=== PATIENT | male | born 1940 | race Caucasian/White ===

== ENCOUNTER 2018-01-17 11:01 | Day surgery (SDC) | payer MEDICARE, OTHER ==
[2018-01-17] MEDS ORDERED: Ringers Lactate 1,000 ML IV ONE ×2 (11:24→14:09)
[2018-01-17] MEDS ORDERED: GENTAMICIN 80 MG/100 ML BAG 80 MG/100 ML BAG IV ONE (11:25)
[2018-01-17] MEDS ORDERED: LABETALOL HCL 100 MG/20 ML ONE (11:37)
[2018-01-17] MEDS ORDERED: LABETALOL HCL 100 MG/20 ML IV ONE (12:03)
[2018-01-17] MEDS ORDERED: PROPOFOL 200 MG/20 ML VIAL IV ONE (12:56)
[2018-01-17] MEDS ORDERED: FENTANYL CITR 100 MCG/2 ML ONE (12:57)
[2018-01-17] MEDS ORDERED: LIDOCAINE 2% MPF 5 ML VIAL ONE (12:57)
[2018-01-17] MEDS ORDERED: ONDANSETRON 4 MG/2 ML VIAL ONE (12:58)
[2018-01-17 14:29] VITALS: TEMP 97.1; O2SAT 100
[2018-01-17 14:53] VITALS: BP 188/76
== END 2018-01-17 14:45 | disposition home or self-care (01) ==
LOC: OR 11:01
PROVIDERS: ATTEND Urology
DX: R39.14 Feeling of incomplete bladder emptying; Z87.891 Personal history of nicotine dependence; Z82.3 Family history of stroke; Z98.52 Vasectomy status; Z80.0 Family history of malignant neoplasm of digestive organs; N40.1 Benign prostatic hyperplasia with lower urinary tract symptoms; K51.90 Ulcerative colitis, unspecified, without complications; N39.0 Urinary tract infection, site not specified; I10 Essential (primary) hypertension; R35.0 Frequency of micturition
CPT/HCPCS: 52441; 52442 ×4; J1580; J2405; J3010

== ENCOUNTER 2021-01-14 14:05 | Emergency (ER) | payer OTHER ==
--- OUTSIDE RECORDS SUMMARY | 2021-01-14 14:09 | XMS REPORT | Continuity of Care Document ---
:1940 Author Organization [facility] t Address [address] [place] [address] Care Team Providers Name Role Phone Unavailable Unavailable Unavailable Problems This patient has no known problems. Allergies, Adverse Reactions, Alerts This patient has no known allergies or adverse reactions. Medications Ordered Filled Start Stop Current Ordering Indication Dosage Frequency Signature Comments Components Source Medication Medication Date Date Medication? Clinician (SIG) Name Name Nystatin Nystatin 2020- No Na Rosenbaum [address] [facility] 00 :00 affected l area Outpat[facility] ent Clinics Nystatin Nystatin 2019- No Na Rosenbaum [address] 605-03 [facility] l [facility] Clinics Fluconazole Fluconazole 2018- 2019- No Na Rosenbaum [address] [facility] 04-05 [facility] l [facility] ent Clinics Atorvastati Atorvastati 2018-0 Yes Na Rosenbaum [address] [facility] n Calcium n Calcium 5-25 [facility]: [facility] l Outpati ent Clinics Aspirin Aspirin Yes Na Rosenbaum [address] [facility] Lisinopril- Lisinopril- Yes Na Rosenbaum [address] [facility] Hydrochloro Hydrochloro L [facility] - thiazide thiazide [facility] Amlodipine Amlodipine Yes Na Rosenbaum [address] [facility] Besylate Besylate [facility] Atorvastati Atorvastati Yes Na Rosenbaum [address] [facility] n Calcium n Calcium [facility] l Outpati ent Clinics Lisinopril Lisinopril Yes Na Rosenbaum [address] [facility] Outpati ent Clinics Amlodipine Amlodipine Yes Na Rosenbaum [address] [facility] [address] Besylate Besylate [facility] Outpati ent Clinics Clobetasol Clobetasol Yes Na Rosenbaum APPLY TO [facility] Propionate Propionate [facility] - AFFECTED [facility] AREA TWICE l DAILY FOR Outpati 90 DAYS ent DIRECTED Clinics Sulfasalazi Sulfasalazi 2020- Na Rosenbaum take [address] [facility] ne ne 12-30 tablets by [facility] - 00:00 mouth [facility] :00 twice l daily Outpati ent Clinics Procedures This patient has no known procedures. Encounters Start End Encounter Admission Attending Care Care Encounter Source Date/Time Date/Time Type Type Clinicians Facility Department ID 2020-10-02 2020-10-[address] [facility] [id number] 2020-10-02 2020-10-[address] [facility] [id number] [facility] 2020-05-20 2020-05-20 [facility] [id number] [facility] [address] 13:53:00 13:53:00 [facility] Medicine Outpati ent Clinics 2020-04-22 2020-04-22 [facility] [id number] [address] 14:52:00 14:52:00 t [facility] Medicine Medicine Outpati ent Clinics 2020-04-03 2020-04-03 [facility] [id number] 08:40:00 08:40:00 t [facility] Medicine Outpati ent Clinics 2019-10-04 2019-10-04 [facility] [id number] [address] 08:20:00 08:20:00 [employer] [facility] Medicine Outpati ent Clinics 2019-04-05 2019-04-05 [facility] [id number] [facility] [address] 16:20:00 16:20:00 t [place] [email or web address] [facility] [employer] [facility] 2019-02-25 2019-02-25 [facility] [id number] 15:17:00 15:17:00 t [place] [email or web address] [facility] - Drive [facility] ent Clinics 2018-07-25 2018-07-25 [facility] [id number] [address] 14:00:00 14:00:00 t [facility] - and Joint Joint [facility] a Clinic of [facility] ent Clinics 2018-03-23 2018-03-23 [facility] [id number] 08:15:00 08:15:00 t [facility] ent Clinics Results This patient has no known results.
--- NOTE | 2021-01-14 14:40 | RAD REPORT ---
EXAM DESCRIPTION: CT - Head Brain Wo Cont - 01/14/2021 2:33 pm CLINICAL HISTORY: DIZZINESS, head trauma, laceration to the top left-sided head COMPARISON: HEAD BRAIN W O CONTRAST dated 11/30/2011 TECHNIQUE: Axial 5 mm thick images of the head were obtained without IV contrast. All CT scans are performed using dose optimization technique as appropriate and may include automated exposure control or mA/KV adjustment according to patient size. FINDINGS: No intracranial hemorrhage, mass, edema or shift of mid-line structures. No acute cortical based infarction, cortical edema or sulcal effacement. Atrophy changes are mild and similar to paige rison. Chronic ischemic changes also appear to be minimal. Arterial and physiologic calcifications ar e present. No abnormal extra-axial fluid collections. Ventricles are normal. Mastoid air cells and visualized portions of the paranasal sinuses are clear. No acute bony findings. IMPRESSION: Negative non-contrast CT head examination for acute finding. No significant change from comparison.
--- NOTE | 2021-01-14 15:36 | ER ---
Nurse's Notes [facility] Name: Ayad Ruiz Age: 80 yrs Sex: Male : 1940 Arrival Date: 01/14/2021 Time: 14:08 Bed 13 Private MD: Diagnosis: Concussion without loss of consciousness;Superficial injury of head Presentation: 01/14 14:15 Chief complaint: Patient states: Banged head on the light post at the garage yesterday ca1 at 0900. lac on top of L side of head. Didn't feel anything until today, reports lightheaded, feeling woozy. Denies N/V. Denies LOC. Not on blood thinners. Coronavirus screen: Client denies travel out of the [place] in the last 14 days. At this time, the client does not indicate any symptoms associated with coronavirus-19. Ebola Screen: Patient negative for fever greater than or equal to 101.5 degrees Fahrenheit, and additional compatible Ebola Virus Disease symptoms Patient denies exposure to infectious person. Patient denies travel to an Ebola-affected area in the 21 days before illness onset. No symptoms or risks identified at this time. Mechanism of Injury: resulted from. Initial Sepsis Screen: Does the patient meet any 2 criteria? No. Patient's initial sepsis screen is negative. Does the patient have a suspected source of infection? No. Patient's initial sepsis screen is negative. Risk Assessment: Do you want to hurt yourself or someone else? Patient reports no desire to harm self or others. 14:15 Method Of Arrival: Ambulatory ca1 14:15 Acuity: CHANDLER 4 ca1 Historical: - Allergies: 14:21 No Known Allergies; ca1 - Home Meds: 14:21 lisinopril oral [Active]; Lipitor Oral [Active]; Sulfazine oral oral [Active]; ca1 amlodipine oral [Active]; - PMHx: 14:21 Hypertension; ulcerative colitis; ca1 - PSHx: 14:21 None; ca1 - Immunization history:: Client reports receiving the 2nd dose of the Covid vaccine, Date received: December 08, 2020 Pneumococcal vaccine is up to date, Flu vaccine is up to date. - Social history:: Smoking status: Patient denies any tobacco usage or history of. Screenin:41 Abuse screen: Denies threats or abuse. Denies injuries from another. Nutritional jl7 screening: No deficits noted. Tuberculosis screening: No symptoms or risk factors identified. Fall Risk None identified. Assessment: 15:20 General: Appears in no apparent distress. uncomfortable, Behavior is calm, cooperative, jl7 appropriate for age. Pain: Complains of pain in left side of the back of head. Neuro: Level of Consciousness is awake, alert, obeys commands, Oriented to person, place, time, situation. Cardiovascular: Patient's skin is warm and dry. Respiratory: Airway is patent Respiratory effort is even, unlabored, Respiratory pattern is regular, symmetrical. Derm: Skin is pink, warm \T\ dry. Vital Signs: 14:15 BP 184 / 85; Pulse 100; Resp 16 S; Temp 97.3(TE); Pulse Ox 98% on R/A; Weight 72.57 kg ca1 (R); Height 5 ft. 11 in. (180.34 cm) (R); Pain 0/10; 14:15 Body Mass Index 22.32 (72.57 kg, 180.34 cm) ca1 [place] Coma Score: 14:15 Eye Response: spontaneous(4). Verbal Response: oriented(5). Motor Response: obeys [facility] commands(6). Total: 15. 15:20 Eye Response: spontaneous(4). Verbal Response: oriented(5). Motor Response: obeys [facility] commands(6). Total: 15. NIH Stroke Scale Scores: 15:19 NIHSS Score: 0 [facility] ED Course: 14:08 Patient arrived in ED. bg2 14:19 Triage completed. ca1 14:21 Arm band placed on right wrist. ca1 14:33 CT Head Brain wo Cont In Process Unspecified. EDMS 15:01 Tariq Jacques PA is PHCP. jr8 15:01 Willie Carrasco MD is Attending Physician. jr8 15:17 Jason Trevizo RN is Primary Nurse. jl7 15:30 Patient has correct armband on for positive identification. Bed in low position. Call jl7 light in reach. Side rails up X 1. 15:42 No provider procedures requiring assistance completed. Patient did not have IV access jl7 during this emergency room visit. Administered Medications: No medications were administered Outcome: 15:35 Discharge ordered by . jr8 15:42 Discharged to home ambulatory. jl7 15:42 Condition: stable 15:42 Discharge instructions given to patient, Instructed on discharge instructions, follow up and referral plans. Demonstrated understanding of instructions, follow-up care. 15:43 Patient left the ED. jl7 NIH Stroke Scale - NIH Stroke Score Date: 01/14/2021 Time: 15:19 Total Score = 0 1a. Level of Consciousness (LOC) - 0(Alert) 1b. Level of Consciousness (LOC) (Year \T\ Age) - 0(Both) 1c. 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 Best Gaze (Lateral Gaze Paresis) - 0(Normal) 3. Visual Field Loss - 0(No visual loss) 4. Facial Palsy - 0(Normal) 5a. Left Arm: Motor (10-second hold) - 0(No drift) 5b. Right Arm: Motor (10-second hold) - 0(No drift) 6a. Left Leg: Motor (5-second hold - always test supine) - 0(No drift) 6b. Right Leg: Motor (5-second hold - always test supine) - 0(No drift) 7. Limb Ataxia (finger/nose \T\ heel/archuleta - test with eyes open) - 0(Absent) 8. Sensory Loss (pinprick arms/legs/face) - 0(Normal) 9. Best Language: Aphasia (description/naming/reading) - 0(No aphasia) 10. Dysarthria (speech clarity - read or repeat words) - 0(Normal) 11. Extinction and Inattention (visual/tactile/auditory/spatial/personal) - 0(No abnormality) Initials: pedrito Signatures: Dispatcher [employer] EDMS Tariq Jacques PA PA jr8 Naz Rapp2 Jason Trevizo RN RN jl7 Kamila Freeman RN RN ca1
--- NOTE | 2021-01-14 15:37 | EDPHYS ---
Physician Documentation [facility] Name: Ayad Ruiz Age: 80 yrs Sex: Male : 1940 Arrival Date: 01/14/2021 Time: 14:08 Bed 13 Private MD: ED Physician Willie Carrasco HPI: 01/14 15:34 This 80 yrs old Male presents to ER via Ambulatory with complaints of Head jr8 Injury-Adult. 15:16 The patient or guardian reports abrasion. The complaints affect the left side of the jr8 back of head. Patient reports stepping up on stool and hitting head on light. He reports a laceration on crown but bleeding was easily controlled. He denies blood thinner use, LOC, or confusion. He reports feeling "lightheaded" but no other symptoms. . Historical: - Allergies: 14:21 No Known Allergies; ca1 - Home Meds: 14:21 lisinopril oral [Active]; Lipitor Oral [Active]; Sulfazine oral oral [Active]; ca1 amlodipine oral [Active]; - PMHx: 14:21 Hypertension; ulcerative colitis; ca1 - PSHx: 14:21 None; ca1 - Immunization history:: Client reports receiving the 2nd dose of the Covid vaccine, Date received: December 08, 2020 Pneumococcal vaccine is up to date, Flu vaccine is up to date. - Social history:: Smoking status: Patient denies any tobacco usage or history of. ROS: 15:17 Cardiovascular: Negative for chest pain, palpitations, and edema, Respiratory: Negative jr8 for shortness of breath, cough, wheezing, and pleuritic chest pain, Abdomen/GI: Negative for abdominal pain, nausea, vomiting, diarrhea, and constipation, Back: Negative for injury and pain, Neuro: Negative for headache, weakness, numbness, tingling, and seizure. 15:17 Skin: Positive for laceration(s), of the scalp. 15:34 All other systems are negative. jr8 Exam: 15:19 Chest/axilla: Normal chest wall appearance and motion. Nontender with no deformity. jr8 No lesions are appreciated. Cardiovascular: Regular rate and rhythm with a normal S1 and S2. No gallops, murmurs, or rubs. Normal PMI, no JVD. No pulse deficits. Respiratory: Lungs have equal breath sounds bilaterally, clear to auscultation and percussion. No rales, rhonchi or wheezes noted. No increased work of breathing, no retractions or nasal flaring. Abdomen/GI: Soft, non-tender, with normal bowel sounds. No distension or tympany. No guarding or rebound. No evidence of tenderness throughout. Back: No spinal tenderness. No costovertebral tenderness. Full range of motion. MS/ Extremity: Pulses equal, no cyanosis. Neurovascular intact. Full, normal range of motion. 15:19 Head/face: Noted is a laceration(s), that is superficial, that is linear, of the left side of the back of head. 15:19 Neuro: Orientation: is normal, Mentation: is normal, Memory: is normal, Cerebellar function: Romberg testing slight sway, Motor: moves all fours, Gait: is steady. 15:34 Neck: Trachea midline, no thyromegaly or masses palpated, and no cervical jr8 lymphadenopathy. Supple, full range of motion without nuchal rigidity, or vertebral point tenderness. No Meningismus. Vital Signs: 14:15 BP 184 / 85; Pulse 100; Resp 16 S; Temp 97.3(TE); Pulse Ox 98% on R/A; Weight 72.57 kg ca1 (R); Height 5 ft. 11 in. (180.34 cm) (R); Pain 0/10; 14:15 Body Mass Index 22.32 (72.57 kg, 180.34 cm) ca1 NIH Stroke Scale Scores: 15:19 NIHSS Score: 0 jr8 [place] Coma Score: 14:15 Eye Response: spontaneous(4). Verbal Response: oriented(5). Motor Response: obeys ca1 commands(6). Total: 15. 15:20 Eye Response: spontaneous(4). Verbal Response: oriented(5). Motor Response: obeys jr8 commands(6). Total: 15. MDM: 15:01 Patient medically screened. jr8 15:20 Data reviewed: vital signs, nurses notes, radiologic studies. Data interpreted: Cardiac jr8 monitor: rate is 100 beats/min, rhythm is normal sinus rhythm, Pulse oximetry: on room air is 98 %. Interpretation: normal. Special discussion: Based on the patient's history, exam and DX evaluation, there is no indication for emergent intervention or inpatient [place]. It is understood by the patient/guardian that if the SXs persist or worsen they need to return immediately for re-evaluation. 15:30 Counseling: I had a detailed discussion with the patient and/or guardian regarding: the jr8 historical points, exam findings, and any diagnostic results supporting the discharge/admit diagnosis, radiology results, the need for outpatient follow up, a family practitioner, to return to the emergency department if symptoms worsen or persist or if there are any questions or concerns that arise at home. ED course: discussed with patient that he most likely has mild concussive symptoms. would relax for next few days. Needs PCP f/u. No strenuous activity . 01/14 14:25 Order name: CT Head Brain wo Cont; Complete Time: 15:01 kb Administered Medications: No medications were administered Disposition: 18:30 Co-signature as Attending Physician, Willie Carrasco MD I agree with the assessment and tw4 plan of care. Disposition: 01/14/21 15:35 Discharged to Home. Impression: Concussion without loss of consciousness, Superficial injury of head. - Condition is Stable. - Discharge Instructions: Concussion, Adult, Post-Concussion Syndrome. - Medication Reconciliation Form, Thank You Letter, Antibiotic Education, Prescription Opioid Use form. - Follow up: Private Physician; When: 2 - 3 days; Reason: Recheck today's complaints, Continuance of care, Re-evaluation by your physician. - Problem is new. - Symptoms have improved. NIH Stroke Scale - NIH Stroke Score Date: 01/14/2021 Time: 15:19 Total Score = 0 1a. Level of Consciousness (LOC) - 0(Alert) 1b. Level of Consciousness (LOC) (Year \\T\\ Age) - 0(Both) 1c. 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 Best Gaze (Lateral Gaze Paresis) - 0(Normal) 3. Visual Field Loss - 0(No visual loss) 4. Facial Palsy - 0(Normal) 5a. Left Arm: Motor (10-second hold) - 0(No drift) 5b. Right Arm: Motor (10-second hold) - 0(No drift) 6a. Left Leg: Motor (5-second hold - always test supine) - 0(No drift) 6b. Right Leg: Motor (5-second hold - always test supine) - 0(No drift) 7. Limb Ataxia (finger/nose \\T\\ heel/archuleta - test with eyes open) - 0(Absent) 8. Sensory Loss (pinprick arms/legs/face) - 0(Normal) 9. Best Language: Aphasia (description/naming/reading) - 0(No aphasia) 10. Dysarthria (speech clarity - read or repeat words) - 0(Normal) 11. Extinction and Inattention (visual/tactile/auditory/spatial/personal) - 0(No abnormality) Initials: jr8 Signatures: Dispatcher [employer] EDMS Tariq Jacques PA PA jr8 Jason Trevizo RN RN jl7 Willie Carrasco MD MD tw4 Kamila Freeman RN RN ca1 Corrections: (The following items were deleted from the chart) 15:36 15:35 01/14/2021 15:35 Discharged to Home. Impression: Concussion without loss jr8 of consciousness. Condition is Stable. Forms are Medication Reconciliation Form, Thank You Letter, Antibiotic Education, Prescription Opioid Use. Follow up: Private Physician; When: 2 - 3 days; Reason: Recheck today's complaints, Continuance of care, Re-evaluation by your physician. Problem is new. Symptoms have improved. jr8 15:43 15:36 01/14/2021 15:35 Discharged to Home. Impression: Concussion without loss jl7 of consciousness; Superficial injury of head. Condition is Stable. Discharge Instructions: Concussion, Adult, Post-Concussion Syndrome. Forms are Medication Reconciliation Form, Thank You Letter, Antibiotic Education, Prescription Opioid Use. Follow up: Private Physician; When: 2 - 3 days; Reason: Recheck today's complaints, Continuance of care, Re-evaluation by your physician. Problem is new. Symptoms have improved. jr8
[2021-01-14 15:54] VITALS: BP 184/85; TEMP 97.3; O2SAT 98
== END 2021-01-14 15:43 | disposition home or self-care (01) ==
LOC: ER 14:05
DX: S06.0X0A Concussion without loss of consciousness, initial encounter (principal); W22.8XXA Striking against or struck by other objects, initial encounter; Y93.89 Activity, other specified; Y92.9 Unspecified place or not applicable; I10 Essential (primary) hypertension
CPT/HCPCS: 70450; 99283

== ENCOUNTER 2021-03-18 12:38 | Emergency (ER) | payer OTHER ==
--- OUTSIDE RECORDS SUMMARY | 2021-03-18 12:40 | XMS REPORT | Continuity of Care Document ---
:1940 Author Organization [facility] t Address [address] [place] [address] Care Team Providers Name Role Phone Unavailable [...] L ukes - thiazide thiazide [facility] Amlodipine Amlodipine Yes Na Rosenbaum [address] [facility] Besylate Besylate [facility] Atorvastati Atorvastati Yes Na Rosenbaum [address] [facility] n Calcium n Calcium [facility] l Outpati ent Clinics Lisinopril Lisinopril Yes Na Rosenbaum [address] [facility] Clinics Amlodipine Amlodipine Yes Na Rosenbaum [address] [facility] [address] Bes[address] [facility] Outpat[facility] ent Clinics Clobetasol Clobetasol Yes Na Rosenbaum APPLY TO [facility] Propionate Propionate [facility] - [facility] AREA TWICE l DAILY FOR Outpati 90 DAYS ent DIRECTED Clinics Sulfasalazi Sulfasalazi 2019- Na Rosenbaum take [address] [facility] ne ne 12-30 tablets by [facility] - 00:00 mouth Memoria :00 twice l daily Outpati ent Clinics Procedures This patient has no known procedures. Encounters Start End Encounter Admission Attending Care Care Encounter Source Date/Time Date/Time Type Type Clinicians Facility Department ID 2021-02-04 2021-02-04 [facility] [id number] [facility] 2020-10-02 2020-10-02 [facility] [id number] [facility] 2020-10-02 2020-10-02 [facility] [id number] [facility] 2020-05-20 2020-05-20 [facility] [id number] [facility] 13:53:00 13:53:[address] [facility] Medicine Outpati ent Clinics 2020-04-22 2020-04-22 [facility] [id number] 14:52:00 14:52:[address] [facility] Medicine Outpati ent Clinics 2020-04-03 2020-04-03 [facility] [id number] [facility] 08:40:00 08:40:[address] [facility] Medicine Outpati ent Clinics 2019-10-04 2019-10-04 [facility] [id number] 08:20:00 08:20:00 [place] [employer] [facility] 2019-04-05 2019-04-05 [facility] [id number] 16:20:00 16:20:00 [place] [employer] [facility] 2019-02-25 2019-02-25 [facility] [id number] [address] 15:17:00 15:17:00 [place] [employer] [facility] 2018-07-25 2018-07-25 [facility] [id number] 14:00:00 14:00:00 t [facility] a Clinic of [facility] ent Clinics 2018-03-23 2018-03-23 [facility] [id number] 08:15:00 08:15:00 t [facility] ent Clinics Results This patient has no known results.
[2021-03-18] MEDS ORDERED: TETANUS & DIPHTHERIA TOX,ADULT 0.5 ML VIAL ONE (13:24)
[2021-03-18] MEDS ORDERED: LIDOCAINE 1% MPF 5 ML VIAL ONE (13:24)
[2021-03-18] MEDS ORDERED: BUPIVACAINE 0.5% PF 10 ML VIAL ONE (13:24)
--- NOTE | 2021-03-18 14:30 | RAD REPORT ---
EXAM DESCRIPTION: RAD - Hand Left 3 View - 03/18/2021 2:23 pm CLINICAL HISTORY: PAIN, traumatic laceration to the fingers COMPARISON: Left hand August 2016 FINDINGS: Soft tissue laceration changes are present at the tip of the third and fourth digits. Ther e is comminuted fracture of the third distal phalanx. No significant angulation or distraction of the tuft fracture fragments. Minimal fracture deformity of the tuft distal fourth digit present. 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 No metallic foreign bodies. IMPRESSION: Comminuted fracture without significant distraction or angulation of the fracture fragme nts third distal phalanx. Tuft fracture fourth distal phalanx without distraction or angulation.
--- NOTE | 2021-03-18 15:02 | EDPHYS ---
Physician Documentation [facility] Name: Ayad Ruiz Age: 80 yrs Sex: Male : 1940 Arrival Date: 03/18/2021 Time: 12:53 Bed 8 Private MD: ED Physician Jaquan Valera HPI: 03/18 13:16 This 80 yrs old Male presents to ER via EMS with complaints of Laceration To Hand. 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 The injury was accidental. The laceration(s) is(are) located on the palmar aspect of distal phalanx of left middle finger and palmar aspect of distal phalanx of left ring finger. Onset: The symptoms/episode began/occurred just prior to arrival. Associated signs and symptoms: Pertinent positives: near syncope, Pertinent negatives: deformity, dizziness, heavy bleeding, loss of consciousness, numbness distal to injury, suspected foreign body. The patient has not experienced similar symptoms in the past. The patient has not recently seen a physician. Pt reports he put his hand on the housing of the mower and his fingers went under it getting cut by the blade. Historical: - Allergies: 12:57 No Known Allergies; jl7 - PMHx: 12:57 Hypertension; ulcerative colitis; jl7 - Immunization history:: Adult Immunizations up to date, Last tetanus immunization: < 5 years ago. - Social history:: Smoking status: Patient denies any tobacco usage or history of. ROS: 13:24 Constitutional: Negative for fever, chills, and weight loss. kb 13:24 MS/extremity: Positive for laceration, pain, of the palmar aspect of distal phalanx of left middle finger and palmar aspect of distal phalanx of left ring finger. 13:24 Skin: Positive for laceration(s), of the palmar aspect of distal phalanx of left middle finger and palmar aspect of distal phalanx of left ring finger. 13:24 Neuro: Positive for near syncope. 13:24 All other systems are negative. Exam: 13:24 Constitutional: This is a well developed, well nourished patient who is awake, alert, kb and in no acute distress. Head/Face: Normocephalic, atraumatic. ENT: Moist Mucous membranes Respiratory: Respirations even and unlabored. No increased work of breathing, no retractions or nasal flaring. Neuro: Awake and alert, GCS 15, oriented to person, place, time, and situation. Moves all extremities. Normal gait. Psych: Awake, alert, with orientation to person, place and time. Behavior, mood, and affect are within normal limits. 13:24 Musculoskeletal/extremity: Extremities: grossly normal except: noted in the palmar aspect of distal phalanx of left ring finger: laceration, pain, noted in the palmar aspect of distal phalanx of left middle finger: laceration, pain, ROM: intact in all extremities, Circulation is intact in all extremities. Sensation intact. 14:59 Skin: injury, laceration(s), the wound is approximately 3 cm(s), of the palmar aspect kb of distal phalanx of left middle finger, the second wound is approximately 3 cm(s), of the palmar aspect of distal phalanx of left ring finger. Vital Signs: 12:54 BP 116 / 63; Pulse 66; Resp 17 S; Temp 97.8(O); Pulse Ox 99% on R/A; Weight 72.57 kg jl7 (R); Height 5 ft. 11 in. (180.34 cm); Pain 0/10; 13:12 BP 114 / 62; Pulse 63; Resp 15; Pulse Ox 99% ; jl7 12:54 Body Mass Index 22.32 (72.57 kg, 180.34 cm) jl7 Procedures: 13:23 Nerve block: (digital) of palmar aspect of proximal phalanx of left ring finger and kb palmar aspect of proximal phalanx of left middle finger Medication: Lidocaine 1% without epinephrine Marcaine 0.5%, Amount: 8 mls were injected, Effect: the patient has resolution of the pain, Set up for procedure. Performed by Merry WYNN Patient tolerated well. Laceration: 14:57 Wound Repair of 3cm ( 1.2in ) subcutaneous laceration to palmar aspect of distal kb phalanx of left ring finger. Irregularly shaped.. Skin/tissue flap noted.. Distal neuro/vascular/tendon intact. Wound prep: Extensive cleansing with betadine by me, Wound irrigation with saline by me, Copious irrigation. Skin closed with 10 5-0 Prolene using simple sutures and sterile technique. Patient tolerated well. 14:57 Wound Repair of 3cm ( 1.2in ) subcutaneous laceration to palmar aspect of distal kb phalanx of left middle finger. Irregularly shaped.. Skin/tissue flap noted.. Distal neuro/vascular/tendon intact. Wound prep: Extensive cleansing with betadine by me, Wound irrigation with saline by me, Copious irrigation. Skin closed with 9 5-0 Prolene using simple sutures and sterile technique. Patient tolerated well. MDM: 13:00 Patient medically screened. kb 13:15 Data reviewed: vital signs, nurses notes. Data interpreted: Pulse oximetry: on room air kb is 99 %. 15:00 Counseling: I had a detailed discussion with the patient and/or guardian regarding: the kb historical points, exam findings, and any diagnostic results supporting the discharge/admit diagnosis, radiology results, the need for outpatient follow up, a family practitioner, to return to the emergency department if symptoms worsen or persist or if there are any questions or concerns that arise at home. 03/18 13:09 Order name: Hand Left 3 View XRAY; Complete Time: 14:56 kb 03/18 13:03 Order name: Prolene, Sutures; Complete Time: 15:01 kb 03/18 13:03 Order name: Dressing - Wound; Complete Time: 15:01 kb 03/18 13:03 Order name: Gloves, Sterile; Complete Time: 13:12 kb 03/18 13:03 Order name: Setup Suture Tray; Complete Time: 13:12 kb 03/18 14:56 Order name: Finger Splint; Complete Time: 15:41 kb Administered Medications: 13:11 Drug: Tetanus-Diphtheria Toxoid Adult 0.5 ml {Upholsterer Outside: [employer]. Exp: jl7 04/04/2022. Lot #: [id number]. } Route: IM; Site: right deltoid; 13:51 Follow up: Response: No adverse reaction jl 13:51 Drug: Bupivacaine (0.5 %) 1 vials {Note: administered by ERP.} Volume: 10 ml; Route: jl7 Infiltration; 13:52 Drug: Lidocaine (1 %) 1 vials {Note: administered by ERP.} Volume: 5 ml; Route: jl7 Infiltration; 15:05 Drug: Ancef (cefazolin) 1 grams Route: IVPB; Site: right antecubital; jd3 15:45 Follow up: Response: No adverse reaction; IV Status: Completed infusion jd3 Disposition: 16:23 Co-signature as Attending Physician, Jaquan Valera MD. rn Disposition: 03/18/21 15:01 Discharged to Home. Impression: Laceration without foreign body of left ring finger without damage to nail, Laceration without foreign body of left middle finger without damage to nail, Nondisplaced fracture of distal phalanx of left ring finger, Nondisplaced fracture of distal phalanx of left middle finger. - Condition is Stable. - Discharge Instructions: Finger Fracture, [id number], Laceration Care, Adult, [id number]. - Prescriptions for Keflex 500 mg Oral Capsule - take 1 capsule by ORAL route every 8 hours for 10 days; 30 capsule. Tramadol 50 mg Oral Tablet - take 1 tablet by ORAL route every 8 hours as needed; 12 tablet. - Medication Reconciliation Form, Thank You Letter, Antibiotic Education, Prescription Opioid Use form. - Follow up: Emergency Department; When: As needed; Reason: Worsening of condition. Follow up: Private Physician; When: 2 - 3 days; Reason: Recheck today's complaints, Continuance of care, Re-evaluation by your physician. Follow up: Fitz Amato MD; When: 2 - 3 days; Reason: Recheck today's complaints. Signatures: Dispatcher [employer] EDMS Merry Dominguez, PRE PRESS MANAGER-C PRE PRESS MANAGER-Ckb Jaquan Valera MD MD rn Leal, Jahala, RN RN jl7 Luis Pal RN RN jd3 Corrections: (The following items were deleted from the chart) 15:00 14:57 Wound Repair of 3cm ( 1.2in ) subcutaneous laceration to palmar aspect of kb proximal phalanx of left ring finger. Irregularly shaped.. Skin/tissue flap noted.. Distal neuro/vascular/tendon intact. Wound prep: Extensive cleansing with betadine by me, Wound irrigation with saline by me, Copious irrigation. Skin closed with 10 5-0 Prolene using simple sutures and sterile technique. Patient tolerated well. kb 15:00 14:57 Wound Repair of 3cm ( 1.2in ) subcutaneous laceration to palmar aspect of kb proximal phalanx of left middle finger. Irregularly shaped.. Skin/tissue flap noted.. Distal neuro/vascular/tendon intact. Anesthesia: Digital block administered with 1% lidocaine. Wound prep: Extensive cleansing with betadine by me, Wound irrigation with saline by me, Copious irrigation. Skin closed with 9 5-0 Prolene using simple sutures and sterile technique. Patient tolerated well. kb 15:02 15:01 03/18/2021 15:01 Discharged to Home. Impression: Laceration without foreign body kb of left ring finger without damage to nail; Laceration without foreign body of left middle finger without damage to nail; Nondisplaced fracture of distal phalanx of left ring finger; Nondisplaced fracture of distal phalanx of left middle finger. Condition is Stable. Forms are Medication Reconciliation Form, Thank You Letter, Antibiotic Education, Prescription Opioid Use. Follow up: Emergency Department; When: As needed; Reason: Worsening of condition. Follow up: Private Physician; When: 2 - 3 days; Reason: Recheck today's complaints, Continuance of care, Re-evaluation by your physician. kb 15:47 15:02 03/18/2021 15:01 Discharged to Home. Impression: Laceration without foreign body jd3 of left ring finger without damage to nail; Laceration without foreign body of left middle finger without damage to nail; Nondisplaced fracture of distal phalanx of left ring finger; Nondisplaced fracture of distal phalanx of left middle finger. Condition is Stable. Forms are Medication Reconciliation Form, Thank You Letter, Antibiotic Education, Prescription Opioid Use. Follow up: Emergency Department; When: As needed; Reason: Worsening of condition. Follow up: Private Physician; When: 2 - 3 days; Reason: Recheck today's complaints, Continuance of care, Re-evaluation by your physician. Follow up: Fitz Amato; When: 2 - 3 days; Reason: Recheck today's complaints. kb
--- NOTE | 2021-03-18 15:02 | ER ---
Nurse's Notes [facility] Name: Ayad Ruiz Age: 80 yrs Sex: Male : 1940 Arrival Date: 03/18/2021 Time: 12:53 Bed 8 Private MD: Diagnosis: Laceration without foreign body of left ring finger without damage to nail;Laceration without foreign body of left middle finger without damage to nail;Nondisplaced fracture of distal phalanx of left ring finger;Nondisplaced fracture of distal phalanx of left middle finger Presentation: 03/18 12:54 Chief complaint: EMS states: He was messing with the mower, reached under it and the jl7 blades cut his left middle and ring finger. Went into the house and reported he almost passed out. BP in route was 90's systolic x1. Coronavirus screen: Client denies travel out of the [place] in the last 14 days. At this time, the client does not indicate any symptoms associated with coronavirus-19. Ebola Screen: No symptoms or risks identified at this time. Complicating Factors: There are no complicating factors for this patient. Initial Sepsis Screen: Does the patient meet any 2 criteria? No. Patient's initial sepsis screen is negative. Does the patient have a suspected source of infection? No. Patient's initial sepsis screen is negative. Risk Assessment: Do you want to hurt yourself or someone else? Patient reports no desire to harm self or others. Onset of symptoms was March 18, 2021. Care prior to arrival: Bleeding of injury controlled. Medication(s) given: Normal saline infusion, 200 mL IV initiated. 18 GA, in the right antecubital area. 12:54 Method Of Arrival: EMS: [facility] jl7 12:54 Acuity: CHANDLER 3 jl7 Triage Assessment: 12:57 General: Appears in no apparent distress. uncomfortable, Behavior is calm, cooperative, jl7 appropriate for age. Pain: Denies pain. Neuro: Level of Consciousness is awake, alert, obeys commands, Oriented to person, place, time, situation. Cardiovascular: Patient's skin is warm and dry. Respiratory: Airway is patent Respiratory effort is even, unlabored, Respiratory pattern is regular, symmetrical. Derm: Skin is pink, warm \T\ dry. Injury Description: Laceration sustained to palmar aspect of distal phalanx of left ring finger and palmar aspect of distal phalanx of left middle finger is 0.5 to 2.5 cm long, was sustained less than 30 minutes ago. is bleeding a small amount. Historical: - Allergies: 12:57 No Known Allergies; jl7 - PMHx: 12:57 Hypertension; ulcerative colitis; jl7 - Immunization history:: Adult Immunizations up to date, Last tetanus immunization: < 5 years ago. - Social history:: Smoking status: Patient denies any tobacco usage or history of. Screenin:12 Abuse screen: Denies threats or abuse. Denies injuries from another. Nutritional jl7 screening: No deficits noted. Tuberculosis screening: No symptoms or risk factors identified. Fall Risk IV access (20 points). Total Anthony Fall Scale indicates No Risk (0-24 pts). Assessment: 13:12 General: See triage assessment. jl7 15:45 Reassessment: Patient appears in no apparent distress at this time. Patient and/or jd3 family updated on plan of care and expected duration. Pain level reassessed. Patient is alert, oriented x 3, equal unlabored respirations, skin warm/dry/pink. wound care performed and splint applied. Patient states feeling better. 15:46 Musculoskeletal: Circulation, motion, and sensation intact. Range of motion: intact in jd3 all extremities. Vital Signs: 12:54 BP 116 / 63; Pulse 66; Resp 17 S; Temp 97.8(O); Pulse Ox 99% on R/A; Weight 72.57 kg jl7 (R); Height 5 ft. 11 in. (180.34 cm); Pain 0/10; 13:12 BP 114 / 62; Pulse 63; Resp 15; Pulse Ox 99% ; jl7 12:54 Body Mass Index 22.32 (72.57 kg, 180.34 cm) jl7 ED Course: 12:53 Patient arrived in ED. jl7 12:57 Triage completed. jl7 12:57 Arm band placed on right wrist. jl7 13:00 Merry Dominguez FNP-C is [facility]. kb 13:00 Jaquan Valera MD is Attending Physician. kb 13:11 Jason Trevizo RN is Primary Nurse. jl7 13:12 Patient has correct armband on for positive identification. Bed in low position. Call lara light in reach. Side rails up X 1. laboratory monitor on. Pulse ox on. NIBP on. 14:23 Hand Left 3 View XRAY In Process Unspecified. EDMS 14:58 Assist provider with laceration repair on palmar aspect of distal phalanx of left jl7 middle finger and palmar aspect of distal phalanx of left ring finger that was 2.5 cm. or less using sutures. Set up tray. Performed by Merry WYNN Dressed with band aid, Patient tolerated well. 15:02 Fitz Amato MD is Referral Physician. kb 15:46 IV discontinued, intact, bleeding controlled, No redness/swelling at site. Pressure jd3 dressing applied. Administered Medications: 13:11 Drug: Tetanus-Diphtheria Toxoid Adult 0.5 ml {Certified Credit Counselor: [employer]. Exp: jl7 04/04/2022. Lot #: [id number]. } Route: IM; Site: right deltoid; 13:51 Follow up: Response: No adverse reaction jl7 13:51 Drug: Bupivacaine (0.5 %) 1 vials {Note: administered by ERP.} Volume: 10 ml; Route: jl7 Infiltration; 13:52 Drug: Lidocaine (1 %) 1 vials {Note: administered by ERP.} Volume: 5 ml; Route: jl7 Infiltration; 15:05 Drug: Ancef (cefazolin) 1 grams Route: IVPB; Site: right antecubital; jd3 15:45 Follow up: Response: No adverse reaction; IV Status: Completed infusion jd3 Outcome: 15:01 Discharge ordered by . kb 15:46 Discharged to home via wheelchair, with family. jd3 15:46 Condition: stable 15:46 Discharge instructions given to patient, family, Instructed on discharge instructions, follow up and referral plans. medication usage, Demonstrated understanding of instructions, follow-up care, medications, Prescriptions given X 2. 15:47 Patient left the ED. jd3 Signatures: Dispatcher [employer] EDMS Merry Dominguez FNP-C FNP-Ckb Leal, Jahala, RN RN jl7 Luis Pal RN RN jd3 Corrections: (The following items were deleted from the chart) 13:00 12:54 Chief complaint: EMS states: He was messing with the mower, reached under it and jl7 the blades cut his left middle and ring finger jl7 13:00 12:54 Acuity: CHANDLER 4 jl7 jl7
[2021-03-18] MEDS ORDERED: CEFAZOLIN/SWI 1gm 1 GM/10 ML SYR ONE (15:27)
[2021-03-18 15:52] VITALS: TEMP 97.8; O2SAT 99
[2021-03-18 15:53] VITALS: BP 114/62
== END 2021-03-18 15:47 | disposition home or self-care (01) ==
LOC: ER 12:38
PROC: 0JQK0ZZ Repair Left Hand Subcutaneous Tissue and Fascia, Open Approach (ICD-10-PCS; principal; 2021-03-18)
DX: S61.213A Laceration without foreign body of left middle finger without damage to nail, initial encounter (principal); S62.665A Nondisplaced fracture of distal phalanx of left ring finger, initial encounter for closed fracture; S62.663A Nondisplaced fracture of distal phalanx of left middle finger, initial encounter for closed fracture; W31.89XA Contact with other specified machinery, initial encounter; Y93.89 Activity, other specified; Z23 Encounter for immunization; I10 Essential (primary) hypertension
CPT/HCPCS: 96365; 73130; 90471; 90714; 64450; 99284; 12002; J0690

== ENCOUNTER 2024-02-22 06:30 | Day surgery (SDC) | payer OTHER ==
[2024-02-20 15:12] LABS: Absolute Basophils 0.1 K/uL (0-0.5); Absolute Eosinophils 0.4 K/uL (0-0.5); Absolute Lymphocytes (CBC) 1.1 K/uL (0.7-4.9); Absolute Monocytes 0.8 K/uL (0.1-1.3); Absolute Neutrophil 4.8 K/uL (1.8-8.0); Basophils % 0.9 % (0-1.3); Eosinophils % 5.1 % (0-4.4); Hematocrit 33.6 % (39.6-49.0); Hemoglobin 11.3 g/dL (13.6-17.9); Lymphocytes % 15.8 % (15.3-44.8); MCH 33.5 pg (27.0-35.0); MCHC 33.8 g/dL (32.0-36.0); MCV 99.3 fL (80-100); MPV 7.9 fL (7.6-11.3); Monocytes % 10.8 % (3.3-12.3); Neutrophils % 67.4 % (41.7-73.7); Platelets 239 thou/uL (152-406); RBC Red Blood Cell Count 3.38 M/uL (4.33-5.43); Red Cell Distribution Width 12.9 % (12.1-15.2)
[2024-02-20 15:19] LABS: Anion Gap 9.2 mEq/L (5.0-15.0); Potassium 4.2 mEq/L (3.5-5.1)
--- NOTE | 2024-02-20 15:22 | RAD REPORT ---
EXAM DESCRIPTION: Viola Mccrary (2 Views)02/20/2024 2:59 pm CLINICAL HISTORY: Preop for cardiac catheterization COMPARISON: 2018 FINDINGS: The lungs appear clear of acute infiltrate. The heart is normal size IMPRESSION: No acute abnormalities displayed
[2024-02-20 21:34] LABS: PT Prothrombin Time 11.6 SECONDS (9.5-12.5)
[2024-02-22] MEDS ORDERED: HEPA 1000U/500MLS 2,000 UNIT/1,000 ML BAG IV ONE (06:47)
[2024-02-22] MEDS ORDERED: MIDAZOLAM HCL 2 MG/2 ML INJ ONE (06:48)
[2024-02-22] MEDS ORDERED: VERAPAMIL HCL 10 MG/4 ML VIAL IV ONE (06:48)
[2024-02-22] MEDS ORDERED: FENTANYL CITR 100 MCG/2 ML ONE (06:48)
[2024-02-22] MEDS ORDERED: ATROPINE SULF 1 MG/10 ML SYR IV ONE (06:48)
[2024-02-22] MEDS ORDERED: LIDOCAINE 1% 20 ML MDV ONE (06:48)
[2024-02-22] MEDS ORDERED: NITROGLYCERIN/D5W 50 MG/250 ML BTL IV ONE (06:48)
[2024-02-22] MEDS ORDERED: HEPARIN 5000 UNIT/ML 1 ML VIAL ONE (06:49)
[2024-02-22] MEDS ORDERED: HEPARIN 10,000 UNIT/10 ML VIAL IV ONE (06:49)
[2024-02-22] MEDS ORDERED: CLOPIDOGREL 75 MG TABLET ONE (06:49)
[2024-02-22] MEDS ORDERED: TICAGRELOR 90 MG TABLET PO ONE (06:49)
[2024-02-22] MEDS ORDERED: ASPIRIN 325 MG TAB ONE (06:49)
[2024-02-22] MEDS ORDERED: NA CHLORIDE 0.9% 500 ML ONE (06:53)
[2024-02-22 08:50] VITALS: TEMP 97.2
--- NOTE | 2024-02-22 10:35 | OP ---
Date of Procedure: 02/22/2024 Surgeon: Torey Shields Procedures Performed: 1.Selective coronary angiogram. 2.Left subclavian angiogram. Indication For Procedure: Chest pains with abnormal stress test. Complications: None. Estimated Blood Loss: Less than 50 cc. Sedation Time: 25 minutes. Access: Right radial, closed by TR band. Description Of Procedure: After risks, benefits, and alternatives were explained to the patient, the patient signed informed consent and agreed to proceed with procedure. The patient was brought back t o the cath lab tech, draped and prepped in sterile fashion. We accessed the right radial artery using ult rasound-guided micropuncture technique. A 6-Nepali sheath was advanced and then [place] 4 catheter was advanced to the aortic root for selective coronary angiogram that was later pulled to the left subcl maye artery for the left subclavian JAEGER angiogram. At the end of the procedure, catheter was remov ed over a J-wire. Sheath was removed and TR band was applied and the patient was moved back to [facility] in stable condition. Findings: 1.Left main is normal. 2.LAD, heavy calcified, proximal 30% disease, mid calcified 80% to 90% disease, mid to distal mild L I. Gives a 2.5 mm diagonal after the blockage. 3.Left circ, mild LI. 4.OM1, medium-size artery, almost 2.5 mm in diameter, proximal 80% disease and mild luminal irregula rities. 5.RCA dominant, mid MEN'S GARMENT FITTER gets left to right collaterals into 2.5 mm RPDA/RPLV. 6.Left subclavian/JAEGER patent. Assessment And Plan: Significant calcified mid LAD disease. 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 Plan will be to consult CT Surgery to evaluate for a bypass. CHARLES/THIAGOL Voice ID: [id number] Report ID: [id number]
[2024-02-22 12:09] VITALS: O2SAT 100
[2024-02-22 12:45] VITALS: BP 131/62
== END 2024-02-22 11:30 | disposition home or self-care (01) ==
LOC: CCL 06:30
PROVIDERS: ATTEND Internal Medicine
DX: I25.10 Atherosclerotic heart disease of native coronary artery without angina pectoris (principal); I25.82 Chronic total occlusion of coronary artery; I10 Essential (primary) hypertension; E78.5 Hyperlipidemia, unspecified; Z87.891 Personal history of nicotine dependence; Z79.899 Other long term (current) drug therapy; Z82.49 Family history of ischemic heart disease and other diseases of the circulatory system
CPT/HCPCS: 85025; 80048; 36415; 85610; 85730; 71046; 75710; 93454; 76937; C1893; Q9966; J1644; J2001; J2250; J3010; J7040; 99152; 99153; J0461

== ENCOUNTER 2024-03-10 12:02 | Emergency (ER) | payer OTHER ==
--- OUTSIDE RECORDS SUMMARY | 2024-03-10 12:08 | XMS REPORT | Continuity of Care Document ---
Author Name Unknown Address [address] [place] [address] [facility] Address 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, Moni Attending Clinician [phone] MONI MCKEON Attending Clinician Unavailable Jl Lopez Admitting Clinician Unavailchioma e Payers Payer Name Policy Type Policy Number Effective Date Expirati on Date Source [facility] MEDICARE 53 [id number] 2021 00:00:00 [facility] MEDICARE ADV HMO [id number] 2021 00:00:00 MEDICARE NOVITAS [id number] 2007 00:00:00 [facility] Problems Condition Name Condition Details Condition Category Status Onset Date Resolution Date Last Treatment Date Treating Clinician Comments Source [id number] CIS (carcinoma in situ of bladder) Problem [facility] [id number] Pain in left hip Problem [facility] [id number] Primary osteoarthr itis of left hip Problem [facility] [id number] Trochanter ic bursitis of left hip Problem [facility] [id number] Urothelial carcinoma with low risk of recurrence Problem [facility] [id number] BPH loc w urin obs/LUTS Problem [facility] [id number] Incomplete emptying of bladder Problem [facility] Impotence of organic origin Erectile dysfunctio n, unspecifie d erectile dysfunctio n type Problem [facility] Ulcerative colitis Ulcerative colitis, unspecifie d with other complicati on Problem [facility] Enzyme level in serum specimen above reference range Abnormal serum enzyme level, unspecifie d Problem [facility] Benign neoplasm of colon Colon polyps Problem [facility] Lichen planus Lichen planus Problem [facility] Mixed hyperlipid emia Mixed hyperlipid emia Problem [facility] Anemia Anemia Problem [facility] Hypertensi on Hypertensi on Problem [facility] Macrocytos is Macrocytos is Problem [facility] Diverticul osis of colon Diverticul osis of colon Problem [facility] Bladder cancer Bladder cancer Problem [facility] Benign prostatic hypertroph y without outflow obstructio n Benign prostatic hyperplasi a without lower urinary tract symptoms Problem [facility] [id number] History of bladder cancer Problem [facility] [id number] Pain of right hip joint Problem [facility] [id number] Right sided sciatica Problem [facility] Allergies, Adverse Reactions, Alerts Allergy Name Allergy Type Status Severity Reaction(s) Onset Date Inactive Date Treating Clinician Comments Source No Known Allergie s DA Active U 02-26 00:00: 00 [facility] NO KNOWN ALLERGIE S Drug Class Active [facility] Social History Social Habit Start Date Stop Date Quantity Comments Source History of Tobacco Use [facility] Sex Assigned At [facility] Exposure to SARS-CoV-2 (event) Yes [facility] Smoking Status Start Date Stop Date Source Unknown if ever smoked Unive [facility] Former Smoker 2024-01-03 00:00:00 2024-01-03 00:00:00 [facility] Medications Ordered Medication Name Filled Medication Name Start Date Stop Date Current Medication? Ordering Clinician Indication Dosage Frequency Signature (SIG) Comments Components Source Atorvastati n Calcium 10 MG Atorvastati n Calcium 10 MG 2022-0 04-28 00:00: 00 No 1{table t} QD Atorvastat in Calcium 10 MG Atorvastati n Calcium 10 MG Atorvastati n Calcium 10 MG 2022-0 04-28 00:00: 00 No 1{table t} QD Atorvastat in Calcium 10 MG Atorvastati n Calcium 10 MG Atorvastati n Calcium 10 MG 2022-0 04-28 00:00: 00 No 1{table t} QD Atorvastat in Calcium 10 MG Atorvastati n Calcium 10 MG Atorvastati n Calcium 10 MG 2022-0 04-28 00:00: 00 No 1{table t} QD Atorvastat in Calcium 10 MG Atorvastati n Calcium 10 MG Atorvastati n Calcium 10 MG 2022-0 04-28 00:00: 00 No 1{table t} QD Atorvastat in Calcium 10 MG Atorvastati n Calcium 10 MG Atorvastati n Calcium 10 MG 2022-0 04-28 00:00: 00 No 1{table t} QD Atorvastat in Calcium 10 MG Atorvastati n Calcium 10 MG Atorvastati n Calcium 10 MG 3-0 04-28 00:00: 00 No 1{table t} QD Atorvastat in Calcium 10 MG Lidocaine Lidocaine 04-27 00:00: 00 No 5mL [facility] Kenalog (Triamcinol one) Kenalog (Triamcinol one) 04-27 00:00: 00 No 2mL [facility] Lidocaine Lidocaine 04-27 00:00: 00 No 5mL [facility] Kenalog (Triamcinol one) Kenalog (Triamcinol one) 04-27 00:00: 00 No 2mL [facility] Lidocaine Lidocaine 04-27 00:00: 00 No 5mL [facility] Kenalog (Triamcinol one) Kenalog (Triamcinol one) 04-27 00:00: 00 No 2mL [facility] Lidocaine Lidocaine 04-27 00:00: 00 No 5mL [facility] Kenalog (Triamcinol one) Kenalog (Triamcinol one) 04-27 00:00: 00 No 2mL [facility] Lidocaine Lidocaine 04-27 00:00: 00 No 5mL [facility] Kenalog (Triamcinol one) Kenalog (Triamcinol one) 04-27 00:00: 00 No 2mL [facility] Lidocaine Lidocaine 04-27 00:00: 00 No 5mL [facility] Kenalog (Triamcinol one) Kenalog (Triamcinol one) 04-27 00:00: 00 No 2mL [facility] Lidocaine Lidocaine 04-27 00:00: 00 No 5mL [facility] Kenalog (Triamcinol one) Kenalog (Triamcinol one) 04-27 00:00: 00 No 2mL [facility] Lidocaine Lidocaine 04-27 00:00: 00 No 5mL [facility] Kenalog (Triamcinol one) Kenalog (Triamcinol one) 04-27 00:00: 00 No 2mL [facility] Lidocaine Lidocaine 04-27 00:00: 00 No 5mL [facility] Kenalog (Triamcinol one) Kenalog (Triamcinol one) 04-27 00:00: 00 No 2mL [facility] Clobetasol Propionate 0.05 % Clobetasol Propionate 0.05 % 04-01 00:00: 00 12-26 00:00 :00 No 1{appli cation} BID Clobetasol Propionate 0.05 % sulfaSALAzi ne 500 MG sulfaSALAzi ne 500 MG 07-26 00:00: 00 No 3{table ts} BID sulfaSALAz ine 500 MG sulfaSALAzi ne 500 MG sulfaSALAzi ne 500 MG 07-26 00:00: 00 12-26 00:00 :00 No 4{table ts} BID sulfaSALAz ine 500 MG sulfaSALAzi ne 500 MG sulfaSALAzi ne 500 MG 07-26 00:00: 00 12-26 00:00 :00 No 4{table ts} BID sulfaSALAz ine 500 MG sulfaSALAzi ne 500 MG sulfaSALAzi ne 500 MG 07-26 00:00: 00 12-26 00:00 :00 No 4{table ts} BID sulfaSALAz ine 500 MG Nystatin Nystatin 04-03 00:00: 00 06-02 00:00 :00 No Na Rosenbaum 1 applicatio n to affected area [facility] Nystatin Nystatin 04-03 00:00: 00 05-03 00:00 :00 No Na Rosenbaum 4 ml [facility] Fluconazole Fluconazole 04-05 00:00: 00 10-25 00:00 :00 No Na Rosenbaum 1 tablet [facility] Atorvastati n Calcium Atorvastati n Calcium 03-23 00:00: 00 Yes Na Rosenbaum 1 tablet [facility] Aspirin Aspirin Yes Na Rosenbaum 1 tablet [facility] Lisinopril- Hydrochloro thiazide Lisinopril- Hydrochloro thiazide Yes Na Rosenbaum 1 tablet [facility] Amlodipine Besylate Amlodipine Besylate Yes Na Rosenbaum 1 tablet [facility] Atorvastati n Calcium Atorvastati n Calcium Yes Na Rosenbaum 1 tablet [facility] Lisinopril Lisinopril Yes Na Rosenbaum 1 tablet [facility] Amlodipine Besylate Amlodipine Besylate Yes Na Rosenbaum 1 tablet [facility] Clobetasol Propionate Clobetasol Propionate Yes Na Rosenbaum APPLY TO THE AFFECTED AREA TWICE DAILY FOR 90 DAYS DIRECTED [facility] Clobetasol Propionate 0.05 % Clobetasol Propionate 0.05 % No Clobetasol Propionate 0.05 % Aspirin 81 MG Aspirin 81 MG No 1{table t} QD Aspirin 81 MG Multivitami n Adults 50+ - Multivitami n Adults 50+ - No Multivitam in Adults 50+ - Atorvastati n Calcium 10 MG Atorvastati n Calcium 10 MG No 1{table t} QD Atorvastat in Calcium 10 MG Magnesium Magnesium No Magnesium Lisinopril- hydroCHLORO thiazide 20-12.5 MG Lisinopril- hydroCHLORO thiazide 20-12.5 MG No 1{table t} Lisinopril -hydroCHLO ROthiazide 20-12.5 MG Fluconazole 150 MG Fluconazole 150 MG No 1{table t} Fluconazol e 150 MG Zinc 30 MG Zinc 30 MG No 1{ table t} QD Zinc 30 MG sulfaSALAzi ne 500 MG sulfaSALAzi ne 500 MG No sulfaSALAz ine 500 MG Atorvastati n Calcium 10 MG Atorvastati n Calcium 10 MG No 1{table t} QD Atorvastat in Calcium 10 MG Clobetasol Propionate 0.05 % Clobetasol Propionate 0.05 % No 1{appli cation} BID Clobetasol Propionate 0.05 % Clobetasol Propionate 0.05 % Clobetasol Propionate 0.05 % No Clobetasol Propionate 0.05 % Zinc 30 MG Zinc 30 MG No 1{ table t} QD Zinc 30 MG Fluconazole 150 MG Fluconazole 150 MG No 1{table t} Fluconazol e 150 MG Multivitami n Adults 50+ - Multivitami n Adults 50+ - No Multivitam in Adults 50+ - Magnesium Magnesium No Magnesium Aspirin 81 MG Aspirin 81 MG No 1{table t} QD Aspirin 81 MG Lisinopril- hydroCHLORO thiazide 20-12.5 MG Lisinopril- hydroCHLORO thiazide 20-12.5 MG No 1{table t} Lisinopril -hydroCHLO ROthiazide 20-12.5 MG sulfaSALAzi ne 500 MG sulfaSALAzi ne 500 MG No sulfaSALAz ine 500 MG Magnesium Magnesium No Magnesium Clobetasol Propionate 0.05 % Clobetasol Propionate 0.05 % No 1{appli cation} BID Clobetasol Propionate 0.05 % Clobetasol Propionate 0.05 % Clobetasol Propionate 0.05 % No Clobetasol Propionate 0.05 % Zinc 30 MG Zinc 30 MG No 1{ table t} QD Zinc 30 MG Fluconazole 150 MG Fluconazole 150 MG No 1{table t} Fluconazol e 150 MG Multivitami n Adults 50+ - Multivitami n Adults 50+ - No Multivitam in Adults 50+ - Lisinopril- hydroCHLORO thiazide 20-12.5 MG Lisinopril- hydroCHLORO thiazide 20-12.5 MG No 1{table t} Lisinopril -hydroCHLO ROthiazide 20-12.5 MG Aspirin 81 MG Aspirin 81 MG No 1{table t} QD Aspirin 81 MG Atorvastati n Calcium 10 MG Atorvastati n Calcium 10 MG No 1{table t} QD Atorvastat in Calcium 10 MG sulfaSALAzi ne 500 MG sulfaSALAzi ne 500 MG No sulfaSALAz ine 500 MG Atorvastati n Calcium 20 MG Atorvastati n Calcium 20 MG No 1{table t} Atorvastat in Calcium 20 MG Clobetasol Propionate 0.05 % Clobetasol Propionate 0.05 % No 1{appli cation} BID Clobetasol Propionate 0.05 % Aspirin 81 MG Aspirin 81 MG No 1{table t} QD Aspirin 81 MG Magnesium 250 MG Magnesium 250 MG No 1{table t_with_ a_meal} QD Magnesium 250 MG sulfaSALAzi ne 500 MG sulfaSALAzi ne 500 MG No TID sulfaSALAz ine 500 MG Zinc 30 MG Zinc 30 MG No 1{ table t} QD Zinc 30 MG Nystatin 578560 UNIT/GM Nystatin 637405 UNIT/GM No 1{appli cation} BID Nystatin 694150 UNIT/GM Multivitami n Adults 50+ - Multivitami n Adults 50+ - No Multivitam in Adults 50+ - Lisinopril- hydroCHLORO thiazide 20-12.5 MG Lisinopril- hydroCHLORO thiazide 20-12.5 MG No 1{table t} Lisinopril -hydroCHLO ROthiazide 20-12.5 MG Atorvastati n Calcium 20 MG Atorvastati n Calcium 20 MG No 1{table t} Atorvastat in Calcium 20 MG Clobetasol Propionate 0.05 % Clobetasol Propionate 0.05 % No 1{appli cation} BID Clobetasol Propionate 0.05 % Aspirin 81 MG Aspirin 81 MG No 1{table t} QD Aspirin 81 MG Magnesium 250 MG Magnesium 250 MG No 1{table t_with_ a_meal} QD Magnesium 250 MG sulfaSALAzi ne 500 MG sulfaSALAzi ne 500 MG No TID sulfaSALAz ine 500 MG Zinc 30 MG Zinc 30 MG No 1{ table t} QD Zinc 30 MG Nystatin 249656 UNIT/GM Nystatin 864404 UNIT/GM No 1{appli cation} BID Nystatin 050053 UNIT/GM Multivitami n Adults 50+ - Multivitami n Adults 50+ - No Multivitam in Adults 50+ - Lisinopril- hydroCHLORO thiazide 20-12.5 MG Lisinopril- hydroCHLORO thiazide 20-12.5 MG No 1{table t} Lisinopril -hydroCHLO ROthiazide 20-12.5 MG Atorvastati n Calcium 20 MG Atorvastati n Calcium 20 MG No 1{table t} Atorvastat in Calcium 20 MG Clobetasol Propionate 0.05 % Clobetasol Propionate 0.05 % No 1{appli cation} BID Clobetasol Propionate 0.05 % Aspirin 81 MG Aspirin 81 MG No 1{table t} QD Aspirin 81 MG Magnesium 250 MG Magnesium 250 MG No 1{table t_with_ a_meal} QD Magnesium 250 MG sulfaSALAzi ne 500 MG sulfaSALAzi ne 500 MG No TID sulfaSALAz ine 500 MG Zinc 30 MG Zinc 30 MG No 1{ table t} QD Zinc 30 MG Nystatin 379992 UNIT/GM Nystatin 974790 UNIT/GM No 1{appli cation} BID Nystatin 183464 UNIT/GM Multivitami n Adults 50+ - Multivitami n Adults 50+ - No Multivitam in Adults 50+ - Lisinopril- hydroCHLORO thiazide 20-12.5 MG Lisinopril- hydroCHLORO thiazide 20-12.5 MG No 1{table t} Lisinopril -hydroCHLO ROthiazide 20-12.5 MG Atorvastati n Calcium 20 MG Atorvastati n Calcium 20 MG No 1{table t} Atorvastat in Calcium 20 MG Clobetasol Propionate 0.05 % Clobetasol Propionate 0.05 % No 1{appli cation} BID Clobetasol Propionate 0.05 % Aspirin 81 MG Aspirin 81 MG No 1{table t} QD Aspirin 81 MG Magnesium 250 MG Magnesium 250 MG No 1{table t_with_ a_meal} QD Magnesium 250 MG sulfaSALAzi ne 500 MG sulfaSALAzi ne 500 MG No TID sulfaSALAz ine 500 MG Zinc 30 MG Zinc 30 MG No 1{ table t} QD Zinc 30 MG Nystatin 991937 UNIT/GM Nystatin 324026 UNIT/GM No 1{appli cation} BID Nystatin 704374 UNIT/GM Multivitami n Adults 50+ - Multivitami n Adults 50+ - No Multivitam in Adults 50+ - Lisinopril- hydroCHLORO thiazide 20-12.5 MG Lisinopril- hydroCHLORO thiazide 20-12.5 MG No 1{table t} Lisinopril -hydroCHLO ROthiazide 20-12.5 MG Atorvastati n Calcium 20 MG Atorvastati n Calcium 20 MG No 1{table t} Atorvastat in Calcium 20 MG Clobetasol Propionate 0.05 % Clobetasol Propionate 0.05 % No 1{appli cation} BID Clobetasol Propionate 0.05 % Aspirin 81 MG Aspirin 81 MG No 1{table t} QD Aspirin 81 MG Magnesium 250 MG Magnesium 250 MG No 1{table t_with_ a_meal} QD Magnesium 250 MG sulfaSALAzi ne 500 MG sulfaSALAzi ne 500 MG No TID sulfaSALAz ine 500 MG Zinc 30 MG Zinc 30 MG No 1{ table t} QD Zinc 30 MG Nystatin 542922 UNIT/GM Nystatin 866609 UNIT/GM No 1{appli cation} BID Nystatin 525048 UNIT/GM Multivitami n Adults 50+ - Multivitami n Adults 50+ - No Multivitam in Adults 50+ - Lisinopril- hydroCHLORO thiazide 20-12.5 MG Lisinopril- hydroCHLORO thiazide 20-12.5 MG No 1{table t} Lisinopril -hydroCHLO ROthiazide 20-12.5 MG Atorvastati n Calcium 20 MG Atorvastati n Calcium 20 MG No 1{table t} Atorvastat in Calcium 20 MG Clobetasol Propionate 0.05 % Clobetasol Propionate 0.05 % No 1{appli cation} BID Clobetasol Propionate 0.05 % Aspirin 81 MG Aspirin 81 MG No 1{table t} QD Aspirin 81 MG Magnesium 250 MG Magnesium 250 MG No 1{table t_with_ a_meal} QD Magnesium 250 MG sulfaSALAzi ne 500 MG sulfaSALAzi ne 500 MG No TID sulfaSALAz ine 500 MG Zinc 30 MG Zinc 30 MG No 1{ table t} QD Zinc 30 MG Nystatin 730940 UNIT/GM Nystatin 734363 UNIT/GM No 1{appli cation} BID Nystatin 513098 UNIT/GM Multivitami n Adults 50+ - Multivitami n Adults 50+ - No Multivitam in Adults 50+ - Lisinopril- hydroCHLORO thiazide 20-12.5 MG Lisinopril- hydroCHLORO thiazide 20-12.5 MG No 1{table t} Lisinopril -hydroCHLO ROthiazide 20-12.5 MG Atorvastati n Calcium 20 MG Atorvastati n Calcium 20 MG No 1{table t} Atorvastat in Calcium 20 MG Clobetasol Propionate 0.05 % Clobetasol Propionate 0.05 % No 1{appli cation} BID Clobetasol Propionate 0.05 % Aspirin 81 MG Aspirin 81 MG No 1{table t} QD Aspirin 81 MG Magnesium 250 MG Magnesium 250 MG No 1{table t_with_ a_meal} QD Magnesium 250 MG sulfaSALAzi ne 500 MG sulfaSALAzi ne 500 MG No TID sulfaSALAz ine 500 MG Zinc 30 MG Zinc 30 MG No 1{ table t} QD Zinc 30 MG Nystatin 396496 UNIT/GM Nystatin 021181 UNIT/GM No 1{appli cation} BID Nystatin 143754 UNIT/GM Multivitami n Adults 50+ - Multivitami n Adults 50+ - No Multivitam in Adults 50+ - Lisinopril- hydroCHLORO thiazide 20-12.5 MG Lisinopril- hydroCHLORO thiazide 20-12.5 MG No 1{table t} Lisinopril -hydroCHLO ROthiazide 20-12.5 MG Clobetasol Propionate 0.05 % Clobetasol Propionate 0.05 % No 1{appli cation} BID Clobetasol Propionate 0.05 % Atorvastati n Calcium 20 MG Atorvastati n Calcium 20 MG No 1{table t} Atorvastat in Calcium 20 MG Magnesium 250 MG Magnesium 250 MG No 1{table t_with_ a_meal} QD Magnesium 250 MG Multivitami n Adults 50+ - Multivitami n Adults 50+ - No Multivitam in Adults 50+ - sulfaSALAzi ne 500 MG sulfaSALAzi ne 500 MG No TID sulfaSALAz ine 500 MG Zinc 30 MG Zinc 30 MG No 1{ table t} QD Zinc 30 MG Lisinopril- hydroCHLORO thiazide 20-12.5 MG Lisinopril- hydroCHLORO thiazide 20-12.5 MG No 1{table t} Lisinopril -hydroCHLO ROthiazide 20-12.5 MG Atorvastati n Calcium 10 MG Atorvastati n Calcium 10 MG No 1{table t} QD Atorvastat in Calcium 10 MG Aspirin 81 MG Aspirin 81 MG No 1{table t} QD Aspirin 81 MG Nystatin 262926 UNIT/GM Nystatin 511969 UNIT/GM No 1{appli cation} BID Nystatin 015815 UNIT/GM Clobetasol Propionate 0.05 % Clobetasol Propionate 0.05 % No 1{appli cation} BID Clobetasol Propionate 0.05 % Atorvastati n Calcium 20 MG Atorvastati n Calcium 20 MG No 1{table t} Atorvastat in Calcium 20 MG Magnesium 250 MG Magnesium 250 MG No 1{table t_with_ a_meal} QD Magnesium 250 MG Multivitami n Adults 50+ - Multivitami n Adults 50+ - No Multivitam in Adults 50+ - sulfaSALAzi ne 500 MG sulfaSALAzi ne 500 MG No TID sulfaSALAz ine 500 MG Zinc 30 MG Zinc 30 MG No 1{ table t} QD Zinc 30 MG Lisinopril- hydroCHLORO thiazide 20-12.5 MG Lisinopril- hydroCHLORO thiazide 20-12.5 MG No 1{table t} Lisinopril -hydroCHLO ROthiazide 20-12.5 MG Atorvastati n Calcium 10 MG Atorvastati n Calcium 10 MG No 1{table t} QD Atorvastat in Calcium 10 MG Aspirin 81 MG Aspirin 81 MG No 1{table t} QD Aspirin 81 MG Nystatin 676956 UNIT/GM Nystatin 265508 UNIT/GM No 1{appli cation} BID Nystatin 772232 UNIT/GM amLODIPine Besylate 5 MG amLODIPine Besylate 5 MG No 1{table t} amLODIPine Besylate 5 MG amLODIPine Besylate 2.5 MG amLODIPine Besylate 2.5 MG No 1{table t} amLODIPine Besylate 2.5 MG Sulfasalazi ne Sulfasalazi ne 12-30 00:00 :00 No Na Rosenbaum take 3 tablets by mouth twice daily [facility] Vital Signs Vital Name Observation Time Observation Value Comments S ource height 2024-01-03 15:00:00 70.00 [in_i] Com [facility] weight 2024-01-03 15:00:00 162 [lb_av] Comm on [facility] temperature 2024-01-03 15:00:00 97.3 [degF] Com [facility] bmi 2024-01-03 15:00:00 23.24 kg/m2 Comm on [facility] oximetry 2024-01-03 15:00:00 96 % Commo n [facility] respiratory rate 2024-01-03 15:00:00 16 /min [facility] blood pressure systolic 2024-01-03 15:00:00 132 mm[Hg] [facility] blood pressure diastolic 2024-01-03 15:00:00 78 mm[Hg] Common [facility] height 2024-01-03 15:00:00 70.00 [in_i] Com [facility] weight 2024-01-03 15:00:00 162 [lb_av] Comm on [facility] temperature 2024-01-03 15:00:00 97.3 [degF] Com mon [facility] bmi 2024-01-03 15:00:00 23.24 kg/m2 Comm on [facility] oximetry 2024-01-03 15:00:00 96 % Commo n [facility] respiratory rate 2024-01-03 15:00:00 16 /min [facility] blood pressure systolic 2024-01-03 15:00:00 132 mm[Hg] Common [facility] blood pressure diastolic 2024-01-03 15:00:00 78 mm[Hg] [facility] height 2023-08-08 13:20:00 70.00 [in_i] Com [facility] weight 2023-08-08 13:20:00 160.4 [lb_av] Co mmon [facility] temperature 2023-08-08 13:20:00 97.2 [degF] Com [facility] bmi 2023-08-08 13:20:00 23.01 kg/m2 Comm on [facility] oximetry 2023-08-08 13:20:00 98 % Commo n [facility] respiratory rate 2023-08-08 13:20:00 16 /min Common [facility] blood pressure systolic 2023-08-08 13:20:00 132 mm[Hg[facility] diastolic 2023-08-08 13:20:00 68 mm[Hg] Common [facility] height 2023-05-10 08:00:00 70.00 [in_i] Com [facility] weight 2023-05-10 08:00:00 161 [lb_av] Comm on [facility] temperature 2023-05-10 08:00:00 97.7 [degF] Com [facility] bmi 2023-05-10 08:00:00 23.1 kg/m2 Commo n [facility] oximetry 2023-05-10 08:00:00 97 % Commo n [facility] respiratory rate 2023-05-10 08:00:00 18 /min Common [facility] blood pressure systolic 2023-05-10 08:00:00 157 mm[Hg] Common [facility] blood pressure diastolic 2023-05-10 08:00:00 73 mm[Hg] Common [facility] height 2023-04-28 14:20:00 70.00 [in_i] Com [facility] weight 2023-04-28 14:20:00 161 [lb_av] Comm on [facility] temperature 2023-04-28 14:20:00 97.1 [degF] Com [facility] bmi 2023-04-28 14:20:00 23.1 kg/m2 Commo n [facility] oximetry 2023-04-28 14:20:00 97 % Commo n [facility] respiratory rate 2023-04-28 14:20:00 16 /min Common [facility] blood pressure systolic 2023-04-28 14:20:00 132 mm[Hg] Common [facility] blood pressure diastolic 2023-04-28 14:20:00 74 mm[Hg] Common [facility] height 2023-04-28 14:00:00 70.00 [in_i] Com [facility] weight 2023-04-28 14:00:00 161 [lb_av] Comm on [facility] temperature 2023-04-28 14:00:00 97.1 [degF] Com [facility] bmi 2023-04-28 14:00:00 23.1 kg/m2 Commo n [facility] oximetry 2023-04-28 14:00:00 97 % Commo n [facility] respiratory rate 2023-04-28 14:00:00 16 /min Common [facility] blood pressure systolic 2023-04-28 14:00:00 132 mm[Hg] [facility] blood pressure diastolic 2023-04-28 14:00:00 74 mm[Hg] Common [facility] height 2023-04-27 10:30:00 70.00 [in_i] Com [facility] weight 2023-04-27 10:30:00 160 [lb_av] Comm on [facility] temperature 2023-04-27 10:30:00 98.2 [degF] Com [facility] bmi 2023-04-27 10:30:00 22.96 kg/m2 Comm on [facility] blood pressure systolic 2023-04-27 10:30:00 130 mm[Hg] Common [facility] blood pressure diastolic 2023-04-27 10:30:00 80 mm[Hg] Common [facility] height 2023-02-22 13:20:00 70.00 [in_i] Com [facility] weight 2023-02-22 13:20:00 160 [lb_av] Comm on [facility] temperature 2023-02-22 13:20:00 98.0 [degF] Com [facility] bmi 2023-02-22 13:20:00 22.96 kg/m2 Comm on [facility] oximetry 2023-02-22 13:20:00 97 % Commo n [facility] respiratory rate 2023-02-22 13:20:00 16 /min Common [facility] blood pressure systolic 2023-02-22 13:20:00 128 mm[Hg] [facility] blood pressure diastolic 2023-02-22 13:20:00 77 mm[Hg] [facility] height 2022-09-30 08:40:00 70.00 [in_i] Com [facility] weight 2022-09-30 08:40:00 165.0 [lb_av] Co [facility] temperature 2022-09-30 08:40:00 97.7 [degF] Com [facility] bmi 2022-09-30 08:40:00 23.67 kg/m2 Comm on [facility] oximetry 2022-09-30 08:40:00 99 % Commo n [facility] respiratory rate 2022-09-30 08:40:00 16 /min [facility] blood pressure systolic 2022-09-30 08:40:00 130 mm[Hg] [facility] blood pressure diastolic 2022-09-30 08:40:00 68 mm[Hg] Common [facility] height 2022-05-23 08:00:00 70.00 [in_i] Com [facility] weight 2022-05-23 08:00:00 163.1 [lb_av] [facility] [facility] 2022-05-23 08:00:00 23.4 kg/m2 Commo n [facility] blood pressure systolic 2022-05-23 08:00:00 139 mm[Hg] [facility] blood pressure diastolic 2022-05-23 08:00:00 80 mm[Hg] [facility] height 2022-05-11 08:30:00 70.00 [in_i] Com [facility] weight 2022-05-11 08:30:00 160 [lb_av] Comm on [facility] temperature 2022-05-11 08:30:00 98.4 [degF] Com [facility] bmi 2022-05-11 08:30:00 22.96 kg/m2 Comm on [facility] oximetry 2022-05-11 08:30:00 98 % Commo n [facility] respiratory rate 2022-05-11 08:30:00 16 /min Common [facility] blood pressure systolic 2022-05-11 08:30:00 144 mm[Hg] Common [facility] blood pressure diastolic 2022-05-11 08:30:00 75 mm[Hg] [facility] height 2022-04-01 08:00:00 70.00 [in_i] Com [facility] weight 2022-04-01 08:00:00 161 [lb_av] Comm on [facility] temperature 2022-04-01 08:00:00 97.4 [degF] Com [facility] bmi 2022-04-01 08:00:00 23.1 kg/m2 Commo n [facility] oximetry 2022-04-01 08:00:00 98 % Commo n [facility] respiratory rate 2022-04-01 08:00:00 16 /min [facility] blood pressure systolic 2022-04-01 08:00:00 132 mm[Hg] [facility] blood pressure diastolic 2022-04-01 08:00:00 74 mm[Hg] [facility] height 2021-10-01 08:00:00 70.00 [in_i] Com [facility] weight 2021-10-01 08:00:00 165.2 [lb_av] Co mmon [facility] temperature 2021-10-01 08:00:00 97.2 [degF] Com [facility] bmi 2021-10-01 08:00:00 23.7 kg/m2 Commo n [facility] oximetry 2021-10-01 08:00:00 96 % Commo n [facility] respiratory rate 2021-10-01 08:00:00 18 /min [facility] blood pressure systolic 2021-10-01 08:00:00 134 mm[Hg] Common [facility] blood pressure diastolic 2021-10-01 08:00:00 70 mm[Hg] [facility] Procedures Procedure Date / Time Performed Performing Clinicia n Source [id number] 2024-03-01 00:00:00 CHAAB.01 [facility] [id number] 2024-03-01 00:00:00 CHAAB.01 [facility] [id number] 2024-03-01 00:00:00 CHAAB.01 [facility] [id number] 2024-03-01 00:00:00 CHAAB.01 [facility] [id number] 2024-03-01 00:00:00 [facility]AAB.01 [facility] [id number] 2024-03-01 00:00:00 [facility]AAB.01 [facility] [id number] 2024-03-01 00:00:00 [facility]AAB.01 [facility] [id number] 2024-03-01 00:00:00 [facility]AAB.01 [facility] [id number] 2024-03-01 00:00:00 CHAAB.01 [facility] [id number] 2024-03-01 00:00:00 CHAAB.01 [facility] Encounters Start Date/Time End Date/Time Encounter Type Admission Type Attending Clinicians Care Facility Care Department Encounter ID Source 2024-01-03 15:28:00 Outpatient ReyesGiulia tejadai [facility] [id number] [facility] 2023-08-08 09:10:00 Outpatient Reyes Ally [facility] [id number] [facility] 2023-08-07 16:01:00 Outpatient ReyesAlly [facility] [id number] [facility] 2023-04-28 09:02:00 Outpatient ReyesAlly STLMLC [facility] [id number] [facility] 2023-04-27 13:46:00 Outpatient ReyesAlly STLMLC ST[facility] [id number] [facility] 2023-04-20 10:19:01 Outpatient ReyesAlly STLMLC ST[facility] [id number] [facility] 2023-02-20 09:16:00 Outpatient ReyesAlly STLMLC ST[facility] [id number] [facility] 2023-02-06 14:16:00 Outpatient ReyesAlly STLMLC ST[facility] [id number] [facility] 2022-12-22 16:15:01 Outpatient DomoniqueRosy STLMLC STLMLC [id number] [facility] 2022-12-01 14:11:00 Outpatient DomoniqueRosy STLMLC STL[facility]C [id number] [facility] 2022-05-24 09:13:01 Outpatient Rosenbaum, Na STLMLC ST[facility] [id number] [facility] 2022-05-23 10:19:00 Outpatient Rosenbaum, Na STLMLC ST[facility]C [id number] [facility] 2022-05-18 12:26:00 Outpatient Rosenbaum, Na STLMLC STL[facility]C [id number] [facility] 2022-05-16 15:27:00 Outpatient Rosenbaum, Na STLMLC STLMLC [id number] [facility] 2022-04-04 10:28:00 Outpatient Rosenbaum, Na STLMLC STLMLC [id number] [facility] 2022-03-30 08:21:00 Outpatient Rosenbaum, Na STLMLC ST[facility]C [id number] [facility] 2021-11-24 13:12:22 Outpatient Rosenbaum, Na STLMLC STLMLC [id number] [facility] 2021-11-24 13:10:43 Outpatient Rosenbaum, Na STLMLC ST[facility]C [id number] [facility] 2021-11-24 13:09:40 Outpatient Rosenbaum, Na STLMLC STLMLC [id number] [facility] 2021-11-24 13:04:54 Outpatient Rosenbaum, Na STLMLC ST[facility]C [id number] [facility] 2021-11-24 12:49:42 Outpatient Rosenbaum, Na STLMLC STLMLC [id number] [facility] 2021-11-24 12:09:52 Outpatient Rosenbaum, Na STLMLC STL[facility]C [id number] [facility] 2021-11-24 11:24:33 Outpatient Rosenbaum, Na STLMLC STLMLC [id number] [facility] 2021-11-24 11:17:12 Outpatient Robi Na STLMLC STLMLC [id number] [facility] 2024-03-01 05:28:00 2024-03-06 12:45:00 Inpatient KARL Lopez Jl HCACL INTE.02 [id number] [facility] 2024-01-03 00:00:00 2024-01-03 00:00:00 OFFICE VISIT ESTAB PT LEVEL 4 STLMLC STLMLC [id number] [facility] 2024-01-03 00:00:00 2024-01-03 00:00:00 SUB ANNUAL MCR WELLNESS VISIT STLMLC STLMLC [id number] [facility] 2023-08-08 00:00:00 2023-08-08 00:00:00 OFFICE VISIT ESTAB PT LEVEL 4 STLMLC STLMLC [id number] [facility] 2023-05-17 00:00:00 2023-05-17 00:00:00 (TEL) STLMLC STLMLC [id number] [facility] 2023-05-10 00:00:00 2023-05-10 00:00:00 OFFICE VISIT ESTAB PT LEVEL 3 STLMLC STLMLC [id number] [facility] 2023-04-28 00:00:00 2023-04-28 00:00:00 OFFICE VISIT ESTAB PT LEVEL 4 STLMLC STLMLC [id number] [facility] 2023-04-28 00:00:00 2023-04-28 00:00:00 SUB ANNUAL MCR WELLNESS VISIT STLMLC STLMLC [id number] [facility] 2023-04-27 00:00:00 2023-04-27 00:00:00 OFFICE VISIT ESTAB PT LEVEL 3 STLMLC STLMLC [id number] [facility] 2023-02-22 00:00:00 2023-02-22 00:00:00 OFFICE VISIT ESTAB PT LEVEL 4 STLMLC STLMLC [id number] [facility] 2022-12-08 00:00:00 2022-12-08 00:00:00 (TEL) STLMLC STLMLC [id number] [facility] 2022-09-30 00:00:00 2022-09-30 00:00:00 OFFICE VISIT ESTAB PT LEVEL 4 STLMLC STLMLC [id number] [facility] 2022-05-23 00:00:00 2022-05-23 00:00:00 OFFICE VISIT NEW PT LEVEL 3 STLMLC STLMLC [id number] [facility] 2022-05-11 00:00:00 2022-05-11 00:00:00 (PROC) Procedure STLMLC STLMLC [id number] [facility] 2022-04-01 00:00:00 2022-04-01 00:00:00 OFFICE VISIT ESTAB PT LEVEL 4 STLMLC STLMLC [id number] [facility] 2021-11-02 15:45:00 2021-11-02 16:00:00 Laboratory Only Only, Ang Db [facility] [id number] [facility] 2021-11-02 15:45:00 2021-11-02 15:42:27 Outpatient Moody [facility]ON [facility] [id number] [facility] 2021-10-01 00:00:00 2021-10-01 00:00:00 OFFICE VISIT ESTAB PT LEVEL 4 STLMLC STLMLC [id number] [facility] 2021-07-24 00:00:00 2021-07-24 00:00:00 (TEL) STLMLC STLMLC [id number] [facility] 2021-05-12 00:00:00 2021-05-12 00:00:00 Outpatient STLMLC STLMLC [id number] [facility] 2021-05-12 00:00:00 2021-05-12 00:00:00 Outpatient STLMLC STLMLC [id number] [facility] 2021-04-02 00:00:00 2021-04-02 00:00:00 Outpatient STLMLC STLMLC [id number] [facility] 2021-02-04 00:00:00 2021-02-04 00:00:00 Outpatient STLMLC STLMLC [id number] [facility] 2020-10-02 00:00:00 2020-10-02 00:00:00 Outpatient STLMLC STLMLC [id number] [facility] 2020-10-02 00:00:00 2020-10-02 00:00:00 Outpatient STLMLC STLMLC [id number] [facility] 2020-05-20 13:53:00 2020-05-20 13:53:[address] [facility] [id number] [facility] 2020-04-22 14:52:00 2020-04-22 14:52:[address] [facility] [id number] [facility] 2020-04-03 08:40:00 2020-04-03 08:40:[address] [facility] [id number] [facility] 2019-10-04 08:20:00 2019-10-04 08:20:[address] [facility] [id number] [facility] 2019-04-05 16:20:00 2019-04-05 16:20:[address] [facility] [id number] [facility] 2019-02-25 15:17:00 2019-02-25 15:17:[address] [facility] [facility] [id number] [facility] 2018-07-25 14:00:00 2018-07-25 14:00:00 [facility] [id number] [facility] 2018-03-23 08:15:00 2018-03-23 08:15:[address] [facility] [id number] [facility] Results Test Description Test Time Test Comments Results Result Co mments Source [id number] 03:28:00* Test Item Value Reference Range Interpretation Comme nts MAGNESIUM (test code = MAG) 1.77 mg/dL 1.6-2.6 N CBC W/AUTO [id number] 03:06:00* Test Item Value Reference Range Interpretation Comme nts WHITE BLOOD CELL (test code = WBC) 7.6 x10 3/uL 4.5-11.0 N RED BLOOD CELL (test code = RBC) 2.43 x10 6/uL 4.00-5.60 L HEMOGLOBIN (test code = HGB) 8.0 g/dL 12.5-16.9 L HEMATOCRIT (test code = HCT) 23.1 % 37.5-50.7 L MEAN CELL VOLUME (test code = MCV) 95.1 fL 81.0-99.0 N MEAN CELL HGB (test code = MCH) 32.9 pg 27.0-33.0 N MEAN CELL HGB CONCETRATION (test code = MCHC) 34.6 g/dL 33.0-37.0 N RED CELL DISTRIBUTION WIDTH CV (test code = RDW) 14.2 % 11.5-14.5 N RED CELL DISTRIBUTION WIDTH SD (test code = RDW-SD) 49.3 fL 37.0-54.0 N PLATELET COUNT (test code = PLT) 140 x10 3/uL 150-400 L MEAN PLATELET VOLUME (test c ode = MPV) 10.3 fL 7.0-9.0 H NEUTROPHIL % (test code = NT%) 70.1 % 56.0-77.0 N IMMATURE GRANULOCYTE % (test code = IG%) 1.1 % 0.0-2.0 N LYMPHOCYTE % (test code = LY%) 8.2 % 14.0-32.0 L MONOCYTE % (test code = MO%) 12.9 % 4.8-9.0 H EOSINOPHIL % (test code = EO%) 7.0 % 0.3-3.7 H BASOPHIL % (test code = BA%) 0.7 % 0.0-2.0 N NUCLEATED RBC % (test code = NRBC%) 0.0 % 0-0 N NEUTROPHIL # (test code = NT#) 5.33 x10 3/uL 2.0-7.6 N IMMATURE GRANULOCYTE # (test code = IG#) 0.08 x10 3/uL 0.00-0.03 H LYMPHOCYTE # (test code = LY#) 0.62 x10 3/uL 1.0-3.8 L MONOCYTE # (test code = MO#) 0.98 x10 3/uL 0.1-0.8 H EOSINOPHIL # (test code = EO#) 0.53 x10 3/uL 0.0-0.2 H BASOPHIL # (test code = BA#) 0.05 x10 3/uL 0.0-0.2 N NUCLEATED RBC # (test code = NRBC#) 0.00 x10 3/uL 0.0-0.1 N [id number] 12:55:00* Test Item Value Reference Range Interpretation Comments SURGICAL (test code = SR) RUN DATE: 03/05/24 [facility] - LAB PAGE 1 RUN TIME: 1256 Specimen Inquiry RUN USER: INTERFACE PATIENT: GREGG RUIZ LOC: TonyaCVN1 U #: [id number] AGE/SX: 83/M ROOM: [facility] RE03/01/24[facility] DR: Jl Lopez MD : 42 BED: 1 DIS: STATUS: ADM IN TLOC: SPEC #: [id number] RECD: 03/04/24-1122 STATUS: GWENDOLYN RICARDO #: [id number] JOE: 03/01/24- SUBM DR: Jl Lopez MD ENTERED: 03/04/24 SP TYPE: SURGICAL OTHR DR: No Primary or Family Physician Pa Merrill MD, Obiora I MDORDERED: [id number], ANATOMIC SPEC COPIES TO: No Primary or Family Physician Pa Merrill MD [address] [place] [address] Jl Lopez MD [address] [place], [place] [address] [place] [address] [place] [address] PROCEDURES: [id number] (03/04/24) TISSUES: A. ATRIUM - LEFT ATRIAL APPENDAGE CLINICAL HISTORY SAME FINAL DIAGNOSIS Heart, left atrial appendage, submitted: Cardiac muscle with mild degenerative changes,consistent with atrial appendage. GROSS DESCRIPTION 1. Received in formalin labeled left atrial appendage is a 2.5 x 1.5 x 1 cm portion ofmuscular tissue that is cystic and shows has attached yellow soft adipose submitted (A). Technical component performed at [facility], CONTINUED ON NEXT PAGE RUN DATE: 03/05/24 [facility] - LAB PAGE 2 RUN TIME: 1256 Specimen Inquiry RUN USER: INTERFACE SPEC #: [id number] PATIENT: GREGG RUIZ #[id number] (Continued) - GROSS DESCRIPTION (Continued) [address] [place] [id number] Unless gross only, the diagnosis is based upon microscopic examination.Immunohistochemistry: This test was developed and its performance characteristicsdetermined by this laboratory. It has not been approved nor does it need approvalby the [place] FDA. Appropriate positive and negative controls are reviewed and judgedto be acceptable for performedimmunohistochemistry and/or special stains. This laboratoryis certified under the Clinical Laboratory Improvement Amendments (CLIA-88) as qualified toperform high complexity clinical laboratory testing. CLINICAL INFORMATION CAD Signed SIGNATURE ON FILE KristiClovis 03/05/24 1255 END OF REPORT BASIC METABOLIC [id number] 03:13:00* Test Item Value Reference Range Interpretation Comme nts SODIUM (test code = NA) 129 mEq/L 134-147 L POTASSIUM (test code = K) 3.6 mEq/L 3.4-5.0 N CHLORIDE (test code = CL) 99 mEq/L 100-108 L CARBON DIOXIDE (test code = CO2) 24 mEq/l 21-33 N ANION GAP (test code = GAP) 10 0-20 N GLUCOSE (test code = GLU) 105 mg/dL 77-141 N BLOOD UREA NITROGEN (test code = BUN) 39 mg/dL 7-25 H GLOMERULAR FILTRATION RATE (test code = GFR) 60.8 70-80 L The Glomerular Filtration Rate is a calculated parameterbased on serum Creatinine, patient age and sex. GFR valuesless than 60 mL/min/1.73 square meters are indicative ofChronic Kidney Disease. Values less than 15 mL/min/1.73square meters indicate Kidney failure. The calculation forGFR is based on the CKD-EPI (202) calculation. This formulais race indifferent and is the recommended formula for GFRby the National Kidney Foundation for Adults.The GFR will not calculate if the sex is unknown or if thepatient's age is <18 years. CREATININE (test code = CREAT) 1.2 mg/dL 0.6-1.3 N CALCIUM (test code = CA) 8.4 mg/dL 8.0-10.5 N [id number] 03:13:00* Test Item Value Reference Range Interpretation Comme nts MAGNESIUM (test code = MAG) 1.90 mg/dL 1.6-2.6 N CBC W/AUTO [id number] 01:45:00* Test Item Value Reference Range Interpretation Comme nts WHITE BLOOD CELL (test code = WBC) 8.5 x10 3/uL 4.5-11.0 N RED BLOOD CELL (test code = RBC) 2.42 x10 6/uL 4.00-5.60 L HEMOGLOBIN (test code = HGB) 7.8 g/dL 12.5-16.9 L HEMATOCRIT (test code = HCT) 23.2 % 37.5-50.7 L MEAN CELL VOLUME (test code = MCV) 95.9 fL 81.0-99.0 N MEAN CELL HGB (test code = MCH) 32.2 pg 27.0-33.0 N MEAN CELL HGB CONCETRATION (test code = MCHC) 33.6 g/dL 33.0-37.0 N RED CELL DISTRIBUTION WIDTH CV (test code = RDW) 14.2 % 11.5-14.5 N RED CELL DISTRIBUTION WIDTH SD (test code = RDW-SD) 50.2 fL 37.0-54.0 N PLATELET COUNT (test code = PLT) 129 x10 3/uL 150-400 L MEAN PLATELET VOLUME (test c ode = MPV) 10.6 fL 7.0-9.0 H NEUTROPHIL % (test code = NT%) 76.9 % 56.0-77.0 N IMMATURE GRANULOCYTE % (test code = IG%) 0.8 % 0.0-2.0 N LYMPHOCYTE % (test code = LY%) 6.6 % 14.0-32.0 L MONOCYTE % (test code = MO%) 9.9 % 4.8-9.0 H EOSINOPHIL % (test code = EO%) 5.2 % 0.3-3.7 H BASOPHIL % (test code = BA%) 0.6 % 0.0-2.0 N NUCLEATED RBC % (test code = NRBC%) 0.0 % 0-0 N NEUTROPHIL # (test code = NT#) 6.52 x10 3/uL 2.0-7.6 N IMMATURE GRANULOCYTE # (test code = IG#) 0.07 x10 3/uL 0.00-0.03 H LYMPHOCYTE # (test code = LY#) 0.56 x10 3/uL 1.0-3.8 L MONOCYTE # (test code = MO#) 0.84 x10 3/uL 0.1-0.8 H EOSINOPHIL # (test code = EO#) 0.44 x10 3/uL 0.0-0.2 H BASOPHIL # (test code = BA#) 0.05 x10 3/uL 0.0-0.2 N NUCLEATED RBC # (test code = NRBC#) 0.00 x10 3/uL 0.0-0.1 N BASIC METABOLIC [id number] 04:10:00* Test Item Value Reference Range Interpretation Comme nts SODIUM (test code = NA) 130 mEq/L 134-147 L POTASSIUM (test code = K) 3.9 mEq/L 3.4-5.0 N CHLORIDE (test code = CL) 98 mEq/L 100-108 L CARBON DIOXIDE (test code = CO2) 24 mEq/l 21-33 N ANION GAP (test code = GAP) 12 0-20 N GLUCOSE (test code = GLU) 113 mg/dL 77-141 N BLOOD UREA NITROGEN (test code = BUN) 28 mg/dL 7-25 H GLOMERULAR FILTRATION RATE (test code = GFR) 67.4 70-80 L The Glomerular Filtration Rate is a calculated parameterbased on serum Creatinine, patient age and sex. GFR valuesless than 60 mL/min/1.73 square meters are indicative ofChronic Kidney Disease. Values less than 15 mL/min/1.73square meters indicate Kidney failure. The calculation forGFR is based on the CKD-EPI (2020) calculation. This formulais race indifferent and is the recommended formula for GFRby the National Kidney Foundation for Adults.The GFR will not calculate if the sex is unknown or if thepatient's age is <18 years. CREATININE (test code = CREAT) 1.1 mg/dL 0.6-1.3 N CALCIUM (test code = CA) 9.0 mg/dL 8.0-10.5 N COMMENTS: POD #1HEPATIC FUNCTION [id number] 04:10:00* Test Item Value Reference Range Interpretation Comme nts TOTAL PROTEIN (test code = PROT) 5.9 g/dL 6.4-8.2 L ALBUMIN (test code = ALB) 3.70 g/dL 3.4-5.0 N BILIRUBIN TOTAL (test code = BILT) 0.90 mg/dL 0.0-1.0 BILIRUBIN DIRECT (test code = BILD) 0.40 MG/DL 0.1-0.3 H BILIRUBIN INDIRECT (test cod e = BILIND) 0.50 MG/DL SGOT/AST (test code = AST) 83 IUnit/L 8-34 H SGPT/ALT (test code = ALT) 41 IUnit/L 10-49 ALKALINE PHOSPHATASE TOTAL ( test code = ALKP) 108 IUnit/L 20-125 COMMENTS: POD #[id number] 04:10:00* Test Item Value Reference Range Interpretation Comme nts MAGNESIUM (test code = MAG) 1.97 mg/dL 1.6-2.6 N COMMENTS: POD #1CBC W/AUTO [id number] 03:39:00* Test Item Value Reference Range Interpretation Comme nts WHITE BLOOD CELL (test code = WBC) 13.3 x10 3/uL 4.5-11.0 H RED BLOOD CELL (test code = RBC) 2.74 x10 6/uL 4.00-5.60 L HEMOGLOBIN (test code = HGB) 9.1 g/dL 12.5-16.9 L HEMATOCRIT (test code = HCT) 26.0 % 37.5-50.7 L MEAN CELL VOLUME (test code = MCV) 94.9 fL 81.0-99.0 N MEAN CELL HGB (test code = MCH) 33.2 pg 27.0-33.0 H MEAN CELL HGB CONCETRATION (test code = MCHC) 35.0 g/dL 33.0-37.0 N RED CELL DISTRIBUTION WIDTH CV (test code = RDW) 14.5 % 11.5-14.5 N RED CELL DISTRIBUTION WIDTH SD (test code = RDW-SD) 49.6 fL 37.0-54.0 N PLATELET COUNT (test code = PLT) 121 x10 3/uL 150-400 L MEAN PLATELET VOLUME (test code = MPV) 10.0 fL 7.0-9.0 H NEUTROPHIL % (test code = NT%) 88.5 % 56.0-77.0 H IMMATURE GRANULOCYTE % (test code = IG%) 0.7 % 0.0-2.0 N LYMPHOCYTE % (test code = LY%) 3.7 % 14.0-32.0 L MONOCYTE % (test code = MO%) 6.3 % 4.8-9.0 N EOSINOPHIL % (test code = EO%) 0.5 % 0.3-3.7 N BASOPHIL % (test code = BA%) 0.3 % 0.0-2.0 N NUCLEATED RBC % (test code = NRBC%) 0.0 % 0-0 N NEUTROPHIL # (test code = NT#) 11.76 x10 3/uL 2.0-7.6 H IMMATURE GRANULOCYTE # (test code = IG#) 0.09 x10 3/uL 0.00-0.03 H LYMPHOCYTE # (test code = LY#) 0.49 x10 3/uL 1.0-3.8 L MONOCYTE # (test code = MO#) 0.84 x10 3/uL 0.1-0.8 H EOSINOPHIL # (test code = EO#) 0.07 x10 3/uL 0.0-0.2 N BASOPHIL # (test code = BA#) 0.04 x10 3/uL 0.0-0.2 N NUCLEATED RBC # (test code = NRBC#) 0.00 x10 3/uL 0.0-0.1 N BASIC METABOLIC [id number] 03:45:00* Test Item Value Reference Range Interpretation Comme nts SODIUM (test code = NA) 131 mEq/L 134-147 L POTASSIUM (test code = K) 4.1 mEq/L 3.4-5.0 N CHLORIDE (test code = CL) 103 mEq/L 100-108 N CARBON DIOXIDE (test code = CO2) 23 mEq/l 21-33 N ANION GAP (test code = GAP) 10 0-20 N GLUCOSE (test code = GLU) 140 mg/dL 77-141 N BLOOD UREA NITROGEN (test code = BUN) 23 mg/dL 7-25 N GLOMERULAR FILTRATION RATE (test code = GFR) 75.6 70-80 N The Glomerular Filtration Rate is a calculated parameterbased on serum Creatinine, patient age and sex. GFR valuesless than 60 mL/min/1.73 square meters are indicative ofChronic Kidney Disease. Values less than 15 mL/min/1.73square meters indicate Kidney failure. The calculation forGFR is based on the CKD-EPI (202) calculation. This formulais race indifferent and is the recommended formula for GFRby the National Kidney Foundation for Adults.The GFR will not calculate if the sex is unknown or if thepatient's age is <18 years. CREATININE (test code = CREAT) 1.0 mg/dL 0.6-1.3 N CALCIUM (test code = CA) 8.4 mg/dL 8.0-10.5 N COMMENTS: POD #1HEPATIC FUNCTION [id number] 03:45:00* Test Item Value Reference Range Interpretation Comme nts TOTAL PROTEIN (test code = PROT) 5.7 g/dL 6.4-8.2 L ALBUMIN (test code = ALB) 3.90 g/dL 3.4-5.0 N BILIRUBIN TOTAL (test code = BILT) 0.70 mg/dL 0.0-1.0 N BILIRUBIN DIRECT (test code = BILD) 0.30 MG/DL 0.1-0.3 N SGOT/AST (test code = AST) 48 IUnit/L 8-34 H SGPT/ALT (test code = ALT) 16 IUnit/L 10-49 N ALKALINE PHOSPHATASE TOTAL ( test code = ALKP) 41 IUnit/L 20-125 N BILIRUBIN INDIRECT (test cod e = BILIND) 0.40 MG/DL COMMENTS: POD #[id number] 03:45:00* Test Item Value Reference Range Interpretation Comme nts MAGNESIUM (test code = MAG) 2.10 mg/dL 1.6-2.6 N COMMENTS: POD #1CBC W/AUTO [id number] 03:15:00* Test Item Value Reference Range Interpretation Comme nts WHITE BLOOD CELL (test code = WBC) 13.6 x10 3/uL 4.5-11.0 H RED BLOOD CELL (test code = RBC) 2.78 x10 6/uL 4.00-5.60 L HEMOGLOBIN (test code = HGB) 9.0 g/dL 12.5-16.9 L HEMATOCRIT (test code = HCT) 25.9 % 37.5-50.7 L MEAN CELL VOLUME (test code = MCV) 93.2 fL 81.0-99.0 MEAN CELL HGB (test code = MCH) 32.4 pg 27.0-33.0 N MEAN CELL HGB CONCETRATION (test code = MCHC) 34.7 g/dL 33.0-37.0 N RED CELL DISTRIBUTION WIDTH CV (test code = RDW) 14.8 % 11.5-14.5 H RED CELL DISTRIBUTION WIDTH SD (test code = RDW-SD) 51.0 fL 37.0-54.0 N PLATELET COUNT (test code = PLT) 132 x10 3/uL 150-400 L MEAN PLATELET VOLUME (test code = MPV) 9.9 fL 7.0-9.0 H NEUTROPHIL % (test code = NT%) 84.0 % 56.0-77.0 H IMMATURE GRANULOCYTE % (test code = IG%) 0.6 % 0.0-2.0 N LYMPHOCYTE % (test code = LY%) 5.1 % 14.0-32.0 L MONOCYTE % (test code = MO%) 9.9 % 4.8-9.0 H EOSINOPHIL % (test code = EO%) 0.2 % 0.3-3.7 L BASOPHIL % (test code = BA%) 0.2 % 0.0-2.0 N NUCLEATED RBC % (test code = NRBC%) 0.0 % 0-0 N NEUTROPHIL # (test code = NT#) 11.41 x10 3/uL 2.0-7.6 H IMMATURE GRANULOCYTE # (test code = IG#) 0.08 x10 3/uL 0.00-0.03 H LYMPHOCYTE # (test code = LY#) 0.70 x10 3/uL 1.0-3.8 L MONOCYTE # (test code = MO#) 1.35 x10 3/uL 0.1-0.8 H EOSINOPHIL # (test code = EO#) 0.03 x10 3/uL 0.0-0.2 N BASOPHIL # (test code = BA#) 0.03 x10 3/uL 0.0-0.2 N NUCLEATED RBC # (test code = NRBC#) 0.00 x10 3/uL 0.0-0.1 N HGB [id number] 19:54:00* Test Item Value Reference Range Interpretation Comme nts HEMOGLOBIN (test code = HGB) 9.4 g/dL 12.5-16.9 L HEMATOCRIT (test code = HCT) 27.3 % 37.5-50.7 L BASIC METABOLIC [id number] 16:40:00* Test Item Value Reference Range Interpretation Comme nts SODIUM (test code = NA) 133 mEq/L 134-147 L POTASSIUM (test code = K) 4.6 mEq/L 3.4-5.0 N CHLORIDE (test code = CL) 104 mEq/L 100-108 N CARBON DIOXIDE (test code = CO2) 24 mEq/l 21-33 N ANION GAP (test code = GAP) 10 0-20 N GLUCOSE (test code = GLU) 150 mg/dL 77-141 H BLOOD UREA NITROGEN (test code = BUN) 24 mg/dL 7-25 N GLOMERULAR FILTRATION RATE (test code = GFR) 75.6 70-80 N The Glomerular Filtration Rate is a calculated parameterbased on serum Creatinine, patient age and sex. GFR valuesless than 60 mL/min/1.73 square meters are indicative ofChronic Kidney Disease. Values less than 15 mL/min/1.73square meters indicate Kidney failure. The calculation forGFR is based on the CKD-EPI (2020) calculation. This formulais race indifferent and is the recommended formula for GFRby the National [facility].The GFR will not calculate if the sex is unknown or if thepatient's age is <18 years. CREATININE (test code = CREAT) 1.0 mg/dL 0.6-1.3 N CALCIUM (test code = CA) 8.1 mg/dL 8.0-10.5 N [id number] 16:40:00* Test Item Value Reference Range Interpretation Comme nts MAGNESIUM (test code = MAG) 2.26 mg/dL 1.6-2.6 POC ARTERIAL BLOOD [id number] 12:21:00* Test Item Value Reference Range Interpretation Comme nts POC ARTERIAL BLOOD GAS PH (t est code = POCPHA) 7.467 7.35-7.45 H POC ARTERIAL BLOOD GAS PCO2 (test code = [id number]) 31.7 mmHg 35.0-45 L POC TCO2 ARTERIAL (test code = POCTCO2) 23.9 POC ARTERIAL BLOOD GAS PO2 ( test code = GOWGE7S) 86.4 mmHg 80-100.0 N POC HCO3 ARTERIAL (test code = BRRBNA5L) 22.9 MMOL/L 22.0-26.0 N POC BASE EXCESS (test code = POCBEA) -0.8 MMOL/L -4.0-4.0 N POC O2 SATURATION (test code = POCO2S) 97.3 % 90-100 N ABG DELIVERY (test code = TRUNG) Cannula ABG TEMPERATURE (test code = TEMPA) 99 F ABG SITE (test code = SITEA) Art Line BASIC METABOLIC [id number] 12:21:00* Test Item Value Reference Range Interpretation Comme nts SODIUM (test code = NA/ABG) 133 mmol/L 134-147 L POTASSIUM (test code = K/ABG) 4.6 mmol/L 3.4-5.0 N CHLORIDE (test code = CL/ABG) 101 mmol/L 100-108 N CREATININE ABG (test code = CREAABG) 1.0 mg/dL 0.8-1.3 N POC IONIZED CALCIUM (test co de = POCCA) 1.13 MMOL/L 1.12-1.32 N POC GLUCOSE (test code = POCGLU) 132 MG/DL 70-110 H HEMOGLOBIN [id number] 12:21:00* Test Item Value Reference Range Interpretation Comme nts HEMOGLOBIN ABG (test code = HGB/ABG) 6.4 G/DL 12.5-16.9 L [id number] 12:21:00* Test Item Value Reference Range Interpretation Comme nts HEMATOCRIT (test code = HCT/ABG) 19 % 37.5-50.7 L POC LACTIC [id number] 12:21:00* Test Item Value Reference Range Interpretation Comme nts POC LACTIC ACID (test code = POCLAC) 0.9 mmol/l 0.9-1.7 N CBC W/AUTO [id number] 06:29:00* Test Item Value Reference Range Interpretation Comme nts WHITE BLOOD CELL (test code = WBC) 10.1 x10 3/uL 4.5-11.0 N RED BLOOD CELL (test code = RBC) 2.04 x10 6/uL 4.00-5.60 L HEMOGLOBIN (test code = HGB) 6.9 g/dL 12.5-16.9 L HEMATOCRIT (test code = HCT) 20.2 % 37.5-50.7 L MEAN CELL VOLUME (test code = MCV) 99.0 fL 81.0-99.0 N MEAN CELL HGB (test code = MCH) 33.8 pg 27.0-33.0 H MEAN CELL HGB CONCETRATION (test code = MCHC) 34.2 g/dL 33.0-37.0 N RED CELL DISTRIBUTION WIDTH CV (test code = RDW) 12.8 % 11.5-14.5 N RED CELL DISTRIBUTION WIDTH SD (test code = RDW-SD) 45.8 fL 37.0-54.0 N PLATELET COUNT (test code = PLT) 149 x10 3/uL 150-400 L MEAN PLATELET VOLUME (test c ode = MPV) 10.1 fL 7.0-9.0 H NEUTROPHIL % (test code = NT%) 83.2 % 56.0-77.0 H IMMATURE GRANULOCYTE % (test code = IG%) 0.5 % 0.0-2.0 N LYMPHOCYTE % (test code = LY%) 6.4 % 14.0-32.0 L MONOCYTE % (test code = MO%) 9.7 % 4.8-9.0 H EOSINOPHIL % (test code = EO%) 0.0 % 0.3-3.7 L BASOPHIL % (test code = BA%) 0.2 % 0.0-2.0 N NUCLEATED RBC % (test code = NRBC%) 0.0 % 0-0 N NEUTROPHIL # (test code = NT#) 8.38 x10 3/uL 2.0-7.6 H IMMATURE GRANULOCYTE # (test code = IG#) 0.05 x10 3/uL 0.00-0.03 H LYMPHOCYTE # (test code = LY#) 0.64 x10 3/uL 1.0-3.8 L MONOCYTE # (test code = MO#) 0.98 x10 3/uL 0.1-0.8 H EOSINOPHIL # (test code = EO#) 0.00 x10 3/uL 0.0-0.2 N BASOPHIL # (test code = BA#) 0.02 x10 3/uL 0.0-0.2 N NUCLEATED RBC # (test code = NRBC#) 0.00 x10 3/uL 0.0-0.1 N PROTHROMBIN [id number] 04:34:00* Test Item Value Reference Range Interpretation Comme nts PROTHROMBIN TIME PATIENT (test code = PTP) 15.7 SECONDS 9.3-12.9 H INTERNATIONAL NORMAL RATIO (test code = INR) 1.4 0.8-1.2 H TARGET INR BY INDICATION Indication INR1. Prophylaxis of venous thrombosis 2.0 - 3.0 (orthopedic surgery), Prophylaxis of venous thrombosis (other than high-risk surgery), Treatment of Deep Vein Thrombosis/Pulmonary Embolism, Prevention of systemic embolism - Tissue heart valves, Acute Myocardial Infarction (to prevent systemic embolism), Valvular heart disease, Atrial Fibrillation, Bileaflet mechanical valve in aortic position.2. Mechanical prosthetic valves (high risk), 2.5 - 3.5 Presence of Lupus Anticoagulant or Antiphospholipid Antibodies, Prevention of systemic embolism - Acute Myocardial Infarction (to prevent recurrent infarct). CBC W/AUTO [id number] 04:28:00* Test Item Value Reference Range Interpretation Comme nts WHITE BLOOD CELL (test code = WBC) 10.2 x10 3/uL 4.5-11.0 N RED BLOOD CELL (test code = RBC) 2.06 x10 6/uL 4.00-5.60 L HEMOGLOBIN (test code = HGB) 7.0 g/dL 12.5-16.9 L HEMATOCRIT (test code = HCT) 20.7 % 37.5-50.7 L MEAN CELL VOLUME (test code = MCV) 100.5 fL 81.0-99.0 H MEAN CELL HGB (test code = MCH) 34.0 pg 27.0-33.0 H MEAN CELL HGB CONCETRATION (test code = MCHC) 33.8 g/dL 33.0-37.0 N RED CELL DISTRIBUTION WIDTH CV (test code = RDW) 12.7 % 11.5-14.5 N RED CELL DISTRIBUTION WIDTH SD (test code = RDW-SD) 46.8 fL 37.0-54.0 N PLATELET COUNT (test code = PLT) 154 x10 3/uL 150-400 N MEAN PLATELET VOLUME (test c ode = MPV) 9.7 fL 7.0-9.0 H NEUTROPHIL % (test code = NT%) 83.9 % 56.0-77.0 H IMMATURE GRANULOCYTE % (test code = IG%) 0.6 % 0.0-2.0 N LYMPHOCYTE % (test code = LY%) 6.5 % 14.0-32.0 L MONOCYTE % (test code = MO%) 8.7 % 4.8-9.0 N EOSINOPHIL % (test code = EO%) 0.0 % 0.3-3.7 L BASOPHIL % (test code = BA%) 0.3 % 0.0-2.0 N NUCLEATED RBC % (test code = NRBC%) 0.0 % 0-0 N NEUTROPHIL # (test code = NT#) 8.57 x10 3/uL 2.0-7.6 H IMMATURE GRANULOCYTE # (test code = IG#) 0.06 x10 3/uL 0.00-0.03 H LYMPHOCYTE # (test code = LY#) 0.66 x10 3/uL 1.0-3.8 L MONOCYTE # (test code = MO#) 0.89 x10 3/uL 0.1-0.8 H EOSINOPHIL # (test code = EO#) 0.00 x10 3/uL 0.0-0.2 N BASOPHIL # (test code = BA#) 0.03 x10 3/uL 0.0-0.2 N NUCLEATED RBC # (test code = NRBC#) 0.00 x10 3/uL 0.0-0.1 N BASIC METABOLIC [id number] 03:34:00* Test Item Value Reference Range Interpretation Comme nts SODIUM (test code = NA) 133 mEq/L 134-147 L POTASSIUM (test code = K) 4.6 mEq/L 3.4-5.0 N CHLORIDE (test code = CL) 104 mEq/L 100-108 N CARBON DIOXIDE (test code = CO2) 23 mEq/l 21-33 N ANION GAP (test code = GAP) 11 0-20 N GLUCOSE (test code = GLU) 135 mg/dL 77-141 N BLOOD UREA NITROGEN (test code = BUN) 18 mg/dL 7-25 N GLOMERULAR FILTRATION RATE (test code = GFR) 75.6 70-80 N The Glomerular Filtration Rate is a calculated parameterbased on serum Creatinine, patient age and sex. GFR valuesless than 60 mL/min/1.73 square meters are indicative ofChronic Kidney Disease. Values less than 15 mL/min/1.73square meters indicate Kidney failure. The calculation forGFR is based on the CKD-EPI (2020) calculation. This formulais race indifferent and is the recommended formula for GFRby the National [facility] [employer] for Adults.The GFR will not calculate if the sex is unknown or if thepatient's age is <18 years. CREATININE (test code = CREAT) 1.0 mg/dL 0.6-1.3 N CALCIUM (test code = CA) 8.3 mg/dL 8.0-10.5 N COMMENTS: POD #1HEPATIC FUNCTION [id number] 03:34:00* Test Item Value Reference Range Interpretation Comme nts TOTAL PROTEIN (test code = PROT) 5.5 g/dL 6.4-8.2 L ALBUMIN (test code = ALB) 3.90 g/dL 3.4-5.0 N BILIRUBIN TOTAL (test code = BILT) 0.70 mg/dL 0.0-1.0 N BILIRUBIN DIRECT (test code = BILD) 0.30 MG/DL 0.1-0.3 N BILIRUBIN INDIRECT (test cod e = BILIND) 0.40 MG/DL SGOT/AST (test code = AST) 42 IUnit/L 8-34 H SGPT/ALT (test code = ALT) 11 IUnit/L 10-49 N ALKALINE PHOSPHATASE TOTAL ( test code = ALKP) 31 IUnit/L 20-125 COMMENTS: POD #[id number] 03:34:00* Test Item Value Reference Range Interpretation Comme nts MAGNESIUM (test code = MAG) 1.91 mg/dL 1.6-2.6 COMMENTS: POD #1CBC W/AUTO [id number] 03:12:00* Test Item Value Reference Range Interpretation Comme nts WHITE BLOOD CELL (test code = WBC) 9.5 x10 3/uL 4.5-11.0 RED BLOOD CELL (test code = RBC) 2.02 x10 6/uL 4.00-5.60 L HEMOGLOBIN (test code = HGB) 6.9 g/dL 12.5-16.9 L HEMATOCRIT (test code = HCT) 20.0 % 37.5-50.7 L MEAN CELL VOLUME (test code = MCV) 99.0 fL 81.0-99.0 MEAN CELL HGB (test code = MCH) 34.2 pg 27.0-33.0 H MEAN CELL HGB CONCETRATION (test code = MCHC) 34.5 g/dL 33.0-37.0 N RED CELL DISTRIBUTION WIDTH CV (test code = RDW) 12.8 % 11.5-14.5 N RED CELL DISTRIBUTION WIDTH SD (test code = RDW-SD) 46.4 fL 37.0-54.0 N PLATELET COUNT (test code = PLT) 143 x10 3/uL 150-400 L MEAN PLATELET VOLUME (test c ode = MPV) 9.9 fL 7.0-9.0 H NEUTROPHIL % (test code = NT%) 85.0 % 56.0-77.0 H IMMATURE GRANULOCYTE % (test code = IG%) 0.3 % 0.0-2.0 N LYMPHOCYTE % (test code = LY%) 6.6 % 14.0-32.0 L MONOCYTE % (test code = MO%) 7.9 % 4.8-9.0 N EOSINOPHIL % (test code = EO%) 0.0 % 0.3-3.7 L BASOPHIL % (test code = BA%) 0.2 % 0.0-2.0 N NUCLEATED RBC % (test code = NRBC%) 0.0 % 0-0 N NEUTROPHIL # (test code = NT#) 8.11 x10 3/uL 2.0-7.6 H IMMATURE GRANULOCYTE # (test code = IG#) 0.03 x10 3/uL 0.00-0.03 N LYMPHOCYTE # (test code = LY#) 0.63 x10 3/uL 1.0-3.8 L MONOCYTE # (test code = MO#) 0.75 x10 3/uL 0.1-0.8 N EOSINOPHIL # (test code = EO#) 0.00 x10 3/uL 0.0-0.2 N BASOPHIL # (test code = BA#) 0.02 x10 3/uL 0.0-0.2 N NUCLEATED RBC # (test code = NRBC#) 0.00 x10 3/uL 0.0-0.1 N GLUCOSE [id number] 00:09:00* Test Item Value Reference Range Interpretation Comme [facility] GLUCOSE BEDSIDE (test code = GLUBED) 113 MG/DL 70-110 H Performed by cer tified para machine operator at [facility] GLUCOSE [id number] 22:18:00* Test Item Value Reference Range Interpretation Comme [facility] GLUCOSE BEDSIDE (test code = GLUBED) 120 MG/DL 70-110 H Performed by cer tified para machine operator at [facility] POC ARTERIAL BLOOD [id number] 20:24:00* Test Item Value Reference Range Interpretation Comme [facility] POC ARTERIAL BLOOD GAS PH (t est code = POCPHA) 7.412 7.35-7.45 N POC ARTERIAL BLOOD GAS PCO2 (test code = TTIXLE3L) 34.9 mmHg 35.0-45 L POC TCO2 ARTERIAL (test code = POCTCO2) 23.3 POC ARTERIAL BLOOD GAS PO2 ( test code = BGEWA1J) 125.5 mmHg 80-100.0 H POC HCO3 ARTERIAL (test code = KMPQLI9H) 22.2 MMOL/L 22.0-26.0 N POC BASE EXCESS (test code = POCBEA) -2.4 MMOL/L -4.0-4.0 N POC O2 SATURATION (test code = POCO2S) 98.9 % 90-100 N ABG DELIVERY (test code = TRUNG) Cannula ABG TEMPERATURE (test code = TEMPA) 99 F ABG SITE (test code = SITEA) Art Line BASIC METABOLIC [id number] 20:24:00* Test Item Value Reference Range Interpretation Comme nts SODIUM (test code = NA/ABG) 132 mmol/L 134-147 L POTASSIUM (test code = K/ABG) 4.4 mmol/L 3.4-5.0 N CHLORIDE (test code = CL/ABG) 102 mmol/L 100-108 N CREATININE ABG (test code = CREAABG) 0.9 mg/dL 0.8-1.3 N POC IONIZED CALCIUM (test co de = POCCA) 1.13 MMOL/L 1.12-1.32 N POC GLUCOSE (test code = POCGLU) 120 MG/DL 70-110 H HEMOGLOBIN [id number] 20:24:00* Test Item Value Reference Range Interpretation Comme nts HEMOGLOBIN ABG (test code = HGB/ABG) 6.7 G/DL 12.5-16.9 L [id number] 20:24:00* Test Item Value Reference Range Interpretation Comme nts HEMATOCRIT (test code = HCT/ABG) 20 % 37.5-50.7 L POC LACTIC [id number] 20:24:00* Test Item Value Reference Range Interpretation Comme nts POC LACTIC ACID (test code = POCLAC) 0.8 mmol/l 0.9-1.7 L BASIC METABOLIC [id number] 12:49:00* Test Item Value Reference Range Interpretation Comme nts SODIUM (test code = NA) 132 mEq/L 134-147 L POTASSIUM (test code = K) 4.0 mEq/L 3.4-5.0 N CHLORIDE (test code = CL) 100 mEq/L 100-108 N CARBON DIOXIDE (test code = CO2) 26 mEq/l 21-33 N ANION GAP (test code = GAP) 11 0-20 N GLUCOSE (test code = GLU) 137 mg/dL 77-141 N BLOOD UREA NITROGEN (test code = BUN) 20 mg/dL 7-25 N GLOMERULAR FILTRATION RATE (test code = GFR) 85.8 70-80 H The Glomerular Filtration Rate is a calculated parameterbased on serum Creatinine, patient age and sex. GFR valuesless than 60 mL/min/1.73 square meters are indicative ofChronic Kidney Disease. Values less than 15 mL/min/1.73square meters indicate Kidney failure. The calculation forGFR is based on the CKD-EPI (2020) calculation. This formulais race indifferent and is the recommended formula for GFRby the National [facility] Foundation for Adults.The GFR will not calculate if the sex is unknown or if thepatient's age is <18 years. CREATININE (test code = CREAT) 0.9 mg/dL 0.6-1.3 N CALCIUM (test code = CA) 8.1 mg/dL 8.0-10.5 N COMMENTS: On arrivalComment: On [id number] 12:49:00* Test Item Value Reference Range Interpretation Comme nts MAGNESIUM (test code = MAG) 2.33 mg/dL 1.6-2.6 N COMMENTS: On arrivalComment: On arrivalPROTHROMBIN [id number] 12:38:00* Test Item Value Reference Range Interpretation Comme nts PROTHROMBIN TIME PATIENT (test code = PTP) 16.8 SECONDS 9.3-12.9 H INTERNATIONAL NORMAL RATIO (test code = INR) 1.5 0.8-1.2 H TARGET INR BY INDICATION Indication INR1. Prophylaxis of venous thrombosis 2.0 - 3.0 (orthopedic surgery), Prophylaxis of venous thrombosis (other than high-risk surgery), Treatment of Deep Vein Thrombosis/Pulmonary Embolism, Prevention of systemic embolism - Tissue heart valves, Acute Myocardial Infarction (to prevent systemic embolism), Valvular heart disease, Atrial Fibrillation, Bileaflet mechanical valve in aortic position.2. Mechanical prosthetic valves (high risk), 2.5 - 3.5 Presence of Lupus Anticoagulant or Antiphospholipid Antibodies, Prevention of systemic embolism - Acute Myocardial Infarction (to prevent recurrent infarct). COMMENTS: On arrivalTHROMBOPLASTIN TIME [id number] 12:38:00* Test Item Value Reference Range Interpretation Comme nts THROMBOPLASTIN TIME PARTIAL (test code = PTT) 34.6 Seconds 25.0-39.5 N Therapeutic Rang e: 50.4 - 88.3 Seconds Effective 02/12/2019 COMMENTS: On arrivalCBC W/AUTO [id number] 12:28:00* Test Item Value Reference Range Interpretation Comme nts WHITE BLOOD CELL (test code = WBC) 18.0 x10 3/uL 4.5-11.0 H RED BLOOD CELL (test code = RBC) 2.26 x10 6/uL 4.00-5.60 L HEMOGLOBIN (test code = HGB) 7.6 g/dL 12.5-16.9 L HEMATOCRIT (test code = HCT) 21.7 % 37.5-50.7 L MEAN CELL VOLUME (test code = MCV) 96.0 fL 81.0-99.0 N MEAN CELL HGB (test code = MCH) 33.6 pg 27.0-33.0 H MEAN CELL HGB CONCETRATION (test code = MCHC) 35.0 g/dL 33.0-37.0 N RED CELL DISTRIBUTION WIDTH CV (test code = RDW) 12.3 % 11.5-14.5 N RED CELL DISTRIBUTION WIDTH SD (test code = RDW-SD) 42.9 fL 37.0-54.0 N PLATELET COUNT (test code = PLT) 127 x10 3/uL 150-400 L MEAN PLATELET VOLUME (test code = MPV) 9.6 fL 7.0-9.0 H NEUTROPHIL % (test code = NT%) 84.0 % 56.0-77.0 H IMMATURE GRANULOCYTE % (test code = IG%) 1.2 % 0.0-2.0 N LYMPHOCYTE % (test code = LY%) 6.7 % 14.0-32.0 L MONOCYTE % (test code = MO%) 6.1 % 4.8-9.0 N EOSINOPHIL % (test code = EO%) 1.8 % 0.3-3.7 N BASOPHIL % (test code = BA%) 0.2 % 0.0-2.0 N NUCLEATED RBC % (test code = NRBC%) 0.0 % 0-0 N NEUTROPHIL # (test code = NT#) 15.12 x10 3/uL 2.0-7.6 H IMMATURE GRANULOCYTE # (test code = IG#) 0.21 x10 3/uL 0.00-0.03 H LYMPHOCYTE # (test code = LY#) 1.20 x10 3/uL 1.0-3.8 N MONOCYTE # (test code = MO#) 1.10 x10 3/uL 0.1-0.8 H EOSINOPHIL # (test code = EO#) 0.32 x10 3/uL 0.0-0.2 H BASOPHIL # (test code = BA#) 0.04 x10 3/uL 0.0-0.2 N NUCLEATED RBC # (test code = NRBC#) 0.00 x10 3/uL 0.0-0.1 N [facility] [id number] 12:17:00* Test Item Value Reference Range Interpretation Comme nts POC ARTERIAL BLOOD GAS PH (t est code = POCPHA) 7.401 7.35-7.45 N POC ARTERIAL BLOOD GAS PCO2 (test code = QCKSEI5Z) 38.9 mmHg 35.0-45 N POC TCO2 ARTERIAL (test code = POCTCO2) 25.5 POC ARTERIAL BLOOD GAS PO2 ( test code = HXXLN9B) 103.4 mmHg 80-100.0 H POC HCO3 ARTERIAL (test code = AIKTWH4P) 24.3 MMOL/L 22.0-26.0 N POC BASE EXCESS (test code = POCBEA) -0.6 MMOL/L -4.0-4.0 N POC O2 SATURATION (test code = POCO2S) 98.1 % 90-100 N FIO2 (test code = FIO2A) 60.0 % PaO2/FiO2 (test code = CHG7OXC9) 172.30 mm/Hg ABG DELIVERY (test code = TRUNG) simple mask ABG TEMPERATURE (test code = TEMPA) 98 F ABG SITE (test code = SITEA) Art Line ALCIRA'S TEST (test code = ALLENS) N/A BASIC METABOLIC [id number] 12:17:00* Test Item Value Reference Range Interpretation Comme nts SODIUM (test code = NA/ABG) 130 mmol/L 134-147 L POTASSIUM (test code = K/ABG) 4.0 mmol/L 3.4-5.0 N CHLORIDE (test code = CL/ABG) 97 mmol/L 100-108 L CREATININE ABG (test code = CREAABG) 0.9 mg/dL 0.8-1.3 POC IONIZED CALCIUM (test co de = POCCA) 1.16 MMOL/L 1.12-1.32 N POC GLUCOSE (test code = POCGLU) 133 MG/DL 70-110 H HEMOGLOBIN [id number] 12:17:00* Test Item Value Reference Range Interpretation Comme nts HEMOGLOBIN ABG (test code = HGB/ABG) 7.3 G/DL 12.5-16.9 L [id number] 12:17:00* Test Item Value Reference Range Interpretation Comme nts HEMATOCRIT (test code = HCT/ABG) 22 % 37.5-50.7 L POC LACTIC [id number] 11:52:00* Test Item Value Reference Range Interpretation Comme nts POC LACTIC ACID (test code = POCLAC) 0.6 mmol/l 0.9-1.7 L POC ARTERIAL BLOOD [id number] 11:52:00* Test Item Value Reference Range Interpretation Comme nts POC ARTERIAL BLOOD GAS PH (t est code = POCPHA) 7.437 7.35-7.45 N POC ARTERIAL BLOOD GAS PCO2 (test code = SLNWUL0X) 34.7 mmHg 35.0-45 L POC TCO2 ARTERIAL (test code = POCTCO2) 24.4 POC ARTERIAL BLOOD GAS PO2 ( test code = PMECZ1J) 373.4 mmHg 80-100.0 HH POC HCO3 ARTERIAL (test code = IIXJNN2Q) 23.4 MMOL/L 22.0-26.0 N POC BASE EXCESS (test code = POCBEA) -0.6 MMOL/L -4.0-4.0 N POC O2 SATURATION (test code = POCO2S) 100.0 % 90-100 N BASIC METABOLIC [id number] 11:52:00* Test Item Value Reference Range Interpretation Comme nts SODIUM (test code = NA/ABG) 134 mmol/L 134-147 N POTASSIUM (test code = K/ABG) 3.8 mmol/L 3.4-5.0 N CHLORIDE (test code = CL/ABG) 99 mmol/L 100-108 L CREATININE ABG (test code = CREAABG) 0.6 mg/dL 0.8-1.3 L POC IONIZED CALCIUM (test co de = POCCA) 1.15 MMOL/L 1.12-1.32 N POC GLUCOSE (test code = POCGLU) 119 MG/DL 70-110 H HEMOGLOBIN [id number] 11:52:00* Test Item Value Reference Range Interpretation Comme nts HEMOGLOBIN ABG (test code = HGB/ABG) 8.2 G/DL 12.5-16.9 L [id number] 11:52:00* Test Item Value Reference Range Interpretation Comme nts HEMATOCRIT (test code = HCT/ABG) 24 % 37.5-50.7 L POC ARTERIAL BLOOD [id number] 11:12:00* Test Item Value Reference Range Interpretation Comme nts POC ARTERIAL BLOOD GAS PH (t est code = POCPHA) 7.378 7.35-7.45 N POC ARTERIAL BLOOD GAS PCO2 (test code = SDIPCR0H) 36.8 mmHg 35.0-45 N POC TCO2 ARTERIAL (test code = POCTCO2) 22.8 POC ARTERIAL BLOOD GAS PO2 ( test code = TZWRB6F) 327.8 mmHg 80-100.0 HH POC HCO3 ARTERIAL (test code = NXDIGT1V) 21.6 MMOL/L 22.0-26.0 L POC BASE EXCESS (test code = POCBEA) -3.2 MMOL/L -4.0-4.0 N POC O2 SATURATION (test code = POCO2S) 99.9 % 90-100 N BASIC METABOLIC [id number] 11:12:00* Test Item Value Reference Range Interpretation Comme nts SODIUM (test code = NA/ABG) 133 mmol/L 134-147 L POTASSIUM (test code = K/ABG) 3.8 mmol/L 3.4-5.0 N CHLORIDE (test code = CL/ABG) 97 mmol/L 100-108 L CREATININE ABG (test code = CREAABG) 0.8 mg/dL 0.8-1.3 N POC IONIZED CALCIUM (test co de = POCCA) 1.32 MMOL/L 1.12-1.32 N POC GLUCOSE (test code = POCGLU) 134 MG/DL 70-110 H HEMOGLOBIN [id number] 11:12:00* Test Item Value Reference Range Interpretation Comme nts HEMOGLOBIN ABG (test code = HGB/ABG) 7.7 G/DL 12.5-16.9 L [id number] 11:12:00* Test Item Value Reference Range Interpretation Comme nts HEMATOCRIT (test code = HCT/ABG) 23 % 37.5-50.7 L POC LACTIC [id number] 11:12:00* Test Item Value Reference Range Interpretation Comme nts POC LACTIC ACID (test code = POCLAC) 1.5 mmol/l 0.9-1.7 N [id number] 11:11:00* Test Item Value Reference Range Interpretation Comme nts ACT-ISTAT (test code = ACTI) 136 SEC 74-137 N Performed by cer tified para machine operator at [facility] [id number] 10:45:00* Test Item Value Reference Range Interpretation Comme nts ACT-ISTAT (test code = ACTI) 682 SEC 74-137 H Performed by cer tified para machine operator at [facility] POC ARTERIAL BLOOD [id number] 10:35:00* Test Item Value Reference Range Interpretation Comme nts POC ARTERIAL BLOOD GAS PH (t est code = POCPHA) 7.343 7.35-7.45 L POC ARTERIAL BLOOD GAS PCO2 (test code = KRYXXQ6E) 46.4 mmHg 35.0-45 H POC TCO2 ARTERIAL (test code = POCTCO2) 26.7 POC ARTERIAL BLOOD GAS PO2 ( test code = WYQOO3L) 443.8 mmHg 80-100.0 HH POC HCO3 ARTERIAL (test code = MJOXOA6K) 25.2 MMOL/L 22.0-26.0 N POC BASE EXCESS (test code = POCBEA) -0.6 MMOL/L -4.0-4.0 N POC O2 SATURATION (test code = POCO2S) 100.0 % 90-100 N BASIC METABOLIC [id number] 10:35:00* Test Item Value Reference Range Interpretation Comme nts SODIUM (test code = NA/ABG) 129 mmol/L 134-147 L POTASSIUM (test code = K/ABG) 5.0 mmol/L 3.4-5.0 N CHLORIDE (test code = CL/ABG) 95 mmol/L 100-108 L CREATININE ABG (test code = CREAABG) 0.7 mg/dL 0.8-1.3 L POC IONIZED CALCIUM (test co de = POCCA) 1.10 MMOL/L 1.12-1.32 L POC GLUCOSE (test code = POCGLU) 113 MG/DL 70-110 H HEMOGLOBIN [id number] 10:35:00* Test Item Value Reference Range Interpretation Comme nts HEMOGLOBIN ABG (test code = HGB/ABG) 7.8 G/DL 12.5-16.9 L [id number] 10:35:00* Test Item Value Reference Range Interpretation Comme nts HEMATOCRIT (test code = HCT/ABG) 23 % 37.5-50.7 L POC LACTIC [id number] 10:35:00* Test Item Value Reference Range Interpretation Comme nts POC LACTIC ACID (test code = POCLAC) 0.6 mmol/l 0.9-1.7 L [id number] 10:23:00* Test Item Value Reference Range Interpretation Comme nts ACT-ISTAT (test code = ACTI) 796 SEC 74-137 H Performed by cer tified para machine operator at [facility] POC ARTERIAL BLOOD [id number] 10:12:00* Test Item Value Reference Range Interpretation Comme nts POC ARTERIAL BLOOD GAS PH (t est code = POCPHA) 7.380 7.35-7.45 N POC ARTERIAL BLOOD GAS PCO2 (test code = XHSMSX0V) 44.6 mmHg 35.0-45 N POC TCO2 ARTERIAL (test code = POCTCO2) 27.8 POC ARTERIAL BLOOD GAS PO2 ( test code = ZQGWE6V) 632.0 mmHg 80-100.0 HH POC HCO3 ARTERIAL (test code = WMPTCA8P) 26.4 MMOL/L 22.0-26.0 H POC BASE EXCESS (test code = POCBEA) 1.1 MMOL/L -4.0-4.0 N POC O2 SATURATION (test code = POCO2S) 100.0 % 90-100 N BASIC METABOLIC [id number] 10:12:00* Test Item Value Reference Range Interpretation Comme nts SODIUM (test code = NA/ABG) 128 mmol/L 134-147 L POTASSIUM (test code = K/ABG) 5.2 mmol/L 3.4-5.0 H CHLORIDE (test code = CL/ABG) 94 mmol/L 100-108 L CREATININE ABG (test code = CREAABG) 0.8 mg/dL 0.8-1.3 N POC IONIZED CALCIUM (test co de = POCCA) 1.03 MMOL/L 1.12-1.32 L POC GLUCOSE (test code = POCGLU) 86 MG/DL 70-110 N HEMOGLOBIN [id number] 10:12:00* Test Item Value Reference Range Interpretation Comme nts HEMOGLOBIN ABG (test code = HGB/ABG) 7.4 G/DL 12.5-16.9 L [id number] 10:12:00* Test Item Value Reference Range Interpretation Comme nts HEMATOCRIT (test code = HCT/ABG) 22 % 37.5-50.7 L POC LACTIC [id number] 10:12:00* Test Item Value Reference Range Interpretation Comme nts POC LACTIC ACID (test code = POCLAC) < 0.3 mmol/l 0.9-1.7 L [id number] 09:50:00* Test Item Value Reference Range Interpretation Comme nts ACT-ISTAT (test code = ACTI) 596 SEC 74-137 H Performed by cer tified para machine operator at [facility] POC ARTERIAL BLOOD [id number] 09:42:00* Test Item Value Reference Range Interpretation Comme nts POC ARTERIAL BLOOD GAS PH (t est code = POCPHA) 7.268 7.35-7.45 LL POC ARTERIAL BLOOD GAS PCO2 (test code = AODZNG8L) 52.1 mmHg 35.0-45 HH POC TCO2 ARTERIAL (test code = POCTCO2) 25.4 POC ARTERIAL BLOOD GAS PO2 ( test code = EPBQJ2I) 545.3 mmHg 80-100.0 HH POC HCO3 ARTERIAL (test code = SVSAPK7Q) 23.8 MMOL/L 22.0-26.0 N POC BASE EXCESS (test code = POCBEA) -3.3 MMOL/L -4.0-4.0 N POC O2 SATURATION (test code = POCO2S) 100.0 % 90-100 N BASIC METABOLIC [id number] 09:42:00* Test Item Value Reference Range Interpretation Comme nts SODIUM (test code = NA/ABG) 132 mmol/L 134-147 L POTASSIUM (test code = K/ABG) 4.4 mmol/L 3.4-5.0 N CHLORIDE (test code = CL/ABG) 96 mmol/L 100-108 L CREATININE ABG (test code = CREAABG) 0.8 mg/dL 0.8-1.3 POC IONIZED CALCIUM (test co de = POCCA) 1.19 MMOL/L 1.12-1.32 N POC GLUCOSE (test code = POCGLU) 91 MG/DL 70-110 N HEMOGLOBIN [id number] 09:42:00* Test Item Value Reference Range Interpretation Comme nts HEMOGLOBIN ABG (test code = HGB/ABG) 9.0 G/DL 12.5-16.9 L [id number] 09:42:00* Test Item Value Reference Range Interpretation Comme nts HEMATOCRIT (test code = HCT/ABG) 27 % 37.5-50.7 L POC LACTIC [id number] 09:42:00* Test Item Value Reference Range Interpretation Comme nts POC LACTIC ACID (test code = POCLAC) < 0.3 mmol/l 0.9-1.7 L [id number] 07:52:00* Test Item Value Reference Range Interpretation Comme nts ACT-ISTAT (test code = ACTI) 157 SEC 74-137 H Performed by cer tified para machine operator at [facility] POC ARTERIAL BLOOD [id number] 07:44:00* Test Item Value Reference Range Interpretation Comme nts POC ARTERIAL BLOOD GAS PH (t est code = POCPHA) 7.399 7.35-7.45 N POC ARTERIAL BLOOD GAS PCO2 (test code = LFEKRG6J) 38.6 mmHg 35.0-45 N POC TCO2 ARTERIAL (test code = POCTCO2) 25.1 POC ARTERIAL BLOOD GAS PO2 ( test code = CPUQV1V) 585.2 mmHg 80-100.0 HH POC HCO3 ARTERIAL (test code = YHUBUF3N) 23.9 MMOL/L 22.0-26.0 N POC BASE EXCESS (test code = POCBEA) -0.8 MMOL/L -4.0-4.0 N POC O2 SATURATION (test code = POCO2S) 100.0 % 90-100 N BASIC METABOLIC [id number] 07:44:00* Test Item Value Reference Range Interpretation Comme nts SODIUM (test code = NA/ABG) 132 mmol/L 134-147 L POTASSIUM (test code = K/ABG) 3.9 mmol/L 3.4-5.0 N CHLORIDE (test code = CL/ABG) 97 mmol/L 100-108 L CREATININE ABG (test code = CREAABG) 0.6 mg/dL 0.8-1.3 L POC IONIZED CALCIUM (test co de = POCCA) 1.24 MMOL/L 1.12-1.32 N POC GLUCOSE (test code = POCGLU) 91 MG/DL 70-110 N HEMOGLOBIN [id number] 07:44:00* Test Item Value Reference Range Interpretation Comme nts HEMOGLOBIN ABG (test code = HGB/ABG) 9.8 G/DL 12.5-16.9 L [id number] 07:44:00* Test Item Value Reference Range Interpretation Comme nts HEMATOCRIT (test code = HCT/ABG) 29 % 37.5-50.7 L POC LACTIC [id number] 07:44:00* Test Item Value Reference Range Interpretation Comme nts POC LACTIC ACID (test code = POCLAC) 0.4 mmol/l 0.9-1.7 L LIPID PROFILE (CORONARY RISK)2024-03-01 06:56:00* Test Item Value Reference Range Interpretation Comme nts TRIGLYCERIDES (test code = TRIG) 123 mg/dL 40-150 N CHOLESTEROL (test code = CHOL) 167 mg/dL <200 CHOLESTEROL/HDL RATIO (test code = CHOLHDL) 3.70 RATIO 3.43-4.97 N RISK ASSOCIATED WITH CHOL/HDL RATIOS: RISK MALE FEMALE1/2 AVERAGE 3.43 3.27AVERAGE 4.97 4.442X AVERAGE 9.55 7.053X AVERAGE 23.39 11.04 NOTE THAT THE REFERENCE VALUE IS RELATEDTO RISK LEVELS RECOMMENDED BY THE NATL.HEART, LUNG, AND BLOOD INST. HDL CHOLESTEROL (test code = HDL) 45.1 MG/DL 40-60 N HDL Interpreta tion < 40.0 mg/dL Low (undesirable, high risk)> 60.0 mg/dL High (desirable, low risk) Reference interval for healthy adults was established by theNational Cholesterol Education Program (NCEP). LIPOPROTEIN LDL (test code = LDL) 119.0 mg/dL 0-100 H <100 FLNOGZR39 0-129 NEAR OPTIMAL/ABOVE [id number] [id number] HIGH>RJ=750 VERY HIGH*Guidelines provided by the National Cholesterol EducationProgram Adult Treatment Panel III COVID 19 Asymptomatic IH [id number] 17:16:00* Test Item Value Reference Range Interpretation Comme nts COVID 19 Asymptomatic IH AG (test code = COVNONPUIAG) Negative Negative A negative resul t is presumptive and should be confirmedwith an FDA authorized molecular assay, if necessary forpatient management.A positive result does not rule out co-infections withother pathogens.This test detects both viable (live) and non-viable,SARS-CoV, and SARS-CoV-2. Test performance depends on theamount of virus (antigen) in the sample.This test has not been FDA cleared or approved; the test hasbeen authorized by FDA under an Emergency Use Authorization(EUA) for use by laboratories certified under the CLIA thatmeet the requirements to perform moderate, high or waivedcomplexity tests. COMPREHENSIVE METABOLIC [id number] 16:46:00* Test Item Value Reference Range Interpretation Comme nts SODIUM (test code = NA) 128 mEq/L 134-147 L POTASSIUM (test code = K) 4.2 mEq/L 3.4-5.0 N CHLORIDE (test code = CL) 96 mEq/L 100-108 L CARBON DIOXIDE (test code = CO2) 26 mEq/l 21-33 N ANION GAP (test code = GAP) 10 0-20 N GLUCOSE (test code = GLU) 97 mg/dL 77-141 N BLOOD UREA NITROGEN (test code = BUN) 23 mg/dL 7-25 N GLOMERULAR FILTRATION RATE (test code = GFR) 75.6 70-80 N The Glomerular Filtration Rate is a calculated parameterbased on serum Creatinine, patient age and sex. GFR valuesless than 60 mL/min/1.73 square meters are indicative ofChronic Kidney Disease. Values less than 15 mL/min/1.73square meters indicate Kidney failure. The calculation forGFR is based on the CKD-EPI (2020) calculation. This formulais race indifferent and is the recommended formula for GFRby the National Kidney Foundation for Adults.The GFR will not calculate if the sex is unknown or if thepatient's age is <18 years. CREATININE (test code = CREAT) 1.0 mg/dL 0.6-1.3 N TOTAL PROTEIN (test code = PROT) 7.9 g/dL 6.4-8.2 N ALBUMIN (test code = ALB) 4.50 g/dL 3.4-5.0 N CALCIUM (test code = CA) 9.8 mg/dL 8.0-10.5 N BILIRUBIN TOTAL (test code = BILT) 0.90 mg/dL 0.0-1.0 N SGOT/AST (test code = AST) 43 IUnit/L 8-34 H SGPT/ALT (test code = ALT) 22 IUnit/L 10-49 N ALKALINE PHOSPHATASE TOTAL (test code = ALKP) 73 IUnit/L 20-125 N B-TYPE NATRIURETIC [id number] 16:42:00* Test Item Value Reference Range Interpretation Comme [facility] B-TYPE NATRIURETIC PEPTIDE ( test code = BNP) 13.0 PG/ML 0-100 N [id number]%2024-02-27 16:39:00* Test Item Value Reference Range Interpretation Comme [facility] HGBA1C% (test code = HGBA1C%) 4.1 %A1C 4.8-6.0 L PROTHROMBIN [id number] 16:34:00* Test Item Value Reference Range Interpretation Comme [facility] PROTHROMBIN TIME PATIENT (test code = PTP) 12.3 SECONDS 9.3-12.9 N INTERNATIONAL NORMAL RATIO (test code = INR) 1.1 0.8-1.2 N TARGET INR BY INDICATION Indication INR1. Prophylaxis of venous thrombosis 2.0 - 3.0 (orthopedic surgery), Prophylaxis of venous thrombosis (other than high-risk surgery), Treatment of Deep Vein Thrombosis/Pulmonary Embolism, Prevention of systemic embolism - Tissue heart valves, Acute Myocardial Infarction (to prevent systemic embolism), Valvular heart disease, Atrial Fibrillation, Bileaflet mechanical valve in aortic position.2. Mechanical prosthetic valves (high risk), 2.5 - 3.5 Presence of Lupus Anticoagulant or Antiphospholipid Antibodies, Prevention of systemic embolism - Acute Myocardial Infarction (to prevent recurrent infarct). THROMBOPLASTIN TIME [id number] 16:34:00* Test Item Value Reference Range Interpretation Comme [facility] THROMBOPLASTIN TIME PARTIAL (test code = PTT) 35.2 Seconds 25.0-39.5 N Therapeutic Rang e: 50.4 - 88.3 Seconds Effective 02/12/2019 UA RFLX MICR CULT IF [id number] 16:30:00* Test Item Value Reference Range Interpretation Comme nts UA COLOR (test code = COLU) YELLOW YEL/STRAW UA APPEARANCE (test code = APPU) CLEAR CLEAR UA GLUCOSE DIPSTICK (test co de = DGLUU) NEGATIVE NEGATIVE UA BILIRUBIN DIPSTICK (test code = BILU) NEGATIVE NEGATIVE UA KETONE DIPSTICK (test cod e = KETU) NEGATIVE NEGATIVE UA SPECIFIC GRAVITY (test co de = SGU) 1.013 1.005-1.030 N UA BLOOD DIPSTICK (test code = DEIDRA) NEGATIVE NEGATIVE UA PH DIPSTICK (test code = CHARU) 6.0 5.0-7.0 N UA PROTEIN DIPSTICK (test co de = PROU) NEGATIVE NEGATIVE UA UROBILINIOGEN DIPSTICK (test code = URO) 0.2 mg/dL 0.2-1.0 UA NITRITE DIPSTICK (test co de = EDMUND) NEGATIVE NEGATIVE UA LEUKOCYTE ESTERASE DIPSTI CK (test code = LEUU) NEGATIVE NEGATIVE UA WBC (test code = WBCU) 0-3 WBC/HPF 0-3 UA RBC (test code = RBCU) 0-3 RBC/HPF 0-3 UA WBC NO REFLEX (test code = WBCUCL) 0-3 WBC/HPF 0-3 UA BACTERIA (test code = BACU) NONE SEEN /HPF NONE SEEN UA SQUAMOUS CELLS (test code = SQU) NONE SEEN /HPF NONE SEEN UA MUCUS (test code = MUCU) TRACE /LPF NONE SEEN Indication for culture: Dysuria/FrequencySpecimen Description: CLEAN CATCHCBC W/AUTO [id number] 16:22:00* Test Item Value Reference Range Interpretation Comme nts WHITE BLOOD CELL (test code = WBC) 8.2 x10 3/uL 4.5-11.0 N RED BLOOD CELL (test code = RBC) 3.74 x10 6/uL 4.00-5.60 L HEMOGLOBIN (test code = HGB) 12.5 g/dL 12.5-16.9 N HEMATOCRIT (test code = HCT) 36.5 % 37.5-50.7 L MEAN CELL VOLUME (test code = MCV) 97.6 fL 81.0-99.0 N MEAN CELL HGB (test code = MCH) 33.4 pg 27.0-33.0 H MEAN CELL HGB CONCETRATION (test code = MCHC) 34.2 g/dL 33.0-37.0 N RED CELL DISTRIBUTION WIDTH CV (test code = RDW) 12.3 % 11.5-14.5 N RED CELL DISTRIBUTION WIDTH SD (test code = RDW-SD) 44.1 fL 37.0-54.0 N PLATELET COUNT (test code = PLT) 264 x10 3/uL 150-400 N MEAN PLATELET VOLUME (test c ode = MPV) 9.6 fL 7.0-9.0 H NEUTROPHIL % (test code = NT%) 69.3 % 56.0-77.0 N IMMATURE GRANULOCYTE % (test code = IG%) 1.1 % 0.0-2.0 N LYMPHOCYTE % (test code = LY%) 14.0 % 14.0-32.0 N MONOCYTE % (test code = MO%) 10.2 % 4.8-9.0 H EOSINOPHIL % (test code = EO%) 4.3 % 0.3-3.7 H BASOPHIL % (test code = BA%) 1.1 % 0.0-2.0 N NUCLEATED RBC % (test code = NRBC%) 0.0 % 0-0 N NEUTROPHIL # (test code = NT#) 5.70 x10 3/uL 2.0-7.6 N IMMATURE GRANULOCYTE # (test code = IG#) 0.09 x10 3/uL 0.00-0.03 H LYMPHOCYTE # (test code = LY#) 1.15 x10 3/uL 1.0-3.8 N MONOCYTE # (test code = MO#) 0.84 x10 3/uL 0.1-0.8 H EOSINOPHIL # (test code = EO#) 0.35 x10 3/uL 0.0-0.2 H BASOPHIL # (test code = BA#) 0.09 x10 3/uL 0.0-0.2 N NUCLEATED RBC # (test code = NRBC#) 0.00 x10 3/uL 0.0-0.1 N Notes Date/Time Note Provider Source 2024-03-07 08:03:00 [id number]/ [id number] lvBZDGVUzpQm8IVStzSSJZUt97G3683-38-74Q86:03:[address] [address] PATIENT NAME: GREGG RUIZ ADMIT DATE: 03/01/24ACCOUNT NO: [id number] ROOM NO: [facility] AGE: 83 REPORT TYPE: 360 - QUERY RESPONSE DOCUMENT SEX: M ADMITTING PHYSICIAN:Jl Lopez MD ATTENDING PHYSICIAN:Jl Lopez MD Provider Query QUERY TEXT: Specificity General 360MD Query related questions should be directed to:[facility] Coding Query Help-line Please provide any known specificity for Atrial fibrillation documented in the Cardiothoracic Surgery Prog 03/05/2024. Chronic Atrial fibrillationPermanant Atrial fibrillationParoxysmal Atrial fibrillationUnspecified or other more appropriate diagnosis ? The patient's Clinical Indicators include:Patient doing well,episode overnight of A-fib RVR, now on amiodarone drip at 1, converted to NSR - Cardiothoracic Surgery Prog 03/05/2024Multivessel coronary artery disease - Cardiothoracic Surgery Prog 03/05/2024oronary artery bypass graft surgery x4 (JAEGER to LAD, sequential to diagonal, saphenous vein to marginal, saphenous vein to PDA). - OPERATIVE REPORT 03/01/2024MIODARONE 200 MG TABLET - MAR 03/02/2024 Options provided:-- Respond - Create new note now-- Dismiss - Not applicable / Not valid-- Dismiss - Clinically unable to determine / Unknown-- Assign to another provider QUERY RESPONSE: post op AF Query created by: CORETTA DAVILA on 03/06/2024 6:34 AM at 0803 PATIENT NAME: GREGG RUIZ noteG.[id number] for patient pmtyZORQLOMILTAKNR7521-18-44Y23:04:35 [facility] 2024-03-07 08:03:00 [id number] 6ky/JHF4+a9TrFCS10Aq87wi9MiPR 08YNUIePbPeR0W0Xvui5UileTXx8031-18-56V28:03:[address] [address] PATIENT NAME: GREGG RUIZ ADMIT DATE: 03/01/24ACCOUNT NO: [id number] ROOM NO: [id number] AGE: 83 REPORT TYPE: 360 - QUERY RESPONSE DOCUMENT SEX: M ADMITTING PHYSICIAN:Jl Lopez MD ATTENDING PHYSICIAN:Jl Lopez MD Provider Query QUERY TEXT: Condition General 360MD Query related questions should be directed to:[facility] Coding Query Help-line Based on your medical judgment kindly further specify the clinical significance of the indicators mentioned below(Significant Hyponatremia, Insignificant Hyponatremia, abnormal sodium level, unable to determine or other more appropriate diagnosis) The patient's Clinical Indicators include:Sodium (134 - 147 mEq/L) 131 L - Critical Care Progress Note 03/03/2024 (1Sodium (134 - 147 mmol/L) 133 L 132 L - Critical Care Progress Note 03/02/2024 (1Sodium (134 - 147 mEq/L) 129 L - Cardiology Progress Note 03/05/2024 (12NS 1,000 mL - MAR 03/03/2024 Options provided:-- Respond - Create new note now-- Dismiss - Not applicable / Not valid-- Dismiss - Clinically unable to determine / Unknown-- Assign to another provider QUERY RESPONSE: post op fluid overload Query created by: CORETTA DAVILA on 03/06/2024 6:42 AM at 0803 PATIENT NAME: GREGG RUIZ noteG.[id number] for patient danrSCISVUNWRIEYAV0238-38-24K28:04:35 [facility] 2024-03-06 10:55:00 [id number] 3x5gKO2mtav4fgKqEC72hhJBo3KYh wb369VXQKHRVCmQ+x7KJEt4RpjC7317-50-60Z07:55:58919 8-[address] [address] PATIENT NAME: GREGG RUIZ ADMIT DATE: 03/01/24ACCOUNT NO: [id number] ROOM NO: [facility] AGE: 83 REPORT TYPE: eECHOCARDIOGRAM REPORT SEX: M ADMITTING PHYSICIAN:Jl Lopez MD ATTENDING PHYSICIAN:Jl Lopez MD *[address] [address]Hyruv: [phone]: [phone] Transthoracic Echocardiogram Patient: Nicki Ruiztudy Date: 4BP:URN: [id number]: [id number]#: [id number]: 1940ge: 83Gender: MHeight: 70.9 in / 180 cmWeight: 167.6 lb / 76 kgBMI/BSA: 23.5 kg/m 2 / 1.95 m 2*Ordering Physician: * Madonna Ibanez *Interpreting Physician: * Pa Merrill MD*Automatic Riveting Machine Operator: * Julito Mccracken, MADDIE, RVS Indications: Post -op, r/o effusion. Study data: Transthoracic echocardiogram, limited study. Procedure: Atransthoracic echocardiogram was performed. Images were obtained using a [employer] ultrasound machine. Image quality was adequate. Limited 2D andlimited spectral Doppler. Location: Bedside. Patient room number: 3342. Findings Left ventricle: The cavity size is normal. Systolic function is normal. Theestimated ejection fraction is 50-54%.Aorta:Aortic root: The root is normal-sized.Aortic valve: There is no evidence of stenosis.PATIENT NAME: GREGG RUIZ Pericardium: There is no pericardial effusion.Systemic veins:Inferior vena cava: The IVC is poorly visualized. Measurements Left ventricle Value Ref OSMAN, LAX 4.2 cm 4.2 - 5.8 ESD, LAX 3.0 cm 2.5 - 4.0 FS, LAX 28 % 25 - 43 IVS, ED 1.1 cm 0.6 - 1.0 PW, ED 1.0 cm 0.6 - 1.0 IVS/PW, ED 1.12 --------- EF 55 % 52 - 72 Right ventricle Value Ref OSMAN, LAX 2.6 cm --------- Left atrium Value Ref AP dim, ES 3.2 cm 3.0 - 4.0 Aortic root Value Ref Root diam 3.3 cm 2.6 - 4.1 Conclusions Summary: 1. Study data: Transthoracic echocardiogram, limited study.2. Left ventricle: The cavity size is normal. Systolic function is normal. The estimated ejection fraction is 50-54%.3. Pericardium, extracardiac: There is no pericardial effusion.Electronically signed by Pa Merrill MD03/06/2024 10:55 at 1055 PATIENT NAME: GREGG RUIZ :55:0 0G.[id number] for patient pjbeWGKXMWFSGSZUKU0551-33-56D91:56:08 [facility] 2024-03-06 09:40:00 [id number] rfv+ysMfMMu4DdxkKmhMgM8nEkocF qpQnTpcYb6mSlxAKtQOY+ITkYvV5708-70-46R47:40:00 [facility] ([facility])Discharge SummaryREPORT#:[id number] REPORT STATUS: SignedREPORT INITIALIZATION DATE:03/06/24 TIME: 939 PATIENT: GREGG RUIZ UNIT #: [id number]#: [id number] [address] [birth year] AGE: 83 SEX: M ATTEND: Jl Lopez MDADM AUTHOR: Madonna Ibanez PhysicREPT SERVICE DT/TIME: 03/06/24 0940* ALL edits or amendments must be made on the electronic/computer document * General InformationDischarge date: 03/06/24Discharge diagnosis:CAD, S/P CABGHospital course:This is a pleasant 83-year-old gentleman with a past medical history of hypertension, hyperlipidemia, ulcerative colitis, bladder cancer status post chemo, former smoker but occasionally smokes cigars 1-2 a month. He was seen by his car worker helper Dr. Berger for increasing fatigue, denies chest pain, who had an abnormal stress test. Coronary angiogram was done that showed severe multivessel coronary artery disease. Outpatient echocardiogram was done uigxjyx17%, trace mitral regurg, and trace tricuspid regurg.Patient presents today for multivessel coronary artery disease and for coronaryartery bypass graft surgery. Coronary angiogram films reviewed and patient will benefit from surgical revascularization. The operation, risks involved, calculated STS risk score, benefits, alternatives, and complications was discussed with the patient. The patient acknowledges understanding and is willing to proceed. All patient's questions were answered. Patient is scheduled for coronary artery bypass graft surgery today. Assessment/plan: 1. Multivessel coronary artery disease2. Hypertension3. Hyperlipidemia4. Ulcerative colitis Admit patient to CVICU postopMonitor heart rhythm and hemodynamicsStrict I's and O'sCardiology and critical care consulted. 03/01/24Coronary artery bypass graft surgery x4 (JAEGER to LAD, sequential to diagonal, saphenous vein to marginal, saphenous vein to PDA).Amputation of left atrial appendage.Endoscopic vein harvest (right greater saphenous vein).Posterior pericardiotomy. 03/02/24POD 1Patient hemodynamically stable postoperatively, not on any pressors or inotropesChest x-ray and labs reviewed, hemoglobin 7.0-give albumin and 2 units RBCsOn 2 L nasal cannula, wean off oxygen as toleratedEncourage incentive spirometer use and deep breathingKeep both chest tubes and monitor outputs closelyAdvance diet as tolerated, bowel regimen, glycemic controlDaily weights and strict I's and O'sSCDs for DVT prophylaxisPT/OT, OOB to chair, ambulatePatient seen by Dr. Lopez, plan of care discussed with patient and ICU team, all questions were answered. 03/03/24POD 2Patient doing well,episode overnight of A-fib RVR, now on amiodarone drip at 1, converted to NSRLabs and chest x-ray reviewed, hemoglobin 9.0Breathing comfortable on room air, I-S use encouragedDiscontinue mediastinal chest tube, reassess with LP chest tube after ambulationDiscontinue central line, arterial line, and Chowdhury catheterTolerating cardiac diet, continue bowel regimenDaily weights and strict I's and O'sSCDs for DVT prophylaxisPT/OT, ambulate, out of bed in chairPatient seen by Dr. Lopez, plan of care discussed with patient and family, allquestions were answered. 03/04/24POD 4GOAo9Yfjqmes reports pain controlled. Respiratory: 2 L nasal cannula, wean as tolerated, Encourage IS, Deep Breathing, CXR reviewed, reassess chest tube after walking, DC todayCardiac: Sinus rhythm, pacing wires on standbyGI: Reports bowel movements, Continue Bowel regimenGU: Voiding wellUO: 800PT/OTDisposition: home with family supportDVT prophylaxisLabs reveiwed- replace electrolytes as neededPatient seen and examined by Dr. Lopez. Plan of care discussed with patient and multidisciplinary team. The patient's questions were answeredPlan to DC chest tubes after walking. Continue supportive care. 03/05/24Resting comfortableOn RA. Denies CP. OOB walkingReports BM, Tolerating diet.Sinus rhythm. Pacing wires dc'd will obtain echoDispo: Home with family support. Will obtain DVT studies Consider Home tomorrowrepeat CBC in am. Water restriction- sodium 129. 03/06/24AAO x 3On RA. Sinus rhythm. Pcing wires on standbyGI: No tolerating. DVT studies negative. Okay to DC patient home after echo. FU 1 week. POst op wound care discussed. Consultants: anesthesiology, cardiology, cardiovascular surgery, critical/residential real estate appraiser, hospitalist Med Rec Med RecDischarge meds:Stop taking the following medications:LISINOPRIL/HCTZ (ZESTORETIC 20/12.5 MG) 20 MG-12.5 MG TAB 1 TABLET ORAL DAILY. ATORVASTATIN (LIPITOR) 10 MG TAB 10 MILLIGRAM ORAL DAILY. ASPIRIN EC (ECOTRIN) 81 MG TAB.EC 81 MILLIGRAM ORAL BEDTIME. MAGNESIUM OXIDE (MAGNESIUM OXIDE) 500 MG TAB 500 MILLIGRAM ORAL DAILY. Continue taking these medications:PSYLLIUM SEED (METAMUCIL) 3.4 GRAM/5.8 GRAM POWDER 1 PACKET ORAL DAILY. CHOLECALCIFEROL (VITAMIN D3) (VITAMIN D3) (Unknown Strength) CAP Unknown Dose ORAL DAILY. FA/MV/CA/FE/MIN/LYCOPENE/LUTEIN (CENTRUM) 18 MG IRON-400 MCG TAB 1 TABLET ORAL BEDTIME. [EMERGEN C] ORAL DAILY. ZINC GLUCONATE (ZINC GLUCONATE) 30 MG TAB 30 MILLIGRAM ORAL DAILY. sulfaSALAzine (sulfaSALAzine) 500 MG TAB 1,500 ORAL TWICE DAILY. Start taking the following new medications:CLOPIDOGREL (PLAVIX) 75 MG TAB 75 MILLIGRAM ORAL DAILY. Days = 30 Qty = 30 No Refills FERROUS SULFATE (FEOSOL) 325 MG (65 MG IRON) TAB 325 MILLIGRAM ORAL DAILY. Days = 30 Qty = 30 No Refills AMIODARONE (PACERONE) 200 MG TAB 200 MILLIGRAM ORAL TWICE DAILY. Days = 14 Qty = 21 No Refills Instructions: Take 200 MG BID x 1 week, take 200 mg QD x 1 week . ATORVASTATIN (LIPITOR) 40 MG TAB 40 MILLIGRAM ORAL 2100 Days = 30 Qty = 30 No Refills METOPROLOL TARTRATE (LOPRESSOR) 25 MG TAB 12.5 MILLIGRAM ORAL EVERY 12 HOURS. Days = 30 Qty = 60 No Refills ASPIRIN (ASPIRIN) 81 MG TAB.CHEW 81 MILLIGRAM ORAL DAILY. Days = 30 Qty = [address] (PROTONIX) 40 MG TAB.DR 40 MILLIGRAM ORAL DAILY. Days = 30 Qty = 30 No Refills Discharge Instructions PCP)( Discharge to: Home/Self Care Discharge InstructionsAdditional Discharge Routines: Attending Follow-Up)( Diet: Cardiac Follow-up AppointmentsAttending Physician: Attending Physician: Jl Lopez MD Attending physician follow up timeframe: In 1-2 weeks Quality: Discharge Advanced Care Plan 65 or OlderDiscussed with: patient Current MedicationsCurrent medication review:I attest that the foregoing medication list in the medical record is true, accurate, and complete to the best of my knowledge. at 0942 at 0713 [facility] #:[id number] OF REPORTDSDischarge eoicreo2522-64-90K21:40:00G.[id number] ailable for patient grzoWYLESPFTDJXGJZ3954-94-75S51:42:50 [facility] 2024-03-06 09:33:00 [id number] gVEKdJ/Bz4DUMdXOYGrVk5zVzs1xw HUOmol0c0EMEfNcFJlpD8UQ45n60803-68-33P23:33:00 [facility] ProgREPORT#:[id number] REPORT STATUS: SignedREPORT INITIALIZATION DATE:03/06/24 TIME: 932 PATIENT: GREGG RUIZ UNIT #: [id number]#: [id number] ROOM/BED: 3342-1DOB: [birth year] AGE: 83 SEX: M ATTEND: Jl Lopez MDADM AUTHOR: Madonna Ibanez PhysicREPT SERVICE DT/TIME: 03/06/24932* ALL edits or amendments must be made on the electronic/computer document * GeneralPost-op: day 5Status post:03/01/24 1. Coronary artery bypass graft surgery x4 (JAEGER to LAD, sequential to diagonal, saphenous vein to marginal, saphenous vein to PDA). 2. Amputation of left atrial appendage. 3. Endoscopic vein harvest (right greater saphenous vein). 4. Posterior pericardiotomy. SubjectiveChief complaint:s/p CABG Review of SystemsConstitutional:Reports: generalized weakness. Denies: chills, fatigue. Skin:Denies: abrasion, bruising, diaphoresis. Allergy/Immun:Denies: allergic reaction, anaphylaxis, hives. Eyes:Denies: redness, discharge, visual loss/blurred. ENT:Denies: ear drainage, ear ringing, hearing loss. Cardiovascular:Denies: chest pain, palpitations. GI:Denies: abdominal pain, nausea, vomiting. :Denies: dysuria, flank pain. Musculoskeletal:Denies: arthritis, extremity pain, extremity swelling. Heme:Denies: adenopathy, petechiae. Neuro:Denies: confusion, dizziness, headache, seizure, syncope. All systems rev neg: except as marked Objective GeneralVS/I OLast Documented: Result Date Time Pulse Ox 97 03/06 804 B/P 120/65 03/06 804 B/P Mean 86 03/06 804 Pulse 79 03/06 0804 Resp 30 03/06 0804 Temp 98.6 03/06 0650 O2 Delivery Room air 03/06 0447 FiO2 21 03/05 1937 O2 Flow Rate 1 03/02 0716 24 hour I O ending at 0700: 03/06 0700 03/05 1900 Intake Total 250 Output Total 825 200 Balance -825 50 Intake, Oral 250 Supplement Output, Urine 825 200 PATIENT WEIGHT: Weight (lb): 167Weight (oz): 5.29Weight (kg): 75.900 Physical ExamGeneral appearance: alert, orientedWound/incision: Location:sternum Site condition: dressing clean dry, dressing intactHEENT: anicteric, mucosal membranes moist, pupils reactive to lightNeck: full range of motion, non-tenderCardiovascular: normal heart sounds, regular rate rhythmRespiratory: aerating well, symmetric expansion, no distressAbdomen: soft, non-tenderGenitourinary: chowdhury, urine, no bladder distention, no flank painExtremities: dry, moves allMusculoskeletal: full range of motion, painless range of motionNeuro/VIBRATION ENGINEER: alert, oriented X 3Skin: dry, intactPsychiatry: normal affect, normal mood Quality: Trauma Gen Surg Advanced Care Plan 65 or OlderDiscussed with: patient Current MedicationsCurrent medication review:I attest that the foregoing medication list in the medical record is true, accurate, and complete to the best of my knowledge. Diagnosis, Assessment PlanHospital course to date:This is a pleasant 83-year-old gentleman with a past medical history of hypertension, hyperlipidemia, ulcerative colitis, bladder cancer status post chemo, former smoker but occasionally smokes cigars 1-2 a month. He was seen by his car worker helper Dr. Berger for increasing fatigue, denies chest pain, who had an abnormal stress test. Coronary angiogram was done that showed severe multivessel coronary artery disease. Outpatient echocardiogram was done %, trace mitral regurg, and trace tricuspid regurg.Patient presents today for multivessel coronary artery disease and for coronaryartery bypass graft surgery. Coronary angiogram films reviewed and patient will benefit from surgical revascularization. The operation, risks involved, calculated STS risk score, benefits, alternatives, and complications was discussed with the patient. The patient acknowledges understanding and is willing to proceed. All patient's questions were answered. Patient is scheduled for coronary artery bypass graft surgery today. Assessment/plan: 1. Multivessel coronary artery disease2. Hypertension3. Hyperlipidemia4. Ulcerative colitis Admit patient to CVICU postopMonitor heart rhythm and hemodynamicsStrict I's and O'sCardiology and critical care consulted. 03/01/24Coronary artery bypass graft surgery x4 (JAEGER to LAD, sequential to diagonal, saphenous vein to marginal, saphenous vein to PDA).Amputation of left atrial appendage.Endoscopic vein harvest (right greater saphenous vein).Posterior pericardiotomy. 03/02/24POD 1Patient hemodynamically stable postoperatively, not on any pressors or inotropesChest x-ray and labs reviewed, hemoglobin 7.0-give albumin and 2 units RBCsOn 2 L nasal cannula, wean off oxygen as toleratedEncourage incentive spirometer use and deep breathingKeep both chest tubes and monitor outputs closelyAdvance diet as tolerated, bowel regimen, glycemic controlDaily weights and strict I's and O'sSCDs for DVT prophylaxisPT/OT, OOB to chair, ambulatePatient seen by Dr. Lopez, plan of care discussed with patient and ICU team, all questions were answered. 03/03/24POD 2Patient doing well,episode overnight of A-fib RVR, now on amiodarone drip at 1, converted to NSRLabs and chest x-ray reviewed, hemoglobin 9.0Breathing comfortable on room air, I-S use encouragedDiscontinue mediastinal chest tube, reassess with LP chest tube after ambulationDiscontinue central line, arterial line, and Chowdhury catheterTolerating cardiac diet, continue bowel regimenDaily weights and strict I's and O'sSCDs for DVT prophylaxisPT/OT, ambulate, out of bed in chairPatient seen by Dr. Lopez, plan of care discussed with patient and family, allquestions were answered. 03/04/24POD 3FYLp4Clheetq reports pain controlled. Respiratory: 2 L nasal cannula, wean as tolerated, Encourage IS, Deep Breathing, CXR reviewed, reassess chest tube after walking, DC todayCardiac: Sinus rhythm, pacing wires on standbyGI: Reports bowel movements, Continue Bowel regimenGU: Voiding wellUO: 800PT/OTDisposition: home with family supportDVT prophylaxisLabs reveiwed- replace electrolytes as neededPatient seen and examined by Dr. Lopez. Plan of care discussed with patient and multidisciplinary team. The patient's questions were answeredPlan to DC chest tubes after walking. Continue supportive care. 03/05/24Resting comfortableOn RA. Denies CP. OOB walkingReports BM, Tolerating diet.Sinus rhythm. Pacing wires dc'd will obtain echoDispo: Home with family support. Will obtain DVT studies Consider Home tomorrowrepeat CBC in am. Water restriction- sodium 129. 03/06/24AAO x 3On RA. Sinus rhythm. Pcing wires on standbyGI: No tolerating. DVT studies negative. Okay to DC patient home after echo. FU 1 week. POst op wound care discussed. Consultants: anesthesiology, cardiology, cardiovascular surgery, critical/residential real estate appraiser, hospitalist at 0936 at 0713 RPT #:[id number] OF REPORTPRProgress [id number]:33:00G.[id number] able for patient dnbaTQOMIPRPLAJEDI1621-15-02Q04:36:26 [facility] 2024-03-06 07:18:00 [id number] xHSb/[id number] Uhhfkz5sFHUeHuTvcZITyjJAj1K4339-26-26D75:18:00 [facility] ([facility])Cardiology Progress NoteREPORT#:[id number] REPORT STATUS: SignedREPORT INITIALIZATION DATE:03/06/24 TIME: 717 PATIENT: GREGG RUIZ UNIT #: [id number]#: [id number] ROOM/BED: 3342-1DOB: [birth year] AGE: 83 SEX: M ATTEND: Jl Lopez AUTHOR: Shae KnappCNPREPT SERVICE DT/TIME: 03/06/24717* ALL edits or amendments must be made on the electronic/computer document * SubjectivePatient reports:No: complaints. Objective GeneralVS/I O:24 hour I O ending at 0700: 03/06 0700 03/05 1900 Intake Total 250 Output Total 825 200 Balance -825 50 Intake, Oral 250 Supplement Output, Urine 825 200 Vital Signs: Date Time Temp Pulse Resp B/P B/P Pulse O2 O2 Flow FiO2 Mean Ox Delivery Rate 03/06 0650 37.0 78 30 112/56 0.0 94 / 0447 37.3 74 16 118/59 0.0 95 Room air 03/06 0019 37.5 77 16 110/56 0.0 95 Room air 03/05 1955 37.3 82 14 131/60 0.0 97 Room air 03/05 1937 96 Room air 21 03/05 1325 37.2 77 20 97/50 0.0 98 Room air 03/05 0843 36.6 81 20 125/58 0.0 95 Room air 03/05 0800 96 Room air 03/05 0730 82 34 124/58 84 94 03/05 0727 82 32 122/60 86 PATIENT WEIGHT: Weight (lb): 167Weight (oz): 5.29Weight (kg): 75.900 Medications:Active Meds + DC'd Last 24 HrsTamsulosin HCl (Flomax 0.4 mg) 0.4 MG PC BK PO Ipratropium Osmond (ATROVENT) 500 MCG RTQ2H PRN PRN INH Cyanocobalamin (Vitamin B-12 500 mcg tab) 500 MCG DAILY PO Ferrous Sulfate (FERROUS SULFATE) 325 MG DAILY PO Bisacodyl (DULCOLAX) 10 MG ONCE PRN RECTAL Amiodarone HCl (AMIODARONE HCL) 450 MG ASDIR IV (CKD) Dextrose/Water (D5%W NON-DEHP) 250 MLAtorvastatin Calcium (LIPITOR) 40 MG 2100 PO Sodium Chloride (SODIUM CHLORIDE) 10 ML ASDIR IV Clopidogrel Bisulfate (Plavix) 75 MG DAILY PO Polyethylene Glycol (MIRALAX) 17 GM DAILY PO Pantoprazole (PROTONIX) 40 MG DAILY@0600 PO Docusate Sodium (COLACE) 100 MG BID PO Metoprolol Tartrate (LOPRESSOR) 12.5 MG Q12HR PO Mupirocin (BACTROBAN 2% 22 GM OINTMENT) 1 APPLIC BID NASAL Sennosides (Senna Lax 8.6 MG TABLET) 17.2 MG BEDTIME PO Hydrocodone Bitart/Acetaminophen (NORCO 5/325) 2 TAB Q4H PRN PRN PO Aspirin (ASPIRIN) 81 MG DAILY PO Amiodarone HCl (CORDARONE) 200 MG TID PO Insulin Human Regular (HumuLIN R) 100 UNIT ASDIR IV (CKD) Sodium Chloride (SODIUM CHLORIDE 0.9%) 99 MLAcetaminophen (TYLENOL) 650 MG Q4H PRN PRN PO Acetaminophen (TYLENOL) 650 MG Q4H PRN PRN RECTAL Calcium Chloride (CALCIUM CHLORIDE) 1 GM ASDIR PRN IV Dextrose/Water (DEXTROSE 10% IN WATER) 125 ML ASDIR PRN IV (CKD) Dextrose/Water (DEXTROSE 10% IN WATER) 250 ML ASDIR PRN IV (CKD) Glucagon (GLUCAGON) 1 MG ASDIR PRN IM Magnesium Sulfate (MAGNESIUM SULFATE 4GM/SWFI 100ML) 100 ML ASDIR PRN IV Magnesium Sulfate (MAGNESIUM SULFATE 2GM/SWFI 50ML) 50 ML ASDIR PRN IV Magnesium Sulfate/Dextrose (MAGNESIUM SULFATE 1GM/D5W 100ML) 100 ML ASDIR PRN IV Nitroglycerin/Dextrose (NITROGLYCERIN 50,000MCG/D5W 250ML) 250 ML ASDIR IV Ondansetron HCl (ZOFRAN) 4 MG Q6H PRN PRN IV Sodium Bicarbonate (SODIUM BICARBONATE) 50 MEQ ASDIR PRN IV Physical ExamGeneral appearance: alert, awakeHead/Eyes: PERRLAENT: normal noseNeck: no JVDCardiovascular: CV assessment: regular rate and rhythmRespiratory: clear to auscultation, no distressAbdomen: soft, non-tender, normal bowel sounds, no distentionGenitourinary: no flank pain, no urinary catheterLower extremity: LE assessment: normal capillary refill, normal temperature, no calf tenderness, no cyanosis, no edemaMusculoskeletal: normal inspectionNeuro/VIBRATION ENGINEER: alert, oriented X 3, normal speechSkin: dryPsychiatry: normal affect, normal mood ResultsFindings/Data:Laboratory Tests 03/06 0133 Chemistry Sodium (134 - 147 mEq/L) 132 L Potassium (3.4 - 5.0 mEq/L) 4.0 Chloride (100 - 108 mEq/L) 102 Carbon Dioxide (21 - 33 mEq/l) 24 Anion Gap (0 - 20) 11 BUN (7 - 25 mg/dL) 38 H Creatinine (0.6 - 1.3 mg/dL) 1.1 Glomerular Filtr Rate (70 - 80) 67.4 L Glucose (77 - 141 mg/dL) 101 Calcium (8.0 - 10.5 mg/dL) 8.1 Magnesium (1.6 - 2.6 mg/dL) 1.77 Laboratory Tests 03/06 0133 Hematology WBC (4.5 - 11.0 x10 3/uL) 7.6 RBC (4.00 - 5.60 x10 6/uL) 2.43 L Hgb (12.5 - 16.9 g/dL) 8.0 L Hct (37.5 - 50.7 %) 23.1 L MCV (81.0 - 99.0 fL) 95.1 MCH (27.0 - 33.0 pg) 32.9 MCHC (33.0 - 37.0 g/dL) 34.6 RDW (11.5 - 14.5 %) 14.2 Plt Count (150 - 400 x10 3/uL) 140 L MPV (7.0 - 9.0 fL) 10.3 H Neut % (Auto) (56.0 - 77.0 %) 70.1 Lymph % (Auto) (14.0 - 32.0 %) 8.2 L Coos % (Auto) (4.8 - 9.0 %) 12.9 H Eos % (Auto) (0.3 - 3.7 %) 7.0 H Baso % (Auto) (0.0 - 2.0 %) 0.7 Neut # (Auto) (2.0 - 7.6 x10 3/uL) 5.33 Lymph # (Auto) (1.0 - 3.8 x10 3/uL) 0.62 L Coos # (Auto) (0.1 - 0.8 x10 3/uL) 0.98 H Eos # (Auto) (0.0 - 0.2 x10 3/uL) 0.53 H Baso # (Auto) (0.0 - 0.2 x10 3/uL) 0.05 Abs Immat Gran (auto) (0.00 - 0.03 x10 3/uL) 0.08 H Immature Gran % (0.0 - 2.0 %) 1.1 Nucleated RBC % (0 - 0 %) 0.0 Nucleated RBCs # (Man) (0.0 - 0.1 x10 3/uL) 0.00 Laboratory Tests 03/06 0133 Chemistry Magnesium (1.6 - 2.6 mg/dL) 1.77 Radiology data:Recent Impressions:RADIOLOGY - XR CHEST 1 V 03/05 1152 Report Impression - Status: SIGNED Entered: 03/06/2024 0324 IMPRESSION:Residual tiny left apical pneumothorax, smaller in size. Atelectaticchanges are noted.Impression By: [email or web address] - Beltran Olivarez M.D.ULTRASOUND - DUP VEIN ALYSSIA 03/05 1253 Report Impression - Status: SIGNED Entered: 03/05/2024 1546 IMPRESSION: No evidence of deep venous thrombosis within the visualized venousstructures of bilateral lower extremities.Impression By: [email or web address] - Kushal Mcrae M.D. Results: labs reviewed, vital signs reviewedTelemetry Interpretation:NSR Diagnosis, Assessment PlanPlan discussed with: patient, collaborating MD, nurse Free Text DxA P NotesFree Text DxA P Notes:1. CAD multivessel disease: s/p CABG X 4 (JAEGER to LAD, sequential todiagonal, saphenous vein to marginal, saphenous vein to PDA), with amputation ofleft atrial appendage managent per CTS. DAPT, Statin and BB 2. Hypertension: continue Metoprolol 3. HLD: statin Overall patient is doing well. DC home today. Outpatient FU with Dr. Berger. at 1804 RPT #:[id number] OF REPORTPRProgress [id number]:18:00G.[id number] able for patient fetkRJMIMFRYJYCSWW2827-12-85H43:05:39 [facility] 2024-03-05 08:29:00 [id number] OiLPjk1nE1NdhyytEPQVEUUqmid3j sfIrpxSP9EThRc9keKy6L91Ko6U5332-57-53K59:29:00 [facility] ([facility])Cardiology Progress NoteREPORT#:[id number] REPORT STATUS: SignedREPORT INITIALIZATION DATE:03/05/24 TIME: 828 PATIENT: GREGG RUIZ UNIT #: [id number]#: [id number] [address] [birth year] AGE: 83 SEX: M ATTEND: Jl Lopez MDADM AUTHOR: Shae KnappPREPT SERVICE DT/TIME: 03/05/24828* ALL edits or amendments must be made on the electronic/computer document * SubjectivePatient reports:No: complaints. Objective GeneralVS/I O:24 hour I O ending at 0700: 03/05 0700 03/04 1900 Intake Total Output Total 475 475 Balance -475 -475 Number 3 Bowel Movements Number Voids 3 Output, Urine 475 475 Patient 75.9 kg Weight Vital Signs: Date Time Temp Pulse Resp B/P B/P Pulse O2 O2 Flow FiO2 Mean Ox Delivery Rate 03/05 0730 82 34 124/58 84 94 / 0727 82 32 122/60 86 05/07 0324 37.0 88 16 130/60 0.0 92 Room air 05/06 2323 37.0 76 15 99/57 0.0 96 Room air 05/2012 96 Room air 21 05/06 1928 37.1 92 16 137/65 0.0 95 Room air 05/06 1702 93 30 135/64 92 95 05/06 1600 86 32 125/58 84 91 05/06 1502 90 31 127/60 83 05/06 1400 74 25 102/52 73 93 05/06 1300 77 34 120/69 90 95 05/06 1200 73 21 112/55 76 94 05/06 1100 73 20 110/58 79 95 05/06 1000 80 18 101/58 77 94 05/06 0916 88 31 129/60 86 PATIENT WEIGHT: Weight (lb): 167Weight (oz): 5.29Weight (kg): 75.900 Medications:Active Meds + DC'd Last 24 HrsPotassium Chloride (POTASSIUM CHLORIDE 20MEQ TAB.ER) 20 MEQ ONCE ONE PO (DC) Furosemide (LASIX 40 mg/4 mL INJECTION) 40 MG ONCE ONE IV (DC) Tamsulosin HCl (Flomax 0.4 mg) 0.4 MG PC BK PO Ipratropium Osmond (ATROVENT) 500 MCG RTQ2H PRN PRN INH Cyanocobalamin (Vitamin B-12 500 mcg tab) 500 MCG DAILY PO Ferrous Sulfate (FERROUS SULFATE) 325 MG DAILY PO Bisacodyl (DULCOLAX) 10 MG ONCE PRN RECTAL Amiodarone HCl (AMIODARONE HCL) 450 MG ASDIR IV (CKD) Dextrose/Water (D5%W NON-DEHP) 250 MLAtorvastatin Calcium (LIPITOR) 40 MG 2100 PO Sodium Chloride (SODIUM CHLORIDE) 10 ML ASDIR IV Clopidogrel Bisulfate (Plavix) 75 MG DAILY PO Polyethylene Glycol (MIRALAX) 17 GM DAILY PO Pantoprazole (PROTONIX) 40 MG DAILY@0600 PO Docusate Sodium (COLACE) 100 MG BID PO Metoprolol Tartrate (LOPRESSOR) 12.5 MG Q12HR PO Mupirocin (BACTROBAN 2% 22 GM OINTMENT) 1 APPLIC BID NASAL Sennosides (Senna Lax 8.6 MG TABLET) 17.2 MG BEDTIME PO Hydrocodone Bitart/Acetaminophen (NORCO 5/325) 2 TAB Q4H PRN PRN PO Aspirin (ASPIRIN) 81 MG DAILY PO Amiodarone HCl (CORDARONE) 200 MG TID PO Ipratropium Osmond (ATROVENT) 500 MCG RTQ4H INH (DC) Epinephrine (ADRENALIN CHLORIDE) 4 MG ASDIR IV (DC) Dextrose/Water (DEXTROSE 5% WATER) 246 MLInsulin Human Regular (HumuLIN R) 100 UNIT ASDIR IV (CKD) Sodium Chloride (SODIUM CHLORIDE 0.9%) 99 MLAcetaminophen (TYLENOL) 650 MG Q4H PRN PRN PO Acetaminophen (TYLENOL) 650 MG Q4H PRN PRN RECTAL Calcium Chloride (CALCIUM CHLORIDE) 1 GM ASDIR PRN IV Dextrose/Water (DEXTROSE 10% IN WATER) 125 ML ASDIR PRN IV (CKD) Dextrose/Water (DEXTROSE 10% IN WATER) 250 ML ASDIR PRN IV (CKD) Glucagon (GLUCAGON) 1 MG ASDIR PRN IM Magnesium Sulfate (MAGNESIUM SULFATE 4GM/SWFI 100ML) 100 ML ASDIR PRN IV Magnesium Sulfate (MAGNESIUM SULFATE 2GM/SWFI 50ML) 50 ML ASDIR PRN IV Magnesium Sulfate/Dextrose (MAGNESIUM SULFATE 1GM/D5W 100ML) 100 ML ASDIR PRN IV Nitroglycerin/Dextrose (NITROGLYCERIN 50,000MCG/D5W 250ML) 250 ML ASDIR IV Norepinephrine Bitartrate (NOREPINEPHRINE 8 MG/NS 250 ML) 250 ML TITRATE IV (DC) Ondansetron HCl (ZOFRAN) 4 MG Q6H PRN PRN IV Potassium Chloride (KCL 20MEQ/SWFI 100ML) 100 ML ASDIR PRN IV (DC) Sodium Bicarbonate (SODIUM BICARBONATE) 50 MEQ ASDIR PRN IV Sodium Chloride (SODIUM CHLORIDE 0.9%) 1,000 ML .Q20H IV (DC) Sodium Chloride (SODIUM CHLORIDE 0.9%) 250 ML Q24H IV (DC) Physical ExamGeneral appearance: alert, awakeHead/Eyes: PERRLAENT: normal noseNeck: no JVDCardiovascular: CV assessment: regular rate and rhythmRespiratory: clear to auscultation, no distressAbdomen: soft, non-tender, normal bowel sounds, no distentionGenitourinary: no flank pain, no urinary catheterLower extremity: LE assessment: normal capillary refill, normal temperature, no calf tenderness, no cyanosis, no edemaMusculoskeletal: normal inspectionNeuro/VIBRATION ENGINEER: alert, oriented X 3, normal speechSkin: dryPsychiatry: normal affect, normal mood ResultsFindings/Data:Laboratory Tests 03/05 105 Chemistry Sodium (134 - 147 mEq/L) 129 L Potassium (3.4 - 5.0 mEq/L) 3.6 Chloride (100 - 108 mEq/L) 99 L Carbon Dioxide (21 - 33 mEq/l) 24 Anion Gap (0 - 20) 10 BUN (7 - 25 mg/dL) 39 H Creatinine (0.6 - 1.3 mg/dL) 1.2 Glomerular Filtr Rate (70 - 80) 60.8 L Glucose (77 - 141 mg/dL) 105 Calcium (8.0 - 10.5 mg/dL) 8.4 Magnesium (1.6 - 2.6 mg/dL) 1.90 Laboratory Tests 03/05 105 Hematology WBC (4.5 - 11.0 x10 3/uL) 8.5 RBC (4.00 - 5.60 x10 6/uL) 2.42 L Hgb (12.5 - 16.9 g/dL) 7.8 L Hct (37.5 - 50.7 %) 23.2 L MCV (81.0 - 99.0 fL) 95.9 MCH (27.0 - 33.0 pg) 32.2 MCHC (33.0 - 37.0 g/dL) 33.6 RDW (11.5 - 14.5 %) 14.2 Plt Count (150 - 400 x10 3/uL) 129 L MPV (7.0 - 9.0 fL) 10.6 H Neut % (Auto) (56.0 - 77.0 %) 76.9 Lymph % (Auto) (14.0 - 32.0 %) 6.6 L Coos % (Auto) (4.8 - 9.0 %) 9.9 H Eos % (Auto) (0.3 - 3.7 %) 5.2 H Baso % (Auto) (0.0 - 2.0 %) 0.6 Neut # (Auto) (2.0 - 7.6 x10 3/uL) 6.52 Lymph # (Auto) (1.0 - 3.8 x10 3/uL) 0.56 L Coos # (Auto) (0.1 - 0.8 x10 3/uL) 0.84 H Eos # (Auto) (0.0 - 0.2 x10 3/uL) 0.44 H Baso # (Auto) (0.0 - 0.2 x10 3/uL) 0.05 Abs Immat Gran (auto) (0.00 - 0.03 x10 3/uL) 0.07 H Immature Gran % (0.0 - 2.0 %) 0.8 Nucleated RBC % (0 - 0 %) 0.0 Nucleated RBCs # (Man) (0.0 - 0.1 x10 3/uL) 0.00 Laboratory Tests 03/05 105 Chemistry Magnesium (1.6 - 2.6 mg/dL) 1.90 Radiology data:Recent Impressions:ULTRASOUND - DUP VEIN ALYSSIA 03/05 1253 Report Impression - Status: SIGNED Entered: 03/05/2024 1546 IMPRESSION: No evidence of deep venous thrombosis within the visualized venousstructures of bilateral lower extremities.Impression By: Kamran Mcrae M.D. Results: labs reviewed, vital signs reviewed, rhythm personally rev'dTelemetry Interpretation:NSR Diagnosis, Assessment PlanPlan discussed with: patient, daughter, collaborating MD, primary caregiver Free Text DxA P NotesFree Text DxA P Notes:1. CAD multivessel disease: s/p CABG X 4 (JAEGER to LAD, sequential todiagonal, saphenous vein to marginal, saphenous vein to PDA), with amputation ofleft atrial appendage managent per CTS. DAPT, Statin and BB 2. Hypertension: continue Metoprolol 3. HLD: statin Overall patient is doing well. at 1947 RPT #:[id number] OF REPORTPRProgress [id number]:29:00G.[id number] able for patient fgbdYWKKWVUDIGWNXS6238-90-12K54:47:35 [facility] 2024-03-05 08:16:00 [id number]/Zz5aF [id number]/XViSu4m33647-44-90N15:16:00 [facility] ProgREPORT#:[id number] REPORT STATUS: SignedREPORT INITIALIZATION DATE:03/05/24 TIME: 815 PATIENT: GREGG RUIZ UNIT #: [id number]#: [id number] [address] [birth year] AGE: 83 SEX: M ATTEND: Jl Lopez MDADM AUTHOR: Madonna Ibanez PhysicREPT SERVICE DT/TIME: 03/05/24 0816* ALL edits or amendments must be made on the electronic/computer document * GeneralPost-op: day 4Status post:03/01/24 1. Coronary artery bypass graft surgery x4 (JAEGER to LAD, sequential to diagonal, saphenous vein to marginal, saphenous vein to PDA). 2. Amputation of left atrial appendage. 3. Endoscopic vein harvest (right greater saphenous vein). 4. Posterior pericardiotomy. SubjectiveChief complaint:s/p CABG Review of SystemsConstitutional:Reports: generalized weakness. Denies: chills, fatigue. Skin:Denies: abrasion, bruising, diaphoresis. Allergy/Immun:Denies: allergic reaction, anaphylaxis, hives. Eyes:Denies: redness, discharge, visual loss/blurred. ENT:Denies: ear drainage, ear ringing, hearing loss. Cardiovascular:Denies: chest pain, palpitations. GI:Denies: abdominal pain, nausea, vomiting. :Denies: dysuria, flank pain. Musculoskeletal:Denies: arthritis, extremity pain, extremity swelling. Heme:Denies: adenopathy, petechiae. Neuro:Denies: confusion, dizziness, headache, seizure, syncope. All systems rev neg: except as marked Objective GeneralVS/I OLast Documented: Result Date Time Pulse Ox 94 03/05 730 B/P 124/58 03/05 0730 B/P Mean 84 03/05 730 Pulse 82 03/05 730 Resp 34 03/05 730 O2 Delivery Room air 03/05 324 Temp 98.6 03/05 324 FiO2 21 03/04 2013 O2 Flow Rate 1 03/02 0716 24 hour I O ending at 0700: 03/05 0700 03/04 1900 Intake Total Output Total 475 475 Balance -475 -475 Number 3 Bowel Movements Number Voids 3 Output, Urine 475 475 Patient 75.9 kg Weight PATIENT WEIGHT: Weight (lb): 167Weight (oz): 5.29Weight (kg): 75.900 Physical ExamGeneral appearance: alert, awake, orientedWound/incision: Location:sternum Site condition: dressing clean dry, dressing intactHEENT: anicteric, mucosal membranes moist, pupils reactive to lightNeck: full range of motion, non-tenderCardiovascular: normal heart sounds, regular rate rhythmRespiratory: aerating well, symmetric expansion, no distressAbdomen: soft, non-tenderGenitourinary: chowdhury, urine, no bladder distention, no flank painExtremities: dry, moves allMusculoskeletal: full range of motion, painless range of motionNeuro/VIBRATION ENGINEER: alert, oriented X 3Skin: dry, intactPsychiatry: normal affect, normal mood Quality: Trauma Gen Surg Advanced Care Plan 65 or OlderDiscussed with: patient Current MedicationsCurrent medication review:I attest that the foregoing medication list in the medical record is true, accurate, and complete to the best of my knowledge. Diagnosis, Assessment PlanHospital course to date:This is a pleasant 83-year-old gentleman with a past medical history of hypertension, hyperlipidemia, ulcerative colitis, bladder cancer status post chemo, former smoker but occasionally smokes cigars 1-2 a month. He was seen by his car worker helper Dr. Berger for increasing fatigue, denies chest pain, who had an abnormal stress test. Coronary angiogram was done that showed severe multivessel coronary artery disease. Outpatient echocardiogram was done %, trace mitral regurg, and trace tricuspid regurg.Patient presents today for multivessel coronary artery disease and for coronaryartery bypass graft surgery. Coronary angiogram films reviewed and patient will benefit from surgical revascularization. The operation, risks involved, calculated STS risk score, benefits, alternatives, and complications was discussed with the patient. The patient acknowledges understanding and is willing to proceed. All patient's questions were answered. Patient is scheduled for coronary artery bypass graft surgery today. Assessment/plan: 1. Multivessel coronary artery disease2. Hypertension3. Hyperlipidemia4. Ulcerative colitis Admit patient to CVICU postopMonitor heart rhythm and hemodynamicsStrict I's and O'sCardiology and critical care consulted. 03/01/24Coronary artery bypass graft surgery x4 (JAEGER to LAD, sequential to diagonal, saphenous vein to marginal, saphenous vein to PDA).Amputation of left atrial appendage.Endoscopic vein harvest (right greater saphenous vein).Posterior pericardiotomy. 03/02/24POD 1Patient hemodynamically stable postoperatively, not on any pressors or inotropesChest x-ray and labs reviewed, hemoglobin 7.0-give albumin and 2 units RBCsOn 2 L nasal cannula, wean off oxygen as toleratedEncourage incentive spirometer use and deep breathingKeep both chest tubes and monitor outputs closelyAdvance diet as tolerated, bowel regimen, glycemic controlDaily weights and strict I's and O'sSCDs for DVT prophylaxisPT/OT, OOB to chair, ambulatePatient seen by Dr. Lopez, plan of care discussed with patient and ICU team, all questions were answered. 03/03/24POD 2Patient doing well,episode overnight of A-fib RVR, now on amiodarone drip at 1, converted to NSRLabs and chest x-ray reviewed, hemoglobin 9.0Breathing comfortable on room air, I-S use encouragedDiscontinue mediastinal chest tube, reassess with LP chest tube after ambulationDiscontinue central line, arterial line, and Chowdhury catheterTolerating cardiac diet, continue bowel regimenDaily weights and strict I's and O'sSCDs for DVT prophylaxisPT/OT, ambulate, out of bed in chairPatient seen by Dr. Lopez, plan of care discussed with patient and family, allquestions were answered. 03/04/24POD 8LQSw0Owlcbca reports pain controlled. Respiratory: 2 L nasal cannula, wean as tolerated, Encourage IS, Deep Breathing, CXR reviewed, reassess chest tube after walking, DC todayCardiac: Sinus rhythm, pacing wires on standbyGI: Reports bowel movements, Continue Bowel regimenGU: Voiding wellUO: 800PT/OTDisposition: home with family supportDVT prophylaxisLabs reveiwed- replace electrolytes as neededPatient seen and examined by Dr. Lopez. Plan of care discussed with patient and multidisciplinary team. The patient's questions were answeredPlan to DC chest tubes after walking. Continue supportive care. 03/05/24Resting comfortableOn RA. Denies CP. OOB walkingReports BM, Tolerating diet.Sinus rhythm. Pacing wires dc'd will obtain echoDispo: Home with family support. Will obtain DVT studies Consider Home tomorrowrepeat CBC in am. Water restriction- sodium 129. Consultants: anesthesiology, cardiology, cardiovascular surgery, critical/residential real estate appraiser, hospitalist at 1547 at 0718 RPT #:[id number] OF REPORTPRProgress [id number]:16:00G.[id number] able for patient dzfcBJSFGEFGJVBRNS0481-86-73B93:47:47 [facility] 2024-03-04 14:50:00 [id number] vU/[id number]/Hh+E82xw/a SYEbYxv5t4Y1itiw5TS6jW5/Dfd4027-39-93Y73:50:00 [facility] ([facility])Critical Care Progress NoteREPORT#:[id number] REPORT STATUS: SignedREPORT INITIALIZATION DATE:03/04/24 TIME: 1449 PATIENT: GREGG RUIZ UNIT #: [id number]#: [id number] [address] [birth year] AGE: 83 SEX: M ATTEND: Jl Lopez MDA AUTHOR: Frank Dave MDREPT SERVICE DT/TIME: 03/04/24 1450* ALL edits or amendments must be made on the electronic/computer document * SubjectiveChief complaint: Multivessel coronary artery disease Status post CABG x 4 Elective ventilator dependence for Acute respiratory insufficiency following surgery, expected. Not respiratory failure Atrial fibrillation with RVR History of hypertensionHPI: Patient seen and examined in CVICU room #2208 this morning and discussed with CTsurgery. Patient is status post CABG. Immediate postop course was complicated with A-fib RVR. Patient is on amiodarone drip. Plan is to DC chest tube #2. Central venous catheter, A-line and Chowdhury catheter to be discontinued as well. Vital signs are stable and patient is in sinus rhythm now at 83, blood pressure is 149/58 mmHg and patient is at 9% on room air. Had 900 mL of urine output overnight. Gregg Ruiz is a 83 years old male with past medical history significant for hypertension and dyslipidemia recently diagnosed with multivessel coronary artery disease after a positive stress test. Now currently status post CABG x 4, JAEGER to LAD, sequential to diagonal, SVG to OM, SVG-PDA. EVH and ALAA. Received 1.5 L crystalloid, 100 cc of 25% albumin, Cell Saver 400 cc and made 550 cc of urine. He was an easy intubation. Arrived ICU extubated. No drips running. Left pleural and mediastinal chest tube. Requiring facemask oxygen. Comments:Interval history- Patient had small bowel movement.Is having difficulty urinating with straight cath once. Objective GeneralVS/I OLast Documented: Result Date Time Temp 36.4 03/04 0800 Pulse Ox 98 03/04 0747 O2 Delivery Room air 03/04 0747 B/P 138/62 03/04 06 B/P Mean 89 03/04 06 Pulse 88 03/04 06 Resp 34 03/04 0605 FiO2 21 / 0341 O2 Flow Rate 1 03/02 0716 24 hour I O ending at 0700: 03/04 0700 03/03 1900 Intake Total 50.00 1841.00 Output Total 965 690 Balance -915.00 1151.00 Intake, IV 50.00 161.00 Intake, Oral 1680 Number 2 Bowel Movements Number Voids 1 Output, Chest 165 140 Tube Drainage Output, Urine 800 550 Patient 77.6 kg Weight Weight Standing scale Measurement Method PATIENT WEIGHT: Weight (lb): 171Weight (oz): 1.26Weight (kg): 77.600 Medications:Active Meds + DC'd Last 24 HrsFurosemide (LASIX 40 mg/4 mL INJECTION) 40 MG ONCE ONE IV (DC) Tamsulosin HCl (Flomax 0.4 mg) 0.4 MG PC BK PO Ipratropium Osmond (ATROVENT) 500 MCG RTQ2H PRN PRN INH Cyanocobalamin (Vitamin B-12 500 mcg tab) 500 MCG DAILY PO Ferrous Sulfate (FERROUS SULFATE) 325 MG DAILY PO Potassium Chloride (POTASSIUM CHLORIDE 20MEQ TAB.ER) 20 MEQ ONCE ONE PO (DC) Furosemide (LASIX 20MG INJ) 20 MG ONCE ONE IV (DC) Bisacodyl (DULCOLAX) 10 MG ONCE ONE RECTAL (DC) Bisacodyl (DULCOLAX) 10 MG ONCE PRN RECTAL Magnesium Hydroxide (MILK OF MAGNESIA) 30 ML ONCE PRN PO (DC) Amiodarone HCl (AMIODARONE HCL) 450 MG ASDIR IV (CKD) Dextrose/Water (D5%W NON-DEHP) 250 MLAtorvastatin Calcium (LIPITOR) 40 MG 2100 PO Sodium Chloride (SODIUM CHLORIDE) 10 ML ASDIR IV Clopidogrel Bisulfate (Plavix) 75 MG DAILY PO Polyethylene Glycol (MIRALAX) 17 GM DAILY PO Pantoprazole (PROTONIX) 40 MG DAILY@0600 PO Docusate Sodium (COLACE) 100 MG BID PO Metoprolol Tartrate (LOPRESSOR) 12.5 MG Q12HR PO Mupirocin (BACTROBAN 2% 22 GM OINTMENT) 1 APPLIC BID NASAL Sennosides (Senna Lax 8.6 MG TABLET) 17.2 MG BEDTIME PO Hydrocodone Bitart/Acetaminophen (NORCO 5/325) 2 TAB Q4H PRN PRN PO Aspirin (ASPIRIN) 81 MG DAILY PO Amiodarone HCl (CORDARONE) 200 MG TID PO Ipratropium Osmond (ATROVENT) 500 MCG RTQ4H INH (DC) Epinephrine (ADRENALIN CHLORIDE) 4 MG ASDIR IV Dextrose/Water (DEXTROSE 5% WATER) 246 MLInsulin Human Regular (HumuLIN R) 100 UNIT ASDIR IV (CKD) Sodium Chloride (SODIUM CHLORIDE 0.9%) 99 MLAcetaminophen (TYLENOL) 650 MG Q4H PRN PRN PO Acetaminophen (TYLENOL) 650 MG Q4H PRN PRN RECTAL Calcium Chloride (CALCIUM CHLORIDE) 1 GM ASDIR PRN IV Dextrose/Water (DEXTROSE 10% IN WATER) 125 ML ASDIR PRN IV (CKD) Dextrose/Water (DEXTROSE 10% IN WATER) 250 ML ASDIR PRN IV (CKD) Glucagon (GLUCAGON) 1 MG ASDIR PRN IM Magnesium Sulfate (MAGNESIUM SULFATE 4GM/SWFI 100ML) 100 ML ASDIR PRN IV Magnesium Sulfate (MAGNESIUM SULFATE 2GM/SWFI 50ML) 50 ML ASDIR PRN IV Magnesium Sulfate/Dextrose (MAGNESIUM SULFATE 1GM/D5W 100ML) 100 ML ASDIR PRN IV Nitroglycerin/Dextrose (NITROGLYCERIN 50,000MCG/D5W 250ML) 250 ML ASDIR IV Norepinephrine Bitartrate (NOREPINEPHRINE 8 MG/NS 250 ML) 250 ML TITRATE IV Ondansetron HCl (ZOFRAN) 4 MG Q6H PRN PRN IV Potassium Chloride (KCL 20MEQ/SWFI 100ML) 100 ML ASDIR PRN IV Sodium Bicarbonate (SODIUM BICARBONATE) 50 MEQ ASDIR PRN IV Sodium Chloride (SODIUM CHLORIDE 0.9%) 1,000 ML .Q20H IV Sodium Chloride (SODIUM CHLORIDE 0.9%) 250 ML Q24H IV Physical ExamHead/eyes: atraumatic, clear corneaENT: moist mucosal membranes, normal nose, normal sinusCardiovascular: Distant heart soundsRespiratory: aerating well, clear to auscultation, symmetric expansionAbdomen: soft, non-tender, normal bowel sounds, no distentionExtremities: moves all, no edemaPsychiatry: normal affect, normal judgment/insight, normal mood, not homicidal, not suicidal, no hallucinations ResultsFindings/data:Laboratory Tests 03/04 313 Chemistry Sodium (134 - 147 mEq/L) 130 L Potassium (3.4 - 5.0 mEq/L) 3.9 Chloride (100 - 108 mEq/L) 98 L Carbon Dioxide (21 - 33 mEq/l) 24 Anion Gap (0 - 20) 12 BUN (7 - 25 mg/dL) 28 H Creatinine (0.6 - 1.3 mg/dL) 1.1 Glomerular Filtr Rate (70 - 80) 67.4 L Glucose (77 - 141 mg/dL) 113 Calcium (8.0 - 10.5 mg/dL) 9.0 Magnesium (1.6 - 2.6 mg/dL) 1.97 Total Bilirubin (0.0 - 1.0 mg/dL) 0.90 Direct Bilirubin (0.1 - 0.3 MG/DL) 0.40 H Indirect Bilirubin (MG/DL) 0.50 AST (8 - 34 IUnit/L) 83 H ALT (10 - 49 IUnit/L) 41 Total Alk Phosphatase (20 - 125 IUnit/L) 108 Total Protein (6.4 - 8.2 g/dL) 5.9 L Albumin (3.4 - 5.0 g/dL) 3.70 Laboratory Tests 03/04 313 Hematology WBC (4.5 - 11.0 x10 3/uL) 13.3 H RBC (4.00 - 5.60 x10 6/uL) 2.74 L Hgb (12.5 - 16.9 g/dL) 9.1 L Hct (37.5 - 50.7 %) 26.0 L MCV (81.0 - 99.0 fL) 94.9 MCH (27.0 - 33.0 pg) 33.2 H MCHC (33.0 - 37.0 g/dL) 35.0 RDW (11.5 - 14.5 %) 14.5 Plt Count (150 - 400 x10 3/uL) 121 L MPV (7.0 - 9.0 fL) 10.0 H Neut % (Auto) (56.0 - 77.0 %) 88.5 H Lymph % (Auto) (14.0 - 32.0 %) 3.7 L Coos % (Auto) (4.8 - 9.0 %) 6.3 Eos % (Auto) (0.3 - 3.7 %) 0.5 Baso % (Auto) (0.0 - 2.0 %) 0.3 Neut # (Auto) (2.0 - 7.6 x10 3/uL) 11.76 H Lymph # (Auto) (1.0 - 3.8 x10 3/uL) 0.49 L Coos # (Auto) (0.1 - 0.8 x10 3/uL) 0.84 H Eos # (Auto) (0.0 - 0.2 x10 3/uL) 0.07 Baso # (Auto) (0.0 - 0.2 x10 3/uL) 0.04 Abs Immat Gran (auto) (0.00 - 0.03 x10 3/uL) 0.09 H Immature Gran % (0.0 - 2.0 %) 0.7 Nucleated RBC % (0 - 0 %) 0.0 Nucleated RBCs # (Man) (0.0 - 0.1 x10 3/uL) 0.00 Laboratory Tests 03/04/24 0313:[Embedded Image Not Available] Radiology dataRecent Impressions:RADIOLOGY - XR ABDOMEN 1V (KUB) 03/03 1907 Report Impression - Status: SIGNED Entered: 03/03/2024 205 IMPRESSION: 1. Gaseous distention of both large and small bowel suggesting ileuswith moderate retained fecal material in the right colon.Impression By: [email or web address] - Kiran Hall M.D.RADIOLOGY - XR CHEST 1 V 03/04 0702 Report Impression - Status: SIGNED Entered: 03/04/2024 1003 IMPRESSION: Improving pleural effusions. Small left apical pneumothorax with left basilar chest tube in place.Impression By: [email or web address] - Kushal Mcrae M.D. Diagnosis, Assessment PlanFree text A P: Problem List: Multivessel coronary artery diseaseStatus post CABG x 4Elective ventilator dependence forAcute respiratory insufficiency following surgery, expected. Not respiratory failureAtrial fibrillation with RVRHistory of hypertension Assessment and Plan: Neuro intact.Pain is well-controlled.Will discontinue chest tube after walking. In sinus rhythm. Continue aspirin Plavix.Will give a dose of Lasix 40 IV.Creatinine is stable. Replete electrolytes.Patient not had a bowel movement. He is getting suppository. Abdomen is soft.White count stable no fevers continue monitor.Sugars are well-controlled.SCDs for DVT prophylaxis.Continue beta-antwon and amiodarone.PPI daily. Total critical care time 34 minutes excluding procedures Consultants: anesthesiology, cardiology, cardiovascular surgery, critical/residential real estate appraiser, hospitalist Quality: Gen Med Crit Care Current MedicationsCurrent medication review:I attest that the foregoing medication list in the medical record is true, accurate, and complete to the best of my knowledge. Advanced Care Plan 65 or OlderDiscussed with: patient at 1457 RPT #:[id number] OF REPORTPRProgress [id number]:50:00G.[id number] able for patient wcgiVJNJARYIZNKWQC9153-22-08Z80:57:55 [facility] 2024-03-04 07:48:00 [id number] FIZ1wMt/95X8wiwe85ZyCpT4Ogv8Q YZPdqT+PoOVd0IdWKQfoh8brVnh8510-00-31M23:48:00 [facility] ([facility])Cardiology Progress NoteREPORT#:[id number] REPORT STATUS: SignedREPORT INITIALIZATION DATE:03/04/24 TIME: 747 PATIENT: GREGG RUIZ UNIT #: [id number]#: [id number] [address]OB: [birth year] AGE: 83 SEX: M ATTEND: Jl Lopez AUTHOR: Pa Merrill MDREPT SERVICE DT/TIME: 03/04/24 0748* ALL edits or amendments must be made on the electronic/computer document * Subjective Free Text Subj NotesFree Text Subj Notes:doing ok Objective GeneralVS/I O:24 hour I O ending at 0700: 05/06 0700 05/05 1900 Intake Total 50.00 1841.00 Output Total 965 690 Balance -915.00 1151.00 Intake, IV 50.00 161.00 Intake, Oral 1680 Number 2 Bowel Movements Number Voids 1 Output, Chest 165 140 Tube Drainage Output, Urine 800 550 Patient 77.6 kg Weight Weight Standing scale Measurement Method Vital Signs: Date Time Temp Pulse Resp B/P B/P Pulse O2 O2 Flow FiO2 Mean Ox Delivery Rate 05/06 0605 88 34 138/62 89 99 05/06 0600 91 33 05/06 0500 79 21 123/58 83 98 05/06 0400 97.7 05/06 0400 79 21 125/60 86 99 05/06 0341 99 Room air 21 05/06 0300 79 21 106/56 75 99 05/06 0200 81 19 125/58 84 100 05/06 0100 78 20 109/56 79 99 05/06 0000 98.1 05/06 0000 76 19 106/60 77 100 05/05 2300 77 22 111/57 78 99 05/05 2200 77 20 116/58 82 98 05/05 2100 80 19 121/59 86 98 05/05 2049 85 28 143/66 95 98 05/05 2003 100 Room air 21 05/05 1999 97.8 05/05 1999 82 21 141/65 94 99 05/05 1900 81 28 148/70 100 99 05/05 1800 81 24 128/64 89 98 05/05 1700 85 30 128/70 93 98 05/05 1600 77 24 137/63 90 100 05/05 1542 100 Room air 21 05/05 1500 78 19 126/61 86 99 05/05 1408 83 34 149/74 104 100 05/05 1300 122/50 72 05/05 1300 80 21 113/62 82 100 05/05 1200 138/61 88 05/05 1200 82 31 128/60 87 100 05/05 1142 97 Room air 21 05/05 1100 137/57 83 05/05 1100 81 30 114/63 84 100 05/ 1000 150/61 91 05/ 1000 89 37 131/61 89 100 03/03 0900 136/52 78 03/03 0900 83 24 123/65 87 100 03/03 0800 98.1 03/03 0800 140/53 80 03/03 0800 85 29 125/68 89 PATIENT WEIGHT: Weight (lb): 171Weight (oz): 1.26Weight (kg): 77.600 Medications:Active Meds + DC'd Last 24 HrsIpratropium Osmond (ATROVENT) 500 MCG RTQ2H PRN PRN INH Cyanocobalamin (Vitamin B-12 500 mcg tab) 500 MCG DAILY PO Ferrous Sulfate (FERROUS SULFATE) 325 MG DAILY PO Potassium Chloride (POTASSIUM CHLORIDE 20MEQ TAB.ER) 20 MEQ ONCE ONE PO (DC) Furosemide (LASIX 20MG INJ) 20 MG ONCE ONE IV (DC) Bisacodyl (DULCOLAX) 10 MG ONCE ONE RECTAL (DC) Bisacodyl (DULCOLAX) 10 MG ONCE PRN RECTAL Magnesium Hydroxide (MILK OF MAGNESIA) 30 ML ONCE PRN PO (DC) Furosemide (LASIX 20MG INJ) 20 MG ONCE ONE IV (DC) Amiodarone HCl (AMIODARONE HCL) 450 MG ASDIR IV (CKD) Dextrose/Water (D5%W NON-DEHP) 250 MLAtorvastatin Calcium (LIPITOR) 40 MG 2100 PO Sodium Chloride (SODIUM CHLORIDE) 10 ML ASDIR IV Sodium Chloride (SODIUM CHLORIDE 0.9%) 500 ML ONCE ONE IV (DC) Clopidogrel Bisulfate (Plavix) 75 MG DAILY PO Polyethylene Glycol (MIRALAX) 17 GM DAILY PO Pantoprazole (PROTONIX) 40 MG DAILY@0600 PO Docusate Sodium (COLACE) 100 MG BID PO Metoprolol Tartrate (LOPRESSOR) 12.5 MG Q12HR PO Mupirocin (BACTROBAN 2% 22 GM OINTMENT) 1 APPLIC BID NASAL Sennosides (Senna Lax 8.6 MG TABLET) 17.2 MG BEDTIME PO Hydrocodone Bitart/Acetaminophen (NORCO 5/325) 2 TAB Q4H PRN PRN PO Aspirin (ASPIRIN) 81 MG DAILY PO Amiodarone HCl (CORDARONE) 200 MG TID PO Ipratropium Osmond (ATROVENT) 500 MCG RTQ4H INH Epinephrine (ADRENALIN CHLORIDE) 4 MG ASDIR IV Dextrose/Water (DEXTROSE 5% WATER) 246 MLInsulin Human Regular (HumuLIN R) 100 UNIT ASDIR IV (CKD) Sodium Chloride (SODIUM CHLORIDE 0.9%) 99 MLAcetaminophen (TYLENOL) 650 MG Q4H PRN PRN PO Acetaminophen (TYLENOL) 650 MG Q4H PRN PRN RECTAL Calcium Chloride (CALCIUM CHLORIDE) 1 GM ASDIR PRN IV Dextrose/Water (DEXTROSE 10% IN WATER) 125 ML ASDIR PRN IV (CKD) Dextrose/Water (DEXTROSE 10% IN WATER) 250 ML ASDIR PRN IV (CKD) Glucagon (GLUCAGON) 1 MG ASDIR PRN IM Magnesium Sulfate (MAGNESIUM SULFATE 4GM/SWFI 100ML) 100 ML ASDIR PRN IV Magnesium Sulfate (MAGNESIUM SULFATE 2GM/SWFI 50ML) 50 ML ASDIR PRN IV Magnesium Sulfate/Dextrose (MAGNESIUM SULFATE 1GM/D5W 100ML) 100 ML ASDIR PRN IV Nitroglycerin/Dextrose (NITROGLYCERIN 50,000MCG/D5W 250ML) 250 ML ASDIR IV Norepinephrine Bitartrate (NOREPINEPHRINE 8 MG/NS 250 ML) 250 ML TITRATE IV Ondansetron HCl (ZOFRAN) 4 MG Q6H PRN PRN IV Potassium Chloride (KCL 20MEQ/SWFI 100ML) 100 ML ASDIR PRN IV Sodium Bicarbonate (SODIUM BICARBONATE) 50 MEQ ASDIR PRN IV Sodium Chloride (SODIUM CHLORIDE 0.9%) 1,000 ML .Q20H IV Sodium Chloride (SODIUM CHLORIDE 0.9%) 250 ML Q24H IV Physical ExamGeneral appearance: alert, awake, orientedHead/Eyes: PERRLAENT: normal noseNeck: no JVDCardiovascular: CV assessment: regular rate and rhythmRespiratory: clear to auscultation, no distressNeuro/VIBRATION ENGINEER: alert, oriented X 3, normal speech ResultsFindings/Data:Laboratory Tests 03/04 313 Chemistry Sodium (134 - 147 mEq/L) 130 L Potassium (3.4 - 5.0 mEq/L) 3.9 Chloride (100 - 108 mEq/L) 98 L Carbon Dioxide (21 - 33 mEq/l) 24 Anion Gap (0 - 20) 12 BUN (7 - 25 mg/dL) 28 H Creatinine (0.6 - 1.3 mg/dL) 1.1 Glomerular Filtr Rate (70 - 80) 67.4 L Glucose (77 - 141 mg/dL) 113 Calcium (8.0 - 10.5 mg/dL) 9.0 Magnesium (1.6 - 2.6 mg/dL) 1.97 Total Bilirubin (0.0 - 1.0 mg/dL) 0.90 Direct Bilirubin (0.1 - 0.3 MG/DL) 0.40 H Indirect Bilirubin (MG/DL) 0.50 AST (8 - 34 IUnit/L) 83 H ALT (10 - 49 IUnit/L) 41 Total Alk Phosphatase (20 - 125 IUnit/L) 108 Total Protein (6.4 - 8.2 g/dL) 5.9 L Albumin (3.4 - 5.0 g/dL) 3.70 Laboratory Tests 03/04 0313 Hematology WBC (4.5 - 11.0 x10 3/uL) 13.3 H RBC (4.00 - 5.60 x10 6/uL) 2.74 L Hgb (12.5 - 16.9 g/dL) 9.1 L Hct (37.5 - 50.7 %) 26.0 L MCV (81.0 - 99.0 fL) 94.9 MCH (27.0 - 33.0 pg) 33.2 H MCHC (33.0 - 37.0 g/dL) 35.0 RDW (11.5 - 14.5 %) 14.5 Plt Count (150 - 400 x10 3/uL) 121 L MPV (7.0 - 9.0 fL) 10.0 H Neut % (Auto) (56.0 - 77.0 %) 88.5 H Lymph % (Auto) (14.0 - 32.0 %) 3.7 L Coos % (Auto) (4.8 - 9.0 %) 6.3 Eos % (Auto) (0.3 - 3.7 %) 0.5 Baso % (Auto) (0.0 - 2.0 %) 0.3 Neut # (Auto) (2.0 - 7.6 x10 3/uL) 11.76 H Lymph # (Auto) (1.0 - 3.8 x10 3/uL) 0.49 L Coos # (Auto) (0.1 - 0.8 x10 3/uL) 0.84 H Eos # (Auto) (0.0 - 0.2 x10 3/uL) 0.07 Baso # (Auto) (0.0 - 0.2 x10 3/uL) 0.04 Abs Immat Gran (auto) (0.00 - 0.03 x10 3/uL) 0.09 H Immature Gran % (0.0 - 2.0 %) 0.7 Nucleated RBC % (0 - 0 %) 0.0 Nucleated RBCs # (Man) (0.0 - 0.1 x10 3/uL) 0.00 Laboratory Tests 03/04 0313 Chemistry Magnesium (1.6 - 2.6 mg/dL) 1.97 Radiology data:Recent Impressions:RADIOLOGY - XR ABDOMEN 1V (KUB) 03/03 1907 Report Impression - Status: SIGNED Entered: 03/03/20242049 IMPRESSION: 1. Gaseous distention of both large and small bowel suggesting ileuswith moderate retained fecal material in the right colon.Impression By: [email or web address] - Kiran Hall M.D. Diagnosis, Assessment PlanConsultants: anesthesiology, cardiology, cardiovascular surgery, critical/residential real estate appraiser, hospitalist Free Text DxA P NotesFree Text DxA P Notes:1. CAD multivessel disease: s/p CABG X 4 (JAEGER to LAD, sequential todiagonal, saphenous vein to marginal, saphenous vein to PDA), with amputation ofleft atrial appendage managent per CTS. DAPT, Statin and BB 2. Hypertension: continue Metoprolol 3. HLD: statin at 2302 RPT #:[id number] OF REPORTPRProgress [id number]:48:00G.[id number] able for patient wdteSEEUVRJRURLLJR9545-70-87W35:02:26 [facility] 2024-03-04 07:24:00 [id number] WahjnnrFJA/LxVQe2KLSWcKNAAj4q XBj+bjsgIj1tCQb+Eitw6dKzDDi3128-79-13G11:24:00 [facility] ([facility])Cardiothoracic Surgery ProgREPORT#:[id number] REPORT STATUS: SignedREPORT INITIALIZATION DATE:03/04/24 TIME: 723 PATIENT: GREGG RUIZ UNIT #: [id number]#: [id number] [place] [facility] [place] [birth year] AGE: 83 SEX: M ATTEND: Jl Lopez MDA AUTHOR: Madonna Ibanez PhysicREPT SERVICE DT/TIME: 03/04/24723* ALL edits or amendments must be made on the electronic/computer document * GeneralPost-op: day 3Status post:03/01/24 1. Coronary artery bypass graft surgery x4 (JAEGER to LAD, sequential to diagonal, saphenous vein to marginal, saphenous vein to PDA). 2. Amputation of left atrial appendage. 3. Endoscopic vein harvest (right greater saphenous vein). 4. Posterior pericardiotomy. SubjectiveChief complaint:s/p CABG Review of SystemsConstitutional:Reports: generalized weakness. Denies: chills, fatigue. Skin:Denies: abrasion, bruising, diaphoresis. Allergy/Immun:Denies: allergic reaction, anaphylaxis, hives. Eyes:Denies: redness, discharge, visual loss/blurred. ENT:Denies: ear drainage, ear ringing, hearing loss. Cardiovascular:Denies: chest pain, palpitations. GI:Denies: abdominal pain, nausea, vomiting. :Denies: dysuria, flank pain. Musculoskeletal:Denies: arthritis, extremity pain, extremity swelling. Heme:Denies: adenopathy, petechiae. Neuro:Denies: confusion, dizziness, headache, seizure, syncope. All systems rev neg: except as marked Objective GeneralVS/I OLast Documented: Result Date Time Pulse Ox 99 / 0605 B/P 138/62 / 0605 B/P Mean 89 / 0605 Pulse 88 / 0605 Resp 34 / 0605 Temp 97.7 / 0400 FiO2 21 03/04 0341 O2 Delivery Room air 03/04 034 O2 Flow Rate 1 03/02 0716 24 hour I O ending at 0700: 05/06 0700 05/05 1900 Intake Total 50.00 1841.00 Output Total 965 690 Balance -915.00 1151.00 Intake, IV 50.00 161.00 Intake, Oral 1680 Number 2 Bowel Movements Number Voids 1 Output, Chest 165 140 Tube Drainage Output, Urine 800 550 Patient 77.6 kg Weight Weight Standing scale Measurement Method PATIENT WEIGHT: Weight (lb): 171Weight (oz): 1.26Weight (kg): 77.600 Physical ExamGeneral appearance: alert, awake, orientedWound/incision: Location:sternum Site condition: dressing clean dry, dressing intactHEENT: anicteric, mucosal membranes moist, pupils reactive to lightNeck: full range of motion, non-tenderCardiovascular: normal heart sounds, regular rate rhythmRespiratory: aerating well, symmetric expansion, no distressAbdomen: soft, non-tenderGenitourinary: chowdhury, urine, no bladder distention, no flank painExtremities: dry, moves allMusculoskeletal: full range of motion, painless range of motionNeuro/VIBRATION ENGINEER: alert, oriented X 3Skin: dry, intactPsychiatry: normal affect, normal mood Quality: Trauma Gen Surg Advanced Care Plan 65 or OlderDiscussed with: patient Current MedicationsCurrent medication review:I attest that the foregoing medication list in the medical record is true, accurate, and complete to the best of my knowledge. Diagnosis, Assessment PlanHospital course to date:This is a pleasant 83-year-old gentleman with a past medical history of hypertension, hyperlipidemia, ulcerative colitis, bladder cancer status post chemo, former smoker but occasionally smokes cigars 1-2 a month. He was seen by his car worker helper Dr. Berger for increasing fatigue, denies chest pain, who had an abnormal stress test. Coronary angiogram was done that showed severe multivessel coronary artery disease. Outpatient echocardiogram was done %, trace mitral regurg, and trace tricuspid regurg.Patient presents today for multivessel coronary artery disease and for coronaryartery bypass graft surgery. Coronary angiogram films reviewed and patient will benefit from surgical revascularization. The operation, risks involved, calculated STS risk score, benefits, alternatives, and complications was discussed with the patient. The patient acknowledges understanding and is willing to proceed. All patient's questions were answered. Patient is scheduled for coronary artery bypass graft surgery today. Assessment/plan: 1. Multivessel coronary artery disease2. Hypertension3. Hyperlipidemia4. Ulcerative colitis Admit patient to CVICU postopMonitor heart rhythm and hemodynamicsStrict I's and O'sCardiology and critical care consulted. 03/01/24Coronary artery bypass graft surgery x4 (JAEGER to LAD, sequential to diagonal, saphenous vein to marginal, saphenous vein to PDA).Amputation of left atrial appendage.Endoscopic vein harvest (right greater saphenous vein).Posterior pericardiotomy. 03/02/24POD 1Patient hemodynamically stable postoperatively, not on any pressors or inotropesChest x-ray and labs reviewed, hemoglobin 7.0-give albumin and 2 units RBCsOn 2 L nasal cannula, wean off oxygen as toleratedEncourage incentive spirometer use and deep breathingKeep both chest tubes and monitor outputs closelyAdvance diet as tolerated, bowel regimen, glycemic controlDaily weights and strict I's and O'sSCDs for DVT prophylaxisPT/OT, OOB to chair, ambulatePatient seen by Dr. Lopez, plan of care discussed with patient and ICU team, all questions were answered. 03/03/24POD 2Patient doing well,episode overnight of A-fib RVR, now on amiodarone drip at 1, converted to NSRLabs and chest x-ray reviewed, hemoglobin 9.0Breathing comfortable on room air, I-S use encouragedDiscontinue mediastinal chest tube, reassess with LP chest tube after ambulationDiscontinue central line, arterial line, and Chowdhury catheterTolerating cardiac diet, continue bowel regimenDaily weights and strict I's and O'sSCDs for DVT prophylaxisPT/OT, ambulate, out of bed in chairPatient seen by Dr. Lopez, plan of care discussed with patient and family, allquestions were answered. 03/04/24POD 6VQOp1Hxbzwfc reports pain controlled. Respiratory: 2 L nasal cannula, wean as tolerated, Encourage IS, Deep Breathing, CXR reviewed, reassess chest tube after walking, DC todayCardiac: Sinus rhythm, pacing wires on standbyGI: Reports bowel movements, Continue Bowel regimenGU: Voiding wellUO: 800PT/OTDisposition: home with family supportDVT prophylaxisLabs reveiwed- replace electrolytes as neededPatient seen and examined by Dr. Lopez. Plan of care discussed with patient and multidisciplinary team. The patient's questions were answeredPlan to DC chest tubes after walking. Continue supportive care. Consultants: anesthesiology, cardiology, cardiovascular surgery, critical/residential real estate appraiser, hospitalist at 1418 at 0718 RPT #:[id number] OF REPORTPRProgress [id number]:24:00G.[id number] able for patient jlxbTHYWIVRBXFYDLK1788-99-84A92:18:46 [facility] 2024-03-03 18:21:00 [id number]cl 76gDaSgk8Mv6ZQiBRYwRR5OAXZ91592-99-88S18:21:00 [facility] ([facility])Critical Care Progress NoteREPORT#:[id number] REPORT STATUS: SignedREPORT INITIALIZATION DATE:03/03/24 TIME: 1820 PATIENT: GREGG RUIZ UNIT #: [id number]#: [id number] [address] AGE: 83 SEX: M ATTEND: Jl Lopez MDADM AUTHOR: Tres Daniel MDREPT SERVICE DT/TIME: 03/03/241820* ALL edits or amendments must be made on the electronic/computer document * SubjectiveChief complaint: Multivessel coronary artery diseaseStatus post CABG x 4Elective ventilator dependence forAcute respiratory insufficiency following surgery, expected. Not respiratory failureAtrial fibrillation with RVRHistory of hypertension HPI: Patient seen and examined in CVICU room #2208 this morning and discussed with CTsurgery. Patient is status post CABG. Immediate postop course was complicated with A-fib RVR. Patient is on amiodarone drip. Plan is to DC chest tube #2. Central venous catheter, A-line and Chowdhury catheter to be discontinued as well. Vital signs are stable and patient is in sinus rhythm now at 83, blood pressure is 149/58 mmHg and patient is at 9% on room air. Had 900 mL of urine output overnight. Gregg Ruiz is a 83 years old male with past medical history significant for hypertension and dyslipidemia recently diagnosed with multivessel coronary artery disease after a positive stress test. Now currently status post CABG x 4, JAEGER to LAD, sequential to diagonal, SVG to OM, SVG-PDA. EVH and ALAA. Received 1.5 L crystalloid, 100 cc of 25% albumin, Cell Saver 400 cc and made 550 cc of urine. He was an easy intubation. Arrived ICU extubated. No drips running. Left pleural and mediastinal chest tube. Requiring facemask oxygen. Patient reports:No: diarrhea, fever, shortness of breath, vomiting. Nursing reports:No: confusion, delirium, diarrhea, fever, vomiting. Review of SystemsConstitutional:Denies: fatigue, fever, generalized weakness. Skin:Denies: diaphoresis, ecchymosis, rash, swelling. Allergy/Immun:Denies: itching, rhinorrhea, sneezing. Eyes:Denies: eye pain, photophobia. Objective GeneralVS/I OLast Documented: Result Date Time Pulse Ox 98 05 1700 B/P 128/70 05/ 1700 B/P Mean 93 05/ 1700 Pulse 85 05/ 1700 Resp 30 05/ 1700 FiO2 21 / 1542 O2 Delivery Room air 03/03 1542 Temp 36.7 03/03 0800 O2 Flow Rate 1 03/02 0716 24 hour I O ending at 0700: 05/05 0700 04 1900 Intake Total 510.00 3173.40 Output Total 950 1425 Balance -440.00 1748.40 Intake, IV 390.00 1873.40 Intake, Oral 120 600 Intake, 700 Packed Cells Output, Chest 70 530 Tube Drainage Output, Urine 880 895 Patient 77.1 kg 73.482 kg Weight Weight Standing scale Measurement Method PATIENT WEIGHT: Weight (lb): 169Weight (oz): 15.62Weight (kg): 77.100 Medications:Active Meds + DC'd Last 24 HrsIpratropium Osmond (ATROVENT) 500 MCG RTQ2H PRN PRN INH Cyanocobalamin (Vitamin B-12 500 mcg tab) 500 MCG DAILY PO Ferrous Sulfate (FERROUS SULFATE) 325 MG DAILY PO Bisacodyl (DULCOLAX) 10 MG ONCE ONE RECTAL (DC) Bisacodyl (DULCOLAX) 10 MG ONCE PRN RECTAL Magnesium Hydroxide (MILK OF MAGNESIA) 30 ML ONCE PRN PO Furosemide (LASIX 20MG INJ) 20 MG ONCE ONE IV (DC) Amiodarone HCl (AMIODARONE HCL) 450 MG ASDIR IV (CKD) Dextrose/Water (D5%W NON-DEHP) 250 MLAmiodarone HCl (NEXTERONE 150MG/D5W 100ML) 100 ML STAT ONE IV (DC) Atorvastatin Calcium (LIPITOR) 40 MG 2100 PO Furosemide (LASIX 20MG INJ) 20 MG ONCE ONE IV (DC) Sodium Chloride (SODIUM CHLORIDE) 10 ML ASDIR IV Sodium Chloride (SODIUM CHLORIDE 0.9%) 500 ML ONCE ONE IV (DC) Clopidogrel Bisulfate (Plavix) 75 MG DAILY PO Polyethylene Glycol (MIRALAX) 17 GM DAILY PO Pantoprazole (PROTONIX) 40 MG DAILY@0600 PO Docusate Sodium (COLACE) 100 MG BID PO Metoprolol Tartrate (LOPRESSOR) 12.5 MG Q12HR PO Mupirocin (BACTROBAN 2% 22 GM OINTMENT) 1 APPLIC BID NASAL Sennosides (Senna Lax 8.6 MG TABLET) 17.2 MG BEDTIME PO Hydrocodone Bitart/Acetaminophen (NORCO 5/325) 2 TAB Q4H PRN PRN PO Aspirin (ASPIRIN) 81 MG DAILY PO Amiodarone HCl (CORDARONE) 200 MG TID PO Ipratropium [place] (ATROVENT) 500 MCG RTQ4H INH Epinephrine (ADRENALIN CHLORIDE) 4 MG ASDIR IV Dextrose/Water (DEXTROSE 5% WATER) 246 MLInsulin Human Regular (HumuLIN R) 100 UNIT ASDIR IV (CKD) Sodium Chloride (SODIUM CHLORIDE 0.9%) 99 MLAcetaminophen (TYLENOL) 650 MG Q4H PRN PRN PO Acetaminophen (TYLENOL) 650 MG Q4H PRN PRN RECTAL Calcium Chloride (CALCIUM CHLORIDE) 1 GM ASDIR PRN IV Dextrose/Water (DEXTROSE 10% IN WATER) 125 ML ASDIR PRN IV (CKD) Dextrose/Water (DEXTROSE 10% IN WATER) 250 ML ASDIR PRN IV (CKD) Glucagon (GLUCAGON) 1 MG ASDIR PRN IM Magnesium Sulfate (MAGNESIUM SULFATE 4GM/SWFI 100ML) 100 ML ASDIR PRN IV Magnesium Sulfate (MAGNESIUM SULFATE 2GM/SWFI 50ML) 50 ML ASDIR PRN IV Magnesium Sulfate/Dextrose (MAGNESIUM SULFATE 1GM/D5W 100ML) 100 ML ASDIR PRN IV Nitroglycerin/Dextrose (NITROGLYCERIN 50,000MCG/D5W 250ML) 250 ML ASDIR IV Norepinephrine Bitartrate (NOREPINEPHRINE 8 MG/NS 250 ML) 250 ML TITRATE IV Ondansetron HCl (ZOFRAN) 4 MG Q6H PRN PRN IV Potassium Chloride (KCL 20MEQ/SWFI 100ML) 100 ML ASDIR PRN IV Sodium Bicarbonate (SODIUM BICARBONATE) 50 MEQ ASDIR PRN IV Sodium Chloride (SODIUM CHLORIDE 0.9%) 1,000 ML .Q20H IV Sodium Chloride (SODIUM CHLORIDE 0.9%) 250 ML Q24H IV Physical ExamGeneral appearance: alert, awake, oriented, no acute distress, pleasant, conversational, mental status normal, no respiratory distressHead/eyes: atraumatic, clear corneaENT: moist mucosal membranes, normal nose, normal sinusNeck: RIJ CVLCardiovascular: Distant heart soundsRespiratory: aerating well, clear to auscultation, symmetric expansionAbdomen: soft, non-tender, normal bowel sounds, no distentionExtremities: moves all, no edemaPsychiatry: normal affect, normal judgment/insight, normal mood, not homicidal, not suicidal, no hallucinations ResultsFindings/data:Laboratory Tests 03/03 0300 Chemistry Sodium (134 - 147 mEq/L) 131 L Potassium (3.4 - 5.0 mEq/L) 4.1 Chloride (100 - 108 mEq/L) 103 Carbon Dioxide (21 - 33 mEq/l) 23 Anion Gap (0 - 20) 10 BUN (7 - 25 mg/dL) 23 Creatinine (0.6 - 1.3 mg/dL) 1.0 Glomerular Filtr Rate (70 - 80) 75.6 Glucose (77 - 141 mg/dL) 140 Calcium (8.0 - 10.5 mg/dL) 8.4 Magnesium (1.6 - 2.6 mg/dL) 2.10 Total Bilirubin (0.0 - 1.0 mg/dL) 0.70 Direct Bilirubin (0.1 - 0.3 MG/DL) 0.30 Indirect Bilirubin (MG/DL) 0.40 AST (8 - 34 IUnit/L) 48 H ALT (10 - 49 IUnit/L) 16 Total Alk Phosphatase (20 - 125 IUnit/L) 41 Total Protein (6.4 - 8.2 g/dL) 5.7 L Albumin (3.4 - 5.0 g/dL) 3.90 Laboratory Tests 03/03 03/02 0300 1940 Hematology WBC (4.5 - 11.0 x10 3/uL) 13.6 H RBC (4.00 - 5.60 x10 6/uL) 2.78 L Hgb (12.5 - 16.9 g/dL) 9.0 L 9.4 L Hct (37.5 - 50.7 %) 25.9 L 27.3 L MCV (81.0 - 99.0 fL) 93.2 MCH (27.0 - 33.0 pg) 32.4 MCHC (33.0 - 37.0 g/dL) 34.7 RDW (11.5 - 14.5 %) 14.8 H Plt Count (150 - 400 x10 3/uL) 132 L MPV (7.0 - 9.0 fL) 9.9 H Neut % (Auto) (56.0 - 77.0 %) 84.0 H Lymph % (Auto) (14.0 - 32.0 %) 5.1 L Coos % (Auto) (4.8 - 9.0 %) 9.9 H Eos % (Auto) (0.3 - 3.7 %) 0.2 L Baso % (Auto) (0.0 - 2.0 %) 0.2 Neut # (Auto) (2.0 - 7.6 x10 3/uL) 11.41 H Lymph # (Auto) (1.0 - 3.8 x10 3/uL) 0.70 L Coos # (Auto) (0.1 - 0.8 x10 3/uL) 1.35 H Eos # (Auto) (0.0 - 0.2 x10 3/uL) 0.03 Baso # (Auto) (0.0 - 0.2 x10 3/uL) 0.03 Abs Immat Gran (auto) (0.00 - 0.03 x10 3/uL) 0.08 H Immature Gran % (0.0 - 2.0 %) 0.6 Nucleated RBC % (0 - 0 %) 0.0 Nucleated RBCs # (Man) (0.0 - 0.1 x10 3/uL) 0.00 Laboratory Tests 03/03/24 0300:[Embedded Image Not Available] 03/02/24 1940:[Embedded Image Not Available] Radiology dataRecent Impressions:RADIOLOGY - XR CHEST 1 V 03/03 0708 Report Impression - Status: SIGNED Entered: 03/03/2024 1010 impression: Right IJ central line and left chest tube are stable.. Intervalremoval of an additional tube over the left lung base. Postcardiac surgical changes and median sternotomy wires areredemonstrated. Mild worsening of bibasilar airspace opacities, likely representing acombination of small pleural effusions associated with bibasilaratelectasis and/or mild pulmonary edema. However pneumonia cannot beexcluded. There is mild pulmonary vascular congestion/mild CHF pattern. Nopneumothorax. No other unremarkable changes compared to prior study. Impression By: [email or web address] - Andre Nava D.O. Results: labs reviewed, vital signs reviewed, rhythm personally rev'd, current med profile rev'd Diagnosis, Assessment PlanFree text A P: Problem List: Multivessel coronary artery diseaseStatus post CABG x 4Elective ventilator dependence forAcute respiratory insufficiency following surgery, expected. 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 PT OT as tolerated. Cardiovascular: Patient required Levophed and upon transferring from the bed to the chair. Became hypotensive and symptomatic.Received 2 units of PRBC. Patient blood pressure improved. Also received fluidbolus 500 mL.Continue aspirin Plavix. Off all pressors now continue beta-antwon and statin patient sinus rhythm.Patient had increased chest tube output from left pleural. Patient monitor the output for now. Respiratory: He is on 2 L wean down as tolerated ABG and chest x-ray reviewed. GI: Cardiac diet when able to swallow Renal: Good urine output. Creatinine stable. Hematology: SCDs Infectious disease: Perioperative prophylaxis Endocrine: Insulin for glucose control CODE STATUS: Full code Family: Updated his daughter at bedside on current plan of care Total critical care time excluding procedures was 33 minutes 03/03/2024 Patient seen and examined in CVICU room #2208 this morning and discussed with CTsurgery. Patient is status post CABG. Immediate postop course was complicated with A-fib RVR. Patient is on amiodarone drip. Plan is to DC chest tube #2. Central venous catheter, A-line and Chowdhury catheter to be discontinued as well. Vital signs are stable and patient is in sinus rhythm now at 83, blood pressure is 149/58 mmHg and patient is at 99% on room air. Had 900 mL of urine output overnight. Patient has not been able to void after removal of the Chowdhury catheter this morning. Bladder scan revealed about 350 mL of urine so far. Didnot have bowel movement yet. Patient was given Dulcolax suppository but that did not work so far. Check KUB as he has significant distention. Rule out ileus. Give milk of magnesia if there is no significant ileus. Repeat Dulcolaxsuppository in the morning. Gregg Ruiz is a 83 years old male with past medical history significant for hypertension and dyslipidemia recently diagnosed with multivessel coronary artery disease after a positive stress test. Now currently status post CABG x 4, JAEGER to LAD, sequential to diagonal, SVG to OM, SVG-PDA. EVH and ALAA. Received 1.5 L crystalloid, 100 cc of 25% albumin, Cell Saver 400 cc and made 550 cc of urine. He was an easy intubation. Arrived ICU extubated. No drips running. Left pleural and mediastinal chest tube. Requiring facemask oxygen. Patient has status post CABGPostop course was complicated with A-fib RVRSeeped amiodarone bolus and dripIn sinus rhythm at 83Amiodarone drip is at 0.5 mg/hNo bowel movement yetHas significant abdominal distentionCheck KUB to rule out ileusGive Dulcolax suppositoryGive Milk of Magnesia if no ileusHas been able to tolerate oral dietAmbulating with physical therapyOxygen saturation 9 9% on room airDC arterial line, central venous catheter and Chowdhury catheterDC chest tube #2Retained chest tube #1Follow chest tube outputHas acute blood loss anemiaDoes not meet transfusion threshold at this time DVT prophylaxis Tres Daniel MD [facility]P546.51 pm Consultants: anesthesiology, cardiology, cardiovascular surgery, critical/residential real estate appraiser, hospitalistCode status: full codePlan discussed with: patient, consultants, nurse, interdisc care teamCritical care time: Minutes: 35 Quality: Gen Med Crit Care Current MedicationsCurrent medication review:I attest that the foregoing medication list in the medical record is true, accurate, and complete to the best of my knowledge. Advanced Care Plan 65 or OlderDiscussed with: patient at 1851 RPT #:[id number] OF REPORTPRProgress [id number]:21:00G.[id number] able for patient [id number]:52:25 [facility] 2024-03-03 12:32:00 [id number]+ 2nefH+K8hfR0iIODPAs7W6dw/Qv8405-30-81I38:32:00 [facility] HospitalCardiology Progress NoteREPORT#:[id number] REPORT STATUS: SignedREPORT INITIALIZATION DATE:03/03/24 TIME: 1232 PATIENT: GREGG RUIZ UNIT #: [id number]#: [id number] [address] [birth year] AGE: 83 SEX: M ATTEND: Jl Lopez MDADM AUTHOR: Be Fuller MDREPT SERVICE DT/TIME: 03/03/24 1232* ALL edits or amendments must be made on the electronic/computer document * SubjectiveHPI:Cardiology Note Date of service: 03/03/2024 Chief complaint/reason for consult: CAD CABG X 4 (JAEGER to LAD, sequential todiagonal, saphenous vein to marginal, saphenous vein to PDA), with amputation ofleft atrial appendage Patient seen and examined, chart reviewed, questions/concerns addressed with RN.Current medication and vitals reviewed. 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 Subjective: No chest pain or shortness of breath Objective:Vital Signs Date Temp Pulse Resp B/P B/P Mean Pulse Ox FiO2 03/02-03/03 97.6-99.3 78-106 17-39 95-160/50-84 68-110 88-98 21GEN: Alert and cooperative, no acute distress.HEENT: NC/AT, EOMICARD: RRR, normal S1/S2, no added soundsLUNGS: CTA w/o added sounds, GBAE. Laboratory data: Reviewed independently.Radiology images and report: Reviewed.EKG: SR Assessment:-CAD multivessel disease status post RQNF-Nejqgbdjcvaq-Hgkkjmlmwsprn anemia-PMH HLD-PMH ulcerative colitis-Dysphagia Plan and recommendation:CVICUPOD day 1 CABG X 4 (JAEGER to LAD, sequential todiagonal, saphenous vein to marginal, saphenous vein to PDA), with amputation ofleft atrial appendageContinous telemetry monitoring Hemodynamic monitoring Off dripsReceiving 1 unit of PRBCsHemoglobin 6.9 on a.m. labsKeep Hgb greater than 7Monitor hemoglobin PRBC transfusion as neededMonitor for chest pain Monitor chest tubesC/w ASA 81 mg po daily C/w Metoprolol 12.5 mg po BID hold if HR < 60 or SBP < 90 C/w Atorvastatin 40 mg QHS Continue with amiodarone 200 mg 3 times daily N.p.o. patient pending swallow evalBowel Regimen Monitor I/O Monitor for signs of infection/leukocytosis/fevers/chills Serum goal K > 4, and Mag > 2 PT/OTRest of care per primary team at 1233 RPT #:[id number] OF REPORTPRProgress [id number]:32:00G.[id number] able for patient [id number]:33:17 [facility] 2024-03-03 06:58:00 [id number]/6 [id number] lIzE7NofuXXNv6JcIhvXIfWEg7U1712-10-62A50:58:00 [facility] HospitalCardiothoracic Surgery ProgREPORT#:[id number] REPORT STATUS: SignedREPORT INITIALIZATION DATE:03/03/24 TIME: 657 PATIENT: GREGG RUIZ UNIT #: [id number]#: [id number] [address]: [birth year] AGE: 83 SEX: M ATTEND: Jl Lopez [facility] AUTHOR: Priscilla Valdivia APRNREPT SERVICE DT/TIME: 03/03/24657* ALL edits or amendments must be made on the electronic/computer document * GeneralPost-op: day 2Status post:03/01/24 1. Coronary artery bypass graft surgery x4 (JAEGER to LAD, sequential to diagonal, saphenous vein to marginal, saphenous vein to PDA). 2. Amputation of left atrial appendage. 3. Endoscopic vein harvest (right greater saphenous vein). 4. Posterior pericardiotomy. SubjectiveChief complaint:s/p CABG Review of SystemsConstitutional:Reports: generalized weakness. Denies: chills, fatigue. Skin:Denies: abrasion, bruising, diaphoresis. Allergy/Immun:Denies: allergic reaction, anaphylaxis, hives. Eyes:Denies: redness, discharge, visual loss/blurred. ENT:Denies: ear drainage, ear ringing, hearing loss. Cardiovascular:Denies: chest pain, palpitations. GI:Denies: abdominal pain, nausea, vomiting. :Denies: dysuria, flank pain. Musculoskeletal:Denies: arthritis, extremity pain, extremity swelling. Heme:Denies: adenopathy, petechiae. Neuro:Denies: confusion, dizziness, headache, seizure, syncope. All systems rev neg: except as marked Objective GeneralVS/I OLast Documented: Result Date Time Pulse Ox 93 03/03 642 B/P 138/54 03/03 0642 B/P Mean 79 03/03 06 Pulse 84 03/03 06 Resp 28 03/03 06 Temp 99.0 03/03 0400 FiO2 21 03/03 0351 O2 Delivery Room air 03/03 0351 O2 Flow Rate 1 03/02 0716 24 hour I O ending at 0700: 03/03 0700 03/02 1900 Intake Total 510.00 3173.40 Output Total 950 1425 Balance -440.00 1748.40 Intake, IV 390.00 1873.40 Intake, Oral 120 600 Intake, 700 Packed Cells Output, Chest 70 530 Tube Drainage Output, Urine 880 895 Patient 77.1 kg 73.482 kg Weight Weight Standing scale Measurement Method PATIENT WEIGHT: Weight (lb): 169Weight (oz): 15.62Weight (kg): 77.100 Dietitian Nutrition assessmentThe data set between the solid lines has been imported from the dietitian's assessment. BMI Calculated: 23.7Nutrition related diagnosis: Nutrition diagnosis details: Nutrition problem: Increased nutrient needsNutrition etiology: Chronic diseaseNutrition signs and symptoms: HEALING NEEDS S/P SURGERYNutrition prescription: 1. RECOMMEND CARDIAC DIET. 2. PROVIDE ENSURE PLUS HP TID. 3. DIET EDUCATION NEEDED PRIOR TO DISCHARGE.Dietitian name: Dulce Simons, DIETAssessment completed: 03/01/24 Physical ExamGeneral appearance: alert, awake, orientedWound/incision: Location:sternum Site condition: dressing clean dry, dressing intactHEENT: anicteric, mucosal membranes moist, pupils reactive to lightNeck: full range of motion, non-tenderCardiovascular: normal heart sounds, regular rate rhythmRespiratory: aerating well, symmetric expansion, no distressAbdomen: soft, non-tenderGenitourinary: chowdhury, urine, no bladder distention, no flank painExtremities: dry, moves allMusculoskeletal: full range of motion, painless range of motionNeuro/VIBRATION ENGINEER: alert, oriented X 3Skin: dry, intactPsychiatry: normal affect, normal mood Current MedicationsMedications:Active Meds + DC'd Last 24 HrsIpratropium Osmond (ATROVENT) 500 MCG RTQ2H PRN PRN INH Cyanocobalamin (Vitamin B-12 500 mcg tab) 500 MCG DAILY PO Ferrous Sulfate (FERROUS SULFATE) 325 MG DAILY PO Bisacodyl (DULCOLAX) 10 MG ONCE PRN RECTAL Magnesium Hydroxide (MILK OF MAGNESIA) 30 ML ONCE PRN PO Amiodarone HCl (AMIODARONE HCL) 450 MG ASDIR IV (CKD) Dextrose/Water (D5%W NON-DEHP) 250 MLAmiodarone HCl (NEXTERONE 150MG/D5W 100ML) 100 ML STAT ONE IV (DC) Atorvastatin Calcium (LIPITOR) 40 MG 2100 PO Furosemide (LASIX 20MG INJ) 20 MG ONCE ONE IV (DC) Sodium Chloride (SODIUM CHLORIDE) 10 ML ASDIR IV Sodium Chloride (SODIUM CHLORIDE 0.9%) 500 ML ONCE ONE IV Clopidogrel Bisulfate (Plavix) 75 MG DAILY PO Polyethylene Glycol (MIRALAX) 17 GM DAILY PO Pantoprazole (PROTONIX) 40 MG DAILY@0600 PO Docusate Sodium (COLACE) 100 MG BID PO Metoprolol Tartrate (LOPRESSOR) 12.5 MG Q12HR PO Mupirocin (BACTROBAN 2% 22 GM OINTMENT) 1 APPLIC BID NASAL Sennosides (Senna Lax 8.6 MG TABLET) 17.2 MG BEDTIME PO Hydrocodone Bitart/Acetaminophen (NORCO 5/325) 2 TAB Q4H PRN PRN PO Aspirin (ASPIRIN) 81 MG DAILY PO Amiodarone HCl (CORDARONE) 200 MG TID PO Ipratropium [place] (ATROVENT) 500 MCG RTQ4H INH Epinephrine (ADRENALIN CHLORIDE) 4 MG ASDIR IV Dextrose/Water (DEXTROSE 5% WATER) 246 MLInsulin Human Regular (HumuLIN R) 100 UNIT ASDIR IV (CKD) Sodium Chloride (SODIUM CHLORIDE 0.9%) 99 MLAcetaminophen (TYLENOL) 650 MG Q4H PRN PRN PO Acetaminophen (TYLENOL) 650 MG Q4H PRN PRN RECTAL Albumin Human (ALBUMINAR 25%) 25 GM ASDIR PRN IV (DC) Calcium Chloride (CALCIUM CHLORIDE) 1 GM ASDIR PRN IV Dextrose/Water (DEXTROSE 10% IN WATER) 125 ML ASDIR PRN IV (CKD) Dextrose/Water (DEXTROSE 10% IN WATER) 250 ML ASDIR PRN IV (CKD) Glucagon (GLUCAGON) 1 MG ASDIR PRN IM Magnesium Sulfate (MAGNESIUM SULFATE 4GM/SWFI 100ML) 100 ML ASDIR PRN IV Magnesium Sulfate (MAGNESIUM SULFATE 2GM/SWFI 50ML) 50 ML ASDIR PRN IV Magnesium Sulfate/Dextrose (MAGNESIUM SULFATE 1GM/D5W 100ML) 100 ML ASDIR PRN IV Nitroglycerin/Dextrose (NITROGLYCERIN 50,000MCG/D5W 250ML) 250 ML ASDIR IV Norepinephrine Bitartrate (NOREPINEPHRINE 8 MG/NS 250 ML) 250 ML TITRATE IV Ondansetron HCl (ZOFRAN) 4 MG Q6H PRN PRN IV Potassium Chloride (KCL 20MEQ/SWFI 100ML) 100 ML ASDIR PRN IV Sodium Bicarbonate (SODIUM BICARBONATE) 50 MEQ ASDIR PRN IV Sodium Chloride (SODIUM CHLORIDE 0.9%) 1,000 ML .Q20H IV Sodium Chloride (SODIUM CHLORIDE 0.9%) 250 ML Q24H IV ResultsFindings/Data:Laboratory Tests 03/03 03/02 0300 1553 Chemistry Sodium (134 - 147 mEq/L) 131 L 133 L Potassium (3.4 - 5.0 mEq/L) 4.1 4.6 Chloride (100 - 108 mEq/L) 103 104 Carbon Dioxide (21 - 33 mEq/l) 23 24 Anion Gap (0 - 20) 10 10 BUN (7 - 25 mg/dL) 23 24 Creatinine (0.6 - 1.3 mg/dL) 1.0 1.0 Glomerular Filtr Rate (70 - 80) 75.6 75.6 Glucose (77 - 141 mg/dL) 140 150 H Calcium (8.0 - 10.5 mg/dL) 8.4 8.1 Magnesium (1.6 - 2.6 mg/dL) 2.10 2.26 Total Bilirubin (0.0 - 1.0 mg/dL) 0.70 Direct Bilirubin (0.1 - 0.3 MG/DL) 0.30 Indirect Bilirubin (MG/DL) 0.40 AST (8 - 34 IUnit/L) 48 H ALT (10 - 49 IUnit/L) 16 Total Alk Phosphatase (20 - 125 IUnit/L) 41 Total Protein (6.4 - 8.2 g/dL) 5.7 L Albumin (3.4 - 5.0 g/dL) 3.90 Laboratory Tests 03/03 05 0300 1940 Hematology WBC (4.5 - 11.0 x10 3/uL) 13.6 H RBC (4.00 - 5.60 x10 6/uL) 2.78 L Hgb (12.5 - 16.9 g/dL) 9.0 L 9.4 L Hct (37.5 - 50.7 %) 25.9 L 27.3 L MCV (81.0 - 99.0 fL) 93.2 MCH (27.0 - 33.0 pg) 32.4 MCHC (33.0 - 37.0 g/dL) 34.7 RDW (11.5 - 14.5 %) 14.8 H Plt Count (150 - 400 x10 3/uL) 132 L MPV (7.0 - 9.0 fL) 9.9 H Neut % (Auto) (56.0 - 77.0 %) 84.0 H Lymph % (Auto) (14.0 - 32.0 %) 5.1 L Coos % (Auto) (4.8 - 9.0 %) 9.9 H Eos % (Auto) (0.3 - 3.7 %) 0.2 L Baso % (Auto) (0.0 - 2.0 %) 0.2 Neut # (Auto) (2.0 - 7.6 x10 3/uL) 11.41 H Lymph # (Auto) (1.0 - 3.8 x10 3/uL) 0.70 L Coos # (Auto) (0.1 - 0.8 x10 3/uL) 1.35 H Eos # (Auto) (0.0 - 0.2 x10 3/uL) 0.03 Baso # (Auto) (0.0 - 0.2 x10 3/uL) 0.03 Abs Immat Gran (auto) (0.00 - 0.03 x10 3/uL) 0.08 H Immature Gran % (0.0 - 2.0 %) 0.6 Nucleated RBC % (0 - 0 %) 0.0 Nucleated RBCs # (Man) (0.0 - 0.1 x10 3/uL) 0.00 Radiology data:Recent Impressions:RADIOLOGY - XR CHEST 1 V 03/03 0708 Report Impression - Status: SIGNED Entered: 03/03/2024 1010 impression: Right IJ central line and left chest tube are stable.. Intervalremoval of an additional tube over the left lung base. Postcardiac surgical changes and median sternotomy wires areredemonstrated. Mild worsening of bibasilar airspace opacities, likely representing acombination of small pleural effusions associated with bibasilaratelectasis and/or mild pulmonary edema. However pneumonia cannot beexcluded. There is mild pulmonary vascular congestion/mild CHF pattern. Nopneumothorax. No other unremarkable changes compared to prior study. Impression By: JamesABCaterina Nava D.O. Results: labs reviewed, vital signs stable, rythm personally rev'd, x-ray personally reviewed, current med profile rev'd Treatment Prophylaxis Treatment ProphylaxisCVC/PICC documentation:The data below has been imported from nursing documentation. Any exceptions have been noted below under Provider comments. CVC/PICC insertion date/time: CVC multi lumen triple Neck Right Inserted 03/01/24 0708 Provider comments on imported nursing data: [] Quality: Trauma Gen Surg Advanced Care Plan 65 or OlderDiscussed with: patient Current MedicationsCurrent medication review:I attest that the foregoing medication list in the medical record is true, accurate, and complete to the best of my knowledge. Diagnosis, Assessment PlanHospital course to date:This is a pleasant 83-year-old gentleman with a past medical history of hypertension, hyperlipidemia, ulcerative colitis, bladder cancer status post chemo, former smoker but occasionally smokes cigars 1-2 a month. He was seen by his car worker helper Dr. Berger for increasing fatigue, denies chest pain, who had an abnormal stress test. Coronary angiogram was done that showed severe multivessel coronary artery disease. Outpatient echocardiogram was done jphiczg16%, trace mitral regurg, and trace tricuspid regurg.Patient presents today for multivessel coronary artery disease and for coronaryartery bypass graft surgery. Coronary angiogram films reviewed and patient will benefit from surgical revascularization. The operation, risks involved, calculated STS risk score, benefits, alternatives, and complications was discussed with the patient. The patient acknowledges understanding and is willing to proceed. All patient's questions were answered. Patient is scheduled for coronary artery bypass graft surgery today. Assessment/plan: 1. Multivessel coronary artery disease2. Hypertension3. Hyperlipidemia4. Ulcerative colitis Admit patient to CVICU postopMonitor heart rhythm and hemodynamicsStrict I's and O'sCardiology and critical care consulted. 03/01/24Coronary artery bypass graft surgery x4 (JAEGER to LAD, sequential to diagonal, saphenous vein to marginal, saphenous vein to PDA).Amputation of left atrial appendage.Endoscopic vein harvest (right greater saphenous vein).Posterior pericardiotomy. 03/02/24POD 1Patient hemodynamically stable postoperatively, not on any pressors or inotropesChest x-ray and labs reviewed, hemoglobin 7.0-give albumin and 2 units RBCsOn 2 L nasal cannula, wean off oxygen as toleratedEncourage incentive spirometer use and deep breathingKeep both chest tubes and monitor outputs closelyAdvance diet as tolerated, bowel regimen, glycemic controlDaily weights and strict I's and O'sSCDs for DVT prophylaxisPT/OT, OOB to chair, ambulatePatient seen by Dr. Lopez, plan of care discussed with patient and ICU team, all questions were answered. 03/03/24POD 2Patient doing well,episode overnight of A-fib RVR, now on amiodarone drip at 1, converted to NSRLabs and chest x-ray reviewed, hemoglobin 9.0Breathing comfortable on room air, I-S use encouragedDiscontinue mediastinal chest tube, reassess with LP chest tube after ambulationDiscontinue central line, arterial line, and Chowdhury catheterTolerating cardiac diet, continue bowel regimenDaily weights and strict I's and O'sSCDs for DVT prophylaxisPT/OT, ambulate, out of bed in chairPatient seen by Dr. Lopez, plan of care discussed with patient and family, allquestions were answered. Orders: Procedure Date/time Status INTRAPULM PERC SUBSQ 03/02 1542 Active PEP - STRENGTHN RESP MUS EA15M 03/02 1542 Active NEB TREATMENT SUBSQ 03/02 154 Active Consultants: cardiologyCode status: full codePlan discussed with: patient, collaborating MD, nurse at 1249 at 0722 RPT #:[id number] OF REPORTPRProgress cbax6559-94-84J03:58:00G.[id number] able for patient llmdRGBRQHGTIHBILK4864-52-44X67:50:03 [facility] 2024-03-03 04:54:00 [id number] i6xfuY7ao7kZKqAgM69Gi01t/Ia2V d1xPhvP2CU4UGOvICL2HeofKvHB6084-13-54Q83:54:14144 5-0121 [place] [address] PATIENT NAME: GREGG RUIZ ADMIT DATE: 03/01/24ACCOUNT NO: [id number] ROOM NO: G.2208 AGE: 83 REPORT TYPE: eELECTROCARDIOGRAM REPORT SEX: M ADMITTING PHYSICIAN:Jl Lopez MD ATTENDING PHYSICIAN:Jl Lopez MD Order:[id number] Reason : Cardiac Surgery Post Op Test Date/Time Stamp:MonMar 03 2024 04:54:01Blood Pressure : / mmHGVent. Rate : 097 BPM Atrial Rate : 000 BPM P-R Int : 000 ms QRS Dur : 144 ms QT Int : 370 ms P-R-T Axes : 000 -20 061 degrees QTc Int : 469 ms Atrial fibrillationRight bundle branch blockAbnormal ECGWhen compared with ECG of 02-MAR-2024 21:10,No significant change was foundConfirmed by MD MARADIAGA GERARD ([id number]) on 03/03/2024 9:05:55 PM Referred By: Jl Lopez Confirmed by:TANISHA MARADIAGA MD at 2105 PATIENT NAME: GREGG RUIZ .[id number] AVAvailable for patient majuVTXVIYZWNYDVWA3636-88-54D85:06:23 [facility] 2024-03-02 21:10:00 [id number] cE+r2naHX7sKd5buSekG+hrV0aNmD +XqMtzYTiu+BzFXOKgTr7NbXQeI3631-81-25I76:10:036[address] -0119 [place] [address] PATIENT NAME: GREGG RUIZ ADMIT DATE: 03/01/24ACCOUNT NO: [id number] ROOM NO: G.2208 AGE: 83 REPORT TYPE: eELECTROCARDIOGRAM REPORT SEX: M ADMITTING PHYSICIAN:Jl Lopez MD ATTENDING PHYSICIAN:Jl Lopez MD Order:[id number] Reason : Cardiac Surgery Post Op Test Date/Time Stamp:MonMar 02 2024 21:10:31Blood Pressure : / mmHGVent. Rate : 126 BPM Atrial Rate : 000 BPM P-R Int : 000 ms QRS Dur : 142 ms QT Int : 350 ms P-R-T Axes : 000 -34 042 degrees QTc Int : 506 ms Atrial fibrillation with rapid ventricular responseLeft axis deviationRight bundle branch blockAbnormal ECGWhen compared with ECG of 02-MAR-2024 03:17,Significant changes have occurredConfirmed by MD MARADIAGA GERARD ([id number]) on 03/03/2024 9:05:49 PM Referred By: Jl Lopez Confirmed by:TANISHA MARADIAGA MD at 2105 PATIENT NAME: GREGG RUIZ .[id number] AVAvailable for patient zidmKAFNWBROCNPDGK8452-26-67J71:06:14 [facility] 2024-03-02 16:36:00 [id number]+IsAlBx/ RcOQqH7KHXDAouKrDMkIH7+8uSgy6 MkfPDRkMvvNoFI1sDY9vzP38nJX1777-83-90H66:36:00 [facility] HospitalCritical Care Progress NoteREPORT#:[id number] REPORT STATUS: SignedREPORT INITIALIZATION DATE:03/02/24 TIME: 1635 PATIENT: GREGG RUIZ UNIT #: [id number]#: [id number] [address] [birth year] AGE: 83 SEX: M ATTEND: lJ Lopez MDADM AUTHOR: Frank Dave MDREPT SERVICE DT/TIME: 03/02/24 163* ALL edits or amendments must be made on the electronic/computer document * SubjectiveHPI:Gregg Ruiz is an 83M with hypertension and dyslipidemia recently diagnosed withmultivessel coronary artery disease after a positive stress test. Now currentlystatus post CABG x 4, JAEGER to LAD, sequential to diagonal, SVG to OM, SVG-PDA. EVH and ALAA. Received 1.5 L crystalloid, 100 cc of 25% albumin, Cell Saver 400cc and made 550 cc of urine. He was an easy intubation. Arrived ICU extubated. No drips running. Left pleural and mediastinal chest tube. Requiring facemaskoxygen.Comments:Interval history- Patient hypotensive on ambulation Objective GeneralVS/I OLast Documented: Result Date Time Temp 36.4 03/02 0800 Pulse Ox 97 03/02 0719 B/P 137/58 03/02 07 B/P Mean 80 03/02 719 Pulse 77 03/02 719 Resp 25 03/02 719 O2 Delivery Nasal cannula 03/02 716 O2 Flow Rate 1 03/02 716 FiO2 28 03/02 0359 24 hour I O ending at 0700: 03/02 0700 03/01 1900 Intake Total 1281.00 Output Total 1690 875 Balance -1690 406.00 Intake, IV 1281.00 Output, Chest 1145 240 Tube Drainage Output, Urine 545 635 Patient 73.9 kg 79.9 kg Weight Weight Bed scale Bed scale Measurement Method PATIENT WEIGHT: Weight (lb): 162Weight (oz): 14.75Weight (kg): 73.482 Medications:Active Meds + DC'd Last 24 HrsIpratropium Osmond (ATROVENT) 500 MCG RTQ2H PRN PRN INH Cyanocobalamin (Vitamin B-12 500 mcg tab) 500 MCG DAILY PO Ferrous Sulfate (FERROUS SULFATE) 325 MG DAILY PO Bisacodyl (DULCOLAX) 10 MG ONCE PRN RECTAL Magnesium Hydroxide (MILK OF MAGNESIA) 30 ML ONCE PRN PO Atorvastatin Calcium (LIPITOR) 40 MG 2100 PO Sodium Chloride (SODIUM CHLORIDE) 10 ML ASDIR IV Sodium Chloride (SODIUM CHLORIDE 0.9%) 500 ML ONCE ONE IV Clopidogrel Bisulfate (Plavix) 75 MG DAILY PO Polyethylene Glycol (MIRALAX) 17 GM DAILY PO Calcium Gluconate (Calcium Gluconate 1 GM/NS 50 mL (B2)) 50 ML ONCE ONE IV (DC) Pantoprazole (PROTONIX) 40 MG DAILY@0600 PO Albumin Human (ALBUMINAR 5% 12.5GM/250ML) 250 ML ONCE ONE IV (DC) Docusate Sodium (COLACE) 100 MG BID PO Metoprolol Tartrate (LOPRESSOR) 12.5 MG Q12HR PO Mupirocin (BACTROBAN 2% 22 GM OINTMENT) 1 APPLIC BID NASAL Sennosides (Senna Lax 8.6 MG TABLET) 17.2 MG BEDTIME PO Calcium Gluconate (Calcium Gluconate 1 GM/NS 50 mL (B2)) 50 ML ONCE ONE IV (DC) Hydrocodone Bitart/Acetaminophen (NORCO 5/325) 2 TAB Q4H PRN PRN PO Aspirin (ASPIRIN) 81 MG DAILY PO Amiodarone HCl (CORDARONE) 200 MG TID PO Ipratropium Osmond (ATROVENT) 500 MCG RTQ4H INH Epinephrine (ADRENALIN CHLORIDE) 4 MG ASDIR IV Dextrose/Water (DEXTROSE 5% WATER) 246 MLInsulin Human Regular (HumuLIN R) 100 UNIT ASDIR IV (CKD) Sodium Chloride (SODIUM CHLORIDE 0.9%) 99 MLAcetaminophen (TYLENOL) 650 MG Q4H PRN PRN PO Acetaminophen (TYLENOL) 650 MG Q4H PRN PRN RECTAL Albumin Human (ALBUMINAR 25%) 25 GM ASDIR PRN IV (DC) Calcium Chloride (CALCIUM CHLORIDE) 1 GM ASDIR PRN IV Cefazolin Sodium (KEFZOL OR ANCEF) 3 GM ONCE ONE IV (DC) Sodium Chloride (SODIUM CHLORIDE 0.9%) 250 MLDextrose/Water (DEXTROSE 10% IN WATER) 125 ML ASDIR PRN IV (CKD) Dextrose/Water (DEXTROSE 10% IN WATER) 250 ML ASDIR PRN IV (CKD) Glucagon (GLUCAGON) 1 MG ASDIR PRN IM Magnesium Sulfate (MAGNESIUM SULFATE 4GM/SWFI 100ML) 100 ML ASDIR PRN IV Magnesium Sulfate (MAGNESIUM SULFATE 2GM/SWFI 50ML) 50 ML ASDIR PRN IV Magnesium Sulfate/Dextrose (MAGNESIUM SULFATE 1GM/D5W 100ML) 100 ML ASDIR PRN IV Nitroglycerin/Dextrose (NITROGLYCERIN 50,000MCG/D5W 250ML) 250 ML ASDIR IV Norepinephrine Bitartrate (NOREPINEPHRINE 8 MG/NS 250 ML) 250 ML TITRATE IV Ondansetron HCl (ZOFRAN) 4 MG Q6H PRN PRN IV Potassium Chloride (KCL 20MEQ/SWFI 100ML) 100 ML ASDIR PRN IV Sodium Bicarbonate (SODIUM BICARBONATE) 50 MEQ ASDIR PRN IV Sodium Chloride (SODIUM CHLORIDE 0.9%) 1,000 ML .Q20H IV Sodium Chloride (SODIUM CHLORIDE 0.9%) 250 ML Q24H IV Physical ExamHead/eyes: atraumatic, clear corneaNeck: RIJ CVLCardiovascular: Distant heart soundsRespiratory: aerating well, clear to auscultation, symmetric expansionAbdomen: soft, non-tender, normal bowel sounds, no distentionExtremities: moves all, no edema ResultsFindings/data:Laboratory Tests 03/02 Blood Gas Puncture Site Art Line Art Line O2 Saturation (90 - 100 %) 97.3 98.9 ABG pH (7.35 - 7.45) 7.467 H 7.412 ABG pCO2 (35.0 - 45 mmHg) 31.7 L 34.9 L ABG pO2 (80 - 100.0 mmHg) 86.4 125.5 H ABG HCO3 (22.0 - 26.0 MMOL/L) 22.9 22.2 ABG Total CO2 23.9 23.3 ABG Base Excess (-4.0 - 4.0 MMOL/L) -0.8 -2.4 ABG Hematocrit (37.5 - 50.7 %) 19 L 20 L ABG Hemoglobin (12.5 - 16.9 G/DL) 6.4 L 6.7 L Sodium (134 - 147 mmol/L) 133 L 132 L Potassium (3.4 - 5.0 mmol/L) 4.6 4.4 Chloride (100 - 108 mmol/L) 101 102 Ionized Calcium (1.12 - 1.32 MMOL/L) 1.13 1.13 Lactic Acid (0.9 - 1.7 mmol/l) 0.9 0.8 L Temperature (F) 99 99 O2 Delivery Device Cannula Cannula Laboratory Tests 03/02 03/02 03/02 03/01 03/01 1553 0559 0250 2357 2207 Chemistry Sodium (134 - 147 mEq/L) 133 L 133 L Potassium (3.4 - 5.0 mEq/L) 4.6 4.6 Chloride (100 - 108 mEq/L) 104 104 Carbon Dioxide (21 - 33 mEq/l) 24 23 Anion Gap (0 - 20) 10 11 BUN (7 - 25 mg/dL) 24 18 Creatinine (0.6 - 1.3 mg/dL) 1.0 1.0 POC Creatinine (0.8 - 1.3 mg/dL) 1.0 Glomerular Filtr Rate (70 - 80) 75.6 75.6 Glucose (77 - 141 mg/dL) 150 H 135 POC Glucose (70 - 110 MG/DL) 113 H 120 H POC Glucose (mg/dL) (70 - 110 MG/DL) 132 H Calcium (8.0 - 10.5 mg/dL) 8.1 8.3 Magnesium (1.6 - 2.6 mg/dL) 2.26 1.91 Total Bilirubin (0.0 - 1.0 mg/dL) 0.70 Direct Bilirubin (0.1 - 0.3 MG/DL) 0.30 Indirect Bilirubin (MG/DL) 0.40 AST (8 - 34 IUnit/L) 42 H ALT (10 - 49 IUnit/L) 11 Total Alk Phosphatase (20 - 125 IUnit/L) 31 Total Protein (6.4 - 8.2 g/dL) 5.5 L Albumin (3.4 - 5.0 g/dL) 3.90 03/01 2018 Chemistry POC Creatinine (0.8 - 1.3 mg/dL) 0.9 POC Glucose (mg/dL) (70 - 110 MG/DL) 120 H Laboratory Tests 03/02 0409 Coagulation INR (0.8 - 1.2) 1.4 H PT Patient/Control Mix (9.3 - 12.9 SECONDS) 15.7 H Laboratory Tests 03/02 03/02 03/02 0608 0409 0250 Hematology WBC (4.5 - 11.0 x10 3/uL) 10.1 10.2 9.5 RBC (4.00 - 5.60 x10 6/uL) 2.04 L 2.06 L 2.02 L Hgb (12.5 - 16.9 g/dL) 6.9 L 7.0 L 6.9 L Hct (37.5 - 50.7 %) 20.2 L 20.7 L 20.0 L MCV (81.0 - 99.0 fL) 99.0 100.5 H 99.0 MCH (27.0 - 33.0 pg) 33.8 H 34.0 H 34.2 H MCHC (33.0 - 37.0 g/dL) 34.2 33.8 34.5 RDW (11.5 - 14.5 %) 12.8 12.7 12.8 Plt Count (150 - 400 x10 3/uL) 149 L 154 143 L MPV (7.0 - 9.0 fL) 10.1 H 9.7 H 9.9 H Neut % (Auto) (56.0 - 77.0 %) 83.2 H 83.9 H 85.0 H Lymph % (Auto) (14.0 - 32.0 %) 6.4 L 6.5 L 6.6 L Coos % (Auto) (4.8 - 9.0 %) 9.7 H 8.7 7.9 Eos % (Auto) (0.3 - 3.7 %) 0.0 L 0.0 L 0.0 L Baso % (Auto) (0.0 - 2.0 %) 0.2 0.3 0.2 Neut # (Auto) (2.0 - 7.6 x10 3/uL) 8.38 H 8.57 H 8.11 H Lymph # (Auto) (1.0 - 3.8 x10 3/uL) 0.64 L 0.66 L 0.63 L Coos # (Auto) (0.1 - 0.8 x10 3/uL) 0.98 H 0.89 H 0.75 Eos # (Auto) (0.0 - 0.2 x10 3/uL) 0.00 0.00 0.00 Baso # (Auto) (0.0 - 0.2 x10 3/uL) 0.02 0.03 0.02 Abs Immat Gran (auto) (0.00 - 0.03 x10 3/uL) 0.05 H 0.06 H 0.03 Immature Gran % (0.0 - 2.0 %) 0.5 0.6 0.3 Nucleated RBC % (0 - 0 %) 0.0 0.0 0.0 Nucleated RBCs # (Man) (0.0 - 0.1 x10 3/uL) 0.00 0.00 0.00 Laboratory Tests 03/02/24 1553:[Embedded Image Not Available] 03/02/24 0608:[Embedded Image Not Available] 03/02/24 0409:[Embedded Image Not Available] 03/02/24 0250:[Embedded Image Not Available] Radiology dataRecent Impressions:RADIOLOGY - XR CHEST 1 V 03/02 06 Report Impression - Status: SIGNED Entered: 03/02/2024 0813 IMPRESSION:1. Lines and tubes are seen in suitable position.2. Mild linear left basilar subsegmental atelectasis noted.Impression By: [email or web address] - Aron Stinson M.D. Diagnosis, Assessment PlanFree text A P:Impression:-Status post CABG x 4-Acute respiratory insufficiency following surgery, expected. Not respiratory failure-History of hypertension Plan: VIBRATION ENGINEER: As needed pain management. PT OT as tolerated. Cardiovascular: Patient required Levophed and upon transferring from the bed to the chair. Became hypotensive and symptomatic.Received 2 units of PRBC. Patient blood pressure improved. Also received fluidbolus 500 mL.Continue aspirin Plavix. Off all pressors now continue beta-antwon and statin patient sinus rhythm.Patient had increased chest tube output from left pleural. Patient monitor the output for now. Respiratory: He is on 2 L wean down as tolerated ABG and chest x-ray reviewed. GI: Cardiac diet when able to swallow Renal: Good urine output. Creatinine stable. Hematology: SCDs Infectious disease: Perioperative prophylaxis Endocrine: Insulin for glucose control CODE STATUS: Full code Family: Updated his daughter at bedside on current plan of care Total critical care time excluding procedures was 33 minutes Consultants: cardiology Quality: Gen Med Crit Care Current MedicationsCurrent medication review:I attest that the foregoing medication list in the medical record is true, accurate, and complete to the best of my knowledge. at 1707 RPT #:[id number] OF REPORTPRProgress akxc8332-80-39C64:36:00G.DUWG72741997-3914XHJedxo able for patient bvelWUTZDYQQWDHSGU6915-15-68U38:07:37 [facility] 2024-03-02 10:46:00 [id number] CmXoQna6nfmbFQnxq9rvjbXXP26pU RRxuhe5MbVsbYdvJ5SalqgTMmvT0197-63-70M20:46:00 [facility] HospitalCardiology Progress NoteREPORT#:[id number] REPORT STATUS: SignedREPORT INITIALIZATION DATE:03/02/24 TIME: 104 PATIENT: GREGG RUIZ UNIT #: [id number]#: [id number] ROOM/BED: 2208-1DOB: [birth year] AGE: 83 SEX: M ATTEND: Jl Lopez MDADM AUTHOR: Erica Miller NPREPT SERVICE DT/TIME: 03/02/24 1046* ALL edits or amendments must be made on the electronic/computer document * SubjectiveHPI:Cardiology Note Date of service: 03/02/2024 Chief complaint/reason for consult: CAD CABG X 4 (JAEGER to LAD, sequential todiagonal, saphenous vein to marginal, saphenous vein to PDA), with amputation ofleft atrial appendage Patient seen and examined, chart reviewed, questions/concerns addressed with RN.Current medication and vitals reviewed. 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 Subjective: Negative unless stated above Objective:Vital Signs Vital Signs: Date Time Temp Pulse Resp B/P B/P Pulse O2 O2 Flow FiO2 Mean Ox Delivery Rate 05/ 0800 97.6 05/04 0719 99.1 77 25 137/58 80 97 05/04 0716 Nasal 1 cannula 05/04 0715 129/56 78 05/04 0715 99.3 78 28 111/58 80 95 05/04 0700 141/57 80 05/04 0700 99.3 77 22 112/56 79 97 05/04 0645 121/54 73 05/04 0645 99.5 76 29 101/55 74 97 05/04 0632 140/58 81 05/04 0632 99.5 78 25 113/59 81 98 05/04 0630 141/58 82 05/04 0630 99.5 78 24 118/58 84 98 05/04 0615 126/59 78 05/04 0615 99.5 80 24 110/55 79 96 05/04 0604 99/48 62 05/04 0604 99.5 75 29 84/48 63 98 05/04 0600 117/52 69 05/04 0600 99.5 79 26 94/49 70 97 05/04 0545 136/54 74 05/04 0545 99.5 82 29 110/56 80 97 05/04 0539 140/56 76 05/04 0539 99.5 85 27 114/57 82 96 05/04 0537 131/53 72 05/04 0537 99.5 87 26 105/53 75 96 05/04 0530 146/51 74 05/04 0530 99.5 80 24 119/52 80 95 05/04 0527 177/62 92 05/04 0527 82 26 143/65 94 99 05/04 0521 123/52 70 05/04 0521 78 25 99/54 69 100 05/04 0515 89/43 57 05/04 0515 77 27 82/42 59 100 05/04 0513 105/48 64 05/04 0513 79 28 88/49 63 100 05/04 0512 109/47 63 05/04 0512 81 27 90/53 66 93 05/04 0506 127/49 70 05/04 0506 99.5 85 26 112/58 82 99 05/04 0500 139/52 76 05/04 0500 99.5 82 22 115/60 80 99 05/04 0445 137/51 75 05/04 0445 99.5 82 21 118/57 82 99 05/04 0430 133/51 73 05/04 0430 99.5 79 21 111/56 77 99 05/04 0415 117/45 64 05/04 0415 99.5 76 24 99/52 72 100 05/04 0400 99.6 05/04 0400 Nasal 1 cannula 05/04 0400 140/52 75 05/04 0400 99.7 93 26 112/56 78 98 05/04 0359 95 Nasal 2 28 cannula 05/04 0345 136/50 72 05/04 0345 99.5 79 28 107/55 77 98 05/04 0330 134/50 71 05/04 0330 99.7 78 27 110/57 79 97 05/04 0320 124/46 66 05/04 0320 99.7 82 25 102/54 74 98 05/04 0310 115/51 70 05/04 0310 99.9 77 25 104/55 73 97 05/04 0309 94/47 61 05/04 0309 99.7 80 26 87/48 62 98 05/04 0304 104/42 58 05/04 0304 99.7 76 26 90/52 69 100 05/04 0300 121/47 66 05/04 0300 99.7 80 25 102/50 71 98 05/04 0230 148/54 78 05/04 0230 99.7 86 21 117/58 83 100 05/04 0200 146/54 78 05/04 0200 99.7 87 20 112/55 77 98 05/04 0130 146/53 78 05/ 0130 99.9 89 20 115/56 79 99 05/04 0118 99.9 89 21 147/55 79 99 05/04 0100 145/54 78 05/04 0100 99.9 89 22 115/56 79 99 PHYSICAL EXAM GEN: Alert and cooperative, no acute distress.HEENT: NC/AT, EOMICARD: RRR, normal S1/S2, no added soundsLUNGS: CTA w/o added sounds, GBAE. Laboratory data: Reviewed independently.Radiology images and report: Reviewed.EKG: SR Echo: Lexiscan stress testing: Assessment:-CAD multivessel disease status post DRZI-Ypczyoeucvir-Qmcwjhharizwv anemia-PMH HLD-PMH ulcerative colitis-Dysphagia Plan and recommendation:CVICUPOD day 1 CABG X 4 (JAEGER to LAD, sequential todiagonal, saphenous vein to marginal, saphenous vein to PDA), with amputation ofleft atrial appendageContinous telemetry monitoring Hemodynamic monitoring Off dripsReceiving 1 unit of PRBCsHemoglobin 6.9 on a.m. labsKeep Hgb greater than 7Monitor hemoglobin PRBC transfusion as neededMonitor for chest pain Monitor chest tubesC/w ASA 81 mg po daily C/w Metoprolol 12.5 mg po BID hold if HR < 60 or SBP < 90 C/w Atorvastatin 40 mg QHS Continue with amiodarone 200 mg 3 times daily N.p.o. patient pending swallow evalBowel Regimen Monitor I/O Monitor for signs of infection/leukocytosis/fevers/chills Serum goal K > 4, and Mag > 2 PT/OTRest of care per primary team Diagnosis, Assessment PlanConsultants: cardiology at 1240 at 1013 RPT #:[id number] OF REPORTPRProgress ejcc2474-22-08U34:46:00G.RITZ87901423-8980MLZviii able for patient uchdEUKNZNYHQYAJPX9851-46-58P89:41:12 [facility] 2024-03-02 08:25:00 [id number]+ iva3wi5VRsUXs9UiPleqJ4r/5UQeO FweoKetPWnleyiqg3nC/MKbhotZ2922-10-27B39:25:00 [facility] HospitalCardioth[facility] Surgery ProgREPORT#:[id number] REPORT STATUS: SignedREPORT INITIALIZATION DATE:03/02/24 TIME: 824 PATIENT: GREGG RUIZ UNIT #: [id number]#: [id number] [address] [birth year] AGE: 83 SEX: M ATTEND: Jl Lopez MDADM AUTHOR: Priscilla Valdivia APRNREPT SERVICE DT/TIME: 03/02/24824* ALL edits or amendments must be made on the electronic/computer document * GeneralPost-op: day 1Status post:. Coronary artery bypass graft surgery x4 (JAEGER to LAD, sequential todiagonal, saphenous vein to marginal, saphenous vein to PDA).2. Amputation of left atrial appendage.3. Endoscopic vein harvest (right greater saphenous vein).4. Posterior pericardiotomy. SubjectiveChief complaint:s/p CABG Review of SystemsConstitutional:Reports: generalized weakness. Denies: chills, fatigue. Skin:Denies: abrasion, bruising, diaphoresis. Allergy/Immun:Denies: allergic reaction, anaphylaxis, hives. Eyes:Denies: redness, discharge, visual loss/blurred. ENT:Denies: ear drainage, ear ringing, hearing loss. Cardiovascular:Denies: chest pain, palpitations. GI:Denies: abdominal pain, nausea, vomiting. :Denies: dysuria, flank pain. Musculoskeletal:Denies: arthritis, extremity pain, extremity swelling. Heme:Denies: adenopathy, petechiae. Neuro:Denies: confusion, dizziness, headache, seizure, syncope. All systems rev neg: except as marked Objective GeneralVS/I OLast Documented: Result Date Time Pulse Ox 97 03/02 719 B/P 137/58 03/02 719 B/P Mean 80 03/02 719 Temp 99.1 03/02 719 Pulse 77 03/02 719 Resp 25 03/02 719 O2 Delivery Nasal cannula 03/02 400 O2 Flow Rate 1 03/02 040 FiO2 28 03/029 24 hour I O ending at 0700: 03/02 0700 03/01 1900 Intake Total 1281.00 Output Total 1690 875 Balance -1690 406.00 Intake, IV 1281.00 Output, Chest 1145 240 Tube Drainage Output, Urine 545 635 Patient 73.9 kg 79.9 kg Weight Weight Bed scale Bed scale Measurement Method PATIENT WEIGHT: Weight (lb): 162Weight (oz): 14.75Weight (kg): 73.900 Dietitian Nutrition assessmentThe data set between the solid lines has been imported from the dietitian's assessment. BMI Calculated: 22.7Nutrition related diagnosis: Nutrition diagnosis details: Nutrition problem: Increased nutrient needsNutrition etiology: Chronic diseaseNutrition signs and symptoms: HEALING NEEDS S/P SURGERYNutrition prescription: 1. RECOMMEND CARDIAC DIET. 2. PROVIDE ENSURE PLUS HP TID. 3. DIET EDUCATION NEEDED PRIOR TO DISCHARGE.Dietitian name: Dulce Simons, DIETAssessment completed: 03/01/24 Physical ExamGeneral appearance: alert, awake, orientedWound/incision: Location:sternum Site condition: dressing clean dry, dressing intactHEENT: anicteric, mucosal membranes moist, pupils reactive to lightNeck: full range of motion, non-tenderCardiovascular: normal heart sounds, regular rate rhythmRespiratory: aerating well, symmetric expansion, no distressAbdomen: soft, non-tenderGenitourinary: chowdhury, urine, no bladder distention, no flank painExtremities: dry, moves allMusculoskeletal: full range of motion, painless range of motionNeuro/VIBRATION ENGINEER: alert, oriented X 3Skin: dry, intactPsychiatry: normal affect, normal mood Current MedicationsMedications:Active Meds + DC'd Last 24 HrsIpratropium Osmond (ATROVENT) 500 MCG RTQ2H PRN PRN INH Cyanocobalamin (Vitamin B-12 500 mcg tab) 500 MCG DAILY PO Ferrous Sulfate (FERROUS SULFATE) 325 MG DAILY PO Bisacodyl (DULCOLAX) 10 MG ONCE PRN RECTAL Magnesium Hydroxide (MILK OF MAGNESIA) 30 ML ONCE PRN PO Atorvastatin Calcium (LIPITOR) 40 MG 2100 PO Clopidogrel Bisulfate (Plavix) 75 MG DAILY PO Polyethylene Glycol (MIRALAX) 17 GM DAILY PO Calcium Gluconate (Calcium Gluconate 1 GM/NS 50 mL (B2)) 50 ML ONCE ONE IV (DC) Pantoprazole (PROTONIX) 40 MG DAILY@0600 PO Albumin Human (ALBUMINAR 5% 12.5GM/250ML) 250 ML ONCE ONE IV (DC) Docusate Sodium (COLACE) 100 MG BID PO Metoprolol Tartrate (LOPRESSOR) 12.5 MG Q12HR PO Mupirocin (BACTROBAN 2% 22 GM OINTMENT) 1 APPLIC BID NASAL Sennosides (Senna Lax 8.6 MG TABLET) 17.2 MG BEDTIME PO Calcium Gluconate (Calcium Gluconate 1 GM/NS 50 mL (B2)) 50 ML ONCE ONE IV (DC) Hydrocodone Bitart/Acetaminophen (NORCO 5/325) 2 TAB Q4H PRN PRN PO Aspirin (ASPIRIN) 81 MG DAILY PO Amiodarone HCl (CORDARONE) 200 MG TID PO Ipratropium [place] (ATROVENT) 500 MCG RTQ4H INH Albumin Human (ALBUMINAR-25%) 50 ML .STK-MED ONE IV (DC) Albumin Human (ALBUMINAR-25%) 50 ML .STK-MED ONE IV (DC) Ondansetron HCl (ZOFRAN) 0 .STK-MED ONE .ROUTE (DC) Sugammadex Sodium (BRIDION) 0 .STK-MED ONE IV (DC) Epinephrine (ADRENALIN CHLORIDE) 4 MG ASDIR IV Dextrose/Water (DEXTROSE 5% WATER) 246 MLInsulin Human Regular (HumuLIN R) 100 UNIT ASDIR IV (CKD) Sodium Chloride (SODIUM CHLORIDE 0.9%) 99 MLSodium Chloride (SODIUM CHLORIDE 0.9%) 50 ML .STK-MED ONE IV (DC) Fentanyl Citrate (SUBLIMAZE) 0 .STK-MED ONE .ROUTE (DC) Acetaminophen (TYLENOL) 650 MG Q4H PRN PRN PO Acetaminophen (TYLENOL) 650 MG Q4H PRN PRN RECTAL Albumin Human (ALBUMINAR 25%) 25 GM ASDIR PRN IV Calcium Chloride (CALCIUM CHLORIDE) 1 GM ASDIR PRN IV Cefazolin Sodium (KEFZOL OR ANCEF) 3 GM ONCE ONE IV (DC) Sodium Chloride (SODIUM CHLORIDE 0.9%) 250 MLDextrose/Water (DEXTROSE 10% IN WATER) 125 ML ASDIR PRN IV (CKD) Dextrose/Water (DEXTROSE 10% IN WATER) 250 ML ASDIR PRN IV (CKD) Glucagon (GLUCAGON) 1 MG ASDIR PRN IM Magnesium Sulfate (MAGNESIUM SULFATE 4GM/SWFI 100ML) 100 ML ASDIR PRN IV Magnesium Sulfate (MAGNESIUM SULFATE 2GM/SWFI 50ML) 50 ML ASDIR PRN IV Magnesium Sulfate/Dextrose (MAGNESIUM SULFATE 1GM/D5W 100ML) 100 ML ASDIR PRN IV Nitroglycerin/Dextrose (NITROGLYCERIN 50,000MCG/D5W 250ML) 250 ML ASDIR IV Norepinephrine Bitartrate (NOREPINEPHRINE 8 MG/NS 250 ML) 250 ML TITRATE IV Ondansetron HCl (ZOFRAN) 4 MG Q6H PRN PRN IV Potassium Chloride (KCL 20MEQ/SWFI 100ML) 100 ML ASDIR PRN IV Sodium Bicarbonate (SODIUM BICARBONATE) 50 MEQ ASDIR PRN IV Sodium Chloride (SODIUM CHLORIDE 0.9%) 1,000 ML .Q20H IV Sodium Chloride (SODIUM CHLORIDE 0.9%) 250 ML Q24H IV Parenteral Electrolytes (PLASMA-LYTE A pH 7.4) 1,000 ML .STK-MED ONE IV (DC) Rocuronium [place]sm[place] (ZEMURON) 0 .STK-MED ONE IV (DC) Sodium Chloride (SODIUM CHLORIDE) 10 ML .STK-MED ONE IV (DC) Cefazolin Sodium (KEFZOL OR ANCEF) 2 GM PREOP ONCALL IV (DC) Vancomycin HCl (VANCOMYCIN HCL) 1,000 MG PREOP ONCALL IV (DC) Sodium Chloride (SODIUM CHLORIDE 0.9%) 250 MLVerapamil HCl (ISOPTIN) 16.6 MG .Q24H ONE IV (DC) Heparin Sodium (Porcine) (HEPARIN SODIUM) 1,660 UNIT Sodium Bicarbonate (SODIUM BICARBONATE) 0.7 ML Nitroglycerin/Dextrose (NITROGLYCERIN 50MG/D5W 250ML) 8.3 MG Lactated Ringer's (LACTATED RINGERS) 949.5 ML ResultsFindings/Data:Laboratory Tests 03/01 1214 1149 1106Blood Gas Puncture Site Art Line Art Line O2 Saturation (90 - 100 %) 98.9 98.1 100.0 99.9 ABG pH (7.35 - 7.45) 7.412 7.401 7.437 7.378 ABG pCO2 (35.0 - 45 mmHg) 34.9 L 38.9 34.7 L 36.8 ABG pO2 (80 - 100.0 mmHg) 125.5 H 103.4 H 373.4 *H 327.8 *H ABG PO2/FiO2 Ratio (mm/Hg) 172.30 ABG HCO3 (22.0 - 26.0 MMOL/L) 22.2 24.3 23.4 21.6 L ABG Total CO2 23.3 25.5 24.4 22.8 ABG Base Excess (-4.0 - 4.0 MMOL/L) -2.4 -0.6 -0.6 -3.2 ABG Hematocrit (37.5 - 50.7 %) 20 L 22 L 24 L 23 L ABG Hemoglobin (12.5 - 16.9 G/DL) 6.7 L 7.3 L 8.2 L 7.7 L Alcira Test N/A Sodium (134 - 147 mmol/L) 132 L 130 L 134 133 L Potassium (3.4 - 5.0 mmol/L) 4.4 4.0 3.8 3.8 Chloride (100 - 108 mmol/L) 102 97 L 99 L 97 L Ionized Calcium (1.12 - 1.32 1.13 1.16 1.15 1.32MMOL/L) Lactic Acid (0.9 - 1.7 mmol/l) 0.8 L 0.6 L 1.5 Temperature (F) 99 98 O2 Delivery Device Cannula simple mask FiO2 (%) 60.0 03/01 03/01 03/01 1028 1004 0937 Blood Gas O2 Saturation (90 - 100 %) 100.0 100.0 100.0 ABG pH (7.35 - 7.45) 7.343 L 7.380 7.268 *L ABG pCO2 (35.0 - 45 mmHg) 46.4 H 44.6 52.1 *H ABG pO2 (80 - 100.0 mmHg) 443.8 *H 632.0 *H 545.3 *H ABG HCO3 (22.0 - 26.0 MMOL/L) 25.2 26.4 H 23.8 ABG Total CO2 26.7 27.8 25.4 ABG Base Excess (-4.0 - 4.0 MMOL/L) -0.6 1.1 -3.3 ABG Hematocrit (37.5 - 50.7 %) 23 L 22 L 27 L ABG Hemoglobin (12.5 - 16.9 G/DL) 7.8 L 7.4 L 9.0 L Sodium (134 - 147 mmol/L) 129 L 128 L 132 L Potassium (3.4 - 5.0 mmol/L) 5.0 5.2 H 4.4 Chloride (100 - 108 mmol/L) 95 L 94 L 96 L Ionized Calcium (1.12 - 1.32 MMOL/L) 1.10 L 1.03 L 1.19 Lactic Acid (0.9 - 1.7 mmol/l) 0.6 L < 0.3 L < 0.3 L Laboratory Tests 03/02 03/01 03/01 03/01 03/01 0250 2357 7 2017 1214Chemistry Sodium (134 - 147 mEq/L) 133 L Potassium (3.4 - 5.0 mEq/L) 4.6 Chloride (100 - 108 mEq/L) 104 Carbon Dioxide (21 - 33 mEq/l) 23 Anion Gap (0 - 20) 11 BUN (7 - 25 mg/dL) 18 Creatinine (0.6 - 1.3 mg/dL) 1.0 POC Creatinine (0.8 - 1.3 mg/dL) 0.9 0.9 Glomerular Filtr Rate (70 - 80) 75.6 Glucose (77 - 141 mg/dL) 135 POC Glucose (70 - 110 MG/DL) 113 H 120 H POC Glucose (mg/dL) (70 - 110 MG/DL) 120 H 133 H Calcium (8.0 - 10.5 mg/dL) 8.3 Magnesium (1.6 - 2.6 mg/dL) 1.91 Total Bilirubin (0.0 - 1.0 mg/dL) 0.70 Direct Bilirubin (0.1 - 0.3 MG/DL) 0.30 Indirect Bilirubin (MG/DL) 0.40 AST (8 - 34 IUnit/L) 42 H ALT (10 - 49 IUnit/L) 11 Total Alk Phosphatase (20 - 125 31IUnit/L) Total Protein (6.4 - 8.2 g/dL) 5.5 L Albumin (3.4 - 5.0 g/dL) 3.90 03/01 03/01 03/01 03/01 03/01 1207 1149 1106 1028 1004 Chemistry Sodium (134 - 147 mEq/L) 132 L Potassium (3.4 - 5.0 mEq/L) 4.0 Chloride (100 - 108 mEq/L) 100 Carbon Dioxide (21 - 33 mEq/l) 26 Anion Gap (0 - 20) 11 BUN (7 - 25 mg/dL) 20 Creatinine (0.6 - 1.3 mg/dL) 0.9 POC Creatinine (0.8 - 1.3 mg/dL) 0.6 L 0.8 0.7 L 0.8 Glomerular Filtr Rate (70 - 80) 85.8 H Glucose (77 - 141 mg/dL) 137 POC Glucose (mg/dL) (70 - 110 MG/DL) 119 H 134 H 113 H 86 Calcium (8.0 - 10.5 mg/dL) 8.1 Magnesium (1.6 - 2.6 mg/dL) 2.33 / 0937 Chemistry POC Creatinine (0.8 - 1.3 mg/dL) 0.8 POC Glucose (mg/dL) (70 - 110 MG/DL) 91 Laboratory Tests 03/02 03/01 03/01 03/01 0409 1207 1104 1030 Coagulation INR (0.8 - 1.2) 1.4 H 1.5 H PTT ([place]) (25.0 - 39.5 Seconds) 34.6 PT Patient/Control Mix (9.3 - 12.9 SECONDS) 15.7 H 16.8 H Activated Coag Time (74 - 137 SEC) 136 682 H 03/01 03/01 1006 0939 Coagulation Activated Coag Time (74 - 137 SEC) 796 H 596 H Laboratory Tests 03/02 03/02 03/02 0608 0409 0250 Hematology WBC (4.5 - 11.0 x10 3/uL) 10.1 10.2 9.5 RBC (4.00 - 5.60 x10 6/uL) 2.04 L 2.06 L 2.02 L Hgb (12.5 - 16.9 g/dL) 6.9 L 7.0 L 6.9 L Hct (37.5 - 50.7 %) 20.2 L 20.7 L 20.0 L MCV (81.0 - 99.0 fL) 99.0 100.5 H 99.0 MCH (27.0 - 33.0 pg) 33.8 H 34.0 H 34.2 H MCHC (33.0 - 37.0 g/dL) 34.2 33.8 34.5 RDW (11.5 - 14.5 %) 12.8 12.7 12.8 Plt Count (150 - 400 x10 3/uL) 149 L 154 143 L MPV (7.0 - 9.0 fL) 10.1 H 9.7 H 9.9 H Neut % (Auto) (56.0 - 77.0 %) 83.2 H 83.9 H 85.0 H Lymph % (Auto) (14.0 - 32.0 %) 6.4 L 6.5 L 6.6 L Coos % (Auto) (4.8 - 9.0 %) 9.7 H 8.7 7.9 Eos % (Auto) (0.3 - 3.7 %) 0.0 L 0.0 L 0.0 L Baso % (Auto) (0.0 - 2.0 %) 0.2 0.3 0.2 Neut # (Auto) (2.0 - 7.6 x10 3/uL) 8.38 H 8.57 H 8.11 H Lymph # (Auto) (1.0 - 3.8 x10 3/uL) 0.64 L 0.66 L 0.63 L Coos # (Auto) (0.1 - 0.8 x10 3/uL) 0.98 H 0.89 H 0.75 Eos # (Auto) (0.0 - 0.2 x10 3/uL) 0.00 0.00 0.00 Baso # (Auto) (0.0 - 0.2 x10 3/uL) 0.02 0.03 0.02 Abs Immat Gran (auto) (0.00 - 0.03 x10 3/uL) 0.05 H 0.06 H 0.03 Immature Gran % (0.0 - 2.0 %) 0.5 0.6 0.3 Nucleated RBC % (0 - 0 %) 0.0 0.0 0.0 Nucleated RBCs # (Man) (0.0 - 0.1 x10 3/uL) 0.00 0.00 0.00 05/03 1207 Hematology WBC (4.5 - 11.0 x10 3/uL) 18.0 H RBC (4.00 - 5.60 x10 6/uL) 2.26 L Hgb (12.5 - 16.9 g/dL) 7.6 L Hct (37.5 - 50.7 %) 21.7 L MCV (81.0 - 99.0 fL) 96.0 MCH (27.0 - 33.0 pg) 33.6 H MCHC (33.0 - 37.0 g/dL) 35.0 RDW (11.5 - 14.5 %) 12.3 Plt Count (150 - 400 x10 3/uL) 127 L MPV (7.0 - 9.0 fL) 9.6 H Neut % (Auto) (56.0 - 77.0 %) 84.0 H Lymph % (Auto) (14.0 - 32.0 %) 6.7 L Coos % (Auto) (4.8 - 9.0 %) 6.1 Eos % (Auto) (0.3 - 3.7 %) 1.8 Baso % (Auto) (0.0 - 2.0 %) 0.2 Neut # (Auto) (2.0 - 7.6 x10 3/uL) 15.12 H Lymph # (Auto) (1.0 - 3.8 x10 3/uL) 1.20 Coos # (Auto) (0.1 - 0.8 x10 3/uL) 1.10 H Eos # (Auto) (0.0 - 0.2 x10 3/uL) 0.32 H Baso # (Auto) (0.0 - 0.2 x10 3/uL) 0.04 Abs Immat Gran (auto) (0.00 - 0.03 x10 3/uL) 0.21 H Immature Gran % (0.0 - 2.0 %) 1.2 Nucleated RBC % (0 - 0 %) 0.0 Nucleated RBCs # (Man) (0.0 - 0.1 x10 3/uL) 0.00 Radiology data:Recent Impressions:RADIOLOGY - XR CHEST 1 V 03/01 1218 Report Impression - Status: SIGNED Entered: 03/01/2024 1248 IMPRESSION:Stable postoperative chest. Parenchymal opacities in both lung bases. No pneumothorax. Impression By: [email or web address] Qiana Kramer M.D.RADIOLOGY - XR CHEST 1 V 03/02 0600 Report Impression - Status: SIGNED Entered: 03/02/2024 0813 IMPRESSION:1. Lines and tubes are seen in suitable position.2. Mild linear left basilar subsegmental atelectasis noted.Impression By: [email or web address] Qiana Stinson M.D. Results: labs reviewed, vital signs stable, rythm personally rev'd, x-ray personally reviewed, current med profile rev'd Treatment Prophylaxis Treatment ProphylaxisCVC/PICC documentation:The data below has been imported from nursing documentation. Any exceptions have been noted below under Provider comments. CVC/PICC insertion date/time: CVC multi lumen triple Neck Right Inserted 03/01/24 0708 Provider comments on imported nursing data: [] Quality: Trauma Gen Surg Advanced Care Plan 65 or OlderDiscussed with: patient Current MedicationsCurrent medication review:I attest that the foregoing medication list in the medical record is true, accurate, and complete to the best of my knowledge. Diagnosis, Assessment PlanHospital course to date:This is a pleasant 83-year-old gentleman with a past medical history of hypertension, hyperlipidemia, ulcerative colitis, bladder cancer status post chemo, former smoker but occasionally smokes cigars 1-2 a month. He was seen by his car worker helper Dr. Berger for increasing fatigue, denies chest pain, who had an abnormal stress test. Coronary angiogram was done that showed severe multivessel coronary artery disease. Outpatient echocardiogram was done zdccusb48%, trace mitral regurg, and trace tricuspid regurg.Patient presents today for multivessel coronary artery disease and for coronaryartery bypass graft surgery. Coronary angiogram films reviewed and patient will benefit from surgical revascularization. The operation, risks involved, calculated STS risk score, benefits, alternatives, and complications was discussed with the patient. The patient acknowledges understanding and is willing to proceed. All patient's questions were answered. Patient is scheduled for coronary artery bypass graft surgery today. Assessment/plan: 1. Multivessel coronary artery disease2. Hypertension3. Hyperlipidemia4. Ulcerative colitis Admit patient to CVICU postopMonitor heart rhythm and hemodynamicsStrict I's and O'sCardiology and critical care consulted. 03/01/24Coronary artery bypass graft surgery x4 (JAEGER to LAD, sequential to diagonal, saphenous vein to marginal, saphenous vein to PDA).Amputation of left atrial appendage.Endoscopic vein harvest (right greater saphenous vein).Posterior pericardiotomy. 03/02/24POD 1Patient hemodynamically stable postoperatively, not on any pressors or inotropesChest x-ray and labs reviewed, hemoglobin 7.0-give albumin and 2 units RBCsOn 2 L nasal cannula, wean off oxygen as toleratedEncourage incentive spirometer use and deep breathingKeep both chest tubes and monitor outputs closelyAdvance diet as tolerated, bowel regimen, glycemic controlDaily weights and strict I's and O'sSCDs for DVT prophylaxisPT/OT, OOB to chair, ambulatePatient seen by Dr. Lopez, plan of care discussed with patient and ICU team, all questions were answered. Orders: Procedure Date/time Status EVAL PT HIGH COMPLEX [id number] 03/02 1034 Active PT: POCC - PT STAFF ONLY 03/02 1034 Active OT: POCC - OT STAFF ONLY 03/02 1023 Active EVAL OT HIGH COMPLEX [id number] 03/02 1023 Active Consultants: cardiologyCode status: full codePlan discussed with: patient, collaborating , nurse at 1102 at 1516 RPT #:[id number] OF REPORTPRProgress ggnf4640-92-44W53:25:00G.[id number] able for patient trydSAGWIOOCOGKXQR0192-89-66A35:02:17 [facility] 2024-03-02 03:17:00 [id number] yLoNCpEeuCuMcDgYTg5YOqEoEHfWS Hdxuo7fadax3w8c+rI1nA/gn7Jm8399-23-13N56:17:69496 4-0014 [place] [address] PATIENT NAME: GREGG RUIZ ADMIT DATE: 03/01/24ACCOUNT NO: [id number] ROOM NO: G.[id number] AGE: 83 REPORT TYPE: eELECTROCARDIOGRAM REPORT SEX: M ADMITTING PHYSICIAN:Jl Lopez MD ATTENDING PHYSICIAN:Jl Lopez MD Order:[id number] Reason : Cardiac Surgery Post Op Test Date/Time Stamp:MonMar 02 2024 03:17:37Blood Pressure : / mmHGVent. Rate : 082 BPM Atrial Rate : 082 BPM P-R Int : 152 ms QRS Dur : 090 ms QT Int : 398 ms P-R-T Axes : 059 -34 053 degrees QTc Int : 464 ms Normal sinus rhythm with sinus arrhythmiaLeft axis deviationAbnormal ECGWhen compared with ECG of 27-FEB-2024 16:06,Significant changes have occurredConfirmed by KERLINE DURAN MD ([id number]) on 03/02/2024 12:37:00 PM Referred By: Jl Lopez Confirmed by:KERLINE DURAN MD at 1237 PATIENT NAME: GREGG RUIZ .[id number] AVAvailable for patient zxbqATVKOWZKXFIKFY7320-48-76V05:37:12 [facility] 2024-03-01 13:57:00 [id number] 9ebviHV+VMjZieiho2SNnqF64+Qxb iwBdjvVMwUqATsL+g11mtpcBo1I9479-96-39T49:57:00 [facility] ([facility])Clinical NoteREPORT#:[id number] REPORT STATUS: SignedREPORT INITIALIZATION DATE:03/01/24 TIME: 1356 PATIENT: GREGG RUIZ UNIT #: [id number]#: [id number] [address]DOB: [birth year] AGE: 83 SEX: M ATTEND: Jl Lopez MDA AUTHOR: Wade Sheppard MDREPT SERVICE DT/TIME: 03/01/24 1357* ALL edits or amendments must be made on the electronic/computer document * Clinical NoteNote: Procedure Type: Isolated CABG PERIOPERATIVE OUTCOME ESTIMATE % Operative Mortality 1.36% Morbidity Mortality 5.26% Stroke 0.743% Renal Failure 0.735% Reoperation 2.04% Prolonged Ventilation 2.45% Deep Sternal Wound Infection 0.076% Long Hospital Stay (>14 days) 3.6% Short Hospital Stay (<6 days)* 46% at 1357 RPT #:[id number] OF REPORTCLClinical kero7700-10-73P97:57:00G.QQSW04575425-6232JKXosvx able for patient eosaPNDSKAAUIDLVHR2075-98-05E97:58:18 [facility] 2024-03-01 12:36:00 [id number] woAxdsyLT5qXPnAyNJa24Xi2LYejv cJxKbQK6ezA5EggbiufYlvj9Vp83630-27-61D63:36:00 [facility] ([facility])Critical Care Consult NoteREPORT#:[id number] REPORT STATUS: SignedREPORT INITIALIZATION DATE:03/01/24 TIME: 123 PATIENT: GREGG RUIZ UNIT #: [id number]#: [id number] [address] [birth year] AGE: 83 SEX: M ATTEND: Jl Lopez MDADM AUTHOR: Toyin Taylor I MDREPT SERVICE DT/TIME: 03/01/24 1236* ALL edits or amendments must be made on the electronic/computer document * History of Present Illness HPIRequesting clinician: Dr Suarez:Gregg Ruiz is an 83M with hypertension and dyslipidemia recently diagnosed withmultivessel coronary artery disease after a positive stress test. Now currentlystatus post CABG x 4, JAEGER to LAD, sequential to diagonal, SVG to OM, SVG-PDA. EVH and ALAA. Received 1.5 L crystalloid, 100 cc of 25% albumin, Cell Saver 400cc and made 550 cc of urine. He was an easy intubation. Arrived ICU extubated. No drips running. Left pleural and mediastinal chest tube. Requiring facemaskoxygen.Hx Obtained From Prior medical records History - Adult longitudinalPast medical history:Reports: Cancer (bladder), Hypertension, Dyslipidemia. Additional medical history:ulcerative colitisAlcohol use: Denies EtOH useDrug use: Denies recreational drugsSmoking status for patients 13 years old or older: Former SmokerAllergies:Coded Allergies:No Known Allergies (02/27/24) Review of Systems ROSUnable to obtain due to:Somewhat sedated postsurgery Objective Physical ExamVS/I O:Last Documented: Result Date Time Pulse Ox 98 03/01 0601 B/P 195/99 03/01 0601 Pulse 96 03/01 0601 Resp 12 03/01 0601 24 hour I O ending at 0700: 03/01 0700 05 1900 Intake Total Output Total Balance Patient 72.727 kg Weight Weight Stated/Reported Measurement Method Patient Weight and BMI Weight (kg): 72.727 BMI: 22.4 Medications:Active Meds + DC'd Last 24 HrsIpratropium Osmond (ATROVENT) 500 MCG RTQ2H PRN PRN INH Cyanocobalamin (Vitamin B-12 500 mcg tab) 500 MCG DAILY PO Ferrous Sulfate (FERROUS SULFATE) 325 MG DAILY PO Bisacodyl (DULCOLAX) 10 MG ONCE PRN RECTAL Magnesium Hydroxide (MILK OF MAGNESIA) 30 ML ONCE PRN PO Atorvastatin Calcium (LIPITOR) 40 MG 2100 PO Clopidogrel Bisulfate (Plavix) 75 MG DAILY PO Polyethylene Glycol (MIRALAX) 17 GM DAILY PO Pantoprazole (PROTONIX) 40 MG DAILY@0600 PO Docusate Sodium (COLACE) 100 MG BID PO Metoprolol Tartrate (LOPRESSOR) 12.5 MG Q12HR PO Mupirocin (BACTROBAN 2% 22 GM OINTMENT) 1 APPLIC BID NASAL Sennosides (Senna Lax 8.6 MG TABLET) 17.2 MG BEDTIME PO Aspirin (ASPIRIN) 81 MG DAILY PO Amiodarone HCl (CORDARONE) 200 MG TID PO Ipratropium Osmond (ATROVENT) 500 MCG RTQ4H INH Albumin Human (ALBUMINAR-25%) 50 ML .STK-MED ONE IV (DC) Albumin Human (ALBUMINAR-25%) 50 ML .STK-MED ONE IV (DC) Ondansetron HCl (ZOFRAN) 0 .STK-MED ONE .ROUTE (DC) Sugammadex Sodium (BRIDION) 0 .STK-MED ONE IV (DC) Epinephrine (ADRENALIN CHLORIDE) 4 MG ASDIR IV Dextrose/Water (DEXTROSE 5% WATER) 246 MLInsulin Human Regular (HumuLIN R) 100 UNIT ASDIR IV (CKD) Sodium Chloride (SODIUM CHLORIDE 0.9%) 99 MLSodium Chloride (SODIUM CHLORIDE 0.9%) 50 ML .STK-MED ONE IV (DC) Fentanyl Citrate (SUBLIMAZE) 0 .STK-MED ONE .ROUTE (DC) Acetaminophen (TYLENOL) 650 MG Q4H PRN PRN PO Acetaminophen (TYLENOL) 650 MG Q4H PRN PRN RECTAL Albumin Human (ALBUMINAR 25%) 25 GM ASDIR PRN IV Calcium Chloride (CALCIUM CHLORIDE) 1 GM ASDIR PRN IV Cefazolin Sodium (KEFZOL OR ANCEF) 3 GM ONCE ONE IV Sodium Chloride (SODIUM CHLORIDE 0.9%) 250 MLDextrose/Water (DEXTROSE 10% IN WATER) 125 ML ASDIR PRN IV (CKD) Dextrose/Water (DEXTROSE 10% IN WATER) 250 ML ASDIR PRN IV (CKD) Glucagon (GLUCAGON) 1 MG ASDIR PRN IM Magnesium Sulfate (MAGNESIUM SULFATE 4GM/SWFI 100ML) 100 ML ASDIR PRN IV Magnesium Sulfate (MAGNESIUM SULFATE 2GM/SWFI 50ML) 50 ML ASDIR PRN IV Magnesium Sulfate/Dextrose (MAGNESIUM SULFATE 1GM/D5W 100ML) 100 ML ASDIR PRN IV Nitroglycerin/Dextrose (NITROGLYCERIN 50,000MCG/D5W 250ML) 250 ML ASDIR IV Norepinephrine Bitartrate (NOREPINEPHRINE 8 MG/NS 250 ML) 250 ML TITRATE IV Ondansetron HCl (ZOFRAN) 4 MG Q6H PRN PRN IV Potassium Chloride (KCL 20MEQ/SWFI 100ML) 100 ML ASDIR PRN IV Sodium Bicarbonate (SODIUM BICARBONATE) 50 MEQ ASDIR PRN IV Sodium Chloride (SODIUM CHLORIDE 0.9%) 1,000 ML .Q20H IV Sodium Chloride (SODIUM CHLORIDE 0.9%) 250 ML Q24H IV Parenteral Electrolytes (PLASMA-LYTE A pH 7.4) 1,000 ML .STK-MED ONE IV (DC) Rocuronium Osmond (ZEMURON) 0 .STK-MED ONE IV (DC) Sodium Chloride (SODIUM CHLORIDE) 10 ML .STK-MED ONE IV (DC) Cefazolin Sodium (KEFZOL OR ANCEF) 0 .STK-MED ONE .ROUTE (DC) Sodium Chloride (SODIUM CHLORIDE 0.9%) 250 ML .STK-MED ONE IV (DC) Vancomycin HCl (VANCOMYCIN HCL) 0 .STK-MED ONE .ROUTE (DC) Esmolol HCl (BREVIBLOC) 0 .STK-MED ONE IV (DC) Lidocaine HCl (XYLOCAINE) 0 .STK-MED ONE .ROUTE (DC) Rocuronium Osmond (ZEMURON) 0 .STK-MED ONE IV (DC) Fentanyl Citrate (SUBLIMAZE) 0 .STK-MED ONE IV (DC) Midazolam HCl (VERSED) 0 .STK-MED ONE .ROUTE (DC) Papaverine HCl (PAPAVERINE HCL) 0 .STK-MED ONE IV (DC) Propofol (DIPRIVAN 200MG/20ML INJECTION) 20 ML .STK-MED ONE IV (DC) Insulin Human Regular (HumuLIN R 100 UNITS/NS 100ML) 100 ML .STK-MED ONE IV (DC) Aminocaproic Acid (AMICAR) 0 .STK-MED ONE .ROUTE (DC) Calcium Chloride (CALCIUM CHLORIDE) 0 .STK-MED ONE IV (DC) Epinephrine HCl (EPINEPHrine 4 mg/D5W 250 mL) 250 ML .STK-MED ONE IV (DC) Heparin Sodium (HEPARIN SODIUM) 0 .STK-MED ONE .ROUTE (DC) Nitroglycerin/Dextrose (NITROGLYCERIN 50,000MCG/D5W 250ML) 250 ML .STK-MED ONE IV (DC) Norepinephrine Bitartrate (NOREPINEPHRINE 8 MG/NS 250 ML) 250 ML .STK-MED ONE IV (DC) Protamine Sulfate (PROTAMINE SULFATE) 0 .STK-MED ONE IV (DC) Ropivacaine (NAROPIN 0.5% 150 MG/30mL) 0 .STK-MED ONE .ROUTE (DC) Magnesium Sulfate (MAGNESIUM SULFATE) 0 .STK-MED ONE .ROUTE (DC) Albumin Human (ALBUMINAR-25%) 100 ML .STK-MED ONE IV (DC) Heparin Sodium (HEPARIN SODIUM) 0 .STK-MED ONE .ROUTE (DC) Mannitol (Mannitol 20%) 500 ML .STK-MED ONE IV (DC) Sodium Chloride (SODIUM CHLORIDE 0.9%) 100 ML .STK-MED ONE IV (DC) Lidocaine HCl (XYLOCAINE IV) 0 .STK-MED ONE IV (DC) Magnesium Sulfate (MAGNESIUM SULFATE) 0 .STK-MED ONE IV (DC) Phenylephrine HCl (ALPESH-SYNEPHRINE 10MG/ML AMP) 0 .STK-MED ONE .ROUTE (DC) Sodium Bicarbonate (SODIUM BICARBONATE) 0 .STK-MED ONE IV (DC) Acetaminophen (TYLENOL EXTRA STRENGTH) 0 .STK-MED ONE PO (DC) Gabapentin (NEURONTIN) 0 .STK-MED ONE PO (DC) Acetaminophen (TYLENOL EXTRA STRENGTH) 1,000 MG STAT STA PO (DC) Gabapentin (NEURONTIN) 200 MG STAT STA PO (DC) Cefazolin Sodium (KEFZOL OR ANCEF) 2 GM PREOP ONCALL IV (DC) Metoprolol Tartrate (LOPRESSOR) 6.25 MG ONCE ONE PO (DC) Vancomycin HCl (VANCOMYCIN HCL) 1,000 MG PREOP ONCALL IV (DC) Sodium Chloride (SODIUM CHLORIDE 0.9%) 250 MLVerapamil HCl (ISOPTIN) 16.6 MG .Q24H ONE IV (DC) Heparin Sodium (Porcine) (HEPARIN SODIUM) 1,660 UNIT Sodium Bicarbonate (SODIUM BICARBONATE) 0.7 ML Nitroglycerin/Dextrose (NITROGLYCERIN 50MG/D5W 250ML) 8.3 MG Lactated Ringer's (LACTATED RINGERS) 949.5 ML General appearance: sedatedHead/Eyes: atraumatic, clear corneaNeck: RIJ CVLCardiovascular: Distant heart soundsRespiratory: aerating well, clear to auscultation, symmetric expansionAbdomen: soft, non-tender, normal bowel sounds, no distentionExtremities: moves all, no edema ResultsFindings/Data:Laboratory Tests 03/01/24 1207:[Embedded Image Not Available]Laboratory Tests 03/01 03/01 03/01 03/01 1214 1149 1106 1028Blood Gas Puncture Site Art Line O2 Saturation (90 - 100 %) 98.1 100.0 99.9 100.0 ABG pH (7.35 - 7.45) 7.401 7.437 7.378 7.343 L ABG pCO2 (35.0 - 45 mmHg) 38.9 34.7 L 36.8 46.4 H ABG pO2 (80 - 100.0 mmHg) 103.4 H 373.4 *H 327.8 *H 443.8 *H ABG PO2/FiO2 Ratio (mm/Hg) 172.30 ABG HCO3 (22.0 - 26.0 MMOL/L) 24.3 23.4 21.6 L 25.2 ABG Total CO2 25.5 24.4 22.8 26.7 ABG Base Excess (-4.0 - 4.0 MMOL/L) -0.6 -0.6 -3.2 -0.6 ABG Hematocrit (37.5 - 50.7 %) 22 L 24 L 23 L 23 L ABG Hemoglobin (12.5 - 16.9 G/DL) 7.3 L 8.2 L 7.7 L 7.8 L Alcira Test N/A Sodium (134 - 147 mmol/L) 130 L 134 133 L 129 L Potassium (3.4 - 5.0 mmol/L) 4.0 3.8 3.8 5.0 Chloride (100 - 108 mmol/L) 97 L 99 L 97 L 95 L Ionized Calcium (1.12 - 1.32 1.16 1.15 1.32 1.10 LMMOL/L) Lactic Acid (0.9 - 1.7 mmol/l) 0.6 L 1.5 0.6 L Temperature (F) 98 O2 Delivery Device simple mask FiO2 (%) 60.0 03/01 03/01 03/01 1004 0937 0741 Blood Gas O2 Saturation (90 - 100 %) 100.0 100.0 100.0 ABG pH (7.35 - 7.45) 7.380 7.268 *L 7.399 ABG pCO2 (35.0 - 45 mmHg) 44.6 52.1 *H 38.6 ABG pO2 (80 - 100.0 mmHg) 632.0 *H 545.3 *H 585.2 *H ABG HCO3 (22.0 - 26.0 MMOL/L) 26.4 H 23.8 23.9 ABG Total CO2 27.8 25.4 25.1 ABG Base Excess (-4.0 - 4.0 MMOL/L) 1.1 -3.3 -0.8 ABG Hematocrit (37.5 - 50.7 %) 22 L 27 L 29 L ABG Hemoglobin (12.5 - 16.9 G/DL) 7.4 L 9.0 L 9.8 L Sodium (134 - 147 mmol/L) 128 L 132 L 132 L Potassium (3.4 - 5.0 mmol/L) 5.2 H 4.4 3.9 Chloride (100 - 108 mmol/L) 94 L 96 L 97 L Ionized Calcium (1.12 - 1.32 MMOL/L) 1.03 L 1.19 1.24 Lactic Acid (0.9 - 1.7 mmol/l) < 0.3 L < 0.3 L 0.4 L Laboratory Tests 03/01 03/01 03/01 03/01 03/01 1214 1207 1149 1106 1028 Chemistry Sodium (134 - 147 mEq/L) 132 L Potassium (3.4 - 5.0 mEq/L) 4.0 Chloride (100 - 108 mEq/L) 100 Carbon Dioxide (21 - 33 mEq/l) 26 Anion Gap (0 - 20) 11 BUN (7 - 25 mg/dL) 20 Creatinine (0.6 - 1.3 mg/dL) 0.9 POC Creatinine (0.8 - 1.3 mg/dL) 0.9 0.6 L 0.8 0.7 L Glomerular Filtr Rate (70 - 80) 85.8 H Glucose (77 - 141 mg/dL) 137 POC Glucose (mg/dL) (70 - 110 MG/DL) 133 H 119 H 134 H 113 H Calcium (8.0 - 10.5 mg/dL) 8.1 Magnesium (1.6 - 2.6 mg/dL) 2.33 03/01 03/01 03/01 03/01 1004 0937 0741 0618 Chemistry POC Creatinine (0.8 - 1.3 mg/dL) 0.8 0.8 0.6 L POC Glucose (mg/dL) (70 - 110 MG/DL) 86 91 91 Triglycerides (40 - 150 mg/dL) 123 Cholesterol (<200 mg/dL) 167 LDL Cholesterol Measurd (0 - 100 mg/dL) 119.0 H HDL Cholesterol (40 - 60 MG/DL) 45.1 Cholesterol/HDL Ratio (3.43 - 4.97 RATIO) 3.70 Laboratory Tests 03/01 03/01 03/01 03/01 03/01 1207 1104 1030 1006 0939Coagulation INR (0.8 - 1.2) 1.5 H PTT (Jessica) (25.0 - 39.5 Seconds) 34.6 PT Patient/Control Mix (9.3 - 12.9 16.8 HSECONDS) Activated Coag Time (74 - 137 SEC) 136 682 H 796 H 596 H 03/01 0743 Coagulation Activated Coag Time (74 - 137 SEC) 157 H Laboratory Tests 03/01 1207 Hematology WBC (4.5 - 11.0 x10 3/uL) 18.0 H RBC (4.00 - 5.60 x10 6/uL) 2.26 L Hgb (12.5 - 16.9 g/dL) 7.6 L Hct (37.5 - 50.7 %) 21.7 L MCV (81.0 - 99.0 fL) 96.0 MCH (27.0 - 33.0 pg) 33.6 H MCHC (33.0 - 37.0 g/dL) 35.0 RDW (11.5 - 14.5 %) 12.3 Plt Count (150 - 400 x10 3/uL) 127 L MPV (7.0 - 9.0 fL) 9.6 H Neut % (Auto) (56.0 - 77.0 %) 84.0 H Lymph % (Auto) (14.0 - 32.0 %) 6.7 L Coos % (Auto) (4.8 - 9.0 %) 6.1 Eos % (Auto) (0.3 - 3.7 %) 1.8 Baso % (Auto) (0.0 - 2.0 %) 0.2 Neut # (Auto) (2.0 - 7.6 x10 3/uL) 15.12 H Lymph # (Auto) (1.0 - 3.8 x10 3/uL) 1.20 Coos # (Auto) (0.1 - 0.8 x10 3/uL) 1.10 H Eos # (Auto) (0.0 - 0.2 x10 3/uL) 0.32 H Baso # (Auto) (0.0 - 0.2 x10 3/uL) 0.04 Abs Immat Gran (auto) (0.00 - 0.03 x10 3/uL) 0.21 H Immature Gran % (0.0 - 2.0 %) 1.2 Nucleated RBC % (0 - 0 %) 0.0 Nucleated RBCs # (Man) (0.0 - 0.1 x10 3/uL) 0.00 Microbiology:02/26 1636 NASAL: MSSA Surveillance Screen - COMP02/26 1636 NASAL: MRSA DNA Surveillance Screen - COMP Radiology data:Recent Impressions:RADIOLOGY - XR CHEST 1 V 03/01 1218 Report Impression - Status: SIGNED Entered: 03/01/2024 1248 IMPRESSION:Stable postoperative chest. Parenchymal opacities in both lung bases. No pneumothorax. Impression By: Demetria - Kalpana Kramer M.D. Diagnosis, Assessment Plan Diagnosis, Assessment PlanConsultants: cardiologyFree text DxA P:Impression:-Status post CABG x 4-Acute respiratory insufficiency following surgery, expected. Not respiratory failure-History of hypertension Plan: VIBRATION ENGINEER: As needed pain management. PT OT as tolerated. Cardiovascular: Not requiring inotropes or vasopressors.-Aspirin, clopidogrel, amiodarone, statin, ndxb-ufqgdaq-Jyws pleural and mediastinal chest tube with minimal output. Respiratory: Oxygen via facemask. Attempt to wean. GI: Cardiac diet when able to swallow Renal: Monitor urine output, goal 0.5 mL/kg/h Hematology: SCDs Infectious disease: Perioperative prophylaxis Endocrine: Insulin for glucose control CODE STATUS: Full code Family: Updated his daughter at bedside on current plan of care Total critical care time excluding procedures was 35 minutes Quality: Gen [facility] Crit Care Current MedicationsCurrent medication review:I attest that the foregoing medication list in the medical record is true, accurate, and complete to the best of my knowledge. Advanced Care Plan 65 or OlderDiscussed with: patient at 1254 RPT #:[id number] OF REPORTSZWqxsbeoeigve3596-18-66L52:36:00G.PDOC2 [id number] for patient qdfsYOHOWQGFSEATTI5387-79-99V25:55:07 [facility] 2024-03-01 11:44:00 [id number] C71G2hH8JRkDMHbQiCuErk1bsqHA5 l3ZiJItuDCXpSERBpxrtJ3kXP6+2221-72-63U48:44:00 [facility] ([facility])Brief Op NoteREPORT#:[id number] REPORT STATUS: SignedREPORT INITIALIZATION DATE:03/01/24 TIME: 114 PATIENT: GREGG RUIZ UNIT #: [id number]#: [id number] [address] [birth year] AGE: 83 SEX: M ATTEND: Jl Lopez MDADM AUTHOR: Jl Lopez MDREPT SERVICE DT/TIME: 03/01/24 1144* ALL edits or amendments must be made on the electronic/computer document * Op/Inv Proc Note - BriefPre-procedure diagnosis:CADPost-procedure diagnosis: same as pre procedure dxProcedures performed:CABG x 4 (JAEGER-LAD, Seq-Diag, SVG-OM, SVG-PDA)EVH (RGSV)ALAAPrimary Surgeon:JessicaAssistant(s): Jose ClementeFindings:LAD-2mmComplications: noneEstimated blood loss in ml's: 100 ccSpecimens removed/altered: CHRIS at 0730 [facility] #:[id number] OF REPORTOPOperative eumbhm4706-62-09G34:44:00G.SERD89196015-5469BTCld ilable for patient vvlbJUNEHORWUIPLCL7339-91-55Q46:30:25 [facility] 2024-03-01 11:20:00 [id number] ilXUtj/X0vIfz17tJ3Ii29g9IdGH5 SoLTDZsCcd44XsRqfQzlMae4hJw6804-76-03X60:20:93877 3-[address] [place] [address] PATIENT NAME: GREGG RUIZ ADMIT DATE: 03/01/24ACCOUNT NO: [id number] ROOM NO: G.3342 AGE: 83 REPORT TYPE: OPERATIVE REPORT SEX: M ADMITTING PHYSICIAN:Jl Lopez MD ATTENDING PHYSICIAN:Jl Lopez MD OPERATION DATE: 03/01/2024 PREOPERATIVE DIAGNOSIS: Coronary artery disease. POSTOPERATIVE DIAGNOSIS: Coronary artery disease. PROCEDURES:1. Coronary artery bypass graft surgery x4 (JAEGER to LAD, sequential todiagonal, saphenous vein to marginal, saphenous vein to PDA).2. Amputation of left atrial appendage.3. Endoscopic vein harvest (right greater saphenous vein).4. Posterior pericardiotomy. SURGEON: Shey Lopez M.D. ANIMAL NUTRITIONIST: Jose Clemente. ANESTHESIOLOGIST: Dr. Rees. ANESTHESIA: General endotracheal anesthesia. ESTIMATED BLOOD LOSS: 100 mL. INDICATIONS: Mr. Ruiz is an 83-year-old gentleman with severe triple-vesselcoronary artery disease. After due preoperative counseling, he was brought tothe operating room today for surgical revascularization. FINDINGS:1. Vein was harvested from the right leg using endoscopic vein harvesttechnique. Vein was of satisfactory quality, measuring about 4 mm in size.2. Osteoporotic sternum.3. Good quality JAEGER measuring 2 mm in size with excellent flow.4. Normal pericardium without any intrapericardial adhesions, minimalintrapericardial fluid.5. LAD 2 mm, good quality artery.6. Diagonal 2 mm, good quality artery.7. Marginal 2 mm, good quality artery.8. PDA 2 mm, slightly diseased artery.9. Left atrial appendage was amputated half a centimeter from the base. Thiswas then repaired with two layers of running pledgeted 4-0 Prolene suture. Posterior pericardiotomy was made by making a cruciate incision in the posteriorpericardium. PATIENT NAME: GREGG RUIZ PROCEDURE IN DETAIL: Mr. Ruiz was identified in the preoperative holding areaand brought to the OR and placed supine on the operating table. After inductionof general endotracheal anesthesia, Chowdhury catheter, radial arterial line, andantibiotics were placed. The patient's anterior torso and both legs wereprepped and draped in standard surgical fashion. Vein was harvested from theright leg using endoscopic vein harvest technique. After harvesting,subcutaneous tissue was closed with 2-0 Vicryl and skin with 4-0 Vicryl.Simultaneously, median sternotomy was performed. Left internal mammary arterywas harvested. The patient was heparinized. Pericardium was openedlongitudinally. Pericardial well was created. Cardiopulmonary bypass wasinstituted using ascending aorta and 3-stage cannula in the right atrium. Thepatient was cooled to 34 degrees centigrade. Crossclamp was applied and theheart was arrested with 1.5 liters of antegrade cold blood cardioplegia.Cardioplegia was repeated at interval of 10 minutes all throughout the durationof crossclamp. We began by exploring the PDA, this was slightly diseased arterymeasuring 2 mm in size. Arteriotomy was performed with a Manati blade andextended with Yi scissors. A segment of previously harvested reversesaphenous vein was anastomosed in end-to-side manner using 7-0 Prolene suture.Vein graft to PDA was brought along the right side of the heart and sized.Aortotomy was performed on right aspect of the aorta using 4 mm punch. Proximalanastomosis of the PDA graft was then performed using running 6-0 Prolenesuture. Next, left atrial appendage was amputated half a centimeter from thebase. This was then repaired with two layers of running pledgeted 4-0 Prolenesuture. Cruciate incision was made in the posterior pericardium. Marginal wasexplored. This was a good quality artery, measuring 2 mm in size. Arteriotomywas performed with a Manati blade and extended with Yi scissors. A segmentof previously harvested reverse saphenous vein was anastomosed in vrc-ip-lpysssiddk using 7-0 Prolene suture. Vein graft to marginal was brought along theleft side of the heart and sized. Aortotomy was performed on left aspect of theaorta using 4 mm punch. Proximal anastomosis of the marginal graft was thenperformed using running 6-0 Prolene suture. Rewarming was commenced at thisstage. Diagonal was explored, this was a good quality artery, measuring 2 mm insize. Arteriotomy was performed with a Manati blade and extended with Pottsscissors. JAEGER was sized. Arteriotomy was performed in JAEGER at appropriate siteand a mncl-gy-tvbo anastomosis created between JAEGER and diagonal using running8-0 Prolene suture. Finally, LAD was explored. This was a good quality arterymeasuring 2 mm in size. Arteriotomy was performed with a Manati blade andextended with Yi scissors. JAEGER was anastomosed in an end-to-side mannerusing running 8-0 Prolene suture. JAEGER pedicle was tacked to the epicardiumusing two interrupted 6-0 Prolene sutures. A slit was made in the pericardiumon the left aspect, so as to accommodate the JAEGER. Careful de-aeration wasperformed and the crossclamp was released. One ventricular wire was placed. U00-Uezggm chest tube was placed in mediastinum and a 28-angled chest was placedin the left pleural space. Once the patient was at temperature, he was weaned off cardiopulmonary bypass with minimal inotropic support. Heparin was reversed with protamine. Decannulation was uneventful. After confirming hemostasis, the chest was closed in layers using stainless steel wires for the sternum, #1 Vicryl for the fascia, 2-0 Vicryl for the subcutaneous tissue and 4-0 Vicryl for the skin. The patient was extubated in the operating room and moved to intensive care unit in stable condition. Dictated By: Shey Lopez MD PATIENT NAME: GREGG RUIZ Date Dictated: 03/01/2024 11:20:15Date Transcribed: 03/01/2024 11:57:11AC/Zoie #: [id number] ID: [id number] and Edited by Jl Lopez MD On 03/07/24 7:58:45 AM at 0801 PATIENT NAME: GREGG RUIZ zniaof5679-29-02Y54:57:00G.OGO23522520-9681SPEhsi lable for patient ivghSJYVIWLUNODXNC7241-07-09V30:02:04 [facility] 2024-03-01 07:34:00 [id number]+ UO0FkaxpmySUG5L/HfNjgfnM9awCX RFhiBM5+Lr8FCPATq/T+b6kjglb5006-79-15V95:34:00 [facility] ([facility]History Physical - AdultREPORT#:[id number] REPORT STATUS: SignedREPORT INITIALIZATION DATE:03/01/24 TIME: 733 PATIENT: GREGG RUIZ UNIT #: [id number]#: [id number] ROOM/BED: 2208-1DOB: [birth year] AGE: 83 SEX: M ATTEND: Jl Lopez MDA AUTHOR: Priscilla Valdivia APRNREPT SERVICE DT/TIME: 03/01/24733* ALL edits or amendments must be made on the electronic/computer document * History of Present Illness HPIChief complaint:CADPCP:PCP: No Primary or Family Physician HPI:This is a pleasant 83-year-old gentleman with a past medical history of hypertension, hyperlipidemia, ulcerative colitis, bladder cancer status post chemo, former smoker but occasionally smokes cigars 1-2 a month. He was seen by his car worker helper Dr. Berger for increasing fatigue, denies chest pain, who had an abnormal stress test. Coronary angiogram was done that showed severe multivessel coronary artery disease. Outpatient echocardiogram was done nuzayjm17%, trace mitral regurg, and trace tricuspid regurg.Patient presents today for multivessel coronary artery disease and for coronaryartery bypass graft surgery. HistoryPast medical history:Reports: Cancer (bladder), Hypertension, Dyslipidemia. Additional medical history:ulcerative colitisAlcohol use: Denies EtOH useDrug use: Denies recreational drugsSmoking status for patients 13 years old or older: Former Smoker Medication/Allergy-Vaccine HxMedications:Home Medications:Medication Dose/Rte/Freq Days Qty Entered Last Max Daily Dose Reviewed sulfaSALAzine 1,500 PO BID 03/01/24 03/01/24Strength: 500 MG TAB 0552 0553 LISINOPRIL/HCTZ 1 TAB PO DAILY 02/27/24 03/01/24 (ZESTORETIC 20/12.5 MG) 1655 0553Strength: 20 MG-12.5 MGTAB ATORVASTATIN (LIPITOR) 10 MG PO DAILY 02/27/24 03/01/24Strength: 10 MG TAB 1656 0553 PSYLLIUM SEED 1 PACKET PO DAILY 02/27/24 03/01/24 (METAMUCIL) 1657 0553Strength: 3.4 GRAM/5.8GRAM POWDER CHOLECALCIFEROL (Unknown Dose) PO 02/27/24 03/01/24 (VITAMIN D3) DAILY 165 0553 (VITAMIN D3)Strength: (UnknownStrength) CAP 1 TAB PO BEDTIME 02/27/24 03/01/24FA/MV/CA/FE/MIN/LYCOPENE/LUTEIN (CENTRUM) 165 0553Strength: 18 MG IRON-400MCG TAB[EMERGEN C] 02/27/24 03/01/24Strength: 1700 0553 ASPIRIN EC (ECOTRIN) 81 MG PO BEDTIME 02/27/24 03/01/24Strength: 81 MG TAB.EC 1700 0553 ZINC GLUCONATE 30 MG PO DAILY 02/27/24 03/01/24Strength: 30 MG TAB 1700 0553 MAGNESIUM OXIDE 500 MG PO DAILY 02/27/24 03/01/24Strength: 500 MG TAB 1700 0553 Current Hospital Medications:Anti-Infective Agents Sig/Luke Start time Last Medication Dose Route Stop Time Status Admin Cefazolin Sodium 0 .STK-MED ONE 03/01 703 DC (KEFZOL OR ANCEF) .ROUTE Vancomycin HCl 0 .STK-MED ONE 03/01 703 DC (VANCOMYCIN HCL) .ROUTE Cefazolin Sodium 2 GM PREOP ONCALL 03/01 500 CKD (KEFZOL OR ANCEF) IV 03/01 2359 Vancomycin HCl 1,000 MG PREOP ONCALL 03/01 500 CKD (VANCOMYCIN HCL) IV 03/01 2359 Sodium Chloride 250 ML (SODIUM CHLORIDE 0.9%) Autonomic Drugs Sig/Luke Start time Last Medication Dose Route Stop Time Status Admin Rocuronium Osmond 0 .STK-MED ONE 03/01 640 DC (ZEMURON) IV Epinephrine HCl 250 ML .STK-MED ONE 03/01 628 DC (EPINEPHrine 4 mg/ IV D5W 250 mL) Norepinephrine 250 ML .STK-MED ONE 03/01 628 DC Bitartrate IV (NOREPINEPHRINE 8 MG/ NS 250 ML) Phenylephrine HCl 0 .STK-MED ONE 03/01 554 DC (ALPESH-SYNEPHRINE 10MG/ .ROUTE ML AMP) Blood Derivatives Sig/Luke Start time Last Medication Dose Route Stop Time Status Admin Albumin Human 100 ML .STK-MED ONE 03/01 555 DC (ALBUMINAR-25%) IV Blood Formation,Coagulation Sig/Luke Start time Last Medication Dose Route Stop Time Status Admin Aminocaproic Acid 0 .STK-MED ONE 03/01 628 DC (AMICAR) .ROUTE Heparin Sodium 0 .STK-MED ONE 03/01 628 DC (HEPARIN SODIUM) .ROUTE Protamine Sulfate 0 .STK-MED ONE 03/01 628 DC (PROTAMINE SULFATE) IV Heparin Sodium 0 .STK-MED ONE 03/01 555 DC (HEPARIN SODIUM) .ROUTE Cardiovascular Drugs Sig/Luke Start time Last Medication Dose Route Stop Time Status Admin Esmolol HCl 0 .STK-MED ONE 03/01 641 DC (BREVIBLOC) IV Lidocaine HCl 0 .STK-MED ONE 05/03 0641 DC (XYLOCAINE) .ROUTE Papaverine HCl 0 .STK-MED ONE 03/01 639 DC (PAPAVERINE HCL) IV Nitroglycerin/ 250 ML .STK-MED ONE 03/01 628 DC Dextrose IV (NITROGLYCERIN 50,000MCG/D5W 250ML) Lidocaine HCl 0 .[facility] ONE 03/01 0554 DC (XYLOCAINE IV) IV Metoprolol Tartrate 6.25 MG ONCE ONE 03/01 050 DC 03/01 (LOPRESSOR) PO 03/01 050 0556 Verapamil HCl 16.6 MG .Q24H ONE 03/01 050 CKD (ISOPTIN) IV 03/02 045 Heparin Sodium 1,660 UNIT (Porcine) (HEPARIN SODIUM) Sodium Bicarbonate 0.7 ML (SODIUM BICARBONATE) Nitroglycerin/ 8.3 MG Dextrose (NITROGLYCERIN 50MG/ D5W 250ML) Lactated Ringer's 949.5 ML (LACTATED RINGERS) Central Nervous System Agents Sig/Luke Start time Last Medication Dose Route Stop Time Status Admin Fentanyl Citrate 0 .[facility] ONE 03/01 639 DC (SUBLIMAZE) IV Midazolam HCl 0 .[facility] ONE 03/01 639 DC (VERSED) .ROUTE Propofol 20 ML .[facility] ONE 03/01 639 DC (DIPRIVAN 200MG/20ML IV INJECTION) Magnesium Sulfate 0 .[facility] ONE 03/01 627 DC (MAGNESIUM SULFATE) .ROUTE Magnesium Sulfate 0 .[facility] ONE 03/01 554 DC (MAGNESIUM SULFATE) IV Acetaminophen 0 .STK-MED ONE 03/01 544 DC 03/01 (TYLENOL EXTRA PO 0557 STRENGTH) Gabapentin 0 .STK-MED ONE 03/01 544 DC 03/01 (NEURONTIN) PO 0556 Acetaminophen 1,000 MG STAT STA 03/01 543 DC (TYLENOL EXTRA PO 03/01 544 STRENGTH) Gabapentin 200 MG STAT STA 03/01 0542 DC (NEURONTIN) PO 03/01 543 Electrolytic, Caloric, And Franklin Sig/Luke Start time Last Medication Dose Route Stop Time Status Admin Sodium Chloride 250 ML .K-MED ONE 03/01 0703 DC (SODIUM CHLORIDE IV 0.9%) Calcium Chloride 0 .STK-MED ONE 03/01 628 DC (CALCIUM CHLORIDE) IV Mannitol 500 ML .STK-MED ONE 03/01 555 DC (Mannitol 20%) IV Sodium Chloride 100 ML .STK-MED ONE 03/01 555 DC (SODIUM CHLORIDE IV 0.9%) Sodium Bicarbonate 0 .STK-MED ONE 03/01 0554 DC (SODIUM BICARBONATE) IV Hormones And Synthetic Substit Sig/Luke Start time Last Medication Dose Route Stop Time Status Admin Insulin Human Regular 100 ML .STK-MED ONE 03/01 629 DC (HumuLIN R 100 UNITS/ IV NS 100ML) Local Anesthetics (Parenteral) Sig/Luke Start time Last Medication Dose Route Stop Time Status Admin Ropivacaine 0 .ST-MED ONE 03/01 628 DC (NAROPIN 0.5% 150 MG/ .ROUTE 30mL) Allergies:Coded Allergies:No Known Allergies (02/27/24) Pt reports no significant: past surgical history, family history Review of SystemsConstitutional:Reports: fatigue, generalized weakness. Denies: chills. Skin:Denies: abrasion, bruising, contusion. Allergy/Immun:Denies: allergic reaction, anaphylaxis, hives. Eyes:Denies: redness, discharge, visual loss/blurred. ENT:Denies: ear drainage, ear ringing, earache. Respiratory:Denies: [place] (dyspnea on exertion), pneumonia, SOB. Cardiovascular:Denies: chest pain, palpitations. GI:Denies: abdominal pain, nausea, vomiting. Heme:Denies: adenopathy, bleeding, bruising, petechiae. Endocrine:Denies: cold intolerance, heat intolerance, polydipsia, polyphagia. Neuro:Denies: confusion, dizziness, headache, seizure, syncope. All systems rev neg: except as marked Physical ExamVS/I OVital Signs: Date Time Temp Pulse Resp B/P B/P Pulse O2 O2 Flow FiO2 Mean Ox Delivery Rate 03/01 0601 96 12 195/99 98 24 hour I O ending at 0700: 03/01 0700 05 1900 Intake Total Output Total Balance Patient 72.727 kg Weight Weight Stated/Reported Measurement Method PATIENT WEIGHT: Weight (lb): 160Weight (oz): 5.37Weight (kg): 72.727 General appearance: alert, awake, orientedHead/Eyes: atraumatic, clear cornea, EOMI, normocephalicENT: moist mucosal membranesNeck: full range of motion, non-tenderCardiovascular: regular rate rhythm, normal heart soundsRespiratory: clear to auscultation, no distress, aerating wellAbdomen/GI: soft, non-tenderGenitourinary: no flank painExtremities: moves all, normal range of motionMusculoskeletal: full range of motion, normal inspectionNeuro/VIBRATION ENGINEER: alert, oriented X 3Skin: dry, intactPsychiatry: normal affect, normal mood ResultsFindings/Data:Laboratory Tests: 03/01 03/01 03/01 0743 0741 0618 Blood Gas O2 Saturation (90 - 100 %) 100.0 ABG pH (7.35 - 7.45) 7.399 ABG pCO2 (35.0 - 45 mmHg) 38.6 ABG pO2 (80 - 100.0 mmHg) 585.2 *H ABG HCO3 (22.0 - 26.0 MMOL/L) 23.9 ABG Total CO2 25.1 ABG Base Excess (-4.0 - 4.0 MMOL/L) -0.8 ABG Hematocrit (37.5 - 50.7 %) 29 L ABG Hemoglobin (12.5 - 16.9 G/DL) 9.8 L Sodium (134 - 147 mmol/L) 132 L Potassium (3.4 - 5.0 mmol/L) 3.9 Chloride (100 - 108 mmol/L) 97 L Ionized Calcium (1.12 - 1.32 MMOL/L) 1.24 Lactic Acid (0.9 - 1.7 mmol/l) 0.4 L Chemistry POC Creatinine (0.8 - 1.3 mg/dL) 0.6 L POC Glucose (mg/dL) (70 - 110 MG/DL) 91 Triglycerides (40 - 150 mg/dL) 123 Cholesterol (<200 mg/dL) 167 LDL Cholesterol Measurd (0 - 100 mg/dL) 119.0 H HDL Cholesterol (40 - 60 MG/DL) 45.1 Cholesterol/HDL Ratio (3.43 - 4.97 RATIO) 3.70 Coagulation Activated Coag Time (74 - 137 SEC) 157 H Results: labs reviewed, vital signs reviewed, vital signs stable, cath.personally reviewed, rhythm personally rev'd, current med profile rev'd Treatment Prophylaxis Treatment ProphylaxisCVC/PICC documentation:The data below has been imported from nursing documentation. Any exceptions have been noted below under Provider comments. CVC/PICC insertion date/time: Provider comments on imported nursing data: [] Diagnosis, Assessment PlanConsultants: cardiologyPlan discussed with: patient Code Status/Resusc. DiscussionResuscitation discussion: Discussed with: patientCode status: full code Free Text DxA P NotesFree Text DxA P Notes:This is a pleasant 83-year-old gentleman with a past medical history of hypertension, hyperlipidemia, ulcerative colitis, bladder cancer status post chemo, former smoker but occasionally smokes cigars 1-2 a month. He was seen by his car worker helper Dr. Berger for increasing fatigue, denies chest pain, who had an abnormal stress test. Coronary angiogram was done that showed severe multivessel coronary artery disease. Outpatient echocardiogram was done wehowpu80%, trace mitral regurg, and trace tricuspid regurg.Patient presents today for multivessel coronary artery disease and for coronaryartery bypass graft surgery. Coronary angiogram films reviewed and patient will benefit from surgical revascularization. The operation, risks involved, calculated STS risk score, benefits, alternatives, and complications was discussed with the patient. The patient acknowledges understanding and is willing to proceed. All patient's questions were answered. Patient is scheduled for coronary artery bypass graft surgery today. Assessment/plan: 1. Multivessel coronary artery disease2. Hypertension3. Hyperlipidemia4. Ulcerative colitis Admit patient to CVICU postopMonitor heart rhythm and hemodynamicsStrict I's and O'sCardiology and critical care consulted. Quality: Gen Med Crit Care Current MedicationsCurrent medication review:I attest that the foregoing medication list in the medical record is true, accurate, and complete to the best of my knowledge. Advanced Care Plan 65 or OlderDiscussed with: patient at 0917 at 0731 RPT #:[id number] OF REPORTHPHistory and physical ycgwbmexlgq2997-76-23E98:34:00G.[id number] AVAvailable for patient euzsHLFOHRDLOJKRBD0899-68-98G09:17:28 [facility] 2024-02-27 16:06:00 [id number] a3U3Ht7M1OvFZ3ZFsxz0Rsm3m18QB 7V49qqzf+9jiGoozMDe9KaHEMHo2867-51-08O51:06:71185 1-[address] [place] [address] PATIENT NAME: GREGG RUIZ ADMIT DATE: ACCOUNT NO: [id number] ROOM NO: AGE: 83 REPORT TYPE: eELECTROCARDIOGRAM REPORT SEX: M ADMITTING PHYSICIAN:Jl Lopez MD ATTENDING PHYSICIAN:Jl Lopez MD Order:[id number] Reason : PRE OP Test Date/Time Stamp:MonFeb 27 2024 16:06:13Blood Pressure : / mmHGVent. Rate : 067 BPM Atrial Rate : 067 BPM P-R Int : 160 ms QRS Dur : 154 ms QT Int : 436 ms P-R-T Axes : 000 -07 059 degrees QTc Int : 460 ms Normal sinus rhythmRight bundle branch blockAbnormal ECGNo previous ECGs availableConfirmed by KERLINE DURAN MD [id number]) on 02/28/2024 12:28:21 PM Referred By: Jl Lopez Confirmed by:KERLINE DURAN MD at 1228 PATIENT NAME: GREGG RUIZ .[id number] AVAvailable for patient jsjnQNZEOTEUNANCPA3365-10-55A36:28:42 [facility]
[2024-03-10 12:45] LABS: Absolute Basophils 0.1 K/uL (0-0.5); Absolute Eosinophils 0.8 K/uL (0-0.5); Absolute Lymphocytes (CBC) 0.7 K/uL (0.7-4.9); Absolute Monocytes 1.2 K/uL (0.1-1.3); Absolute Neutrophil 5.5 K/uL (1.8-8.0); Eosinophils % 10.1 % (0-4.4); Hematocrit 24.5 % (39.6-49.0); Hemoglobin 8.1 g/dL (13.6-17.9); Lymphocytes % 8.2 % (15.3-44.8); MCH 32.1 pg (27.0-35.0); MCHC 33.1 g/dL (32.0-36.0); MPV 8.5 fL (7.6-11.3); Monocytes % 14.2 % (3.3-12.3); Neutrophils % 66.5 % (41.7-73.7); Platelets 274 thou/uL (152-406); RBC Red Blood Cell Count 2.52 M/uL (4.33-5.43); Red Cell Distribution Width 14.2 % (12.1-15.2)
[2024-03-10 13:03] LABS: Anion Gap 10.1 mEq/L (5.0-15.0); Potassium 4.1 mEq/L (3.5-5.1)
[2024-03-10 13:05] LABS: Troponin High Sensitivity 68.2 pg/mL (<58.9)
--- NOTE | 2024-03-10 13:14 | RAD REPORT ---
EXAM DESCRIPTION: TITIChest Single View03/10/2024 12:45 pm CLINICAL HISTORY: DYSPNEA COMPARISON: Chest Pa And Lat (2 Views) dated 02/20/2024; Chest Pa And Lat (2 Views) dated 01/10/2018; CHEST PA AND LAT 2 VIEW dated 07/26/2013 TECHNIQUE: Portable AP view of the chest. FINDINGS: Patchy left basilar airspace opacification with a small effusion. No pneumothorax or righ t-sided effusion. The cardiomediastinal contours are unremarkable. IMPRESSION: Patchy left basilar airspace opacification with small effusion, concerning for underlyin g pneumonia.
--- NOTE | 2024-03-10 13:27 | EDPHYS ---
Physician Documentation [facility] Name: Ayad Ruiz Age: 83 yrs Sex: Male : 1940 Arrival Date: 03/10/2024 Time: 12:02 Bed 6 Private MD: ED Physician Jean Carlos Molina HPI: 03/10 12:26 This 83 yrs old Male presents to ER via Unassigned with complaints of Wound ec2 Check. 12:26 Patient arrives today for shortness of breath as well as a wound check. Patient with ec2 recent CABG approximately 2 weeks ago. Patient reports that from one of his surgical sites he had a slight amount of bleeding from one of the right abdominal wounds. Patient reports no abdominal pain, no issues with nausea and vomiting. Patient does report shortness of breath that has been persistent since of recent surgery. Patient reports an occasional cough, states that the cough or shortness of breath is worse with laying flat. Patient states after the CABG she was immediately started on Lasix however discontinued this 1 week ago. No fevers or chills. Does have lower extremity swelling.. Historical: - Allergies: 12:10 No Known Allergies; aa5 - Home Meds: 12:57 amiodarone 200mg BID [Active]; aspirin 81mg daily [Active]; atorvastatin 40mg at aa5 bedtime [Active]; vitamin D [Active]; metoprolol 25mg BID [Active]; pantoprazole 40mg daily [Active]; sulfasalazine 500 mg Oral tablet 2 tabs 2 times per day [Active]; Plavix 75 mg Oral tablet daily [Active]; Iron 325mg daily [Active]; Zinc [Active]; metamucil [Active]; - PMHx: 12:10 Hypertension; ulcerative colitis; aa5 12:10 A-fib episode; aa5 - PSHx: 12:10 CABG; aa5 - Immunization history:: Adult Immunizations unknown. - Infectious Disease History:: Denies. - Social history:: Smoking status: Patient reports the use of cigarette tobacco products, cigars. ROS: 12:26 Constitutional: as per hpi ec2 Exam: 12:26 Constitutional: GEN: NAD Head: atraumatic Eyes: EOMI Ears: External ears are ec2 normal. CV: regular rate, 1+ bilateral lower extremity edema. LUNGS: no respiratory distress ABD: non-distended SKIN: Multiple well-healing wounds in the abdomen and chest wall. Right abdomen does have a wound that has a suture in place with scant amount of blood draining. Scant amount of erythema noted as well. MSK: no evidence of trauma NEURO: moves all extremities equally Vital Signs: 12:10 BP 131 / 71; Pulse 70; Resp 24 S; Temp 97.8(O); Pulse Ox 99% on R/A; Weight 73.94 kg aa5 (R); Height 5 ft. 10 in. (R); 13:03 BP 124 / 62; Pulse 66; Resp 22 S; Pulse Ox 98% on R/A; aa5 14:00 BP 125 / 63; Pulse 68; Resp 24 S; Pulse Ox 97% on R/A; aa5 15:00 BP 125 / 72; Pulse 64; Resp 16 S; Pulse Ox 98% on R/A; aa5 12:10 Body Mass Index 23.39 (73.94 kg, 177.8 cm) aa5 MDM: 12:11 Patient medically screened. ec2 12:48 ED course: EKG independently reviewed and interpreted by me, shows normal sinus rhythm, ec2 rate 67, no acute ST segment elevations, intervals are nonconcerning. . 13:17 Data reviewed: vital signs. ED course: Metabolic profile shows slight hyponatremia with ec2 a sodium of 130, CBC shows slight anemia with a hemoglobin of 8.1, BNP elevated at 2500, troponin elevated at 68. Chest x-ray shows patchy left basilar opacity with a small effusion possible pneumonia. Will give the patient antibiotics. Given the patient's recent CABG as as well as elevated BNP, will admit the patient for diuresis as well as pneumonia coverage. Given the patient's recent procedure at [facility], will transfer patient . 03/10 12:26 Order name: Basic Metabolic Panel; Complete Time: 13:14 ec2 03/10 12:26 Order name: CBC with Diff; Complete Time: 13:14 ec2 03/10 12:26 Order name: NT PRO-BNP; Complete Time: 13:14 ec2 03/10 12:26 Order name: Troponin HS; Complete Time: 13:14 ec2 03/10 13:32 Order name: Blood Culture Adult (2) ec2 03/10 12:26 Order name: XRAY Chest (1 view); Complete Time: 13:14 ec2 03/10 12:26 Order name: EKG; Complete Time: 12:26 ec2 03/10 12:26 Order name: Cardiac monitoring; Complete Time: 12:51 ec2 03/10 12:26 Order name: EKG - Nurse/Tech; Complete Time: 12:51 ec2 03/10 12:26 Order name: IV Saline Lock; Complete Time: 12:51 ec2 03/10 12:26 Order name: Labs collected and sent; Complete Time: 12:51 ec2 03/10 12:26 Order name: O2 Per Protocol; Complete Time: 12:51 ec2 03/10 12:26 Order name: O2 Sat Monitoring; Complete Time: 12:51 ec2 03/10 12:26 Order name: Wound Care; Complete Time: 14:08 ec2 Administered Medications: 13:30 Drug: Furosemide IVP 40 mg IVP once; give over 2 minutes Route: IVP; Site: right aa5 forearm; 13:40 Follow up: Response: No adverse reaction aa5 13:58 Drug: Rocephin IV 1 grams IV at calculated rate once; Given slow IV push per pharmacy aa5 instructions Route: IV; Rate: calculated rate; Site: right forearm; 14:07 Follow up: Response: No adverse reaction aa5 14:07 Follow up: Response: No adverse reaction; IV Status: Completed infusion aa5 14:07 Drug: AZITHromycin IVPB 500 mg IVPB once over 1 hrs; (mix in 250 mL NS) Route: IVPB; aa5 Infused Over: 1 hrs; Site: right forearm; 15:07 Follow up: Response: No adverse reaction; IV Status: Completed infusion aa5 Disposition Summary: 03/10/24 13:27 Transfer Ordered Notes: Transfer Location: Other Acute Care Facility ec2 Reason: Higher level of care ec2 Condition: Stable ec2 Problem: an acute exacerbation ec2 Symptoms: have improved ec2 Accepting Physician: JV ARCHER(03/10/24 15:20) aa5 Diagnosis - Volume Overload ec2 - Unspecified bacterial pneumonia ec2 Discharge Instructions: - Discharge Summary Sheet ec2 - Wound Dehiscence, [id number] ec2 Forms: - Medication Reconciliation Form ec2 - SBAR form ec2 Prescriptions: - Cephalexin 500 mg Oral capsule - take 1 capsule ORAL route every 6 hours for 5 days; 20 capsule; Refills: 0, ec2 Product Selection Permitted Signatures: Dispatcher [employer] Maryanne Winchester RN RN aa5 Jean Carlos Molina MD MD ec2 Corrections: (The following items were deleted from the chart) 14:08 12:26 Dermabond ordered. ec2 aa5 15:20 13:27 [facility] ec2 aa5
--- NOTE | 2024-03-10 13:27 | ER ---
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 12:10 Coronavirus screen: shortness of breath. Ebola Screen: [facility] denies travel to an [facility] in the 21 days before illness onset. Initial Sepsis Screen: Does the patient meet any 2 criteria? No. Patient's initial sepsis screen is negative. Does the patient have a suspected source of infection? No. Patient's initial sepsis screen is negative. Risk Assessment: Do you want to hurt yourself or someone else? Patient reports no desire to harm self or others. Onset of symptoms was February 2024. 12:10 Acuity: CHANDLER 2 aa5 12:10 Method Of Arrival: Wheelchair aa5 Historical: - Allergies: 12:10 No Known Allergies; aa5 - Home Meds: 12:57 amiodarone 200mg BID [Active]; aspirin 81mg daily [Active]; atorvastatin 40mg at aa5 bedtime [Active]; vitamin D [Active]; metoprolol 25mg BID [Active]; pantoprazole 40mg daily [Active]; sulfasalazine 500 mg Oral tablet 2 tabs 2 times per day [Active]; Plavix 75 mg Oral tablet daily [Active]; Iron 325mg daily [Active]; Zinc [Active]; metamucil [Active]; - PMHx: 12:10 Hypertension; ulcerative colitis; aa5 12:10 A-fib episode; aa5 - PSHx: 12:10 CABG; aa5 - Immunization history:: Adult Immunizations unknown. - Infectious Disease History:: Denies. - Social history:: Smoking status: Patient reports the use of cigarette tobacco products, cigars. Screenin:10 [facility] ED Fall Risk Assessment (Adult) History of falling in the last 3 months, aa5 including since admission No falls in past 3 months (0 pts) Confusion or Disorientation No (0 pts) Intoxicated or Sedated No (0 pts) Impaired Gait No (0 pts) Mobility Assist Device Used No (0 pt) Altered Elimination No (0 pt) Score/Fall Risk Level 0 - 2 = Low Risk Oriented to surroundings, Maintained a safe environment, Educated pt \T\ family on fall prevention, incl call for assistance when getting out of bed. Abuse screen: Denies threats or abuse. Nutritional screening: No deficits noted. Tuberculosis screening: No symptoms or risk factors identified. Assessment: 12:10 General: Appears comfortable, Behavior is calm, cooperative. Pain: Denies pain. Neuro: aa5 Level of Consciousness is awake, alert, obeys commands, Oriented to person, place, time, situation. Cardiovascular: Heart tones S1 S2 present Edema 1+ pitting edema noted Rhythm is regular. Respiratory: Reports shortness of breath on exertion since 2 days ago cough that is non-productive, Airway is patent Respiratory effort is even, unlabored, Respiratory pattern is regular, symmetrical, tachypnea Breath sounds are clear bilaterally. GI: Abdomen is round non-distended, Bowel sounds present X 4 quads. Abd is soft and non tender X 4 quads. Patient currently denies nausea, vomiting. : No signs and/or symptoms were reported regarding the genitourinary system. EENT: No signs and/or symptoms were reported regarding the EENT system. Derm: Skin is pink, warm \T\ dry. Incision to midsternal area healing well, no s/s of infection noted to site. 2 small incisions noted to upper abdomen with sutures in place noted, redness to site, one of the incisions to abdomen with mild bleeding noted at times. Musculoskeletal: Range of motion: intact in all extremities. 12:10 Reassessment: Pt's family at bedside. . aa5 13:30 Reassessment: Patient is alert, oriented x 3, equal unlabored respirations, skin aa5 warm/dry/pink. 13:58 Reassessment: Patient is alert, oriented x 3, equal unlabored respirations, skin aa5 warm/dry/pink. 14:07 Reassessment: Patient is alert, oriented x 3, equal unlabored respirations, skin aa5 warm/dry/pink. Extra warm blankets provided for comfort. . 14:14 Reassessment: Attempted to call report to [facility], no answer. . aa5 14:30 Reassessment: Pt aware of waiting for transport to [facility]. . aa5 15:07 Reassessment: Patient is alert, oriented x 3, equal unlabored respirations, skin aa5 warm/dry/pink. Vital Signs: 12:10 BP 131 / 71; Pulse 70; Resp 24 S; Temp 97.8(O); Pulse Ox 99% on R/A; Weight 73.94 kg aa5 (R); Height 5 ft. 10 in. (R); 13:03 BP 124 / 62; Pulse 66; Resp 22 S; Pulse Ox 98% on R/A; aa5 14:00 BP 125 / 63; Pulse 68; Resp 24 S; Pulse Ox 97% on R/A; aa5 15:00 BP 125 / 72; Pulse 64; Resp 16 S; Pulse Ox 98% on R/A; aa5 12:10 Body Mass Index 23.39 (73.94 kg, 177.8 cm) aa5 ED Course: 12:07 Patient arrived in ED. iw 12:10 Jean Carlos Molina MD is Attending Physician. ec2 12:10 Arm band placed on Patient placed in an exam room, on a stretcher. aa5 12:10 Patient has correct armband on for positive identification. Placed in gown. Bed in low aa5 position. Call light in reach. Side rails up X2. Adult w/ patient. Client placed on continuous cardiac and pulse oximetry monitoring. NIBP monitoring applied. sheet combining operator on. Pulse ox on. NIBP on. 12:13 Maryanne Alvarado, FÁTIMA is Primary Nurse. aa5 12:30 Initial lab(s) drawn, by me, sent to lab. Inserted saline lock: 20 gauge in right aa5 forearm, using aseptic technique. Blood collected. 12:45 EKG done, by ED staff, reviewed by Jean Carlos Molina MD. aa5 12:47 XRAY Chest (1 view) In Process Unspecified. EDMS 12:55 Triage completed. aa5 13:40 First set of blood cultures drawn by me. aa5 13:55 Second set of blood cultures drawn by me. aa5 13:57 \T\[id number] initiated a transfer with Shae from the [facility] transfer center/ Connected with jennifer Velez Rn so she could verify the information given by me was correct. / \[id number] administrative approval given by Shae Bellamy Rn/ [facility]/ Dr Anastasiya Sanchez has accepted the patient in transfer without conference with Dr. Molina/ Report to be called to [phone]. 15:15 Patient transferred, IV remains in place. aa5 15:15 No provider procedures requiring assistance completed. aa5 Administered Medications: 13:30 Drug: Furosemide IVP 40 mg IVP once; give over 2 minutes Route: IVP; Site: right aa5 forearm; 13:40 Follow up: Response: No adverse reaction aa5 13:58 Drug: Rocephin IV 1 grams IV at calculated rate once; Given slow IV push per pharmacy aa5 instructions Route: IV; Rate: calculated rate; Site: right forearm; 14:07 Follow up: Response: No adverse reaction aa5 14:07 Follow up: Response: No adverse reaction; IV Status: Completed infusion aa5 14:07 Drug: AZITHromycin IVPB 500 mg IVPB once over 1 hrs; (mix in 250 mL NS) Route: IVPB; aa5 Infused Over: 1 hrs; Site: right forearm; 15:07 Follow up: Response: No adverse reaction; IV Status: Completed infusion aa5 Medication: 12:57 VIS not applicable for this client. aa5 Output: 14:10 Urine: 200ml (Voided); Total: 200ml. aa5 15:15 Urine: 550ml (Voided); Total: 750ml. aa5 Outcome: 13:27 ER care complete, transfer ordered by . ec2 15:15 Transferred by ground EMS Transfer form completed. X-rays sent w/ patient. Note: Pt aa5 transferred to [facility], report was given to Mike at [facility]. Report was given to [facility]. 15:15 Condition: stable 15:15 Instructed on the need for transfer, Demonstrated understanding of instructions, 15:20 Patient left the ED. aa5 Signatures: Dispatcher [employer] Katie Carter RN RN iw Calderon, Audri, RN RN aa5 Anitha Silva Edwin, MD MD ec2 Corrections: (The following items were deleted from the chart) 17:10 16:00 Urine 550, (Voided), output 550, aa5 aa5 19:48 15:30 Reassessment: Pt aware of waiting for transport to [facility]. . aa5 aa5
[2024-03-10] MEDS ORDERED: CEFTRIAXONE 1000 MG/VIAL ONE (13:30)
[2024-03-10] MEDS ORDERED: FUROSEMIDE 40 MG/4 ML VIAL ONE (13:31)
[2024-03-10] MEDS ORDERED: NA CHLORIDE 0.9% 250 ML ONE (13:31)
[2024-03-10] MEDS ORDERED: AZITHROMYCIN 500 MG INJ IVPB ONE (13:31)
[2024-03-10 15:26] VITALS: TEMP 97.8
[2024-03-10 15:51] VITALS: BP 125/63; O2SAT 97
--- NOTE | 2024-03-11 13:19 | EKG ---
Test Date: 2024-03-10 Test Time: 12:44:59 Steward/Stewardess Wine: LUCIANA MEASUREMENT RESULTS: Intervals: Rate: 67 [place]: 186 QRSD: 148 QT: 454 QTc: 479 [place]: P: 31 [place]: 186 QRS: -52 T: 32 INTERPRETIVE STATEMENTS: Normal sinus rhythm Right bundle branch block Left anterior fascicular block Bifascicular block Septal infarct, age undetermined Abnormal ECG Compared to ECG 01/10/2018 09:21:53 Left anterior fascicular block now present Bifascicular block now present Myocardial infarct finding now present Electronically Signed On 03-11-24 13:17:18 CDT by Missael Berger
--- NOTE | 2024-03-11 13:19 | EKG ---
Test Date: 2024-03-10 Test Time: 12:45:19 [employer] Superintendent: LUCIANA MEASUREMENT RESULTS: Intervals: Rate: 67 [place]: 184 QRSD: 152 QT: 450 QTc: 475 [place]: P: 38 [place]: 184 QRS: -48 T: 20 INTERPRETIVE STATEMENTS: Normal sinus rhythm Right bundle branch block Left anterior fascicular block Bifascicular block Septal infarct, age undetermined Abnormal ECG Compared to ECG 03/10/2024 12:44:59 No significant changes Electronically Signed On 03-11-24 13:17:16 CDT by Missael Berger
== END 2024-03-10 15:20 ==
LOC: ER 12:02
DX: E87.70 Fluid overload, unspecified (principal); J15.9 Unspecified bacterial pneumonia; I10 Essential (primary) hypertension; Z95.1 Presence of aortocoronary bypass graft; Z98.890 Other specified postprocedural states; I48.91 Unspecified atrial fibrillation; Z79.01 Long term (current) use of anticoagulants; Z72.0 Tobacco use; Z79.82 Long term (current) use of aspirin
CPT/HCPCS: 96365; 93005 ×2; 87040 ×2; 85025; 80048; 36415; 84484; 83880; 71045; 96375; 99285; J1940; J7050; J0696

== ENCOUNTER 2024-03-25 08:54 | Emergency (ER) | payer OTHER ==
--- OUTSIDE RECORDS SUMMARY | 2024-03-25 09:00 | XMS REPORT | Continuity of Care Document ---
Author Name Unknown Address [address] [facility] [address] [place] [address] [facility] Address [address] [facility] 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 MEDICARE ADV HMO [id number] 2021 00:00:00 MEDICARE NOVITAS [id number] 2007 00:00:00 [facility] Problems Condition Name Condition Details Condition Category Status Onset Date Resolution Date Last Treatment Date Treating Clinician Comments Source [id number] CIS (carcinoma in situ of bladder) Problem [facility] [id number] Pain in left hip Problem [facility] [id number] Primary osteoarthr itis of left hip Problem [facility] [id number] Trochanter ic bursitis of left hip Problem [facility] [id number] Urothelial carcinoma with low risk of recurrence Problem [facility] [id number] BPH loc w urin obs/LUTS Problem [facility] [id number] Incomplete emptying of bladder Problem [facility] Impotence of organic origin Erectile dysfunctio n, unspecifie d erectile dysfunctio n type Problem [facility] Ulcerative colitis Ulcerative colitis, unspecifie d with other complicati on Problem [facility] Enzyme level in serum specimen above reference range Abnormal serum enzyme level, unspecifie d Problem [facility] Benign neoplasm of colon Colon polyps Problem [facility] Lichen planus Lichen planus Problem [facility] Mixed hyperlipid emia Mixed hyperlipid emia Problem [facility] Anemia Anemia Problem [facility] Hypertensi on Hypertensi on Problem [facility] Macrocytos is Macrocytos is Problem [facility] Diverticul osis of colon Diverticul osis of colon Problem [facility] Bladder cancer Bladder cancer Problem [facility] Benign prostatic hypertroph y without outflow obstructio n Benign prostatic hyperplasi a without lower urinary tract symptoms Problem [facility] [id number] History of bladder cancer Problem [facility] [id number] Pain of right hip joint Problem [facility] [id number] Right sided sciatica Problem [facility] Allergies, Adverse Reactions, Alerts Allergy Name Allergy Type Status Severity Reaction(s) Onset Date Inactive Date Treating Clinician Comments Source No Known Allergie s DA Active U 02-26 00:00: 00 [facility] NO KNOWN ALLERGIE S Drug Class Active [facility] Social History Social Habit Start Date Stop Date Quantity Comments Source Exposure to SARS-CoV-2 (event) Yes [facility] History of Tobacco Use [facility] Sex Assigned At [facility] Smoking Status Start Date Stop Date Source Unknown if ever smoked [facility] Former Smoker 2024-01-03 00:00:00 2024-01-03 00:00:00 [facility] Medications Ordered Medication Name Filled Medication Name Start Date Stop Date Current Medication? Ordering Clinician Indication Dosage Frequency Signature (SIG) Comments Components Source Atorvastati n Calcium 10 MG Atorvastati n Calcium 10 MG 0 04-28 00:00: 00 No 1{table t} QD [...] Lidocaine Lidocaine 04-27 00:00: 00 No 5mL [facility] Kenalog (Triamcinol one) Kenalog (Triamcinol one) 04-27 00:00: 00 No 2mL [facility] Lidocaine Lidocaine 04-27 00:00: 00 No 5mL [facility] Kenalog (Triamcinol one) Kenalog (Triamcinol one) 04-27 00:00: 00 No 2mL [facility] Lidocaine Lidocaine 04-27 00:00: 00 No 5mL [facility] Kenalog (Triamcinol one) Kenalog (Triamcinol one) 04-27 00:00: 00 No 2mL [facility] Lidocaine Lidocaine 04-27 00:00: 00 No 5mL [facility] Kenalog (Triamcinol one) Kenalog (Triamcinol one) 04-27 00:00: 00 No 2mL [facility] Lidocaine Lidocaine 04-27 00:00: 00 No 5mL [facility] Kenalog (Triamcinol one) Kenalog (Triamcinol one) 04-27 00:00: 00 No 2mL [facility] Lidocaine Lidocaine 04-27 00:00: 00 No 5mL [facility] Kenalog (Triamcinol one) Kenalog (Triamcinol one) 04-27 00:00: 00 No 2mL [facility] Lidocaine Lidocaine 04-27 00:00: 00 No 5mL [facility] Kenalog (Triamcinol one) Kenalog (Triamcinol one) 04-27 00:00: 00 No 2mL [facility] Lidocaine Lidocaine 04-27 00:00: 00 No 5mL [facility] Kenalog (Triamcinol one) Kenalog (Triamcinol one) 04-27 00:00: 00 No 2mL [facility] Lidocaine Lidocaine 04-27 00:00: 00 No 5mL [facility] Kenalog (Triamcinol one) Kenalog (Triamcinol one) 04-27 00:00: 00 No 2mL [facility] Clobetasol Propionate 0.05 % Clobetasol Propionate [...] Rosenbaum 1 applicatio n to affected area [facility] Nystatin Nystatin 04-03 00:00: 00 05-03 00:00 :00 No Na Rosenbaum 4 ml [facility] Fluconazole Fluconazole 04-05 00:00: 00 10-25 00:00 :00 No Na Rosenbaum 1 tablet [facility] Atorvastati n Calcium Atorvastati n Calcium 03-23 00:00: 00 Yes Na Rosenbaum 1 tablet [facility] Aspirin Aspirin Yes Na Rosenbaum 1 tablet [facility] Lisinopril- Hydrochloro thiazide Lisinopril- Hydrochloro thiazide Yes Na Rosenbaum 1 tablet [facility] Amlodipine Besylate Amlodipine Besylate Yes Na Rosenbaum 1 tablet [facility] Atorvastati n Calcium Atorvastati n Calcium Yes Na Rosenbaum 1 tablet Commo n [facility] Lisinopril Lisinopril Yes Na Rosenbaum 1 tablet [facility] Amlodipine Besylate Amlodipine Besylate Yes Na Rosenbaum 1 tablet [facility] Clobetasol Propionate Clobetasol Propionate Yes Na Rosenbaum APPLY TO THE AFFECTED AREA TWICE DAILY FOR 90 DAYS DIRECTED [facility] Clobetasol Propionate 0.05 % Clobetasol Propionate [...] table t} QD Zinc 30 MG Nystatin 227865 UNIT/GM Nystatin 959521 UNIT/GM No 1{appli cation} BID Nystatin 952180 UNIT/GM Multivitami n Adults 50+ - Multivitami [...] table t} QD Zinc 30 MG Nystatin 132488 UNIT/GM Nystatin 705713 UNIT/GM No 1{appli cation} BID Nystatin 275576 UNIT/GM Multivitami n Adults 50+ - Multivitami [...] table t} QD Zinc 30 MG Nystatin 749164 UNIT/GM Nystatin 787911 UNIT/GM No 1{appli cation} BID Nystatin 890616 UNIT/GM Multivitami n Adults 50+ - Multivitami [...] table t} QD Zinc 30 MG Nystatin 079479 UNIT/GM Nystatin 000452 UNIT/GM No 1{appli cation} BID Nystatin 430057 UNIT/GM Multivitami n Adults 50+ - Multivitami [...] table t} QD Zinc 30 MG Nystatin 962128 UNIT/GM Nystatin 957515 UNIT/GM No 1{appli cation} BID Nystatin 027962 UNIT/GM Multivitami n Adults 50+ - Multivitami [...] table t} QD Zinc 30 MG Nystatin 867892 UNIT/GM Nystatin 956047 UNIT/GM No 1{appli cation} BID Nystatin 477321 UNIT/GM Multivitami n Adults 50+ - Multivitami [...] table t} QD Zinc 30 MG Nystatin 217657 UNIT/GM Nystatin 899638 UNIT/GM No 1{appli cation} BID Nystatin 182084 UNIT/GM Multivitami n Adults 50+ - Multivitami [...] 1{table t} QD Aspirin 81 MG Nystatin 832290 UNIT/GM Nystatin 234160 UNIT/GM No 1{appli cation} BID Nystatin 843830 UNIT/GM Clobetasol Propionate 0.05 % Clobetasol Propionate [...] 1{table t} QD Aspirin 81 MG Nystatin 388432 UNIT/GM Nystatin 568549 UNIT/GM No 1{appli cation} BID Nystatin 547223 UNIT/GM amLODIPine Besylate 5 MG amLODIPine Besylate 5 MG No 1{table t} amLODIPine Besylate 5 MG amLODIPine Besylate 2.5 MG amLODIPine Besylate 2.5 MG No 1{table t} amLODIPine Besylate 2.5 MG Sulfasalazi ne Sulfasalazi ne 12-30 00:00 :00 No Na Rosenbaum take 3 tablets by mouth twice daily [facility] Vital Signs Vital Name Observation Time Observation Value Comments S ource height 2024-01-03 15:00:00 70.00 [in_i] Com [facility] weight 2024-01-03 15:00:00 162 [lb_av] Comm on [facility] temperature 2024-01-03 15:00:00 97.3 [degF] Com [facility] bmi 2024-01-03 15:00:00 23.24 kg/m2 Comm on [facility] oximetry 2024-01-03 15:00:00 96 % Commo n [facility] respiratory rate 2024-01-03 15:00:00 16 /min [facility] blood pressure systolic 2024-01-03 15:00:00 132 mm[Hg] [facility] blood pressure diastolic 2024-01-03 15:00:00 78 mm[Hg] Common [facility] height 2024-01-03 15:00:00 70.00 [in_i] Com [facility] weight 2024-01-03 15:00:00 162 [lb_av] Comm on [facility] temperature 2024-01-03 15:00:00 97.3 [degF] Com mon [facility] bmi 2024-01-03 15:00:00 23.24 kg/m2 Comm on [facility] oximetry 2024-01-03 15:00:00 96 % Commo n [facility] respiratory rate 2024-01-03 15:00:00 16 /min [facility] blood pressure systolic 2024-01-03 15:00:00 132 mm[Hg] Common [facility] blood pressure diastolic 2024-01-03 15:00:00 78 mm[Hg] [facility] height 2023-08-08 13:20:00 70.00 [in_i] Com [facility] weight 2023-08-08 13:20:00 160.4 [facility] 13:20:00 97.2 [degF] Com [facility] bmi 2023-08-08 13:20:00 23.01 kg/m2 Comm on [facility] oximetry 2023-08-08 13:20:00 98 % Commo n [facility] respiratory rate 2023-08-08 13:20:00 16 /min Common [facility] blood pressure systolic 2023-08-08 13:20:00 132 mm[Hg] Common [facility] blood pressure diastolic 2023-08-08 13:20:00 68 mm[Hg] Common [facility] height 2023-05-10 08:00:00 70.00 [in_i] Com [facility] weight 2023-05-10 08:00:00 161 [lb_av] Comm on [facility] temperature 2023-05-10 08:00:00 97.7 [degF] Com [facility] bmi 2023-05-10 08:00:00 23.1 kg/m2 Commo n [facility] oximetry 2023-05-10 08:00:00 97 % Commo n [facility] respiratory rate 2023-05-10 08:00:00 18 /min Common [facility] blood pressure systolic 2023-05-10 08:00:00 157 mm[Hg] [facility] blood pressure diastolic 2023-05-10 08:00:00 73 mm[Hg] Common [facility] height 2023-04-28 14:20:00 70.00 [in_i] Com [facility] weight 2023-04-28 14:20:00 161 [lb_av] Comm on [facility] temperature 2023-04-28 14:20:00 97.1 [degF] Com [facility] bmi 2023-04-28 14:20:00 23.1 kg/m2 Commo n [facility] oximetry 2023-04-28 14:20:00 97 % Commo n [facility] respiratory rate 2023-04-28 14:20:00 16 /min Common [facility] blood pressure systolic 2023-04-28 14:20:00 132 mm[Hg] [facility] blood pressure diastolic 2023-04-28 14:20:00 74 mm[Hg] Common [facility] height 2023-04-28 14:00:00 70.00 [in_i] Com [facility] weight 2023-04-28 14:00:00 161 [lb_av] Comm on [facility] temperature 2023-04-28 14:00:00 97.1 [degF] Com [facility] bmi 2023-04-28 14:00:00 23.1 kg/m2 Commo n [facility] oximetry 2023-04-28 14:00:00 97 % Commo n [facility] respiratory rate 2023-04-28 14:00:00 16 /min Common [facility] blood pressure systolic 2023-04-28 14:00:00 132 mm[Hg] Common [facility] blood pressure diastolic 2023-04-28 14:00:00 74 mm[Hg] Common [facility] height 2023-04-27 10:30:00 70.00 [in_i] Com [facility] weight 2023-04-27 10:30:00 160 [lb_av] Comm on [facility] temperature 2023-04-27 10:30:00 98.2 [degF] Com [facility] bmi 2023-04-27 10:30:00 22.96 kg/m2 Comm on [facility] blood pressure systolic 2023-04-27 10:30:00 130 mm[Hg] Common [facility] blood pressure diastolic 2023-04-27 10:30:00 80 mm[Hg] [facility] height 2023-02-22 13:20:00 70.00 [in_i] Com [facility] weight 2023-02-22 13:20:00 160 [lb_av] Comm on [facility] temperature 2023-02-22 13:20:00 98.0 [degF] Com [facility] bmi 2023-02-22 13:20:00 22.96 kg/m2 Comm on [facility] oximetry 2023-02-22 13:20:00 97 % Commo n [facility] respiratory rate 2023-02-22 13:20:00 16 /min Common [facility] blood pressure systolic 2023-02-22 13:20:00 128 mm[Hg] [facility] blood pressure diastolic 2023-02-22 13:20:00 77 mm[Hg] [facility] height 2022-09-30 08:40:00 70.00 [in_i] Com [facility] weight 2022-09-30 08:40:00 165.0 [lb_av] Co [facility] temperature 2022-09-30 08:40:00 97.7 [degF] Com [facility] bmi 2022-09-30 08:40:00 23.67 kg/m2 Comm on [facility] oximetry 2022-09-30 08:40:00 99 % Commo n [facility] respiratory rate 2022-09-30 08:40:00 16 /min [facility] blood pressure systolic 2022-09-30 08:40:00 130 mm[Hg] [facility] blood pressure diastolic 2022-09-30 08:40:00 68 mm[Hg] [facility] height 2022-05-23 08:00:00 70.00 [in_i] Com [facility] weight 2022-05-23 08:00:00 163.1 [lb_av] Co [facility] bmi 2022-05-23 08:00:00 23.4 kg/m2 Commo n [facility] blood pressure systolic 2022-05-23 08:00:00 139 mm[Hg] [facility] blood pressure diastolic 2022-05-23 08:00:00 80 mm[Hg] Common [facility] height 2022-05-11 08:30:00 70.00 [in_i] Com [facility] weight 2022-05-11 08:30:00 160 [lb_av] Comm on [facility] temperature 2022-05-11 08:30:00 98.4 [degF] Com [facility] bmi 2022-05-11 08:30:00 22.96 kg/m2 Comm on [facility] oximetry 2022-05-11 08:30:00 98 % Commo n [facility] respiratory rate 2022-05-11 08:30:00 16 /min Common [facility] blood pressure systolic 2022-05-11 08:30:00 144 mm[Hg] [facility] blood pressure diastolic 2022-05-11 08:30:00 75 mm[Hg] Common [facility] height 2022-04-01 08:00:00 70.00 [in_i] Com [facility] weight 2022-04-01 08:00:00 161 [lb_av] Comm on [facility] temperature 2022-04-01 08:00:00 97.4 [degF] Com [facility] bmi 2022-04-01 08:00:00 23.1 kg/m2 Commo n [facility] oximetry 2022-04-01 08:00:00 98 % Commo n [facility] respiratory rate 2022-04-01 08:00:00 16 /min [facility] blood pressure systolic 2022-04-01 08:00:00 132 mm[Hg] [facility] blood pressure diastolic 2022-04-01 08:00:00 74 mm[Hg] Common [facility] height 2021-10-01 08:00:00 70.00 [in_i] Com [facility] weight 2021-10-01 08:00:00 165.2 [lb_av] Co mmon [facility] temperature 2021-10-01 08:00:00 97.2 [degF] Com [facility] bmi 2021-10-01 08:00:00 23.7 kg/m2 Commo n [facility] oximetry 2021-10-01 08:00:00 96 % Commo n [facility] respiratory rate 2021-10-01 08:00:00 18 /min [facility] blood pressure systolic 2021-10-01 08:00:00 134 mm[Hg] Common [facility] blood pressure diastolic 2021-10-01 08:00:00 70 mm[Hg] [facility] Procedures Procedure Date / Time Performed Performing Clinicia n Source [id number] 2024-03-01 00:00:00 [facility]AAB.01 [facility] [id number] 2024-03-01 00:00:00 [facility]AAB.01 [facility] [id number] 2024-03-01 00:00:00 [facility]01 [facility] [id number] 2024-03-01 00:00:00 [facility]01 [facility] [id number] 2024-03-01 00:00:00 [facility]AA[facility].01 [facility] [id number] 2024-03-01 00:00:00 [facility].01 [facility] [id number] 2024-03-01 00:00:00 [facility]AA[facility].01 [facility] [id number] 2024-03-01 00:00:00 [facility].01 [facility] [id number] 2024-03-01 00:00:00 [facility]AA[facility].01 [facility] [id number] 2024-03-01 00:00:00 [facility].01 [facility] Encounters Start Date/Time End Date/Time Encounter Type Admission Type Attending Clinicians Care Facility Care Department Encounter ID Source 2024-01-03 15:28:00 Outpatient Ally Reyes [facility] [id number] [facility] 2023-08-08 09:10:00 Outpatient Giulia Reyesi [facility] [id number] [facility] 2023-08-07 16:01:00 Outpatient ReyesAlly [facility] [id number] [facility] 2023-04-28 09:02:00 Outpatient ReyesAlly [facility] [id number] [facility] 2023-04-27 13:46:00 Outpatient ReyesAlly [facility] [id number] [facility] 2023-04-20 10:19:01 Outpatient ReyesAlly [facility] [id number] [facility] 2023-02-20 09:16:00 Outpatient ReyesAlly [facility] [id number] [facility] 2023-02-06 14:16:00 Outpatient ReyesAlly [facility] [id number] [facility] 2022-12-22 16:15:01 Outpatient DomoniqueRosy [facility] [id number] [facility] 2022-12-01 14:11:00 Outpatient DomoniqueRosy [facility] [id number] [facility] 2022-05-24 09:13:01 Outpatient Rosenbaum, Na [facility] [id number] [facility] 2022-05-23 10:19:00 Outpatient Rosenbaum, Na [facility] [id number] [facility] 2022-05-18 12:26:00 Outpatient Rosenbaum, Na [facility] [id number] [facility] 2022-05-16 15:27:00 Outpatient Rosenbaum, Na [facility] [id number] [facility] 2022-04-04 10:28:00 Outpatient RosenbaumDora suh [facility]LMLC [facility] [id number] [facility] 2022-03-30 08:21:00 Outpatient Dora Rosenbaum [facility] [id number] [facility] 2021-11-24 13:12:22 Outpatient Dora Rosenbaum [facility] [id number] [facility] 2021-11-24 13:10:43 Outpatient Dora Rosenbaum [facility] [id number] [facility] 2021-11-24 13:09:40 Outpatient Dora Rosenbaum STKENNYLC STL[facility] [id number] [facility] 2021-11-24 13:04:54 Outpatient Dora Rosenbaum [facility] [id number] [facility] 2021-11-24 12:49:42 Outpatient Dora Rosenbaum [facility] [id number] [facility] 2021-11-24 12:09:52 Outpatient Dora Rosenbaum [facility] [id number] [facility] 2021-11-24 11:24:33 Outpatient Dora Rosenbaum [facility] [id number] [facility] 2021-11-24 11:17:12 Outpatient Dora Rosenbaum [facility] [id number] [facility] 2024-03-10 16:24:00 2024-03-11 18:19:00 Inpatient GITA Lopez Jl HCACL INTE.02 [id number] [facility] 2024-03-01 05:28:00 2024-03-06 12:45:00 Inpatient Jose Pinzonnan HCACL INTE.02 [id number] [facility] 2024-01-03 00:00:00 2024-01-03 00:00:00 OFFICE VISIT ESTAB PT LEVEL 4 [facility] STL[facility] [id number] [facility] 2024-01-03 00:00:00 2024-01-03 00:00:00 SUB ANNUAL MCR WELLNESS VISIT STLMLC STLMLC [id number] [facility] 2023-08-08 00:00:00 2023-08-08 00:00:00 OFFICE VISIT ESTAB PT LEVEL 4 [facility] ST[facility] [id number] [facility] 2023-05-17 00:00:00 2023-05-17 00:00:00 (TEL) STLMLC STL[facility] [id number] [facility] 2023-05-10 00:00:00 2023-05-10 00:00:00 OFFICE VISIT ESTAB PT LEVEL 3 [facility]C ST[facility]C [id number] [facility] 2023-04-28 00:00:00 2023-04-28 00:00:00 OFFICE VISIT ESTAB PT LEVEL 4 [facility] ST[facility] [id number] [facility] 2023-04-28 00:00:00 2023-04-28 00:00:00 SUB ANNUAL MCR WELLNESS VISIT [facility]LMLC STLMLC [id number] [facility] 2023-04-27 00:00:00 2023-04-27 00:00:00 OFFICE VISIT ESTAB PT LEVEL 3 [facility] ST[facility] [id number] [facility] 2023-02-22 00:00:00 2023-02-22 00:00:00 OFFICE VISIT ESTAB PT LEVEL 4 [facility] ST[facility]C [id number] [facility] 2022-12-08 00:00:00 2022-12-08 00:00:00 (TEL) STLMLC STL[facility]C [id number] [facility] 2022-09-30 00:00:00 2022-09-30 00:00:00 OFFICE VISIT ESTAB PT LEVEL 4 [facility]C STL[facility]C [id number] [facility] 2022-05-23 00:00:00 2022-05-23 00:00:00 OFFICE VISIT NEW PT LEVEL 3 [facility] ST[facility] [id number] [facility] 2022-05-11 00:00:00 2022-05-11 00:00:00 (PROC) Procedure [facility]C ST[facility] [id number] [facility] 2022-04-01 00:00:00 2022-04-01 00:00:00 OFFICE VISIT ESTAB PT LEVEL 4 [facility]C STL[facility]C [id number] [facility] 2021-11-02 15:45:00 2021-11-02 16:00:00 Laboratory Only Only, Ang Db Test Bobby [facility] D[facility]IANA[facility] [id number] [facility] 2021-11-02 15:45:00 2021-11-02 15:42:27 Outpatient R BOBBY MONI [facility] [id number] [facility] 2021-10-01 00:00:00 2021-10-01 00:00:00 OFFICE VISIT ESTAB PT LEVEL 4 [facility]C [facility] [id number] [facility] 2021-07-24 00:00:00 2021-07-24 00:00:00 (TEL) STLMLC STLMLC [id number] [facility] 2021-05-12 00:00:00 2021-05-12 00:00:00 Outpatient STLMLC STLMLC [id number] [facility] 2021-05-12 00:00:00 2021-05-12 00:00:00 Outpatient STLMLC STLMLC [id number] [facility] 2021-04-02 00:00:00 2021-04-02 00:00:00 Outpatient STLMLC STLMLC [id number] [facility] 2021-02-04 00:00:00 2021-02-04 00:00:00 Outpatient STLMLC STLMLC [id number] [facility] 2020-10-02 00:00:00 2020-10-02 00:00:00 Outpatient STLMLC STLC [id number] [facility] 2020-10-02 00:00:00 2020-10-02 00:00:00 Outpatient STLMLC STLC [id number] [facility] 2020-05-20 13:53:00 2020-05-20 13:53:[address] [facility] [id number] [facility] 2020-04-22 14:52:00 2020-04-22 14:52:[address] [facility] [id number] [facility] 2020-04-03 08:40:00 2020-04-03 08:40:[address] [facility] [facility] [id number] [facility] 2019-10-04 08:20:00 2019-10-04 08:20:[address] [facility] [facility] [id number] [facility] 2019-04-05 16:20:00 2019-04-05 16:20:[address] [facility] [facility] [id number] [facility] 2019-02-25 15:17:00 2019-02-25 15:17:[address] [facility] [id number] [facility] 2018-07-25 14:00:00 2018-07-25 14:00:00 [facility] [id number] [facility] 2018-03-23 08:15:00 2018-03-23 08:15:[address] [facility] [id number] [facility] Results Test Description Test Time Test Comments Results Result Co mments Source [id number] 16:01:00* Test Item Value Reference Range Interpretation Comme nts MAGNESIUM (test code = MAG) 1.93 mg/dL 1.6-2.6 N NT PRO-BRAIN NATRIURETIC [id number] 16:01:00* Test Item Value Reference Range Interpretation Comme [facility] NT PRO-BRAIN NATRIURETIC PEP TI (test code = PROBNP) 1448 PG/ML 0-100 H NT PRO-BRAIN NATRIURETIC [id number] 16:00:00* Test Item Value Reference Range Interpretation Comme [facility] NT PRO-BRAIN NATRIURETIC PEP TI (test code = PROBNP) 1448 PG/ML 0-100 H PROTHROMBIN [id number] 11:51:00* Test Item Value Reference Range Interpretation Comme [facility] PROTHROMBIN TIME PATIENT (test code = PTP) 15.2 SECONDS 9.3-12.9 H INTERNATIONAL NORMAL RATIO (test [...] Infarction (to prevent recurrent infarct). THROMBOPLASTIN TIME [id number] 11:51:00* Test Item Value Reference [facility] PARTIAL (test code = PTT) 29.2 Seconds 25.0-39.5 N Therapeutic Rang e: 50.4 - 88.3 Seconds Effective 02/12/2019 [id number] 11:51:00* Test Item Value Reference Range Interpretation Comme [facility] D-DIMER (test code = DDIMER) 04115 ng/mlFEU <=500 HH Critical result called to ROSALVA LARIOS/Roslyn CHAIDEZ at 1147 03/11/24Nurse read back result and tech confirmed it's correct? YESTHROMBOSIS AND/OR PULMONARY EMBOLISM AND THE CLINICAL CUT- OFF VALUE FOR EXCLUSION (500 ng/mL FEU) OF THESE CONDITIONSIS VALIDATED BY THE CHILD AND ADOLESCENT THERAPIST OF THE METHOD. A NEGATIVE D-DIMER RESULT WHEN COMBINED WITH A CLINICALASSESSMENT OF LOW PRETEST PROBABILITY HAS BEEN SHOWN TO HAVEA HIGH NEGATIVE PREDICTIVE VALUE OF DVT OR PE. D-DIMER VALUES >500 ng/mL FEU ARE NOT DIAGNOSTIC FOR DVT, PEor DIC WITHOUT OTHER CONFIRMATORY TESTS AND APPROPRIATECLINICAL EUALUATIONS. CBC W/AUTO [id number] 11:33:00* Test Item Value Reference Range Interpretation Comme nts WHITE BLOOD CELL (test code = WBC) 10.2 x10 3/uL 4.5-11.0 N RED BLOOD CELL (test code = RBC) 3.04 x10 6/uL 4.00-5.60 L HEMOGLOBIN (test code = HGB) 9.7 g/dL 12.5-16.9 L HEMATOCRIT (test code = HCT) 29.4 % 37.5-50.7 L MEAN CELL VOLUME (test code = MCV) 96.7 fL 81.0-99.0 N MEAN CELL HGB (test code = MCH) 31.9 pg 27.0-33.0 N MEAN CELL HGB CONCETRATION (test code = MCHC) 33.0 g/dL 33.0-37.0 N RED CELL DISTRIBUTION WIDTH CV (test code = RDW) 13.8 % 11.5-14.5 N RED CELL DISTRIBUTION WIDTH SD (test code = RDW-SD) 48.7 fL 37.0-54.0 N PLATELET COUNT (test code = PLT) 372 x10 3/uL 150-400 N MEAN PLATELET VOLUME (test c ode = MPV) 10.1 fL 7.0-9.0 H NEUTROPHIL % (test code = NT%) 68.2 % 56.0-77.0 N IMMATURE GRANULOCYTE % (test code = IG%) 1.4 % 0.0-2.0 N LYMPHOCYTE % (test code = LY%) 8.3 % 14.0-32.0 L MONOCYTE % (test code = MO%) 10.7 % 4.8-9.0 H EOSINOPHIL % (test code = EO%) 10.4 % 0.3-3.7 H BASOPHIL % (test code = BA%) 1.0 % 0.0-2.0 N NUCLEATED RBC % (test code = NRBC%) 0.0 % 0-0 N NEUTROPHIL # (test code = NT#) 6.92 x10 3/uL 2.0-7.6 N IMMATURE GRANULOCYTE # (test code = IG#) 0.14 x10 3/uL 0.00-0.03 H LYMPHOCYTE # (test code = LY#) 0.84 x10 3/uL 1.0-3.8 L MONOCYTE # (test code = MO#) 1.09 x10 3/uL 0.1-0.8 H EOSINOPHIL # (test code = EO#) 1.06 x10 3/uL 0.0-0.2 H BASOPHIL # (test code = BA#) 0.10 x10 3/uL 0.0-0.2 N NUCLEATED RBC # (test code = NRBC#) 0.00 x10 3/uL 0.0-0.1 N BASIC METABOLIC [id number] 03:28:00* Test Item Value Reference Range Interpretation Comme nts SODIUM (test code = NA) 132 mEq/L 134-147 L POTASSIUM (test code = K) 4.0 mEq/L 3.4-5.0 N CHLORIDE (test code = CL) 102 mEq/L 100-108 N CARBON DIOXIDE (test code = CO2) 24 mEq/l 21-33 N ANION GAP (test code = GAP) 11 0-20 N GLUCOSE (test code = GLU) 101 mg/dL 77-141 N BLOOD UREA NITROGEN (test code = BUN) 38 mg/dL 7-25 H GLOMERULAR FILTRATION RATE (test [...] code = CA) 8.1 mg/dL 8.0-10.5 N [id number] 03:28:00* Test Item Value Reference Range Interpretation Comme nts MAGNESIUM (test code = MAG) 1.77 mg/dL 1.6-2.6 N CBC W/AUTO [id number] 03:06:00* Test Item Value Reference Range Interpretation [...] = NRBC#) 0.00 x10 3/uL 0.0-0.1 N [id number] 12:55:00* Test Item Value Reference Range Interpretation Comments SURGICAL (test code = SR) RUN DATE: 03/05/24 [place] [facility] PAGE 1 RUN TIME: 1256 Specimen Inquiry RUN USER: INTERFACE PATIENT: GREGG RUIZ LOC: TonyaCVN1 U #: [id number] AGE/SX: 83/M [place] [facility] [place] DR: Jl Lopez MD : 42 BED: 1 DIS: STATUS: ADM IN TLOC: SPEC #: [id number] RECD: 03/04/24 STATUS: GWENDOLYN RICARDO #: [id number] JOE: 03/01/24- SUBM DR: Jl Lopez MD ENTERED: 03/04/24 SP TYPE: SURGICAL OTHR DR: No Primary or Family Physician Pa Merrill MD, Obiora I MDORDERED: [id number], ANATOMIC SPEC COPIES TO: No Primary or Family Physician Pa Merrill MD [address] [place] [address] Jl Lopez MD [address] [place] [address]. [address] [place], [place] [address] [place] [address] [place] [address] PROCEDURES: [id number] (03/04/24) TISSUES: A. ATRIUM - LEFT ATRIAL [...] adipose submitted (A). Technical component performed at [facility], CONTINUED ON NEXT PAGE RUN DATE: 03/05/24 [facility] - LAB PAGE 2 RUN TIME: 1256 Specimen Inquiry RUN USER: INTERFACE SPEC #: [id number] PATIENT: GREGG RUIZ #[id number] (Continued) - GROSS DESCRIPTION (Continued) [address] [place] [id number] Unless gross only, the diagnosis is based [...] CLINICAL INFORMATION CAD Signed SIGNATURE ON FILE Clovis Berry 03/05/24 1255 END OF REPORT BASIC METABOLIC [id number] 03:13:00* Test Item Value Reference Range Interpretation [...] code = CA) 8.4 mg/dL 8.0-10.5 N [id number] 03:13:00* Test Item Value Reference Range Interpretation Comme nts MAGNESIUM (test code = MAG) 1.90 mg/dL 1.6-2.6 N CBC W/AUTO [id number] 01:45:00* Test Item Value Reference Range Interpretation [...] 0.00 x10 3/uL 0.0-0.1 N BASIC METABOLIC [id number] 04:10:00* Test Item Value Reference Range Interpretation [...] mg/dL 8.0-10.5 N COMMENTS: POD #1HEPATIC FUNCTION [id number] 04:10:00* Test Item Value Reference Range Interpretation [...] = ALKP) 108 IUnit/L 20-125 COMMENTS: POD #[id number] 04:10:00* Test Item Value Reference Range Interpretation Comme nts MAGNESIUM (test code = MAG) 1.97 mg/dL 1.6-2.6 N COMMENTS: POD #1CBC W/AUTO [id number] 03:39:00* Test Item Value Reference Range Interpretation [...] 0.00 x10 3/uL 0.0-0.1 N BASIC METABOLIC [id number] 03:45:00* Test Item Value Reference Range Interpretation [...] mg/dL 8.0-10.5 N COMMENTS: POD #1HEPATIC FUNCTION [id number] 03:45:00* Test Item Value Reference Range Interpretation [...] e = BILIND) 0.40 MG/DL COMMENTS: POD #[id number] 03:45:00* Test Item Value Reference Range Interpretation Comme nts MAGNESIUM (test code = MAG) 2.10 mg/dL 1.6-2.6 N COMMENTS: POD #1CBC W/AUTO [id number] 03:15:00* Test Item Value Reference Range Interpretation [...] NRBC#) 0.00 x10 3/uL 0.0-0.1 N HGB [id number] 19:54:00* Test Item Value Reference Range Interpretation Comme nts HEMOGLOBIN (test code = HGB) 9.4 g/dL 12.5-16.9 L HEMATOCRIT (test code = HCT) 27.3 % 37.5-50.7 L BASIC METABOLIC [id number] 16:40:00* Test Item Value Reference Range Interpretation [...] code = CA) 8.1 mg/dL 8.0-10.5 N [id number] 16:40:00* Test Item Value Reference Range Interpretation Comme nts MAGNESIUM (test code = MAG) 2.26 mg/dL 1.6-2.6 POC ARTERIAL BLOOD [id number] 12:21:00* Test Item Value Reference Range Interpretation Comme nts POC ARTERIAL BLOOD GAS PH (t est code = POCPHA) 7.467 7.35-7.45 H POC ARTERIAL BLOOD GAS PCO2 (test code = WWMKOC0R) 31.7 mmHg 35.0-45 L POC TCO2 ARTERIAL (test code = POCTCO2) 23.9 POC ARTERIAL BLOOD GAS PO2 ( test code = DFEGA3F) 86.4 mmHg 80-100.0 N POC HCO3 ARTERIAL (test code = HDINRT1Q) 22.9 MMOL/L 22.0-26.0 N POC BASE EXCESS (test code = POCBEA) -0.8 MMOL/L -4.0-4.0 N POC O2 SATURATION (test code = POCO2S) 97.3 % 90-100 N ABG DELIVERY (test code = TRUNG) Cannula ABG TEMPERATURE (test code = TEMPA) 99 F ABG SITE (test code = SITEA) Art Line BASIC METABOLIC [id number] 12:21:00* Test Item Value Reference Range Interpretation [...] = POCGLU) 132 MG/DL 70-110 H HEMOGLOBIN [id number] 12:21:00* Test Item Value Reference Range Interpretation Comme nts HEMOGLOBIN ABG (test code = HGB/ABG) 6.4 G/DL 12.5-16.9 L [id number] 12:21:00* Test Item Value Reference Range Interpretation Comme nts HEMATOCRIT (test code = HCT/ABG) 19 % 37.5-50.7 L POC LACTIC [id number] 12:21:00* Test Item Value Reference Range Interpretation Comme nts POC LACTIC ACID (test code = POCLAC) 0.9 mmol/l 0.9-1.7 N CBC W/AUTO [id number] 06:29:00* Test Item Value Reference Range Interpretation [...] NRBC#) 0.00 x10 3/uL 0.0-0.1 N PROTHROMBIN [id number] 04:34:00* Test Item Value Reference Range Interpretation [...] Infarction (to prevent recurrent infarct). CBC W/AUTO [id number] 04:28:00* Test Item Value Reference Range Interpretation [...] 0.00 x10 3/uL 0.0-0.1 N BASIC METABOLIC [id number] 03:34:00* Test Item Value Reference Range Interpretation [...] mg/dL 8.0-10.5 N COMMENTS: POD #1HEPATIC FUNCTION [id number] 03:34:00* Test Item Value Reference Range Interpretation [...] = ALKP) 31 IUnit/L 20-125 COMMENTS: POD #[id number] 03:34:00* Test Item Value Reference Range Interpretation Comme nts MAGNESIUM (test code = MAG) 1.91 mg/dL 1.6-2.6 COMMENTS: POD #1CBC W/AUTO [id number] 03:12:00* Test Item Value Reference Range Interpretation [...] NRBC#) 0.00 x10 3/uL 0.0-0.1 N GLUCOSE [id number] 00:09:00* Test Item Value Reference Range Interpretation Comme [facility] GLUCOSE BEDSIDE (test code = GLUBED) 113 MG/DL 70-110 H Performed by cer tifSooligan pump operator at [facility] GLUCOSE [id number] 22:18:00* Test Item Value Reference Range Interpretation Comme [facility] GLUCOSE BEDSIDE (test code = GLUBED) 120 MG/DL 70-110 H Performed by cer tified pump operator at [facility] POC ARTERIAL BLOOD [id number] 20:24:00* Test Item Value Reference Range Interpretation Comme [facility] POC ARTERIAL BLOOD GAS PH (t est code = POCPHA) 7.412 7.35-7.45 N POC ARTERIAL BLOOD GAS PCO2 (test code = DQKBHV6H) 34.9 mmHg 35.0-45 L POC TCO2 ARTERIAL (test code = POCTCO2) 23.3 POC ARTERIAL BLOOD GAS PO2 ( test code = ENBNU0G) 125.5 mmHg 80-100.0 H POC HCO3 ARTERIAL (test code = LWCHMH1A) 22.2 MMOL/L 22.0-26.0 N POC BASE EXCESS (test code = POCBEA) -2.4 MMOL/L -4.0-4.0 N POC O2 SATURATION (test code = POCO2S) 98.9 % 90-100 N ABG DELIVERY (test code = TRUNG) Cannula ABG TEMPERATURE (test code = TEMPA) 99 F ABG SITE (test code = SITEA) Art Line BASIC METABOLIC [id number] 20:24:00* Test Item Value Reference Range Interpretation [...] = POCGLU) 120 MG/DL 70-110 H HEMOGLOBIN [id number] 20:24:00* Test Item Value Reference Range Interpretation Comme nts HEMOGLOBIN ABG (test code = HGB/ABG) 6.7 G/DL 12.5-16.9 L [id number] 20:24:00* Test Item Value Reference Range Interpretation Comme nts HEMATOCRIT (test code = HCT/ABG) 20 % 37.5-50.7 L POC LACTIC [id number] 20:24:00* Test Item Value Reference Range Interpretation Comme nts POC LACTIC ACID (test code = POCLAC) 0.8 mmol/l 0.9-1.7 L BASIC METABOLIC [id number] 12:49:00* Test Item Value Reference Range Interpretation [...] mg/dL 8.0-10.5 N COMMENTS: On arrivalComment: On [id number] 12:49:00* Test Item Value Reference Range Interpretation Comme nts MAGNESIUM (test code = MAG) 2.33 mg/dL 1.6-2.6 N COMMENTS: On arrivalComment: On arrivalPROTHROMBIN [id number] 12:38:00* Test Item Value Reference Range Interpretation [...] prevent recurrent infarct). COMMENTS: On arrivalTHROMBOPLASTIN TIME [id number] 12:38:00* Test Item Value Reference Range Interpretation Comme nts THROMBOPLASTIN TIME PARTIAL (test code = PTT) 34.6 Seconds 25.0-39.5 N Therapeutic Rang e: 50.4 - 88.3 Seconds Effective 02/12/2019 COMMENTS: [facility] [id number] 12:28:00* Test Item Value Reference Range Interpretation [...] 0.00 x10 3/uL 0.0-0.1 N COMMENTS: [facility] [id number] 12:17:00* Test Item Value Reference Range Interpretation Comme nts POC ARTERIAL BLOOD GAS PH (t est code = POCPHA) 7.401 7.35-7.45 N POC ARTERIAL BLOOD GAS PCO2 (test code = XPWGBA3M) 38.9 mmHg 35.0-45 N POC TCO2 ARTERIAL (test code = POCTCO2) 25.5 POC ARTERIAL BLOOD GAS PO2 ( test code = QRNXX3V) 103.4 mmHg 80-100.0 H POC HCO3 ARTERIAL (test code = SCCTSN7J) 24.3 MMOL/L 22.0-26.0 N POC BASE EXCESS (test code = POCBEA) -0.6 MMOL/L -4.0-4.0 N POC O2 SATURATION (test code = POCO2S) 98.1 % 90-100 N FIO2 (test code = FIO2A) 60.0 % PaO2/FiO2 (test code = JKK2OQD3) 172.30 mm/Hg ABG DELIVERY (test code = TRUNG) simple mask ABG TEMPERATURE (test code = TEMPA) 98 F ABG SITE (test code = SITEA) Art Line ALCIRA'S TEST (test code = ALLENS) N/A BASIC METABOLIC [id number] 12:17:00* Test Item Value Reference Range Interpretation [...] = POCGLU) 133 MG/DL 70-110 H HEMOGLOBIN [id number] 12:17:00* Test Item Value Reference Range Interpretation Comme nts HEMOGLOBIN ABG (test code = HGB/ABG) 7.3 G/DL 12.5-16.9 L [id number] 12:17:00* Test Item Value Reference Range Interpretation Comme nts HEMATOCRIT (test code = HCT/ABG) 22 % 37.5-50.7 L POC ARTERIAL BLOOD [id number] 11:52:00* Test Item Value Reference Range Interpretation Comme nts POC ARTERIAL BLOOD GAS PH (t est code = POCPHA) 7.437 7.35-7.45 N POC ARTERIAL BLOOD GAS PCO2 (test code = ZCFJCQ0Q) 34.7 mmHg 35.0-45 L POC TCO2 ARTERIAL (test code = POCTCO2) 24.4 POC ARTERIAL BLOOD GAS PO2 ( test code = MOOKS9O) 373.4 mmHg 80-100.0 HH POC HCO3 ARTERIAL (test code = KQHZDO3S) 23.4 MMOL/L 22.0-26.0 N POC BASE EXCESS (test code = POCBEA) -0.6 MMOL/L -4.0-4.0 N POC O2 SATURATION (test code = POCO2S) 100.0 % 90-100 N BASIC METABOLIC [id number] 11:52:00* Test Item Value Reference Range Interpretation [...] = POCGLU) 119 MG/DL 70-110 H HEMOGLOBIN [id number] 11:52:00* Test Item Value Reference Range Interpretation Comme nts HEMOGLOBIN ABG (test code = HGB/ABG) 8.2 G/DL 12.5-16.9 L [id number] 11:52:00* Test Item Value Reference Range Interpretation Comme nts HEMATOCRIT (test code = HCT/ABG) 24 % 37.5-50.7 L POC LACTIC [id number] 11:52:00* Test Item Value Reference Range Interpretation Comme nts POC LACTIC ACID (test code = POCLAC) 0.6 mmol/l 0.9-1.7 L POC ARTERIAL BLOOD [id number] 11:12:00* Test Item Value Reference Range Interpretation Comme nts POC ARTERIAL BLOOD GAS PH (t est code = POCPHA) 7.378 7.35-7.45 N POC ARTERIAL BLOOD GAS PCO2 (test code = ASKLUY4F) 36.8 mmHg 35.0-45 N POC TCO2 ARTERIAL (test code = POCTCO2) 22.8 POC ARTERIAL BLOOD GAS PO2 ( test code = EWMWC0U) 327.8 mmHg 80-100.0 HH POC HCO3 ARTERIAL (test code = IRFQZL2K) 21.6 MMOL/L 22.0-26.0 L POC BASE EXCESS (test code = POCBEA) -3.2 MMOL/L -4.0-4.0 N POC O2 SATURATION (test code = POCO2S) 99.9 % 90-100 N BASIC METABOLIC [id number] 11:12:00* Test Item Value Reference Range Interpretation [...] = POCGLU) 134 MG/DL 70-110 H HEMOGLOBIN [id number] 11:12:00* Test Item Value Reference Range Interpretation Comme nts HEMOGLOBIN ABG (test code = HGB/ABG) 7.7 G/DL 12.5-16.9 L [id number] 11:12:00* Test Item Value Reference Range Interpretation Comme nts HEMATOCRIT (test code = HCT/ABG) 23 % 37.5-50.7 L POC LACTIC [id number] 11:12:00* Test Item Value Reference Range Interpretation Comme nts POC LACTIC ACID (test code = POCLAC) 1.5 mmol/l 0.9-1.7 N [id number] 11:11:00* Test Item Value Reference Range Interpretation Comme nts ACT-ISTAT (test code = ACTI) 136 SEC 74-137 N Performed by cer tified pump operator at [facility] [id number] 10:45:00* Test Item Value Reference Range Interpretation Comme nts ACT-ISTAT (test code = ACTI) 682 SEC 74-137 H Performed by cer tified pump operator at [facility] POC ARTERIAL BLOOD [id number] 10:35:00* Test Item Value Reference Range Interpretation Comme nts POC ARTERIAL BLOOD GAS PH (t est code = POCPHA) 7.343 7.35-7.45 L POC ARTERIAL BLOOD GAS PCO2 (test code = EYDUTJ9Q) 46.4 mmHg 35.0-45 H POC TCO2 ARTERIAL (test code = POCTCO2) 26.7 POC ARTERIAL BLOOD GAS PO2 ( test code = SUHUG2M) 443.8 mmHg 80-100.0 HH POC HCO3 ARTERIAL (test code = KWDMOX3D) 25.2 MMOL/L 22.0-26.0 N POC BASE EXCESS (test code = POCBEA) -0.6 MMOL/L -4.0-4.0 N POC O2 SATURATION (test code = POCO2S) 100.0 % 90-100 N BASIC METABOLIC [id number] 10:35:00* Test Item Value Reference Range Interpretation [...] = POCGLU) 113 MG/DL 70-110 H HEMOGLOBIN [id number] 10:35:00* Test Item Value Reference Range Interpretation Comme nts HEMOGLOBIN ABG (test code = HGB/ABG) 7.8 G/DL 12.5-16.9 L [id number] 10:35:00* Test Item Value Reference Range Interpretation Comme nts HEMATOCRIT (test code = HCT/ABG) 23 % 37.5-50.7 L POC LACTIC [id number] 10:35:00* Test Item Value Reference Range Interpretation Comme nts POC LACTIC ACID (test code = POCLAC) 0.6 mmol/l 0.9-1.7 L [id number] 10:23:00* Test Item Value Reference Range Interpretation Comme nts ACT-ISTAT (test code = ACTI) 796 SEC 74-137 H Performed by cer tified pump operator at [facility] POC ARTERIAL BLOOD [id number] 10:12:00* Test Item Value Reference Range Interpretation Comme nts POC ARTERIAL BLOOD GAS PH (t est code = POCPHA) 7.380 7.35-7.45 N POC ARTERIAL BLOOD GAS PCO2 (test code = JJCUCZ0G) 44.6 mmHg 35.0-45 N POC TCO2 ARTERIAL (test code = POCTCO2) 27.8 POC ARTERIAL BLOOD GAS PO2 ( test code = NZPUJ2K) 632.0 mmHg 80-100.0 HH POC HCO3 ARTERIAL (test code = SAWYBE6L) 26.4 MMOL/L 22.0-26.0 H POC BASE EXCESS (test code = POCBEA) 1.1 MMOL/L -4.0-4.0 N POC O2 SATURATION (test code = POCO2S) 100.0 % 90-100 N BASIC METABOLIC [id number] 10:12:00* Test Item Value Reference Range Interpretation [...] = POCGLU) 86 MG/DL 70-110 N HEMOGLOBIN [id number] 10:12:00* Test Item Value Reference Range Interpretation Comme nts HEMOGLOBIN ABG (test code = HGB/ABG) 7.4 G/DL 12.5-16.9 L [id number] 10:12:00* Test Item Value Reference Range Interpretation Comme nts HEMATOCRIT (test code = HCT/ABG) 22 % 37.5-50.7 L POC LACTIC [id number] 10:12:00* Test Item Value Reference Range Interpretation Comme nts POC LACTIC ACID (test code = POCLAC) < 0.3 mmol/l 0.9-1.7 L [id number] 09:50:00* Test Item Value Reference Range Interpretation Comme nts ACT-ISTAT (test code = ACTI) 596 SEC 74-137 H Performed by cer tified pump operator at [facility] [id number] 09:42:00* Test Item Value Reference Range Interpretation Comme nts HEMATOCRIT (test code = HCT/ABG) 27 % 37.5-50.7 L POC LACTIC [id number] 09:42:00* Test Item Value Reference Range Interpretation Comme nts POC LACTIC ACID (test code = POCLAC) < 0.3 mmol/l 0.9-1.7 L POC ARTERIAL BLOOD [id number] 09:42:00* Test Item Value Reference Range Interpretation Comme nts POC ARTERIAL BLOOD GAS PH (t est code = POCPHA) 7.268 7.35-7.45 LL POC ARTERIAL BLOOD GAS PCO2 (test code = QOBOFY6V) 52.1 mmHg 35.0-45 HH POC TCO2 ARTERIAL (test code = POCTCO2) 25.4 POC ARTERIAL BLOOD GAS PO2 ( test code = NWIQT5R) 545.3 mmHg 80-100.0 HH POC HCO3 ARTERIAL (test code = OMHSXO1L) 23.8 MMOL/L 22.0-26.0 N POC BASE EXCESS (test code = POCBEA) -3.3 MMOL/L -4.0-4.0 N POC O2 SATURATION (test code = POCO2S) 100.0 % 90-100 N BASIC METABOLIC [id number] 09:42:00* Test Item Value Reference Range Interpretation [...] = POCGLU) 91 MG/DL 70-110 N HEMOGLOBIN [id number] 09:42:00* Test Item Value Reference Range Interpretation Comme nts HEMOGLOBIN ABG (test code = HGB/ABG) 9.0 G/DL 12.5-16.9 L [id number] 07:52:00* Test Item Value Reference Range Interpretation Comme nts ACT-ISTAT (test code = ACTI) 157 SEC 74-137 H Performed by cer tified pump operator at [facility] POC ARTERIAL BLOOD [id number] 07:44:00* Test Item Value Reference Range Interpretation Comme nts POC ARTERIAL BLOOD GAS PH (t est code = POCPHA) 7.399 7.35-7.45 N POC ARTERIAL BLOOD GAS PCO2 (test code = WFBVCU1T) 38.6 mmHg 35.0-45 N POC TCO2 ARTERIAL (test code = POCTCO2) 25.1 POC ARTERIAL BLOOD GAS PO2 ( test code = LATES2Y) 585.2 mmHg 80-100.0 HH POC HCO3 ARTERIAL (test code = VMMVUR8E) 23.9 MMOL/L 22.0-26.0 N POC BASE EXCESS (test code = POCBEA) -0.8 MMOL/L -4.0-4.0 N POC O2 SATURATION (test code = POCO2S) 100.0 % 90-100 N BASIC METABOLIC [id number] 07:44:00* Test Item Value Reference Range Interpretation [...] = POCGLU) 91 MG/DL 70-110 N HEMOGLOBIN [id number] 07:44:00* Test Item Value Reference Range Interpretation Comme nts HEMOGLOBIN ABG (test code = HGB/ABG) 9.8 G/DL 12.5-16.9 L [id number] 07:44:00* Test Item Value Reference Range Interpretation Comme nts HEMATOCRIT (test code = HCT/ABG) 29 % 37.5-50.7 L POC LACTIC [id number] 07:44:00* Test Item Value Reference Range Interpretation [...] = LDL) 119.0 mg/dL 0-100 H <100 [id number] 0-129 NEAR OPTIMAL/ABOVE [id number] HIGH>QE=691 VERY HIGH*Guidelines provided by the National Cholesterol EducationProgram Adult Treatment Panel III COVID 19 Asymptomatic IH [id number] 17:16:00* Test Item Value Reference Range Interpretation [...] moderate, high or waivedcomplexity tests. COMPREHENSIVE METABOLIC [id number] 16:46:00* Test Item Value Reference Range Interpretation [...] ALKP) 73 IUnit/L 20-125 N B-TYPE NATRIURETIC [id number] 16:42:00* Test Item Value Reference Range Interpretation Comme [facility] B-TYPE NATRIURETIC PEPTIDE ( test code = BNP) 13.0 PG/ML 0-100 N [id number] 16:39:00* Test Item Value Reference Range Interpretation Comme nts HGBA1C% (test code = HGBA1C%) 4.1 %A1C 4.8-6.0 L PROTHROMBIN [id number] 16:34:00* Test Item Value Reference Range Interpretation [...] Infarction (to prevent recurrent infarct). THROMBOPLASTIN TIME [id number] 16:34:00* Test Item Value Reference Range Interpretation Comme nts THROMBOPLASTIN TIME PARTIAL (test code = PTT) 35.2 Seconds 25.0-39.5 N Therapeutic Rang e: 50.4 - 88.3 Seconds Effective 02/12/2019 UA RFLX MICR CULT IF [id number] 16:30:00* Test Item Value Reference Range Interpretation [...] for culture: Dysuria/FrequencySpecimen Description: CLEAN CATCHCBC W/AUTO [id number] 16:22:00* Test Item Value Reference Range Interpretation [...] 0.0-0.1 N Notes Date/Time Note Provider Source 2024-03-11 17:58:00 [id number] [id number]-98-78P40:58:54530 3-[address] [place] [address] PATIENT NAME: GREGG RUIZ ADMIT DATE: 03/10/24ACCOUNT NO: [id number] ROOM NO: JIMBO AGE: 83 REPORT TYPE: eECHOCARDIOGRAM REPORT SEX: M ADMITTING PHYSICIAN:Jl Lopez MD ATTENDING PHYSICIAN:Jl Lopez MD *[place], [place] [address]Phone: Nkc: [phone] Echocardiogram Patient: Nicki Ruiztudy Date: 4BP: 131 / 60URN: [id number]: [id number]#: [id number]: 2Age: 83Gender: MHeight: 71 in / 180.3 cmWeight: 160 lb / 72.6 kgBMI/BSA: 22.3 kg/m 2 / 1.91 m 2*Ordering Physician: * Shae Knapp *Interpreting Physician: * Pa Merrill MD*Movie Theater Usher: * Kristi Mills [facility] Indications: SOB, Recent CABG. Study data: Transthoracic echocardiogram. Procedure: A transthoracicechocardiogram was performed. Images were obtained using a [employer] cardiacultrasound machine. Image quality was good. Complete 2D, complete spectralDoppler, and color Doppler. Location: Emergency department. Patient status: Inpatient. Patient room number: 29. Study status: Stat. Heart rate: 69bpm. Findings Left ventricle: The cavity size is normal. Wall thickness is mildlyincreased. Systolic function is normal. The estimated ejection fraction is55-60%. Wall motion is normal; there are no regional wall motionPATIENT NAME: GREGG RUIZ abnormalities. Grade II diastolic dysfunction.Right ventricle: The cavity size is normal. Systolic function is low normal.Left atrium: The atrium is normal in size.Right atrium: The atrium is normal in size.Aorta:Aortic root: The root is normal-sized.Aortic valve: The valve is structurally normal. The valve is trileaflet.There is no evidence of stenosis. There is no regurgitation.Mitral valve: The valve is structurally normal. There is no evidence ofstenosis. There is no regurgitation.Tricuspid valve: The valve is structurally normal. There is no regurgitation.Pulmonic valve: The valve is structurally normal. There is mildregurgitation.Pericardium: There is no pericardial effusion.Pulmonary arteries: The main pulmonary artery is normal-sized.Systemic veins:Inferior vena cava: The IVC is normal-sized. Respirophasic diameter changesare in the normal range (>= 50%). Measurements Left ventricle Value Ref 03/05/2024 OSMAN, LAX 4.1 cm 4.2 - 5.8 4.2 ESD, LAX 2.8 cm 2.5 - 4.0 3.0 FS, LAX 31 % 25 - 43 28 OSMAN major ax, A2C 8.6 cm --------- ESD major ax, A2C 5.8 cm --------- IVS, ED 1.1 cm 0.6 - 1.0 1.1 PW, ED 1.1 cm 0.6 - 1.0 1.0 IVS/PW, ED 1 --------- 1.12 EF 59 % 52 - 72 55 E', lat jl, TDI 10.6 cm/sec >=10.0 E/e', lat jl, TDI 6 <=13 E', med jl, TDI 8.8 cm/sec >=7.0 E/e', med jl, TDI 7 --------- E', avg, TDI 9.7 cm/sec --------- E/e', avg, TDI 7 <=14 LVOT Value Ref 03/05/2024 Diam, S 1.95 cm --------- Area 3.0 cm 2 --------- Peak mario, S 0.66 m/sec --------- Mean mario, S 0.49 m/sec --------- VTI, S 13.2 cm --------- Peak grad, S 2 mm Hg --------- Mean grad, S 1 mm Hg --------- SV 40 ml --------- Qs 2.53 L/min --------- Qs/bsa 1.3 L/(min-m 2) --------- SV/bsa 21 ml/m 2 --------- Right ventricle Value Ref 03/05/2024 OSMAN, LAX 3.2 cm --------- 2.6PATIENT NAME: GREGG RUIZ TAPSE, MM 1.6 cm >=1.7 Left atrium Value Ref 03/05/2024 AP dim, ES 3.0 cm 3.0 - 4.0 3.2 Vol/bsa, S 12 ml/m 2 16 34 Vol/bsa, ES, 1-p A4C 10 ml/m 2 12 - 37 Vol, ES, 2-p 23 ml --------- Vol/bsa, ES, 2-p 12 ml/m 2 16 34 Vol/bsa, ES, A/L 10 ml/m 2 16 34 Aortic valve Value Ref 03/05/2024 Peak v, S 1.2 m/sec --------- Mean v, S 0.8 m/sec --------- VTI, S 20.1 cm --------- Mean grad, S 3 mm Hg --------- Peak grad, S 5.7 mm Hg --------- LVOT/AV, VTI ratio 0.66 --------- ESTEPHANIA, VTI 1.96 cm 2 --------- LVOT/AV, Vpeak ratio 0.55 --------- ESTEPHANIA, Vmax 1.65 cm 2 --------- Mitral valve Value Ref 03/05/2024 Peak E 0.66 m/sec --------- Peak A 0.48 m/sec --------- Decel time 244 ms --------- Peak E/A ratio 1.37 --------- Aortic root Value Ref 03/05/2024 Root diam 3.7 cm 2.6 - 4.1 3.3 Conclusions Summary: Left ventricle: The cavity size is normal. Wall thickness is mildlyincreased. Systolic function is normal. The estimated ejection fraction is55-60%. Wall motion is normal; there are no regional wall motionabnormalities. Grade II diastolic dysfunction.Electronically signed by Pa Merrill MD03/11/2024 17:58 at 1758 PATIENT NAME: GREGG RUIZ :58:0 0G.[id number] for patient npluCRPIRAXORFXDTB1232-38-69N70:59:16 HCACL 2024-03-11 15:30:00 [id number] tqBly5xVTMMlTyC9cxHtYcwoO2YaL 8JPQYGpwstepuKFcWxv77ecSPoM1114-84-02T58:30:00 [facility] ([facility])Discharge SummaryREPORT#:[id number] REPORT STATUS: SignedREPORT INITIALIZATION DATE:03/11/24 TIME: 1529 PATIENT: GREGG RUIZ UNIT #: [id number]#: [id number] ROOM/BED: [place] [address]DOB: [birth year] AGE: 83 SEX: M ATTEND: Jl Lopez MDADM AUTHOR: Madonna Ibanez PhysicREPT SERVICE DT/TIME: 03/11/241529* ALL edits or amendments must be made on the electronic/computer document * General InformationDischarge date: 03/11/24Discharge diagnosis:Fluid overloadHospital course:This is an 83-year-old gentleman who recently underwent coronary bypass graft surgery x 4 on 03/01/2024. The patient was discharged home on postop day 5. He did well postoperatively. He reports he continued to do his I-S as instructed at home. He reports yesterday he developed increasing shortness of breath and shortness of breath with lying flat. The patient presented back to the emergency room for further evaluation. Currently patient resting comfortable denies any further chest pains or shortness of breath. The patient was given IV Lasix in the emergency room, Patient has had good response. CXR-reviewed. Bedside echo ordered. Assessment/plan1. Recent CABG2. Volume overload Patient was given Lasix in the ER with good response. Will give additional Lasix and plan to send the patient home with oral Lasix. 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 Patient's questions were answeredD-dimer elevated, CTA shows no pulmonary embolism Will plan to DC home after echo read and discussed with cardiology. Med Rec PCPPCP:PCP: Ally Reyes MD Med RecDischarge meds:Continue taking these medications:PSYLLIUM SEED (METAMUCIL) 3.4 GRAM/5.8 GRAM POWDER 1 PACKET ORAL DAILY. CHOLECALCIFEROL (VITAMIN D3) (VITAMIN D3) (Unknown Strength) CAP Unknown Dose ORAL DAILY. FA/MV/CA/FE/MIN/LYCOPENE/LUTEIN (CENTRUM) 18 MG IRON-400 MCG TAB 1 TABLET ORAL BEDTIME. [EMERGEN C] ORAL DAILY. ZINC GLUCONATE (ZINC GLUCONATE) 30 MG TAB 30 MILLIGRAM ORAL DAILY. sulfaSALAzine (sulfaSALAzine) 500 MG TAB 1,500 ORAL TWICE DAILY. CLOPIDOGREL (PLAVIX) 75 MG TAB 75 MILLIGRAM ORAL DAILY. Days = 30 Qty = 30 FERROUS SULFATE (FEOSOL) 325 MG (65 MG IRON) TAB 325 MILLIGRAM ORAL DAILY. Days = 30 Qty = 30 AMIODARONE (PACERONE) 200 MG TAB 200 MILLIGRAM ORAL TWICE DAILY. Days = 14 Qty = 21 Instructions: Take 200 MG BID x 1 week, take 200 mg QD x 1 week . ATORVASTATIN (LIPITOR) 40 MG TAB 40 MILLIGRAM ORAL 2100 Days = 30 Qty = 30 METOPROLOL TARTRATE (LOPRESSOR) 25 MG TAB 12.5 MILLIGRAM ORAL EVERY 12 HOURS. Days = 30 Qty = 60 ASPIRIN (ASPIRIN) 81 MG TAB.CHEW 81 MILLIGRAM ORAL DAILY. Days = 30 Qty = [address] (PROTONIX) 40 MG TAB.DR 40 MILLIGRAM ORAL DAILY. Days = 30 Qty = 30 Start taking the following new medications:FUROSEMIDE (LASIX) 40 MG TAB 40 MILLIGRAM ORAL DAILY. Days = 3 Qty = 3 No Refills POTASSIUM CHLORIDE ER (KLOR-CON M20) 20 MEQ TAB.SR 20 MILLIEQUIVALENT ORAL DAILY. Days = 3 Qty = 3 No Refills Discharge Instructions PCP)( Discharge to: Home/Self Care Discharge InstructionsAdditional Discharge Routines: Attending Follow-Up)( Activity: Light Duty, No Driving Follow-up AppointmentsAttending Physician: Attending Physician: Jl Lopez MD Attending physician follow up timeframe: In 3 days at 1532 RPT #:[id number] OF REPORTDSDischarge afxjrxc1578-86-08E99:30:00G.[id number] ailable for patient gapxBGOBYMQCDRLMWI1580-43-48K66:38:16 [facility] 2024-03-11 11:47:00 [id number] [id number] kIwHnTqm/yBUim/y9fnUA7mpPv41158-42-17O44:47:00 [facility] ([facility])History Physical - AdultREPORT#:[id number] REPORT STATUS: SignedREPORT INITIALIZATION DATE:03/11/24 TIME: 1146 PATIENT: GREGG RUIZ UNIT #: [id number]#: [id number] ROOM/BED: [place] [address]DOB: [birth year] AGE: 83 SEX: M ATTEND: Jl Lopez [facility] AUTHOR: Madonna Ibanez PhysicREPT SERVICE DT/TIME: 03/11/24 1147* ALL edits or amendments must be made on the electronic/computer document * History of Present Illness HPIChief complaint:SOBRecent CABG HPI:This is an 83-year-old gentleman who recently underwent coronary bypass graft surgery x 4 on 03/01/2024. The patient was discharged home on postop day 5. He did well postoperatively. He reports he continued to do his I-S as instructed at home. He reports yesterday he developed increasing shortness of breath and shortness of breath with lying flat. The patient presented back to the emergency room for further evaluation. Currently patient resting comfortable denies any further chest pains or shortness of breath. The patient was given IV Lasix in the emergency room, Patient has had good response. CXR-reviewed. Bedside echo ordered. HistoryAdditional medical history:ulcerative colitis, CAD, bladder cancer, HTN, HLDAdditional surgical history:CABGAlcohol use: Denies EtOH useDrug use: Denies recreational drugs Medication/Allergy-Vaccine HxAllergies:Coded Allergies:No Known Allergies (02/27/24) Review of SystemsRespiratory:Reports: TOWNSEND (dyspnea on exertion). All systems rev neg: except as marked Physical ExamVS/I OVital Signs: Date Time Temp Pulse Resp B/P B/P Pulse O2 O2 Flow FiO2 Mean Ox Delivery Rate 03/11 0606 95 03/11 0600 75 127/64 91 03/11 0501 83 128/59 85 95 03/11 0430 82 113/69 85 93 03/11 0400 73 109/62 81 94 03/11 0330 73 112/59 79 94 03/11 0300 70 112/57 78 93 03/11 0230 70 118/58 84 93 03/11 0200 77 124/58 84 90 03/11 0100 72 126/61 88 93 03/11 0030 74 122/60 83 94 03/11 0000 71 110/56 76 92 03/10 2330 75 129/61 88 90 03/10 2300 79 111/59 79 92 03/10 2230 75 129/63 90 95 03/10 2200 76 116/58 80 92 03/10 2130 78 137/66 95 94 03/10 2100 83 133/62 88 94 03/10 2030 76 143/65 94 94 03/10 2000 80 136/66 95 89 03/10 1930 72 135/65 93 93 03/10 1900 74 131/60 87 98 03/10 1623 98.2 73 16 118/43 68 95 Room air 24 hour I O ending at 0700: 03/11 0700 03/10 1900 Intake Total Output Total Balance Patient 72.727 kg Weight Weight Estimated Measurement Method PATIENT WEIGHT: Weight (lb): Weight (oz): Weight (kg): 72.727 General: well nourished, well groomed, no acute distress. HEENT: conjunctiva clear, extraocular movement intact, PERRLA, Neck: no, JVD, trachea midline, no, lymphadenopathy, neck supple, normal ROM. Respiratory: Clear to auscultation, no distress. Sternum clean and dry.Cardiovascular: regular rate and rhythm, S1, S2, normal, without murmurs, rubs or gallops, pulses, palpable, symetric. Abdomen: Soft, non tender. No rebound. No guarding Extremities: dry, moves all. Musculoskeletal: Full range of motion, no CVA tenderness, no muscle spasm Skin: warm, dry, no, lesions, rash. Neurologic: Alert and oriented x3. Psychiatric: affect and demeanor normal Diagnosis, Assessment Plan Free Text DxA P NotesFree Text DxA P Notes:This is an 83-year-old gentleman who recently underwent coronary bypass graft surgery x 4 on 03/01/2024. The patient was discharged home on postop day 5. He did well postoperatively. He reports he continued to do his I-S as instructed at home. He reports yesterday he developed increasing shortness of breath and shortness of breath with lying flat. The patient presented back to the emergency room for further evaluation. Currently patient resting comfortable denies any further chest pains or shortness of breath. The patient was given IV Lasix in the emergency room, Patient has had good response. CXR-reviewed. Bedside echo ordered. Assessment/plan1. Recent CABG2. Volume overload Patient was given Lasix in the ER with good response. Will give additional Lasix and plan to send the patient home with oral Lasix. He will be following up with outpatient CV clinic on Monday.Patient will follow-up with his box hinge and lock attacher in 1 week.Patient was seen and examined . Patient's questions were answeredD-dimer elevated, CTA shows no pulmonary embolism Will plan to DC home after echo read and discussed with cardiology. at 1519 at 1131 RPT #:[id number] OF REPORTHPHistory and physical guoentzlvny7484-66-77Q56:47:00G.[id number] AVAvailable for patient ukbpDUVNYHNFPWWULD7193-13-68B40:19:48 [facility] 2024-03-11 07:57:00 [id number] pKAf75ZcnOgzYfMyK/e8OwunFJ4iD QIMg26jOU847kKfUQbmk9aZ2Ir68087-00-72J13:57:00 [facility] ([facility])Cardiology ConsultationREPORT#:[id number] REPORT STATUS: SignedREPORT INITIALIZATION DATE:03/11/24 TIME: 756 PATIENT: GREGG RUIZ UNIT #: [id number]#: [id number] ROOM/BED: [place] [address]DOB: [birth year] AGE: 83 SEX: M ATTEND: Jl Lopez MDADM AUTHOR: Shae Knapp AGACNPREPT SERVICE DT/TIME: 03/11/24756* ALL edits or amendments must be made on the electronic/computer document * See AddendumShae Knapp 03/11/24756:History of Present Illness HPIRequesting Clinician: Dr. Jacobs for consult:[place] complaint:DyspneaPCP:PCP: Ally Reyes MD HPI:83 YO male with MH of CAD s/p CABG x4 on March 01, 2024, discharged home on March 06, 2024. The patient presented to [facility] with shortness of breath. The patient reported that he was doing well after being discharged. Then he had sudden shortness of breath 6-8 hours prior to presentation. BNP at OSH was 2500.He received 2 doses of Lasix 40 mg IVP, one at prior facility and second dose upon arrival here. The patient does not look volume overloaded [place] [address]. Hx Obtained From Patient, Son, Daughter, Prior medical records History - Adult longitudinalPast medical history:Reports: Coronary artery disease, Hypertension. Additional medical history:ulcerative colitis, CAD, bladder cancer, HTN, HLDPast surgical history:Reports: CABG. Additional surgical history:CABG with ALAAAlcohol use: Denies EtOH useDrug use: Denies recreational drugsHome medications:Home Medications:sulfaSALAzine 1,500 PO BID PSYLLIUM SEED (METAMUCIL) 1 PACKET PO DAILY CHOLECALCIFEROL (VITAMIN D3) (VITAMIN D3) (Unknown Dose) PO DAILY FA/MV/CA/FE/MIN/LYCOPENE/LUTEIN (CENTRUM) 1 TAB PO BEDTIME [EMERGEN C] ZINC GLUCONATE 30 MG PO DAILY CLOPIDOGREL (PLAVIX) 75 MG PO DAILY FERROUS SULFATE (FEOSOL) 325 MG PO DAILY AMIODARONE (PACERONE) 200 MG PO BID ATORVASTATIN (LIPITOR) 40 MG PO 2100 METOPROLOL TARTRATE (LOPRESSOR) 12.5 MG PO Q12HR ASPIRIN 81 MG PO DAILY PANTOPRAZOLE DR (PROTONIX) 40 MG PO DAILY@0600 Allergies:Coded Allergies:No Known Allergies (02/27/24) Ambulatory status: Independent Review of SystemsConstitutional:Denies: fatigue, generalized weakness. Respiratory:Reports: SOB. Cardiovascular:Reports: edema. Denies: chest pain, palpitations, parox noctural dyspnea, unstable angina. GI:Denies: abdominal pain, nausea, vomiting. Musculoskeletal:Denies: extremity pain. Neuro:Denies: confusion, dizziness, syncope, weakness. Psych:Denies: agitation, anxiety. Objective GeneralVS/I O:Vital Signs Date Temp Pulse Resp B/P B/P Mean Pulse Ox FiO2 03/10-03/11 36.8 70-83 16 109-143/43-69 68-95 89-98 24 hour I O ending at 0700: 03/11 0700 03/10 1900 Intake Total Output Total Balance Patient 72.727 kg Weight Weight Estimated Measurement Method PATIENT WEIGHT: Weight (lb): Weight (oz): Weight (kg): 72.727 Medications:Active Meds + DC'd Last 24 HrsFurosemide (LASIX 40 mg/4 mL INJECTION) 40 MG X1ED STA IV (DC) Physical ExamGeneral appearance: alert, awake, oriented, no acute distress, pleasant, conversationalNeck: non-tender, no JVDCardiovascular: CV assessment: regular rate and rhythm, BP pulses = bilaterally, normal heart soundsRespiratory: clear to auscultation, no distressAbdomen: soft, non-tender, normal bowel sounds, no distentionGenitourinary: no flank pain, no urinary catheterLower extremity: LE assessment: normal temperature, no calf tenderness, no edemaMusculoskeletal: normal inspectionNeuro/HOUSEKEEPER/CUSTODIAN/LAUNDRY WORKER: alert, oriented X 3, normal speechSkin: dry, intact, normal colorPsychiatry: normal affect, normal judgment/insight ResultsFindings/Data:Laboratory Tests 03/11 1116 Chemistry Sodium (134 - 147 mEq/L) 131 L Potassium (3.4 - 5.0 mEq/L) 3.6 Chloride (100 - 108 mEq/L) 97 L Carbon Dioxide (21 - 33 mEq/l) 25 Anion Gap (0 - 20) 12 BUN (7 - 25 mg/dL) 25 Creatinine (0.6 - 1.3 mg/dL) 1.3 Glomerular Filtr Rate (70 - 80) 55.2 L Glucose (77 - 141 mg/dL) 95 Calcium (8.0 - 10.5 mg/dL) 9.0 Magnesium (1.6 - 2.6 mg/dL) 1.93 Total Bilirubin (0.0 - 1.0 mg/dL) 0.60 AST (8 - 34 IUnit/L) 45 H ALT (10 - 49 IUnit/L) 49 Total Alk Phosphatase (20 - 125 IUnit/L) 136 H Total Protein (6.4 - 8.2 g/dL) 6.7 Albumin (3.4 - 5.0 g/dL) 3.50 Laboratory Tests 03/11 1116 Coagulation INR (0.8 - 1.2) 1.4 H PTT (Jessica) (25.0 - 39.5 Seconds) 29.2 PT Patient/Control Mix (9.3 - 12.9 SECONDS) 15.2 H D-Dimer (<=500 ng/mlFEU) 67359 *H Laboratory Tests 03/11 1116 Hematology WBC (4.5 - 11.0 x10 3/uL) 10.2 RBC (4.00 - 5.60 x10 6/uL) 3.04 L Hgb (12.5 - 16.9 g/dL) 9.7 L Hct (37.5 - 50.7 %) 29.4 L MCV (81.0 - 99.0 fL) 96.7 MCH (27.0 - 33.0 pg) 31.9 MCHC (33.0 - 37.0 g/dL) 33.0 RDW (11.5 - 14.5 %) 13.8 Plt Count (150 - 400 x10 3/uL) 372 MPV (7.0 - 9.0 fL) 10.1 H Neut % (Auto) (56.0 - 77.0 %) 68.2 Lymph % (Auto) (14.0 - 32.0 %) 8.3 L Graves % (Auto) (4.8 - 9.0 %) 10.7 H Eos % (Auto) (0.3 - 3.7 %) 10.4 H Baso % (Auto) (0.0 - 2.0 %) 1.0 Neut # (Auto) (2.0 - 7.6 x10 3/uL) 6.92 Lymph # (Auto) (1.0 - 3.8 x10 3/uL) 0.84 L Graves # (Auto) (0.1 - 0.8 x10 3/uL) 1.09 H Eos # (Auto) (0.0 - 0.2 x10 3/uL) 1.06 H Baso # (Auto) (0.0 - 0.2 x10 3/uL) 0.10 Abs Immat Gran (auto) (0.00 - 0.03 x10 3/uL) 0.14 H Immature Gran % (0.0 - 2.0 %) 1.4 Nucleated RBC % (0 - 0 %) 0.0 Nucleated RBCs # (Man) (0.0 - 0.1 x10 3/uL) 0.00 Laboratory Tests 03/11 1116 Chemistry Magnesium (1.6 - 2.6 mg/dL) 1.93 Radiology Data:Recent Impressions:RADIOLOGY - XR CHEST 2 V 03/11 0909 Report Impression - Status: SIGNED Entered: 03/11/2024 0959 IMPRESSION: The left pneumothorax is not definitely visualized likely resolved. Small bilateral pleural effusions.Impression By: [email or web address] - Kushal Mcrae M.D. Results: labs reviewed, vital signs reviewed, rhythm personally rev'dTelemetry Interpretation:NSR Diagnosis, Assessment PlanPlan discussed with: patient, nurse Free Text DxA P NotesFree Text DxA P Notes:83 YO male with MH of CAD s/p CABG x4 on March 01, 2024, discharged home on March 06, 2024. The patient presented to [facility] with shortness of breath. The patient reported that he was doing well after being discharged. Then he had sudden shortness of breath 6-8 hours prior to presentation. BNP at OSH was 2500.He received 2 doses of Lasix 40 mg IVP, one at prior facility and second dose upon arrival here. The patient does not look volume overloaded [place] [address]. 1. Dyspnea * improved with 2 doses of IV Lasix* Elevated D-dimer, get CTA PE protocol* echocardiogram* if CTA negative for PE will DC home with Lasix 40 mg PO daily x 3days then PRNfor SOB and LE edema 2. CAD s/p CABG x4* resume DAPT, BB, statin Appreciate the referral. MDM by Dr. Merrill. Pa Merrill 03/11/24 1824:Attestations Physician AttestationAgree w/findings plan:I have seen and examined the pt, I Agree with the findings and plan as documented by Shae Knapp. at 1332 at 1824 Addendum 1: 03/11/24 1532 by Shae Knapp CTA no PE, it showed CHF findings and pleural effusion. CT result d/w patient'david Garcia. Ok to DC from cardiology standpoint with Lasix 40 mg daily plus KCL20 mEq daily x 3 days. After that he can take it on as needed basis (SOB and LE edema). Advised to follow-up with Dr. Shields as soon as possible. at 1534 RPT #:[id number] OF REPORTQZJgsxwvcapmbt8416-30-08I00:57:00G.PDOC2 [id number] for patient vaggYFBGMHUSXVNCHW8540-84-21J13:33:20 [facility] 2024-03-10 17:11:00 [id number]/Iraj 2Hr6FHRh4ohnKAQURhVL3DriLRtwU OLyK9ItDex93APT6Rc13c+G3px34844-89-67M80:11:00 [facility]EMERGENCY PROVIDER REPORTREPORT#:[id number] REPORT STATUS: SignedDATE:03/10/24 TIME: 1711 PATIENT: GREGG RUIZ UNIT #: [id number]#: [id number] [address] 83 SEX: M PCP PHYS: Ally Reyes AUTHOR: Haider Grimm MD * ALL edits or amendments must be made on the electronic/computer document * HPI-Dyspnea/Wheezing Free Text HPI NotesFree Text HPI Cijjq91-wqwz-dfy male with past medical history as below transferred to our facility for admission due to CHF exacerbation. Of note the patient was recently admitted to our facility and had a CABG performed. He was discharged on March 06. He then presented to the outside facility for shortness of breath and cough. His symptoms have been present for the past couple days. His BNP was noted to be significantly elevated as well as there being a left-sided pleural effusion/possible consolidation of the left lower lobe. GeneralInitial Greet Date/Time 03/10/24 1652PCPNo local - [employer] Medicare PresentationChief Complaint Shortness of breath Review of Systems Free Text ROS NotesFree Text ROS NotesROS negative except as document in HPI Past Medical History - AdultStated Complaint PNA, FLUID OVERLOADEDAllergiesCoded Allergies:No Known Allergies (02/27/24) Home MedicationsActive ScriptsCLOPIDOGREL (PLAVIX) 75 MG PO DAILY 30 Days #30 TAB Prov: 03/06/24FERROUS SULFATE (FEOSOL) 325 MG PO DAILY 30 Days #30 TAB Prov: 03/06/24AMIODARONE (PACERONE) 200 MG PO BID 14 Days #21 TAB Prov: 03/06/24ATORVASTATIN (LIPITOR) 40 MG PO 2100 30 Days #30 TAB Prov: 03/06/24METOPROLOL TARTRATE (LOPRESSOR) 12.5 MG PO Q12HR 30 Days #60 TAB Prov: 03/06/24ASPIRIN 81 MG PO DAILY 30 Days #30 TAB Prov: 03/06/24PANTOPRAZOLE DR (PROTONIX) 40 MG PO DAILY@0600 30 Days #30 TAB Prov: 03/06/24 Reported MedicationssulfaSALAzine 1,500 PO BID PSYLLIUM SEED (METAMUCIL) 1 PACKET PO DAILY CHOLECALCIFEROL (VITAMIN D3) (VITAMIN D3) (Unknown Dose) PO DAILY FA/MV/CA/FE/MIN/LYCOPENE/LUTEIN (CENTRUM) 1 TAB PO BEDTIME [EMERGEN C] ZINC GLUCONATE 30 MG PO DAILY Discontinued Reported MedicationsLISINOPRIL/HCTZ (ZESTORETIC 20/12.5 MG) 1 TAB PO DAILY ATORVASTATIN (LIPITOR) 10 MG PO DAILY ASPIRIN EC (ECOTRIN) 81 MG PO BEDTIME MAGNESIUM OXIDE 500 MG PO DAILY Calculated Suicide Risk (nurs) No riskAdditional Medical Historyulcerative colitis, CAD, bladder cancer, HTN, HLDAdditional Surgical HistoryCABGAlcohol Use Denies EtOH useDrug Use Denies recreational drugs Physical Exam Vital SignsVital SignsFirst Documented: Result Date Time Pulse Ox 95 05/ 1623 B/P 118/43 05/12 1623 B/P Mean 68 05/12 1623 O2 Delivery Room air 05/ 1623 Temp 36.8 05/12 1623 Pulse 73 05/12 1623 Resp 16 05/ 1623 Last Documented: Result Date Time Pulse Ox 95 05/12 1623 B/P 118/43 05/12 1623 B/P Mean 68 05/12 1623 O2 Delivery Room air 05/12 1623 Temp 36.8 05/12 1623 Pulse 73 05/12 1623 Resp 16 05/12 1623 Review of Vital Signs Reviewed, Vital signs normal Free Text PE NotesFree Text PE NotesGen: Chronically ill appearing, well hydrated, cooperativeHead: Normocephalic, atraumaticEyes: EOMI, normal conjunctivaENT: MMM, airway patentNeck: supple, no LADLungs: somewhat diminished breath sounds at the bilateral bases left worse than right, healing sternotomy incisionHeart: RRR, normal pulsesAbd: S/NT/ND, normal BS, no rebound or guardingExt: FROM BUE/LE, no deformityNeuro: A O x 3, CN II-XII grossly intact Re-Evaluation MDM Free Text MDM NotesFree Text MDM NotesChronically ill-appearing, VSS, afebrile. Outside labs and imaging were reviewed. The patient has evidence of a left-sided pleural effusion as well as significantly elevated BNP. Cardiology was consulted. The patient will be admitted to his cardiothoracic surgeon for further management. Will continue diuresis. ED CourseMedication(s) OrderedMedication(s) Ordered:Electrolytic, Caloric, And Franklin Sig/Luke Start time Last Medication Dose Route Stop Time Status Admin Furosemide 40 MG X1ED STA 03/10 170 DC IV 03/10 1710 ConsultationConsultation Referral/Consult Name Pa Merrill MD Paralegal Legal Secretary Called Dross Skimmer Discussed with financial operations consultant, Will see patient Requested Call Time 1711 Requested Call Date 03/10/24 Call Returned Call returned Call Returned Time 1711 Call Returned Date 03/10/24 Patient Discharge Departure Vital Signs/ConditionVital SignsFirst Documented: Result Date Time Pulse Ox 95 03/10 1623 B/P 118/43 / 1623 B/P Mean 68 03/10 1623 O2 Delivery Room air 03/10 1623 Temp 36.8 03/10 1623 Pulse 73 03/10 1623 Resp 16 03/10 1623 Last Documented: Result Date Time Pulse Ox 95 03/10 1623 B/P 118/43 / 1623 B/P Mean 68 03/10 1623 O2 Delivery Room air 03/10 1623 Temp 36.8 03/10 1623 Pulse 73 03/10 1623 Resp 16 03/10 1623 All vital signs available at the time of this entry have been reviewed. Condition Guarded Clinical ImpressionClinical ImpressionPrimary Impression: CHF exacerbationSecondary Impressions: Hx of CABG Disposition DecisionHospitalize Hosp Physician Name Jl Lopez MD Hosp Physician CT Surgery Request Time 1710 Request Date 03/10/24 )( Accepts Hospitalization Yes )( Accepted Time 1711 )( Accepted Date 03/10/24 Call Information will see patient Discharge/Care PlanCounseled Regarding Diagnosis, Lab results, Imaging studies, Need for admission at 1736RPT #:[id number] OF REPORTEDEmergency department sigwqq2559-49-07W87:11:00G.YXQF33067368-8095BJNrn ilable for patient cndfZPEIRXAXPQLKNZ4569-70-23M38:36:44 [facility] 2024-03-07 08:03:00 [id number]/ 5IR0EyOZnAqY00M9KOihBMnf3mXu4 jeOJRIGCzjMs2SUTsgLLDBEx44X8823-10-09V39:03:[address] [address] PATIENT NAME: GREGG RUIZ ADMIT DATE: 03/01/24ACCOUNT NO: [id number] ROOM NO: 3342 AGE: 83 REPORT TYPE: 360 - QUERY RESPONSE DOCUMENT SEX: M ADMITTING PHYSICIAN:Jl Lopez MD ATTENDING PHYSICIAN:Jl Lopez MD Provider Query QUERY TEXT: Specificity General 360MD Query related questions should be directed to:[facility] Coding Query Help-line Please provide any known [...] AM at 0803 PATIENT NAME: GREGG RUIZ noteG.[id number] for patient spvwCXXCGNXZCVXYFQ8223-97-00C24:04:35 [facility] 2024-03-07 08:03:00 [id number] 6ky/JHF4+j7XeRTV48Tr31tm1LdDR 52ODQHcZySnU6Z3Kkdz5EjtiCCb3442-98-61N37:03:[address] [address] PATIENT NAME: GREGG RUIZ ADMIT DATE: 03/01/24ACCOUNT NO: [id number] [place] [facility] [place] 83 REPORT TYPE: 360 - QUERY RESPONSE DOCUMENT SEX: M ADMITTING PHYSICIAN:Jl Lopez MD ATTENDING PHYSICIAN:Jl Lopez MD Provider Query QUERY TEXT: Condition General 360MD Query related questions should be directed to:[facility] Coding Query Help-line Based on your medical [...] AM at 0803 PATIENT NAME: GREGG RUIZ noteG.[id number] for patient qhcxPIKCNSSLPKAQGT5198-34-43N80:04:35 [facility] 2024-03-06 10:55:00 [id number] 9f2bSY1pcrj9fjVvFG61igMEl1PPh qq318ZWITZBOUlB+e4PUWh4LwhG5704-61-18L75:55:08525 8-[address] [place] [address] PATIENT NAME: GREGG RUIZ ADMIT DATE: 03/01/24ACCOUNT NO: [id number] ROOM NO: 334 AGE: 83 REPORT TYPE: eECHOCARDIOGRAM REPORT SEX: M ADMITTING PHYSICIAN:Jl Lopez MD ATTENDING PHYSICIAN:Jl Lopez MD *[address] [address]Mtaho: [phone]: [phone] Transthoracic Echocardiogram Patient: Nicki Ruiztudy Date: 4BP:URN: [id number]: [id number]#: [id number]: 1940ge: 83Gender: MHeight: 70.9 in / 180 cmWeight: 167.6 lb / 76 kgBMI/BSA: 23.5 kg/m 2 / 1.95 m 2*Ordering Physician: * Madonna Ibanez *Interpreting Physician: * Pa Merrill MD*Movie Theater Usher: * Julito Mccracken, MADDIE, RVS Indications: Post -op, r/o effusion. Study data: Transthoracic echocardiogram, limited study. Procedure: Atransthoracic echocardiogram was performed. Images were obtained using a enrich-in ultrasound machine. Image quality was adequate. Limited [...] at 1055 PATIENT NAME: GREGG RUIZ :55:0 0G.[id number] for patient tsjsEMKJPVSVOZNNEW5044-00-30D44:56:08 [facility] 2024-03-06 09:40:00 [id number] rfv+ckDzFUt2FsbmXmoBmC1zLlsfQ nnUlYzvCr3iBdkBLjZOK+TDwZhA9848-74-46A99:40:00 [facility] ([facility])Discharge SummaryREPORT#:[id number] REPORT STATUS: SignedREPORT INITIALIZATION DATE:03/06/24 TIME: 939 PATIENT: GREGG RUIZ UNIT #: [id number]#: [id number] [address] [birth year] AGE: 83 SEX: M ATTEND: [...] a month. 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 Berger for increasing fatigue, denies chest pain, who had an abnormal stress test. Coronary angiogram was done that showed severe multivessel coronary artery disease. Outpatient echocardiogram was done scdezdz15%, trace mitral regurg, and trace tricuspid regurg.Patient [...] patient and family, allquestions were answered. 03/04/24POD 5TZQq7Maelfcu reports pain controlled. Respiratory: 2 L nasal [...] care discussed. Consultants: anesthesiology, cardiology, cardiovascular surgery, critical/avionics systems engineer, hospitalist Med Rec Med RecDischarge meds:Stop taking [...] best of my knowledge. at 0942 at 0721 [facility] #:[id number] OF REPORTDSDischarge fshtlre2967-19-16Q72:40:00G.ZYMM21440873-1199KJVw ailable for patient tahpSKOAHWGHOTPCFV3466-48-26C12:42:50 [facility] 2024-03-06 09:33:00 [id number] gVEKdJ/Qv7KYRuONNZlCo6eRrm5zl DCPcgx5m5GFLzBjNKmnC3SU54k95204-78-25H39:33:00 [facility] ProgREPORT#:[id number] REPORT STATUS: SignedREPORT INITIALIZATION DATE:03/06/24 TIME: 932 PATIENT: GREGG RUIZ UNIT #: [id number]#: [id number] [address] [birth year] AGE: 83 SEX: M ATTEND: [...] Pulse 79 03/06 0804 Resp 30 03/06 08 Temp 98.6 03/06 0650 O2 Delivery Room [...] full range of motion, painless range of motionNeuro/HOUSEKEEPER/CUSTODIAN/LAUNDRY WORKER: alert, oriented X 3Skin: dry, intactPsychiatry: normal [...] a month. 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 Berger for increasing fatigue, denies chest pain, who had an abnormal stress test. Coronary angiogram was done that showed severe multivessel coronary artery disease. Outpatient echocardiogram was done gudtrfk46%, trace mitral regurg, and trace tricuspid regurg.Patient [...] patient and family, allquestions were answered. 03/04/24POD 7BLFi6Pcqrlqv reports pain controlled. Respiratory: 2 L nasal [...] care discussed. Consultants: anesthesiology, cardiology, cardiovascular surgery, critical/avionics systems engineer, hospitalist at 0936 at 0713 RPT #:[id number] OF REPORTPRProgress ytgq3763-78-20Y40:33:00G.AUYF13764372-2002QDTquif able for patient vxoqCYXGYEVQRVSALW9842-51-68E69:36:26 [facility] 2024-03-06 07:18:00 [id number] xHSb/MFQBAIF7ob1zQES6eMFXPNPK Oosliy4rHVMyAaQkvIWWxtFBm7S0366-06-87D58:18:00 [facility] ([facility])Cardiology Progress NoteREPORT#:[id number] REPORT STATUS: SignedREPORT INITIALIZATION DATE:03/06/24 TIME: 717 PATIENT: GREGG RUIZ UNIT #: [id number]#: [id number] ROOM/BED: 3342-1DOB: [birth year] AGE: 83 SEX: M ATTEND: Jl Lopez AUTHOR: Shae KnappPREPT SERVICE DT/TIME: 03/06/24717* ALL edits or amendments [...] 74 16 118/59 0.0 95 Room air / 0019 37.5 77 16 110/56 0.0 95 Room air / 1955 37.3 82 14 131/60 0.0 97 Room air 03/05 1937 96 Room air 21 / 1325 37.2 77 20 97/50 0.0 98 Room air 03/05 0843 36.6 81 20 125/58 0.0 95 Room air 03/05 0800 96 Room air 03/05 0730 82 34 124/58 84 94 03/05 0727 82 32 122/60 86 PATIENT WEIGHT: Weight (lb): 167Weight (oz): 5.29Weight (kg): 75.900 Medications:Active Meds + DC'd Last 24 HrsTamsulosin HCl (Flomax 0.4 mg) 0.4 MG PC BK PO Ipratropium [place] (ATROVENT) 500 MCG RTQ2H PRN PRN INH [...] calf tenderness, no cyanosis, no edemaMusculoskeletal: normal inspectionNeuro/HOUSEKEEPER/CUSTODIAN/LAUNDRY WORKER: alert, oriented X 3, normal speechSkin: dryPsychiatry: [...] (Auto) (14.0 - 32.0 %) 8.2 L Graves % (Auto) (4.8 - 9.0 %) 12.9 H Eos % (Auto) (0.3 - 3.7 %) 7.0 H Baso % (Auto) (0.0 - 2.0 %) 0.7 Neut # (Auto) (2.0 - 7.6 x10 3/uL) 5.33 Lymph # (Auto) (1.0 - 3.8 x10 3/uL) 0.62 L Graves # (Auto) (0.1 - 0.8 x10 3/uL) [...] FU with Dr. Berger. at 1804 RPT #:[id number] OF REPORTPRProgress stch8083-51-51P42:18:00G.XDYO72265509-5318YOSwdca able for patient gypdHEYQUWTETIWILL5404-12-04D09:05:39 [facility] 2024-03-05 08:29:00 [id number] BeHRpj6wX6ZyaekuFOIRTZUilxb8b iiFcpyDY3YZgUn5ajBx4Q81Pj1E0266-65-66X69:29:00 [facility] ([facility])Cardiology Progress NoteREPORT#:[id number] REPORT STATUS: SignedREPORT INITIALIZATION DATE:03/05/24 TIME: 828 PATIENT: GREGG RUIZ UNIT #: [id number]#: [id number] [address] [birth year] AGE: 83 SEX: M ATTEND: Jl Lopez MDADM AUTHOR: Shae Knapp AGACNPREPT SERVICE DT/TIME: 03/05/24828* ALL edits or amendments must be made on the electronic/computer document * SubjectivePatient reports:No: complaints. Objective GeneralVS/I O:24 hour I O ending at 0700: 03/05 0700 05/ 1900 Intake Total Output Total 475 475 [...] mg) 0.4 MG PC BK PO Ipratropium [place] (ATROVENT) 500 MCG RTQ2H PRN PRN INH [...] HCl (CORDARONE) 200 MG TID PO Ipratropium [place] (ATROVENT) 500 MCG RTQ4H INH (DC) Epinephrine [...] calf tenderness, no cyanosis, no edemaMusculoskeletal: normal inspectionNeuro/HOUSEKEEPER/CUSTODIAN/LAUNDRY WORKER: alert, oriented X 3, normal speechSkin: dryPsychiatry: [...] (Auto) (14.0 - 32.0 %) 6.6 L Graves % (Auto) (4.8 - 9.0 %) 9.9 H Eos % (Auto) (0.3 - 3.7 %) 5.2 H Baso % (Auto) (0.0 - 2.0 %) 0.6 Neut # (Auto) (2.0 - 7.6 x10 3/uL) 6.52 Lymph # (Auto) (1.0 - 3.8 x10 3/uL) 0.56 L Graves # (Auto) (0.1 - 0.8 x10 3/uL) [...] 0.1 x10 3/uL) 0.00 Laboratory Tests 03/05 0105 Chemistry Magnesium (1.6 - 2.6 mg/dL) 1.90 Radiology data:Recent Impressions:ULTRASOUND - DUP VEIN ALYSSIA 03/05 1253 Report Impression - Status: SIGNED Entered: 03/05/2024 4909 IMPRESSION: No evidence of deep venous thrombosis [...] patient is doing well. at 1947 RPT #:[id number] OF REPORTPRProgress cgaf6899-29-18F99:29:00G.OTDW76891217-3964WULhwfb able for patient lbrhWZSCUCMHWOMVZZ0343-36-58F06:47:35 [facility] 2024-03-05 08:16:00 [id number]+bUlbw97 OVM1PXO6O0OLnoWETTjpaMe/Zz5aF N84zl7GM1zGbdr6ajh/KCuXz7x45991-46-37P22:16:00 [facility] ProgREPORT#:[id number] REPORT STATUS: SignedREPORT INITIALIZATION DATE:03/05/24 TIME: 815 PATIENT: GREGG RUIZ UNIT #: [id number]#: [id number] [address] [birth year] AGE: 83 SEX: M ATTEND: Jl Lopez MDA AUTHOR: Madonna Ibanez PhysicREPT SERVICE DT/TIME: 03/05/24 [...] Ox 94 03/05 730 B/P 124/58 03/05 730 B/P Mean 84 03/05 730 Pulse 82 [...] full range of motion, painless range of motionNeuro/HOUSEKEEPER/CUSTODIAN/LAUNDRY WORKER: alert, oriented X 3Skin: dry, intactPsychiatry: normal [...] a month. 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 Berger for increasing fatigue, denies chest pain, who had an abnormal stress test. Coronary angiogram was done that showed severe multivessel coronary artery disease. Outpatient echocardiogram was done umheryx34%, trace mitral regurg, and trace tricuspid regurg.Patient [...] patient and family, allquestions were answered. 03/04/24POD 6ODSm3Kzjzchz reports pain controlled. Respiratory: 2 L nasal [...] sodium 129. Consultants: anesthesiology, cardiology, cardiovascular surgery, critical/avionics systems engineer, hospitalist at 1547 at 0718 RPT #:[id number] OF REPORTPRProgress uqbn8961-34-36E78:16:00G.UQZY33533017-1239REPfabt able for patient mtecUECIUKDAEUWOQN5753-30-90J88:47:47 [facility] 2024-03-04 14:50:00 [id number] vU/7Ex9cbxR3FNp0pJ/Hh+E82xw/a UEXxLwa2e1D8zsbh8BH0rF4/Vys6357-96-01A59:50:00 [facility] TempleCritical Care Progress NoteREPORT#:[id number] REPORT STATUS: SignedREPORT INITIALIZATION DATE:03/04/24 TIME: 145 PATIENT: GREGG RUIZ UNIT #: [id number]#: [id number] [address] [birth year] AGE: 83 SEX: M ATTEND: Jl Lopez MDADM AUTHOR: Frank Dave MDREPT SERVICE DT/TIME: 03/04/24 [...] Mean 89 03/04 06 Pulse 88 03/04 0605 Resp 34 03/04 0605 FiO2 21 / [...] mg) 0.4 MG PC BK PO Ipratropium [place] (ATROVENT) 500 MCG RTQ2H PRN PRN INH [...] HCl (CORDARONE) 200 MG TID PO Ipratropium [place] (ATROVENT) 500 MCG RTQ4H INH (DC) Epinephrine [...] (Auto) (14.0 - 32.0 %) 3.7 L Graves % (Auto) (4.8 - 9.0 %) 6.3 Eos % (Auto) (0.3 - 3.7 %) 0.5 Baso % (Auto) (0.0 - 2.0 %) 0.3 Neut # (Auto) (2.0 - 7.6 x10 3/uL) 11.76 H Lymph # (Auto) (1.0 - 3.8 x10 3/uL) 0.49 L Graves # (Auto) (0.1 - 0.8 x10 3/uL) [...] chest tube in place.Impression By: JamesSP17 - Sankaman Praisoody, M.D. Diagnosis, Assessment PlanFree text A P: [...] excluding procedures Consultants: anesthesiology, cardiology, cardiovascular surgery, critical/avionics systems engineer, hospitalist Quality: Gen [facility] Crit Care Current MedicationsCurrent medication review:I attest that the foregoing medication list in the medical record is true, accurate, and complete to the best of my knowledge. Advanced Care Plan 65 or OlderDiscussed with: patient at 1457 RPT #:[id number] OF REPORTPRProgress hsjq4287-40-70M70:50:00G.JTAG76784754-8297TXGkouq able for patient mnsqMTRHYQJGTDJDQD2237-05-41A35:57:55 [facility] 2024-03-04 07:48:00 [id number] VPT3pBp/31M6venc90SgTqW5Vaf1S YZPdqT+CuPUt1HmQQHswk1evExa6763-47-90P81:48:00 [facility] ([facility])Cardiology Progress NoteREPORT#:[id number] REPORT STATUS: SignedREPORT INITIALIZATION DATE:03/04/24 TIME: 747 PATIENT: GREGG RUIZ UNIT #: [id number]#: [id number] [address] [birth year] AGE: 83 SEX: M ATTEND: Jl Lopez [facility] AUTHOR: Pa Merrill MDREPT SERVICE DT/TIME: 03/04/24 [...] 05/05 1100 81 30 114/63 84 100 05/05 1000 150/61 91 05/ 1000 89 37 131/61 89 100 / 0900 136/52 78 / 0900 83 24 123/65 87 100 03/03 0800 98.1 03/03 0800 140/53 80 / 0800 85 29 125/68 89 PATIENT WEIGHT: Weight (lb): 171Weight (oz): 1.26Weight (kg): 77.600 Medications:Active Meds + DC'd Last 24 HrsIpratropium [place] (ATROVENT) 500 MCG RTQ2H PRN PRN INH [...] HCl (CORDARONE) 200 MG TID PO Ipratropium [place] (ATROVENT) 500 MCG RTQ4H INH Epinephrine (ADRENALIN [...] rate and rhythmRespiratory: clear to auscultation, no distressNeuro/HOUSEKEEPER/CUSTODIAN/LAUNDRY WORKER: alert, oriented X 3, normal speech ResultsFindings/Data:Laboratory Tests 03/04 0313 Chemistry Sodium (134 - 147 mEq/L) 130 [...] (Auto) (14.0 - 32.0 %) 3.7 L Graves % (Auto) (4.8 - 9.0 %) 6.3 Eos % (Auto) (0.3 - 3.7 %) 0.5 Baso % (Auto) (0.0 - 2.0 %) 0.3 Neut # (Auto) (2.0 - 7.6 x10 3/uL) 11.76 H Lymph # (Auto) (1.0 - 3.8 x10 3/uL) 0.49 L Graves # (Auto) (0.1 - 0.8 x10 3/uL) [...] Diagnosis, Assessment PlanConsultants: anesthesiology, cardiology, cardiovascular surgery, critical/avionics systems engineer, hospitalist Free Text DxA P NotesFree Text DxA P Notes:1. CAD multivessel disease: s/p CABG X 4 (JAEGER to LAD, sequential todiagonal, saphenous vein to marginal, saphenous vein to PDA), with amputation ofleft atrial appendage managent per CTS. DAPT, Statin and BB 2. Hypertension: continue Metoprolol 3. HLD: statin at 2302 RPT #:[id number] OF REPORTPRProgress xkie9075-60-72F89:48:00G.ORWZ90455135-7309VQLzyfg able for patient uytgBSEINVBLUNHUOY3462-50-02G34:02:26 [facility] 2024-03-04 07:24:00 [id number] WahjnnrFJA/LqNNo9RTAWyHLADe0o XBj+aeptIg6hSSp+Wfxh3oKbXTs0823-36-50R81:24:00 [facility] ([facility])Cardiothoracic Surgery ProgREPORT#:[id number] REPORT STATUS: SignedREPORT INITIALIZATION DATE:03/04/24 TIME: 723 PATIENT: GREGG RUIZ UNIT #: [id number]#: [id number] ROOM/BED: G3342-1DOB: [birth year] AGE: 83 SEX: M ATTEND: Jl Lopez MDADM AUTHOR: Madonna Ibanez PhysicREPT SERVICE DT/TIME: 03/04/24723* [...] Documented: Result Date Time Pulse Ox 99 03/04 0605 B/P 138/62 03/04 0605 B/P Mean 89 03/04 06 Pulse 88 03/04 06 Resp 34 03/04 605 Temp 97.7 03/04 0400 FiO2 21 03/04 0341 O2 Delivery Room air 03/04 341 O2 Flow Rate 1 03/02 0716 24 [...] full range of motion, painless range of motionNeuro/HOUSEKEEPER/CUSTODIAN/LAUNDRY WORKER: alert, oriented X 3Skin: dry, intactPsychiatry: normal [...] a month. 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 Berger for increasing fatigue, denies chest pain, who had an abnormal stress test. Coronary angiogram was done that showed severe multivessel coronary artery disease. Outpatient echocardiogram was done ulcgwyj59%, trace mitral regurg, and trace tricuspid regurg.Patient [...] patient and family, allquestions were answered. 03/04/24POD 3KFLl7Icnfzre reports pain controlled. Respiratory: 2 L nasal [...] supportive care. Consultants: anesthesiology, cardiology, cardiovascular surgery, critical/avionics systems engineer, hospitalist at 1418 at 0718 RPT #:[id number] OF REPORTPRProgress mexp6290-23-50I15:24:00G.EMAV99154839-6241ZOYcceq able for patient ilspLVRVEVIKRBCOGU9763-89-71I19:18:46 [facility] 2024-03-03 18:21:00 [id number]/Zyz/1a9 8E4Zw2id9hhPDdUym7DpKx1vrFTlb 39uOqDmr6Mc3ZSaBVPcUJ9UVLW10638-07-99V91:21:00 [facility] TempleCritical Care Progress NoteREPORT#:[id number] REPORT STATUS: SignedREPORT INITIALIZATION DATE:03/03/24 TIME: 1820 PATIENT: GREGG RUIZ UNIT #: [id number]#: [id number] [address] [birth year] AGE: 83 SEX: M ATTEND: [...] Documented: Result Date Time Pulse Ox 98 / 1700 B/P 128/70 03/03 1700 B/P Mean 93 05/ 1700 Pulse 85 05/ 1700 Resp 30 / 1700 FiO2 21 / 1542 O2 Delivery Room air 03/03 1542 Temp 36.7 03/03 0800 O2 Flow Rate 1 03/02 0716 24 hour I O ending at 0700: 05/05 0700 03/02 1900 Intake Total 510.00 3173.40 Output Total 950 1425 Balance -440.00 1748.40 Intake, IV 390.00 1873.40 Intake, Oral 120 600 Intake, 700 Packed Cells Output, Chest 70 530 Tube Drainage Output, Urine 880 895 Patient 77.1 kg 73.482 kg Weight Weight Standing scale Measurement Method PATIENT WEIGHT: Weight (lb): 169Weight (oz): 15.62Weight (kg): 77.100 Medications:Active Meds + DC'd Last 24 HrsIpratropium [place] (ATROVENT) 500 MCG RTQ2H PRN PRN INH [...] HCl (CORDARONE) 200 MG TID PO Ipratropium [place] (ATROVENT) 500 MCG RTQ4H INH Epinephrine (ADRENALIN [...] (Auto) (14.0 - 32.0 %) 5.1 L Graves % (Auto) (4.8 - 9.0 %) 9.9 H Eos % (Auto) (0.3 - 3.7 %) 0.2 L Baso % (Auto) (0.0 - 2.0 %) 0.2 Neut # (Auto) (2.0 - 7.6 x10 3/uL) 11.41 H Lymph # (Auto) (1.0 - 3.8 x10 3/uL) 0.70 L Graves # (Auto) (0.1 - 0.8 x10 3/uL) [...] with RVRHistory of hypertension Assessment and Plan: HOUSEKEEPER/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 PT OT as [...] this time DVT prophylaxis Tres Daniel [facility].51 pm Consultants: anesthesiology, cardiology, cardiovascular surgery, critical/avionics systems engineer, hospitalistCode status: full codePlan discussed with: patient, consultants, nurse, interdisc care teamCritical care time: Minutes: 35 Quality: Gen Med Crit Care Current MedicationsCurrent medication review:I attest that the foregoing medication list in the medical record is true, accurate, and complete to the best of my knowledge. Advanced Care Plan 65 or OlderDiscussed with: patient at 1851 RPT #:[id number] OF REPORTPRProgress dhgn5095-77-51V46:21:00G.NAVI38801268-6502ICIstvt able for patient mmofVUTIYIYLFCNSKS6222-45-43S28:52:25 [facility] 2024-03-03 12:32:00 [id number]+8+xp V6JEwBUN1TQniDdhpORGBwGGG4hQ+ 2nefH+U3gwC0iWBCDYg2E5kr/Jv6164-99-59N02:32:00 [facility] TempleCardiology Progress NoteREPORT#:[id number] REPORT STATUS: SignedREPORT INITIALIZATION DATE:03/03/24 TIME: 1232 PATIENT: GREGG RUIZ UNIT #: [id number]#: [id number] [address] [birth year] AGE: 83 SEX: M ATTEND: Jl Lopez AUTHOR: Be Fuller MDREPT SERVICE DT/TIME: 03/03/24 [...] Reviewed.EKG: SR Assessment:-CAD multivessel disease status post IJCW-Ulnwucsdnyux-Hzqohaijuiphu anemia-PMH HLD-PMH ulcerative colitis-Dysphagia Plan and recommendation:CVICUPOD [...] care per primary team at 1233 RPT #:[id number] OF REPORTPRProgress tkof6162-90-17I96:32:00G.KCMI56631192-4623WGGmoqq able for patient csxmSBLYFXYQGGBITD3656-79-75B89:33:17 [facility] 2024-03-03 06:58:00 [id number]/6 Ujejg98fV4SCvJbsUDjMlgtngCskz fToE7RaceWZEh3WsMqvCOhIGt4F3426-96-21Y19:58:00 [facility] TempleCardi[facility] Surgery ProgREPORT#:[id number] REPORT STATUS: SignedREPORT INITIALIZATION DATE:03/03/24 TIME: 657 PATIENT: GREGG RUIZ UNIT #: [id number]#: [id number] [address] [birth year] AGE: 83 SEX: M ATTEND: Jl Lopez [facility] AUTHOR: Priscilla Valdivia APRNREPT SERVICE DT/TIME: [...] Ox 93 03/03 642 B/P 138/54 03/03 642 B/P Mean 79 03/03 642 Pulse 84 03/03 642 Resp 28 03/03 642 Temp 99.0 03/03 0400 FiO2 21 03/03 0351 O2 Delivery Room air 03/03 035 O2 Flow Rate 1 03/02 0716 24 [...] full range of motion, painless range of motionNeuro/HOUSEKEEPER/CUSTODIAN/LAUNDRY WORKER: alert, oriented X 3Skin: dry, intactPsychiatry: normal affect, normal mood Current MedicationsMedications:Active Meds + DC'd Last 24 HrsIpratropium [place] (ATROVENT) 500 MCG RTQ2H PRN PRN INH [...] HCl (CORDARONE) 200 MG TID PO Ipratropium [place] (ATROVENT) 500 MCG RTQ4H INH Epinephrine (ADRENALIN [...] (Auto) (14.0 - 32.0 %) 5.1 L Graves % (Auto) (4.8 - 9.0 %) 9.9 H Eos % (Auto) (0.3 - 3.7 %) 0.2 L Baso % (Auto) (0.0 - 2.0 %) 0.2 Neut # (Auto) (2.0 - 7.6 x10 3/uL) 11.41 H Lymph # (Auto) (1.0 - 3.8 x10 3/uL) 0.70 L Graves # (Auto) (0.1 - 0.8 x10 3/uL) [...] Impressions:RADIOLOGY - XR CHEST 1 V 03/03 07 Report Impression - Status: SIGNED Entered: 03/03/2024 [...] a month. 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 Berger for increasing fatigue, denies chest pain, who had an abnormal stress test. Coronary angiogram was done that showed severe multivessel coronary artery disease. Outpatient echocardiogram was done diysziu46%, trace mitral regurg, and trace tricuspid regurg.Patient [...] MD, nurse at 1249 at 0722 RPT #:[id number] OF REPORTPRProgress wsum2014-75-25D65:58:00G.[id number] able for patient cjnvIWNEZKFTPLTKRV6276-39-70T31:50:03 [facility] 2024-03-03 04:54:00 [id number] d6afgX4vb6wCUdHlP12Wj60r/Ia2V f0kOozF8VF1TYVjBMO4LpbsPjDH1906-02-81C12:54:17165 5-[address]21 [place] [address] PATIENT NAME: GREGG RUIZ ADMIT DATE: 03/01/24ACCOUNT NO: [id number] ROOM NO: [id number] AGE: 83 REPORT TYPE: eELECTROCARDIOGRAM REPORT SEX: M ADMITTING PHYSICIAN:Jl Lopez MD ATTENDING PHYSICIAN:Jl Lopez MD Order:[id number] Reason : Cardiac Surgery Post Op Test [...] MD at 2105 PATIENT NAME: GREGG RUIZ .[id number] AVAvailable for patient xhfbIEAMTUVCURLVVD6495-30-94E55:06:23 [facility] 2024-03-02 21:10:00 [id number] cE+q9aeSB8bXt7evLvqG+cnL3cQuQ +XqMtzYTiu+FuJHADkCo9ZlDBsY1683-27-79J15:10:88173 [address] [place] [address] PATIENT NAME: GREGG RUIZ ADMIT DATE: 03/01/24ACCOUNT NO: [id number] ROOM NO: [id number] AGE: 83 REPORT TYPE: eELECTROCARDIOGRAM REPORT SEX: M ADMITTING PHYSICIAN:Jl Lopez MD ATTENDING PHYSICIAN:Jl Lopez MD Order:[id number] Reason : Cardiac Surgery Post Op Test [...] MD at 2105 PATIENT NAME: GREGG RUIZ .[id number] AVAvailable for patient gydmUFOQMKTJDDYMUU8533-55-98B03:06:14 [facility] 2024-03-02 16:36:00 [id number]+IsAlBx/ KqHDvC4LIUGRtrJjRMuKZ9+8uSgy6 NfjQFLdHxmUnBC0fNJ6dqL30xER6465-60-47C97:36:00 [facility] TempleCritical Care Progress NoteREPORT#:[id number] REPORT STATUS: SignedREPORT INITIALIZATION DATE:03/02/24 TIME: 163 PATIENT: GREGG RUIZ UNIT #: [id number]#: [id number] [address] [birth year] AGE: 83 SEX: M ATTEND: Jl Lopez MDADM AUTHOR: Frank Dave MDREPT SERVICE DT/TIME: 03/02/24 1636* ALL edits or amendments must be made [...] 36.4 03/02 0800 Pulse Ox 97 03/02 719 B/P 137/58 03/02 719 B/P Mean 80 03/02 719 Pulse 77 05/04 0719 Resp 25 03/02 07 O2 Delivery Nasal cannula 03/02 07 O2 Flow Rate 1 03/02 07 FiO2 28 03/02 0359 24 hour I [...] Medications:Active Meds + DC'd Last 24 HrsIpratropium [place] (ATROVENT) 500 MCG RTQ2H PRN PRN INH [...] HCl (CORDARONE) 200 MG TID PO Ipratropium [place] (ATROVENT) 500 MCG RTQ4H INH Epinephrine (ADRENALIN [...] 110 MG/DL) 120 H Laboratory Tests 03/02 409 Coagulation INR (0.8 - 1.2) 1.4 H PT Patient/Control Mix (9.3 - 12.9 SECONDS) 15.7 H Laboratory Tests 03/0208 0409 0250 Hematology WBC (4.5 - 11.0 [...] %) 6.4 L 6.5 L 6.6 L Graves % (Auto) (4.8 - 9.0 %) 9.7 H 8.7 7.9 Eos % (Auto) (0.3 - 3.7 %) 0.0 L 0.0 L 0.0 L Baso % (Auto) (0.0 - 2.0 %) 0.2 0.3 0.2 Neut # (Auto) (2.0 - 7.6 x10 3/uL) 8.38 H 8.57 H 8.11 H Lymph # (Auto) (1.0 - 3.8 x10 3/uL) 0.64 L 0.66 L 0.63 L Graves # (Auto) (0.1 - 0.8 x10 3/uL) [...] Impressions:RADIOLOGY - XR CHEST 1 V 03/02 600 Report Impression - Status: SIGNED Entered: 03/02/2024 0813 IMPRESSION:1. Lines and tubes are seen in suitable position.2. Mild linear left basilar subsegmental atelectasis noted.Impression By: [email or web address] Qiana Stinson M.D. Diagnosis, Assessment PlanFree text A P:Impression:-Status post CABG x 4-Acute respiratory insufficiency following surgery, expected. 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 PT OT as [...] was 33 minutes Consultants: cardiology [facility]: [facility] Current MedicationsCurrent medication review:I attest that the foregoing medication list in the medical record is true, accurate, and complete to the best of my knowledge. at 1707 RPT #:[id number] OF REPORTPRProgress uiov7024-81-28B76:36:00G.AIYS92471950-4027LXHcupl able for patient blbdADNQFRLZLVFGGI3882-80-38M17:07:37 [facility] 2024-03-02 10:46:00 [id number] EoCfEvt9zlksHTwop3ituxTJM25kT BVoust5QmSrnQpkV6DlkgoDMgdT1882-34-54R19:46:00 [facility] ([facility])Cardiology Progress NoteREPORT#:[id number] REPORT STATUS: SignedREPORT INITIALIZATION DATE:03/02/24 TIME: 1045 PATIENT: GREGG RUIZ UNIT #: [id number]#: [id number] ROOM/BED: 2208-1DOB: [birth year] AGE: 83 SEX: M [...] O2 Flow FiO2 Mean Ox Delivery Rate 05/04 0800 97.6 05/04 0719 99.1 77 25 [...] 112/55 77 98 05/04 0130 146/53 78 05/04 0130 99.9 89 20 115/56 79 99 [...] stress testing: Assessment:-CAD multivessel disease status post QREL-Wtkqlqmgbcaj-Zthwbltziodsc anemia-PMH HLD-PMH ulcerative colitis-Dysphagia Plan and recommendation:CVICUPOD [...] PlanConsultants: cardiology at 1240 at 1013 RPT #:[id number] OF REPORTPRProgress idlg2666-47-94C42:46:00G.GLWX69268466-5528PJIefky able for patient wconTJWGORMFYVVHLD5053-06-72F76:41:12 [facility] 2024-03-02 08:25:00 [id number]+ kpq7ul9EQxDYg8LnArclC6i/5UQeO YrnhPsqPVgixacnk3rD/NWrrahM7152-23-52I38:25:00 [facility] TempleCardiothor[facility] Surgery ProgREPORT#:[id number] REPORT STATUS: SignedREPORT INITIALIZATION DATE:03/02/24 TIME: 824 PATIENT: GREGG RUIZ UNIT #: [id number]#: [id number] [address] [birth year] AGE: 83 SEX: M ATTEND: [...] 03/02 400 O2 Flow Rate 1 03/02 0400 FiO2 28 03/02 0359 24 hour I [...] full range of motion, painless range of motionNeuro/HOUSEKEEPER/CUSTODIAN/LAUNDRY WORKER: alert, oriented X 3Skin: dry, intactPsychiatry: normal affect, normal mood Current MedicationsMedications:Active Meds + DC'd Last 24 HrsIpratropium [place] (ATROVENT) 500 MCG RTQ2H PRN PRN INH [...] HCl (CORDARONE) 200 MG TID PO Ipratropium [place] (ATROVENT) 500 MCG RTQ4H INH Albumin Human [...] 1,000 ML .STK-MED ONE IV (DC) Rocuronium [place] (ZEMURON) 0 .STK-MED ONE IV (DC) Sodium [...] Device Cannula simple mask FiO2 (%) 60.0 05/03 05/03 05/03 1028 1004 0937 Blood Gas O2 Saturation [...] Tests 03/02 03/01 03/01 03/01 03/01 0250 6787 2206 2017 1214Chemistry Sodium (134 - 147 mEq/L) [...] Magnesium (1.6 - 2.6 mg/dL) 2.33 03/01 0937 Chemistry POC Creatinine (0.8 - 1.3 mg/dL) 0.8 POC Glucose (mg/dL) (70 - 110 MG/DL) 91 Laboratory Tests 03/02 03/01 03/01 03/01 0409 1207 1104 1030 Coagulation INR (0.8 - 1.2) 1.4 H 1.5 H PTT (Jessica) (25.0 - 39.5 [...] %) 6.4 L 6.5 L 6.6 L Graves % (Auto) (4.8 - 9.0 %) 9.7 H 8.7 7.9 Eos % (Auto) (0.3 - 3.7 %) 0.0 L 0.0 L 0.0 L Baso % (Auto) (0.0 - 2.0 %) 0.2 0.3 0.2 Neut # (Auto) (2.0 - 7.6 x10 3/uL) 8.38 H 8.57 H 8.11 H Lymph # (Auto) (1.0 - 3.8 x10 3/uL) 0.64 L 0.66 L 0.63 L Graves # (Auto) (0.1 - 0.8 x10 3/uL) [...] (Auto) (14.0 - 32.0 %) 6.7 L Graves % (Auto) (4.8 - 9.0 %) 6.1 Eos % (Auto) (0.3 - 3.7 %) 1.8 Baso % (Auto) (0.0 - 2.0 %) 0.2 Neut # (Auto) (2.0 - 7.6 x10 3/uL) 15.12 H Lymph # (Auto) (1.0 - 3.8 x10 3/uL) 1.20 Graves # (Auto) (0.1 - 0.8 x10 3/uL) [...] a month. 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 Berger for increasing fatigue, denies chest pain, who had an abnormal stress test. Coronary angiogram was done that showed severe multivessel coronary artery disease. Outpatient echocardiogram was done nxnafxz77%, trace mitral regurg, and trace tricuspid regurg.Patient [...] Procedure Date/time Status EVAL PT HIGH COMPLEX 17103WB 03/02 1034 Active PT: POCC - PT STAFF ONLY 03/02 1034 Active OT: POCC - OT STAFF ONLY 03/02 1023 Active EVAL OT HIGH COMPLEX 48161WY 03/02 1023 Active Consultants: cardiologyCode status: full codePlan discussed with: patient, collaborating , nurse at 1102 at 1516 RPT #:[id number] OF REPORTPRProgress kbdx9271-72-52Z91:25:00G.YJQN20014110-9590HXJbsfg able for patient qfvaNWOZOZJIOZVWFT7313-96-87J63:02:17 [facility] 2024-03-02 03:17:00 [id number] rMyMYrAmlNlNhAgXWb2RNgHiZToLI Fpeqr1csuis6r4r+rI1nA/hy6Zq7402-50-21L69:17:[address] [place] [address] PATIENT NAME: GREGG RUIZ ADMIT DATE: 03/01/24ACCOUNT NO: [id number] ROOM NO: G.2208 AGE: 83 REPORT TYPE: eELECTROCARDIOGRAM REPORT SEX: M ADMITTING PHYSICIAN:Jl Lopez MD ATTENDING PHYSICIAN:Jl Lopez MD Order:[id number] Reason : Cardiac Surgery Post Op Test [...] MD at 1237 PATIENT NAME: GREGG RUIZ .[id number] AVAvailable for patient bqchZAUMHCDIMFDZGA7041-74-66K39:37:12 [facility] 2024-03-01 13:57:00 [id number] 9ebviHV+LKvZviqro2JBwdU33+Qxb iwBdjvVMwUqATsL+p47jouxVk9X5897-96-47Q60:57:00 [facility] ([facility])Clinical NoteREPORT#:[id number] REPORT STATUS: SignedREPORT INITIALIZATION DATE:03/01/24 TIME: 135 PATIENT: GREGG RUIZ UNIT #: [id number]#: [id number] [address] [birth year] AGE: 83 SEX: M ATTEND: Jl Lopez [facility] AUTHOR: Wade Sheppard MDREPT SERVICE DT/TIME: 03/01/24 [...] Stay (<6 days)* 46% at 1357 RPT #:[id number] OF REPORTCLClinical mfcn0795-78-79G21:57:00G.XAPS37430222-2520BXObcum able for patient gvkqAZPIZPXNMGUDBY3861-33-01C02:58:18 [facility] 2024-03-01 12:36:00 [id number] tmRrwrdKA9zRPoSpLXf67Qb6ETknu bHhYkGX9zqR1GmgvetgQmte5Hg06976-91-06S40:36:00 [facility] ([facility])Critical Care Consult NoteREPORT#:[id number] REPORT STATUS: SignedREPORT INITIALIZATION DATE:03/01/24 TIME: 1236 PATIENT: GREGG RUIZ UNIT #: [id number]#: [id number] ROOM/BED: 2208-1DOB: [birth year] AGE: 83 SEX: M [...] I O ending at 0700: 03/01 0700 02/28 1900 Intake Total Output Total Balance Patient 72.727 kg Weight Weight Stated/Reported Measurement Method Patient Weight and BMI Weight (kg): 72.727 BMI: 22.4 Medications:Active Meds + DC'd Last 24 HrsIpratropium [place] (ATROVENT) 500 MCG RTQ2H PRN PRN INH [...] HCl (CORDARONE) 200 MG TID PO Ipratropium [place] (ATROVENT) 500 MCG RTQ4H INH Albumin Human [...] 1,000 ML .STK-MED ONE IV (DC) Rocuronium [place] (ZEMURON) 0 .STK-MED ONE IV (DC) Sodium Chloride (SODIUM CHLORIDE) 10 ML .STK-MED ONE IV (DC) Cefazolin Sodium (KEFZOL OR ANCEF) 0 .STK-MED ONE .ROUTE (DC) Sodium Chloride (SODIUM CHLORIDE 0.9%) 250 ML .STK-MED ONE IV (DC) Vancomycin HCl (VANCOMYCIN HCL) 0 .STK-MED ONE .ROUTE (DC) Esmolol HCl (BREVIBLOC) 0 .STK-MED ONE IV (DC) Lidocaine HCl (XYLOCAINE) 0 .STK-MED ONE .ROUTE (DC) Rocuronium [place] (ZEMURON) 0 .STK-MED ONE IV (DC) Fentanyl [...] (Auto) (14.0 - 32.0 %) 6.7 L Graves % (Auto) (4.8 - 9.0 %) 6.1 Eos % (Auto) (0.3 - 3.7 %) 1.8 Baso % (Auto) (0.0 - 2.0 %) 0.2 Neut # (Auto) (2.0 - 7.6 x10 3/uL) 15.12 H Lymph # (Auto) (1.0 - 3.8 x10 3/uL) 1.20 Graves # (Auto) (0.1 - 0.8 x10 3/uL) [...] 1636 NASAL: MSSA Surveillance Screen - COMP02/26 163 NASAL: MRSA DNA Surveillance Screen - COMP [...] expected. 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 PT OT as tolerated. Cardiovascular: Not requiring inotropes or vasopressors.-Aspirin, clopidogrel, amiodarone, statin, iuix-zdzwcnv-Tcrs pleural and mediastinal chest tube with minimal [...] excluding procedures was 35 minutes Quality: Gen Med Crit Care Current MedicationsCurrent medication review:I attest that the foregoing medication list in the medical record is true, accurate, and complete to the best of my knowledge. Advanced Care Plan 65 or OlderDiscussed with: patient at 1254 RPT #:[id number] OF REPORTKLFjmnwwnndtye8750-35-48F79:36:00G.PDOC2 8476761-8813QMDvgosaxjy for patient zhuqLMDDRVAYUHIICE2531-50-28D37:55:07 [facility] 2024-03-01 11:44:00 [id number] O87Z5fB8MFqSTYiHmKsYgv2hthHN0 p1PcJIkuIPPfWEELbfqnF6gAN8+3346-18-32I89:44:00 [facility] ([facility])Brief Op NoteREPORT#:[id number] REPORT STATUS: SignedREPORT INITIALIZATION DATE:03/01/24 TIME: 114 PATIENT: GREGG RUIZ UNIT #: [id number]#: [id number] [address] [birth year] AGE: 83 SEX: M ATTEND: [...] ml's: 100 ccSpecimens removed/altered: CHRIS at 0730 [facility] #:[id number] OF REPORTOPOperative ofbamj4058-75-07I15:44:00G.EKJO08001193-0676MWIka ilable for patient gfxhWICRFCUQXTWSOD8467-94-61Y89:30:25 [facility] 2024-03-01 11:20:00 [id number] ilXUtj/B3oLyn78rH6Tu47y6PfCD6 ZuKGGAqGxc36EpCxoPxqEys3sSe4813-90-90Z51:20:10923 3-[address] [place] [address] PATIENT NAME: GREGG RUIZ ADMIT DATE: 03/01/24ACCOUNT NO: [id number] ROOM NO: G.3342 AGE: 83 REPORT TYPE: [...] vein).4. Posterior pericardiotomy. SURGEON: Shey Lopez M.D. CD TECHNICIAN: Jose Clemente. ANESTHESIOLOGIST: Dr. Rees. ANESTHESIA: General [...] in size. Arteriotomy was performed with a Todd blade andextended with Yi scissors. A segment [...] mm in size. Arteriotomywas performed with a Todd blade and extended with Yi scissors. A segmentof previously harvested reverse saphenous vein was anastomosed in whk-qr-rxisuwqcnr using 7-0 Prolene suture. Vein graft to [...] mm insize. Arteriotomy was performed with a Todd blade and extended with Pottsscissors. JAEGER was sized. Arteriotomy was performed in JAEGER at appropriate siteand a mbfz-qz-sptb anastomosis created between JAEGER and diagonal using running8-0 Prolene suture. Finally, LAD was explored. This was a good quality arterymeasuring 2 mm in size. Arteriotomy was performed with a Todd blade andextended with Yi scissors. JAEGER was anastomosed in an end-to-side mannerusing running 8-0 Prolene suture. JAEGER pedicle was tacked to the epicardiumusing two interrupted 6-0 Prolene sutures. A slit was made in the pericardiumon the left aspect, so as to accommodate the JAEGER. Careful de-aeration wasperformed and the crossclamp was released. One ventricular wire was placed. O74-Foyzen chest tube was placed in mediastinum and [...] RUIZ Date Dictated: 03/01/2024 11:20:15Date Transcribed: 03/01/2024 11:57:11AC/Madib #: [id number] ID: [id number] and Edited by Jl Lopez MD On 03/07/24 7:58:45 AM at 0801 PATIENT NAME: GREGG RUIZ ortpma1736-92-52I86:57:00G.HXD50044526-5055DXJywk lable for patient pgqbUOURENYZOLQCXN6760-51-61N77:02:04 [facility] 2024-03-01 07:34:00 [id number]+ YU4DzfwfyyJTX1T/AgUajhqE1utFF RFhiBM5+Se9NEJJUd/T+q8ymzkn4232-85-36G17:34:00 [facility] ([facility])History Physical - AdultREPORT#:[id number] REPORT STATUS: SignedREPORT INITIALIZATION DATE:03/01/24 TIME: 733 PATIENT: GREGG RUIZ UNIT #: [id number]#: [id number] [address] [birth year] AGE: 83 SEX: M ATTEND: [...] a month. 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 Berger for increasing fatigue, denies chest pain, who had an abnormal stress test. Coronary angiogram was done that showed severe multivessel coronary artery disease. Outpatient echocardiogram was done urxkrhf20%, trace mitral regurg, and trace tricuspid regurg.Patient [...] 1 TAB PO BEDTIME 02/27/24 03/01/24FA/MV/CA/FE/MIN/LYCOPENE/LUTEIN (CENTRUM) 1658 0553Strength: 18 MG IRON-400MCG TAB[EMERGEN C] 02/27/24 [...] Dose Route Stop Time Status Admin Rocuronium [place] 0 .STK-MED ONE 03/01 640 DC (ZEMURON) [...] (BREVIBLOC) IV Lidocaine HCl 0 .STK-MED ONE 03/01 641 DC (XYLOCAINE) .ROUTE Papaverine HCl 0 .ST[address]-[facility] 03/01 639 DC (PAPAVERINE HCL) IV Nitroglycerin/ 250 ML .[facility] ONE 03/01 628 DC Dextrose IV (NITROGLYCERIN 50,000MCG/D5W 250ML) Lidocaine HCl 0 .[facility] ONE 03/01 554 DC (XYLOCAINE IV) IV Metoprolol Tartrate 6.25 MG ONCE ONE 03/01 500 DC 03/01 (LOPRESSOR) PO 03/01 050 0556 [...] Stop Time Status Admin Fentanyl Citrate 0 .[facility] 03/01 639 DC (SUBLIMAZE) IV Midazolam HCl 0 .[facility] 03/01 639 DC (VERSED) .ROUTE Propofol 20 ML .[facility] 03/01 639 DC (DIPRIVAN 200MG/20ML IV INJECTION) Magnesium Sulfate 0 .[facility] 03/01 627 DC (MAGNESIUM SULFATE) .ROUTE Magnesium Sulfate 0 .[facility] 03/01 554 DC (MAGNESIUM SULFATE) IV Acetaminophen 0 .[facility] 03/01 544 DC 03/01 (TYLENOL EXTRA PO 0557 STRENGTH) Gabapentin 0 .[facility] 03/01 544 DC 03/01 (NEURONTIN) PO 0556 Acetaminophen 1,000 MG STAT STA 03/01 543 DC (TYLENOL EXTRA PO 03/01 544 STRENGTH) Gabapentin 200 MG STAT STA 03/01 0542 DC (NEURONTIN) PO 03/01 543 Electrolytic, Caloric, And Franklin Sig/Luke Start time Last Medication Dose Route Stop Time Status Admin Sodium Chloride 250 ML .[facility] ONE 03/01 703 DC (SODIUM CHLORIDE IV 0.9%) Calcium Chloride 0 .[facility] 03/01 628 DC (CALCIUM CHLORIDE) IV Mannitol 500 ML .[facility] 03/01 555 DC (Mannitol 20%) IV Sodium [...] Route Stop Time Status Admin Ropivacaine 0 .STK-MED ONE 03/01 628 DC (NAROPIN 0.5% 150 [...] I O ending at 0700: 03/01 0700 05/02 1900 Intake Total Output Total Balance Patient [...] of motionMusculoskeletal: full range of motion, normal inspectionNeuro/HOUSEKEEPER/CUSTODIAN/LAUNDRY WORKER: alert, oriented X 3Skin: dry, intactPsychiatry: normal [...] a month. 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 Berger for increasing fatigue, denies chest [...] with: patient at 0917 at 0731 RPT #:[id number] OF REPORTHPHistory and physical mnuljmuabcn5050-17-58R83:34:00G.ESVH61530672-9331 AVAvailable for patient uinvDZYXQFVPWSQWYB1265-11-79V12:17:28 [facility] 2024-02-27 16:06:00 [id number] d3C4Vr4T0JyTT3KGulq8Cco4k24OL 4S26ajep+4dmRczyOEa4OhPVEMq6454-87-91X84:06:85932 1-0088 [place] [address] PATIENT NAME: GREGG RUIZ ADMIT DATE: ACCOUNT NO: [id number] ROOM NO: AGE: 83 REPORT TYPE: eELECTROCARDIOGRAM REPORT SEX: M ADMITTING PHYSICIAN:Jl Lopez MD ATTENDING PHYSICIAN:Jl Lopez MD Order:[id number] Reason : PRE OP Test Date/Time Stamp:MonFeb [...] MD at 1228 PATIENT NAME: GREGG RUIZ .[id number] AVAvailable for patient gmdkLIMUWZKBTWHBLK9898-52-67H54:28:42 [facility]
[2024-03-25] MEDS ORDERED: LIDOCAINE 2% W/EPI 1:200,000 MPF 20 ML VIAL IM ONE (09:09)
--- NOTE | 2024-03-25 09:54 | ER ---
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 No pain. Coronavirus screen: Client denies travel out of the [place] in the last 14 days. At this time, the client does not indicate any symptoms associated with coronavirus-19. Ebola Screen: Patient denies travel to an Ebola-affected area in the 21 days before illness onset. Initial Sepsis Screen: Does the patient meet any 2 criteria? No. Patient's initial sepsis screen is negative. Does the patient have a suspected source of infection? No. Patient's initial sepsis screen is negative. Risk Assessment: Do you want to hurt yourself or someone else? Patient reports no desire to harm self or others. Onset of symptoms was March 25, 2024. 09:11 Method Of Arrival: Ambulatory ll1 09:11 Acuity: CHANDLER 2 ll1 Triage Assessment: 09:12 General: Appears uncomfortable, Behavior is calm, cooperative, appropriate for age. ll1 Pain: Denies pain. Derm: Reports mouth incision popped and bleeding. Historical: - Allergies: 09:10 No Known Allergies; ll1 - PMHx: 09:10 Hypertension; A-fib episode; ulcerative colitis; mouth biopsy (CABG); ll1 - PSHx: 09:10 CABG; ll1 - Immunization history:: Adult Immunizations up to date. - Infectious Disease History:: Denies. - Social history:: Smoking status: Patient denies any tobacco usage or history of. - Family history:: not pertinent. Screenin:[address] [facility] ED Fall Risk Assessment (Adult) History of falling in the last 3 months, hb including since admission No falls in past 3 months (0 pts) Confusion or Disorientation No (0 pts) Intoxicated or Sedated No (0 pts) Impaired Gait No (0 pts) Mobility Assist Device Used No (0 pt) Altered Elimination No (0 pt) Score/Fall Risk Level 0 - 2 = Low Risk Oriented to surroundings, Maintained a safe environment, Educated pt \T\ family on fall prevention, incl call for assistance when getting out of bed. 09:[address] [facility] ED Fall Risk Assessment (Adult) History of falling in the last 3 months, ko1 including since admission No falls in past 3 months (0 pts) Confusion or Disorientation No (0 pts) Intoxicated or Sedated No (0 pts) Impaired Gait No (0 pts) Mobility Assist Device Used No (0 pt) Altered Elimination No (0 pt) Score/Fall Risk Level 0 - 2 = Low Risk Oriented to surroundings, Maintained a safe environment, Educated pt \T\ family on fall prevention, incl call for assistance when getting out of bed, Assessed \T\ reinforced patient's understanding of fall precautions, Provided non-skid footwear, Hourly rounding (assess needs \T\ fall precautionary measures) done. Abuse screen: Denies threats or abuse. Denies injuries from another. Nutritional screening: No deficits noted. Tuberculosis screening: No symptoms or risk factors identified. Assessment: 09:22 General: Appears in no apparent distress. Behavior is calm, cooperative. Pain: Denies hb pain. Neuro: Level of Consciousness is awake, alert, obeys commands, Oriented to person, place, time, situation. Cardiovascular: Patient's skin is warm and dry. Rhythm is regular. Respiratory: Respiratory effort is even, unlabored, Respiratory pattern is regular, symmetrical. Derm: surgical wound to right lower lip, bleeding controlled by pressure. Vital Signs: 09:11 BP 147 / 80; Pulse 91; Resp 17; Temp 97.8; Pulse Ox 100% on R/A; Weight 69.4 kg; Height ll1 5 ft. 11 in. ; Pain 0/10; 09:23 BP 142 / 66; Pulse 78; Resp 16; Pulse Ox 99% ; ko1 09:11 Body Mass Index 21.34 (69.40 kg, 180.34 cm) ll1 09:11 Pain Scale: Adult ll1 ED Course: 08:56 Patient arrived in ED. ra3 08:58 Arm band placed on Patient placed in an exam room, on a stretcher. ll1 09:03 Nick Galeano MD is Attending Physician. rt 09:12 Triage completed. ll1 09:20 Nayana Samayoa, FÁTIMA is Primary Nurse. ko1 09:22 Assist provider with laceration repair on mouth that was 2.5 cm. or less using sutures. hb Set up tray. Performed by Nick Galeano MD Dressed with none Patient tolerated well. 09:23 Patient has correct armband on for positive identification. Bed in low position. Call hb light in reach. Provided Education on: procedure, bleeding precautions. 09:23 Patient has correct armband on for positive identification. Bed in low position. Call ko1 light in reach. Provided Education on: procedures. Pulse ox on. NIBP on. Door closed. Noise minimized. Lights dimmed. Warm blanket given. Pillow given. 10:06 Patient did not have IV access during this emergency room visit. mariam Administered Medications: :21 Drug: Lidocaine-Epinephrine Infiltration -2 % (1:100,000) 10 ml Infiltration once; to ko1 bedside {Note: given by Dr Galeano.} Route: Infiltration; Medication: :23 VIS not applicable for this client. ko1 Outcome: 09:53 Discharge ordered by . rt 10:09 Discharged to home ambulatory, with family, mariam 10: Condition: stable 10:09 Discharge instructions given to patient, Instructed on discharge instructions, follow up and referral plans. Demonstrated understanding of instructions, follow-up care, 10:09 Patient left the ED. mariam Signatures: Adelita Bundy RN RN hb Lewis, Lynsay RN RN keon1 Nayana Samayoa RN RN ko1 Breneman, Mary Beth, RN RN Nick Lagunas MD MD rt Yessenia Pearson ra3
--- NOTE | 2024-03-25 10:09 | EDPHYS ---
Physician Documentation [facility] Name: Ayad Ruiz Age: 83 yrs Sex: Male : 1940 Arrival Date: 03/25/2024 Time: 08:54 Bed 4 Private MD: ED Physician Nick Galeano HPI: 03/25 09:58 This 83 yrs old Male presents to ER via Ambulatory with complaints of Post Biopsy: rt Mouth incision opened. 09:58 Patient presents to the ED with bleeding to the lower lip. Last Monday, patient had a rt biopsy with cauterization on the lower lip. Patient states that today, he had acute episode of bleeding which he believes arterial. Denies other acute complaints at this time, symptoms are moderate in severity, no other aggravating or alleviating factors.. Historical: - Allergies: 09:10 No Known Allergies; ll1 - PMHx: 09:10 Hypertension; A-fib episode; ulcerative colitis; mouth biopsy (CABG); ll1 - PSHx: 09:10 CABG; ll1 - Immunization history:: Adult Immunizations up to date. - Infectious Disease History:: Denies. - Social history:: Smoking status: Patient denies any tobacco usage or history of. - Family history:: not pertinent. ROS: 09:58 Constitutional: Negative for fever, chills, and weight loss, Cardiovascular: Negative rt for chest pain, palpitations, and edema, Respiratory: Negative for shortness of breath, cough, wheezing, and pleuritic chest pain, Abdomen/GI: Negative for abdominal pain, nausea, vomiting, diarrhea, and constipation, MS/Extremity: Negative for injury and deformity, Skin: Negative for injury, rash, and discoloration, Neuro: Negative for headache, weakness, numbness, tingling, and seizure, :58 ENT: Positive for Biopsy wound, bleeding, Exam: : Constitutional: This is a well developed, well nourished patient who is awake, alert, rt and in no acute distress. Head/Face: Normocephalic, atraumatic. Chest/axilla: Normal chest wall appearance and motion. Nontender with no deformity. No lesions are appreciated. Cardiovascular: Regular rate and rhythm with a normal S1 and S2. No gallops, murmurs, or rubs. Normal PMI, no JVD. No pulse deficits. Respiratory: Lungs have equal breath sounds bilaterally, clear to auscultation and percussion. No rales, rhonchi or wheezes noted. No increased work of breathing, no retractions or nasal flaring. Abdomen/GI: Soft, non-tender, with normal bowel sounds. No distension or tympany. No guarding or rebound. No evidence of tenderness throughout. Skin: Warm, dry with normal turgor. Normal color with no rashes, no lesions, and no evidence of cellulitis. MS/ Extremity: Pulses equal, no cyanosis. Neurovascular intact. Full, normal range of motion. Neuro: Awake and alert, GCS 15, oriented to person, place, time, and situation. Cranial nerves II-XII grossly intact. Motor strength 5/5 in all extremities. Sensory grossly intact. Cerebellar exam normal. Normal gait. 09:58 ENT: Eschar noted to the lower lip, arterial bleeding noted from wound.. Vital Signs: 09:11 BP 147 / 80; Pulse 91; Resp 17; Temp 97.8; Pulse Ox 100% on R/A; Weight 69.4 kg; Height ll1 5 ft. 11 in. ; Pain 0/10; 09:23 BP 142 / 66; Pulse 78; Resp 16; Pulse Ox 99% ; ko1 09:11 Body Mass Index 21.34 (69.40 kg, 180.34 cm) ll1 09:11 Pain Scale: Adult ll1 Laceration: 09:58 Wound Repair of 0.2cm ( 0.1in ) subcutaneous laceration to lower lip. Arterial bleeding rt noted.. Distal neuro/vascular/tendon intact. Anesthesia: Local anesthetic administered with 1 mls of 2% lidocaine with epinephrine. Skin closed with 1 4-0 Chromic Gut using [id number] suture. Patient tolerated well. MDM: 09:03 Patient medically screened. rt 09:58 Differential Diagnosis Labial artery bleed. Data reviewed:. Test considered but Not rt performed: Other Details Stable vital signs, no symptoms to suggest an acute blood loss anemia, labs not indicated. Care significantly affected by the following chronic conditions: Hypertension. Counseling: I had a detailed discussion with the patient and/or guardian regarding the historical points, exam findings, and any diagnostic results supporting the discharge/admit diagnosis, the need for outpatient follow up, to return to the emergency department if symptoms worsen or persist or if there are any questions or concerns that arise at home. ED course: Good hemostasis obtained with 1 suture, patient observed for period of time following suture, patient did not rebleed. Patient stable for discharge with outpatient follow-up, return precautions for rebleeding discussed with patient.. Administered Medications: 09:21 Drug: Lidocaine-Epinephrine Infiltration -2 % (1:100,000) 10 ml Infiltration once; to ko1 bedside {Note: given by Dr Galeano.} Route: Infiltration; Disposition Summary: 03/25/24 09:53 Discharge Ordered Notes: Location: Home rt Problem: new rt Symptoms: have improved rt Condition: Stable rt Diagnosis - Labial artery bleed rt Followup: rt - With: Private Physician - When: 2 - 3 days - Reason: Discharge Instructions: - Discharge Summary Sheet rt - Laceration Care, Adult rt Forms: - Medication Reconciliation Form rt - Antibiotic Education rt - Prescription Opioid Use rt - Patient Portal Instructions rt - Leadership Thank You Letter rt Signatures: Martha Whitt RN RN ll1 Nayana Samayoa RN RN ko1 Nick Galeano MD MD rt
[2024-03-25 10:34] VITALS: BP 142/66; TEMP 97.8; O2SAT 99
== END 2024-03-25 10:09 | disposition home or self-care (01) ==
LOC: ER 08:54
PROC: 0HQ1XZZ Repair Face Skin, External Approach (ICD-10-PCS; principal; 2024-03-25)
DX: S01.511A Laceration without foreign body of lip, initial encounter (principal)
CPT/HCPCS: 99284

== ENCOUNTER 2025-08-25 07:26 | Day surgery (SDC) | payer OTHER ==
[2025-08-25] MEDS: Ringers Lactate 1,000 ML IV ONE ×2 (08:05→11:04)
[2025-08-25] MEDS ORDERED: FENTANYL CITR 100 MCG/2 ML ONE (08:23)
[2025-08-25] MEDS ORDERED: LIDOCAINE 2% MPF 5 ML VIAL ONE (08:23)
[2025-08-25] MEDS ORDERED: ONDANSETRON 4 MG/2 ML VIAL ONE (08:23)
[2025-08-25] MEDS ORDERED: NS 0.9% VIAL 20 ML ONE (08:24)
[2025-08-25] MEDS ORDERED: HEPARIN 5000 UNIT/ML 1 ML VIAL ONE (08:24)
[2025-08-25] MEDS: CEFAZOLIN SODIUM 2 GM/VIAL ONE (09:09)
[2025-08-25] MEDS ORDERED: Phenylephrine HCl 10 MG/ML 1 ML VIAL ONE (10:23)
[2025-08-25] MEDS ORDERED: NS 0.9% VIAL 10 ML ONE (10:23)
[2025-08-25] MEDS ORDERED: Mastisol Adhesive Liq ONE (10:29)
--- NOTE | 2025-08-25 11:10 | RAD REPORT ---
Exam: Fluoroscopy less than one hour CLINICAL HISTORY: Catheter placement FINDINGS: Fluoroscopy time 0.4 minutes. 16 fluoroscopic spot images obtained. Please refer to the surgeons report for additional findings
--- NOTE | 2025-08-25 11:17 | P.OP ---
Date of Service: 08/25/25 Preop diagnosis: Bladder cancer Postop diagnosis: Same Procedure performed: Placement of right IJ vascular access device with utilizat ion of Doppler and fluoroscopy Surgeon: Filiberto Cabrera MD Research Physician: None Estimated blood loss: Minimal Specimen: None Findings: Normal anatomy Anesthesia: General Complications: None Drains: None Fluids and blood products: Nonapplicable Disposition: Recovery room Operative note: Patient brought to the OR and placed in the supine position. General anesthesia began. Patient prepped and draped in the usual sterile fashion. A Doppler device used to isolate the right internal jugular vein. 18- gauge needle used to access the vein and guidewire passed. Position confirmed with fluoroscopy. Marcaine 0.5% infiltrated locally for postop pain control. 3 cm incision created on the right anterior chest. A pocket created. Tunneling device used to tunnel the catheter between the 2 wounds. Salinger technique used. Tip of the catheter placed at the right atrial/SVC junction under fluoroscopy. Catheter cut to appropriate size and attached to the Port-A-Cath device. Port-A-Cath device attached to the subcutaneous tissue with 3-0 Vicryl. The Port-A-Cath device flushed with heparin and packed with concentrated heparin. Good blood flow obtained prior to heparin utilization. 3-0 chromic used to approximate subcutaneous tissue and close skin. Sterile dressing applied. Patient awakened and taken to recovery room in good general condition. Chest x-ray has been ordered CC: Dr. Paiz's office
--- NOTE | 2025-08-25 11:53 | RAD REPORT ---
Procedure: Chest Single View HISTORY: Central venous line placement FINDINGS: Central venous line has been placed with its tip in the SVC. No pneumothorax. On the frontal view there is a questionable kink within the catheter at the lower level of the neck.
--- NOTE | 2025-08-25 12:21 | RAD REPORT ---
Exam:C Spine Single View CLINICAL INDICATION: Rule out change in catheter Findings: Lateral view demonstrates that a kink is not present within the central venous catheter.
[2025-08-25] MEDS: HYDROCODONE/APAP 7.5/325 MG TAB PO PRN (12:30)
[2025-08-25] MEDS ORDERED: HYDROCODONE/APAP 7.5/325 MG TAB ONE (12:30)
[2025-08-25] MEDS ORDERED: GLYCOPYRROLATE 0.2 MG/ML SYR ONE (13:27)
[2025-08-25] MEDS ORDERED: NEOSTIGMINE 1 MG/ML -10 ML VIAL ONE (13:27)
[2025-08-25 13:40] VITALS: BP 139/59; TEMP 97.7; O2SAT 100
== END 2025-08-25 13:12 | disposition home or self-care (01) ==
LOC: OR 07:26
PROVIDERS: ATTEND Surgery
PROC: 0JH60WZ Insertion of Totally Implantable Vascular Access Device into Chest Subcutaneous Tissue and Fascia, Open Approach (ICD-10-PCS; principal; 2025-08-25 09:45)
DX: C67.0 Malignant neoplasm of trigone of bladder (principal)
CPT/HCPCS: 71045; 72020; 36561; J1644 ×2; A4216 ×2; J2704; J2710; J2371; J2003; J3010; J2405; J7120 ×2; C1788; 76000